=== PATIENT | male | born 1960 | race African-American/Black ===

== ENCOUNTER 2019-02-07 11:37 | Inpatient (IN) | payer OTHER, SELFPAY ==
[2019-02-07 13:22] LABS: #Basophils 0.1 thou/uL (0.0-0.2); #Eosinphils 0.3 thou/uL (0.0-0.7); #Lymphocytes 1.8 thou/uL (1.20-3.40); #Monocytes 0.6 thou/uL (0.11-0.59); #Neutrophils 3.8 thou/uL (1.40-6.50); %Eosinophils 4.2 % (0.0-10.0); %Lymphocytes 26.8 % (21.0-51.0); %Monocytes 9.7 % (0.0-10.0); %Neutrophils 58.4 % (42.0-75.0); Hemoglobin 11.1 g/dL (14.0-18.0); Mean Corpuscular Hemoglobin 25.7 pg (27.0-31.0); Mean Corpuscular Volume 82.8 fL (78.0-98.0); Mean Platelet Volume 7.7 fL (7.4-10.4); Platelet Count 271 thou/uL (130-400); RBC Distribution Width 13.9 % (11.5-14.5); Red Blood Cell (RBC) Count 4.31 mill/uL (4.70-6.10); White Blood Cell (WBC) Count 6.5 thou/uL (4.8-10.8)
--- NOTE | 2019-02-07 13:39 | RAD ---
LEFT ANKLE 3 VIEWS: HISTORY: Gangrenous left ankle bone, failed oral antibiotics. FINDINGS: Comparison is made with the exam of 01/14/2019. The ankle mortise is maintained. The well-corticated ossific density adjacent to the medial malleolu s is again seen. Mild degenerative changes in the ankle joint are redemonstrated. No acute fracture or dislocation or bony destruction is seen. Vascular calcifications are noted. There is soft tissu e swelling. There is soft tissue air in the medial aspect of the ankle. Findings are suspicious for soft tissue infection. If there is high clinical suspicion for osteomyelitis, further evaluation with MRI would be helpful. POS: OFF
[2019-02-07 13:54] LABS: ALT (SGPT) 26 U/L (8-55); AST (SGOT) 25 U/L (5-34); Albumin 3.3 g/dL (3.5-5.0); Alkaline Phosphatase 172 U/L (40-110); Anion Gap 15 mmol/L (10-20); BUN (Urea Nitrogen) 28 mg/dL (8.4-25.7); Bilirubin, Total 0.5 mg/dL (0.2-1.2); Calc. Creatinine Clearance 0 mL/min (70-130); Calcium 9.3 mg/dL (7.8-10.44); Carbon Dioxide 27 mmol/L (22-29); Chloride 97 mmol/L (98-107); Estimated GFR-MDRD 38; Globulin 4.9 g/dL (2.4-3.5); Glucose 134 mg/dL (70-105); Potassium 4.5 mmol/L (3.5-5.1); Protein, Total 8.2 g/dL (6.0-8.3); Sodium 134 mmol/L (136-145)
[2019-02-07] MEDS ORDERED: Piperacillin/Tazobactam 4.5 GM VIAL ONE ×2 (15:00→15:01)
[2019-02-07] MEDS ORDERED: Vancomycin HCl 500 MG VIAL ONE (16:03)
[2019-02-07] MEDS ORDERED: Triple Antibiotic Oint 1 GM Packet ONE (16:21)
[2019-02-07] MEDS ORDERED: Ondansetron ODT 4 MG TAB PO PRN (19:05)
[2019-02-07] MEDS ORDERED: Acetaminophen 650 MG Suppository PR PRN (19:05)
[2019-02-07] MEDS ORDERED: Acetaminophen 325 MG TAB PO PRN (19:05)
[2019-02-07] MEDS ORDERED: Dextrose 50% Abboject 50 ML SYRINGE SLOW IVP PRN (19:09)
[2019-02-07] MEDS ORDERED: Dextrose 5% in Water 1,000 ML IV PRN (19:09)
--- NOTE | 2019-02-07 19:21 | PDOC.HHP ---
Hospitalist HPI - History of Present Illness left ankle infection History of Present Illness: Mr. Silvestre states he has been feeling unwell with chills and feeling feverish for the last two days despite being seen at [facility] and placed on abx for an infection involving the left foot. He states he first noticed the wound 4 weeks ago. Since being on antibiotics the wound has become larger and he has purulent drainage. Patient states he has not had issues with wound/skin infections in the past. Denies any trauma to the inside of his left ankle which is where the wound is. Patient states he has mobility problems and can get around with a cane but feels he could use more support by using a walker. ED Course: Labs were done showing a WCC of 6.5, Neutrophils 58.4% Lactic acid 1.7. Platelets 271. Hgb 11.1. Na+ 133. K+ 5.4. Renal function off from baseline. BUN 28, Creat 2.17, GFR 38. Left ankle xray showed soft tissue swelling and air in the medial aspect of the ankle. Findings suspicious for soft tissue infection. Patient started on Vanc and Zosyn. Consultation was placed to Dr. Moreno, General Surgery. Hospitalist ROS - Review of Systems Constitutional: reports: malaise. denies: fever, chills, sweats, weakness, other Eyes: denies: pain, vision change, conjunctivae inflammation, eyelid inflammation, redness, other ENT: denies: ear pain, ear discharge, nose pain, nose discharge, nose congestion , mouth pain, mouth swelling, throat pain, throat swelling, other Respiratory: denies: cough, dry, shortness of breath, hemoptysis, SOB with excertion, pleuritic pain, sputum, wheezing, other Cardiovascular: denies: chest pain, palpitations, orthopnea, paroxysmal noc. dyspnea, edema, light headedness, other Gastrointestinal: reports: nausea (reports having an episode of dry heaving today.). denies: vomiting, abdominal pain, diarrhea, constipation, melena, hematochezia, other Genitourinary: denies: dysuria, frequency, incontinence, hematuria, retention, other Musculoskeletal: denies: neck pain, shoulder pain, arm pain, back pain, hand pain, leg pain, foot pain, other Skin: denies: rash, lesions, michael, bruising, other Neurological: denies: weakness, numbness, incoordination, change in speech, confusion, seizures, other Hospitalist History - Past Medical History Source: patient Cardiac: reports: CHF, HTN, Hyperlipidemia Endocrine: reports: Diabetes - Family History Family History: reports: cancer, cardiac disorder, cerebrovascular accident, diabetes mellitus, hypertension Other Family History: Seizures - Social History Tobacco Type: chewing tobacco Alcohol: reports: None Drugs: reports: none Living Situation: With Family Activity level: uses cane/walker - Exam General Appearance: NAD, awake alert Eye: PERRL, anicteric sclera ENT: normocephalic atraumatic, no oropharyngeal lesions, dry oral mucosa Neck: supple, symmetric, no lymphadenopathy Heart: RRR, no murmur, no gallops Respiratory: CTAB, no wheezes, no rales, no ronchi, normal chest expansion, no tachypnea Gastrointestinal: soft, non-tender, non-distended, no palpable masses Gastrointestinal - other findings: obese Extremities: no edema Extremities - other findings: significant scaly appearance to both lower legs, cracking of skin on soles Skin - other findings: unable to assess foot wound, dressings to remain intact per Dr. Moreno Neurological: cranial nerve grossly intact Musculoskeletal: normal tone, normal strength, no muscle wasting Psychiatric: normal affect, normal behavior, A&O x 3 Hospitalist Results - Labs Result Diagrams: 02/07/19 13:09 02/07/19 13:09 Lab results: WBC 6.5 thou/uL (4.8-10.8) 02/07/19 13:09 Hgb 11.1 g/dL (14.0-18.0) L 02/07/19 13:09 Hct 35.7 % (42.0-52.0) L 02/07/19 13:09 MCV 82.8 fL (78.0-98.0) 02/07/19 13:09 Plt Count 271 thou/uL (130-400) 02/07/19 13:09 Neutrophils % 58.4 % (42.0-75.0) 02/07/19 13:09 Sodium 134 mmol/L (136-145) L 02/07/19 13:09 Potassium 4.5 mmol/L (3.5-5.1) 02/07/19 13:09 Chloride 97 mmol/L (98-107) L 02/07/19 13:09 Carbon Dioxide 27 mmol/L (22-29) 02/07/19 13:09 BUN 28 mg/dL (8.4-25.7) H 02/07/19 13:09 Creatinine 2.17 mg/dL (0.7-1.3) H 02/07/19 13:09 Glucose 134 mg/dL (70-105) H 02/07/19 13:09 Lactic Acid 1.7 mmol/L (0.5-2.2) 02/07/19 13:09 Calcium 9.3 mg/dL (7.8-10.44) 02/07/19 13:09 Total Bilirubin 0.5 mg/dL (0.2-1.2) 02/07/19 13:09 AST 25 U/L (5-34) 02/07/19 13:09 ALT 26 U/L (8-55) 02/07/19 13:09 Alkaline Phosphatase 172 U/L (40-110) H 02/07/19 13:09 Serum Total Protein 8.2 g/dL (6.0-8.3) 02/07/19 13:09 Albumin 3.3 g/dL (3.5-5.0) L 02/07/19 13:09 Hospitalist H&P A/P - Problem (1) Wound of left ankle Code(s): S91.002A - UNSPECIFIED OPEN WOUND, LEFT ANKLE, INITIAL ENCOUNTER Status: Acute (2) Acute on chronic renal insufficiency Code(s): N28.9 - DISORDER OF KIDNEY AND URETER, UNSPECIFIED; N18.9 - CHRONIC KIDNEY DISEASE, UNSPECIFIED Status: Acute (3) Diabetes mellitus Code(s): E11.9 - TYPE 2 DIABETES MELLITUS WITHOUT COMPLICATIONS Status: Chronic (4) CHF (congestive heart failure) Code(s): I50.9 - HEART FAILURE, UNSPECIFIED Status: Chronic (5) Hyperlipidemia Code(s): E78.5 - HYPERLIPIDEMIA, UNSPECIFIED Status: Chronic (6) Hypertension Code(s): I10 - ESSENTIAL (PRIMARY) HYPERTENSION Status: Chronic - Plan Plan: Continue IV Abx. Pharmacy to assist with renal dosing. Dr. Moreno already consulted. Wound care consult. PT/OT. Monitor BP and glucose. Isulin sliding scale. Resume home meds once verified. Gentle hydration. Repeat labs in the am, including BNP. CODE STATUS: FULL Surrogate decision maker is his : Sravani Silvestre.
[2019-02-07] MEDS: Cefepime 2 GM in Sodium Chloride 0.9% 100 ML IVPB SCH (20:31)
[2019-02-07] MEDS: Sodium Chloride 0.9% 1,000 ML IV SCH (20:31)
[2019-02-08 05:58] LABS: #Basophils 0.1 thou/uL (0.0-0.2); #Eosinphils 0.4 thou/uL (0.0-0.7); #Lymphocytes 1.8 thou/uL (1.20-3.40); #Monocytes 0.9 thou/uL (0.11-0.59); #Neutrophils 3.2 thou/uL (1.40-6.50); %Basophils 0.9 % (0.0-1.0); %Lymphocytes 29.1 % (21.0-51.0); %Monocytes 13.9 % (0.0-10.0); %Neutrophils 50.1 % (42.0-75.0); Hemoglobin 9.3 g/dL (14.0-18.0); Mean Corpuscular HGB CONC 28.6 g/dL (32.0-36.0); Mean Corpuscular Hemoglobin 23.6 pg (27.0-31.0); Mean Corpuscular Volume 82.3 fL (78.0-98.0); Mean Platelet Volume 7.8 fL (7.4-10.4); Platelet Count 268 thou/uL (130-400); Red Blood Cell (RBC) Count 3.96 mill/uL (4.70-6.10); White Blood Cell (WBC) Count 6.3 thou/uL (4.8-10.8)
[2019-02-08 06:18] LABS: Anion Gap 10 mmol/L (10-20); BUN (Urea Nitrogen) 27 mg/dL (8.4-25.7); Calc. Creatinine Clearance 75 mL/min (70-130); Calcium 8.6 mg/dL (7.8-10.44); Carbon Dioxide 31 mmol/L (22-29); Chloride 98 mmol/L (98-107); Estimated GFR-MDRD 42; Glucose 137 mg/dL (70-105); Sodium 135 mmol/L (136-145)
[2019-02-08] MEDS: Famotidine/PF 20 mg/2ml Vial SLOW IVP SCH (08:27)
[2019-02-08] MEDS: Cefepime 2 GM in Sodium Chloride 0.9% 100 ML IVPB SCH ×2 (08:28→20:49)
[2019-02-08] MEDS: Sodium Chloride 0.9% 1,000 ML IV SCH (08:35)
--- NOTE | 2019-02-08 09:13 | PDOC.HOSPP ---
- Subjective Encounter Date: 02/08/19 Encounter Time: 14:00 Subjective: Patient with mild pain on and off from foot ulcer. Had debridement by Dr. Moreno. Plan to reassess later this week. No fever, no chills. - Objective Vital Signs & Weight: Vital Signs (12 hours) Temp Pulse Resp BP Pulse Ox 02/08/19 08:05 99.0 F 82 18 148/96 H 95 02/08/19 03:00 97.8 F 91 18 139/91 H 97 02/07/19 23:05 99.5 F 84 18 144/93 H 94 L Weight Weight 282 lb 11.2 oz I&O: 02/07/19 02/08/19 02/09/19 06:59 06:59 06:59 Intake Total 1050 Output Total 700 Balance 350 Result Diagrams: 02/08/19 05:24 02/08/19 05:24 Additional Labs: Accuchecks 02/08/19 02/07/19 04:06 20:48 POC Glucose 144 H 122 H Hospitalist ROS - Review of Systems Constitutional: denies: fever, chills Respiratory: denies: cough, shortness of breath Cardiovascular: denies: chest pain, palpitations, orthopnea Gastrointestinal: denies: nausea, vomiting, abdominal pain Musculoskeletal: reports: foot pain Skin: reports: lesions - Medication Medications: Active Medications Generic Name Dose Route Start Last Admin Trade Name Freq PRN Reason Stop Dose Admin Famotidine 20 mg 02/08/19 09:00 02/08/19 08:27 Pepcid SLOW IVP 20 mg DAILY PANCHO Administration Cefepime HCl 2 gm/ Sodium 100 mls @ 200 mls/hr 02/07/19 21:00 02/08/19 08:28 Chloride IVPB 100 mls Q12HR PANCHO Administration Sodium Chloride 1,000 mls @ 75 mls/hr 02/07/19 19:15 02/08/19 08:35 Normal Saline 0.9% IV 1,000 mls .[id number] PANCHO Administration - Exam General Appearance: NAD, awake alert Eye: anicteric sclera ENT: moist mucosa Heart: RRR, no murmur, no gallops, no rubs Respiratory: CTAB, no wheezes, no rales, no ronchi Gastrointestinal: soft, non-tender, non-distended, normal bowel sounds Extremities - other findings: left foot with dressing c/d/i Psychiatric: normal affect, normal behavior, A&O x 3 Hosp A/P (1) Wound of left ankle Code(s): S91.002A - UNSPECIFIED OPEN WOUND, LEFT ANKLE, INITIAL ENCOUNTER Status: Acute (2) Acute on chronic renal insufficiency Code(s): N28.9 - DISORDER OF KIDNEY AND URETER, UNSPECIFIED; N18.9 - CHRONIC KIDNEY DISEASE, UNSPECIFIED Status: Acute (3) CHF (congestive heart failure) Code(s): I50.9 - HEART FAILURE, UNSPECIFIED Status: Chronic (4) Diabetes mellitus Code(s): E11.9 - TYPE 2 DIABETES MELLITUS WITHOUT COMPLICATIONS Status: Chronic (5) Hyperlipidemia Code(s): E78.5 - HYPERLIPIDEMIA, UNSPECIFIED Status: Chronic (6) Hypertension Code(s): I10 - ESSENTIAL (PRIMARY) HYPERTENSION Status: Chronic - Plan On Cefepime and Vanc since 02/07/2019 Wound care PT/OT Surgical consult- Dr. Moreno IV fluids, creatinine improving some Will restart Levemir at half dose, resume all other home meds
--- NOTE | 2019-02-08 11:04 | CON ---
DATE OF CONSULTATION: HISTORY OF PRESENT ILLNESS: Brian Silvestre is a 58-year-old black male, insulin-dependent diabetic, who developed a left medial proximal foot wound and was referred by [facility] to a developmental education instructor to send him to the emergency room. He was evaluated by . The patient was recently hospitalized earlier this month, seen by Dr. Parson and Dr. Quinones. Dr. Parson felt that he had vascular insufficiency, probably venous, may be arterial and Dr. Quinones was consulted and saw him on 01/19/2019. The patient is noted at that time that he basically is mobile, using his sleeves and his socks and showers twice a week. Hygiene was poor. He sleeps in a recliner. Hemoglobin A1c was [address] Quinones's assessment was that he had a biphasic posterior tibial right and a foul-smelling wound with an eschar medially. He did have a left dorsalis pedis pulse with biphasic Doppler signals and it is felt that he at that time probably had tibioperoneal disease, morbid obesity, and he was suggested wound care. With a slightly elevated creatinine of 1.5, CT angio was not pursued. It was recognized at that time, he may end up requiring an amputation. In this occasion, his white count is 6, hemoglobin 11. BUN 28, creatinine 2.17. X-rays of his left ankle did not reveal any obvious evidence of osteomyelitis. I have been asked to see him regarding this wound foul-smelling with necrotic gangrenous tissue. ALLERGIES: NONE. SOCIAL HISTORY: . Alcohol, none. MEDICATIONS: At home; 1. Lisinopril 10 mg b.i.d. 2. Insulin NPH 10 units subcu b.i.d. with meals. 3. Furosemide 40 mg a.c. 4. Keflex 250 q.i.d. 5. Coreg 12.5 b.i.d. 6. Lipitor 40 at bedtime. 7. Aspirin 81 mg a day. 8. Amlodipine 5 mg a day. PAST MEDICAL HISTORY: Includes congestive heart failure, hyperlipidemia, high cholesterol, obesity, diabetes mellitus type 2. PAST SURGICAL HISTORY: Noncontributory. He chews tobacco. Denies drug use. PHYSICAL EXAMINATION: VITAL SIGNS: blood pressure 98/61, 98.5 degrees. HEAD, EARS, EYES, NOSE, AND THROAT: Unremarkable. LUNGS: Clear to auscultation. CARDIAC: Regular rate and rhythm without murmur or gallop. ABDOMEN: Soft, plus bowel sounds. EXTREMITIES: Nonpalpable pedal pulses. Ankle wound, right, well healed. Left medial ankle wound, 8 x 4 cm wound with foul-smelling necrotic gangrenous tissue. DIAGNOSTIC STUDIES: Echocardiogram, 01/15/2019, EF of 60% to 65%. Normal RA size. No significant valvular disease. ASSESSMENT AND PLAN: 1. Foul-smelling necrotic wound, left medial ankle. Plan, bedside debridement. He understands risks and benefits. was able to debride this down to healthy tissue. There was skin, subcutaneous tissue, connective tissue debrided sharply. Wound VAC will be ordered. Wound care team consult and will follow this clinically. He will need intravenous antibiotics, probably vancomycin and cefepime. 2. Chronic kidney disease. 3. Congestive heart failure, probably diastolic dysfunction. 4. Diabetes mellitus. 5. Morbid obesity. 6. Poor mobility. Job ID: [id number]
--- NOTE | 2019-02-08 13:56 | CON ---
DATE OF CONSULTATION: 02/08/2019 CONSULTING PHYSICIAN: Dr. Moreno. REASON FOR CONSULTATION: Acute kidney injury on chronic kidney disease. REASON FOR ADMISSION: Left ankle pain and infection. HISTORY OF PRESENT ILLNESS: A 58-year-old male with history of CHF, hypertension, hyperlipidemia, diabetes, came to the hospital with above complaints and was found to have elevated creatinine. Nephrology is consulted. The patient denies any chest pain or palpitation. No fever or chills. PAST MEDICAL HISTORY: Positive for type 2 diabetes, hypertension, hyperlipidemia, CHF, CKD. PAST SURGICAL HISTORY: Denies. HOME MEDICATIONS: Reviewed. ALLERGIES: NO KNOWN DRUG ALLERGIES. SOCIAL HISTORY: No smoking, alcohol, or illicit drugs. FAMILY HISTORY: No history of kidney disease. REVIEW OF SYSTEMS: CONSTITUTIONAL: Negative for weight loss or gain, ability to conduct usual activities. SKIN: Negative for rash, itching. EYES: Negative for double vision, pain. ENT/MOUTH: Negative for nose bleeding, neck stiffness, pain, tenderness. CARDIOVASCULAR: Negative for palpitations, dyspnea on exertion, orthopnea. RESPIRATORY: Negative for shortness of breath, wheezing, cough, hemoptysis, fever or night sweats. GASTROINTESTINAL: Negative for poor appetite, abdominal pain, heartburn, nausea, vomiting, constipation, or diarrhea. GENITOURINARY: Negative for urgency, frequency, dysuria, nocturia. MUSCULOSKELETAL: Negative for pain, swelling. NEUROLOGIC/PSYCHIATRIC: Negative for anxiety, depression. ALLERGY/IMMUNOLOGIC: Negative for skin rash, bleeding tendency. Rest all negative review of systems. PHYSICAL EXAMINATION: GENERAL: Reveals an obese male, in no apparent distress. VITAL SIGNS: Temperature 98.0, pulse 85, respiratory rate 20, blood pressure 150/105. HEENT: Atraumatic and normocephalic. Oral mucosa moist. NECK: Supple. CV: S1 and S2. Rate and rhythm regular. RESPIRATORY: Clear. GASTROINTESTINAL: Abdomen is soft. MUSCULOSKELETAL: 1+ edema. DERMATOLOGIC: No skin rash. NEUROLOGICAL: Alert and awake. PSYCHIATRIC: Mood and affect are normal. LABORATORY DATA: Hemoglobin is 9.3. Potassium 4.0, BUN is 27, and creatinine is 1.9. ASSESSMENT AND PLAN: 1. Acute kidney injury on chronic kidney disease stage 3. Renal function is slightly better. 2. Hyponatremia. 3. Hypochloremia. 4. Hypoalbuminemia. 5. History of diabetes. 6. History of hypertension. 7. Chronic anemia. Avoid nephrotoxins. We will continue to follow. Thank you for the consult. Job ID: [id number]
--- NOTE | 2019-02-08 15:03 | PRG ---
DATE OF SERVICE: 02/08/2019 Mr. Silvestre is doing well today. Wound Care did not place a wound VAC on his foot because of foul smell. Plan is to keep him n.p.o. until I view the wound in the morning and he possibly may need debridement of his wound. We will schedule him of that. White count 6, hemoglobin 9.3, BUN 27, and creatinine 1.98. We will keep him n.p.o. in case he needs surgical debridement tomorrow. We will keep him n.p.o. until I evaluate his wound. Job ID: [id number]
[2019-02-08] MEDS: Atorvastatin Calcium 40 MG TAB PO SCH (20:47)
[2019-02-08] MEDS: Carvedilol 6.25 MG TAB PO SCH (20:48)
[2019-02-08] MEDS: Lisinopril 10 MG TAB PO SCH (20:49)
[2019-02-09] MEDS: Sodium Chloride 0.9% 1,000 ML IV SCH ×3 (00:50→22:10)
[2019-02-09] MEDS: Carvedilol 6.25 MG TAB PO SCH ×2 (05:47→21:07)
[2019-02-09] MEDS: Famotidine/PF 20 mg/2ml Vial SLOW IVP SCH (08:29)
[2019-02-09] MEDS: Cefepime 2 GM in Sodium Chloride 0.9% 100 ML IVPB SCH ×2 (08:30→21:07)
[2019-02-09] MEDS: Insulin Glargine 20 UNITS in Pre-Filled Syringe 1 EACH SC SCH (08:34)
--- NOTE | 2019-02-09 08:50 | PDOC.HOSPP ---
- Subjective Encounter Date: 02/09/19 Encounter Time: 13:00 Subjective: Patient without events overnight. Plan for further surgical debridement later this afternoon. - Objective Vital Signs & Weight: Vital Signs (12 hours) Temp Pulse Resp BP BP Pulse Ox 02/09/19 06:55 98.1 F 81 18 159/99 H 93 L 02/09/19 05:47 167/104 H 02/09/19 05:12 98.7 F 87 18 182/117 H 97 02/09/19 00:48 98.0 F 89 17 161/84 H 96 Weight Admit Weight 282 lb 11.2 oz Weight 282 lb 11.2 oz I&O: 02/08/19 02/09/19 02/10/19 06:59 06:59 06:59 Intake Total 1050 1400 Output Total 700 1800 Balance 350 -400 Result Diagrams: 02/08/19 05:24 02/08/19 05:24 Additional Labs: Accuchecks 02/09/19 02/08/19 02/08/19 05:10 16:57 11:36 POC Glucose 183 H 148 H 163 H Hospitalist ROS - Review of Systems Constitutional: denies: fever, chills Respiratory: denies: cough, shortness of breath Cardiovascular: denies: chest pain, palpitations, orthopnea Gastrointestinal: denies: nausea, vomiting, abdominal pain Musculoskeletal: reports: foot pain - Medication Medications: Active Medications Generic Name Dose Route Start Last Admin Trade Name Freq PRN Reason Stop Dose Admin Atorvastatin Calcium 40 mg 02/08/19 21:00 02/08/19 20:47 Lipitor PO 40 mg HS PANCHO Administration Carvedilol 12.5 mg 02/08/19 21:00 02/09/19 05:47 Coreg PO 12.5 mg BID PANCHO Administration Famotidine 20 mg 02/08/19 09:00 02/09/19 08:29 Pepcid SLOW IVP 20 mg DAILY PANCHO Administration Cefepime HCl 2 gm/ Sodium 100 mls @ 200 mls/hr 02/07/19 21:00 02/09/19 08:30 Chloride IVPB 100 mls Q12HR PANCHO Administration Vancomycin HCl 2 gm/ Sodium 500 mls @ 250 mls/hr 02/08/19 15:00 02/08/19 14: 58 Chloride IVPB 500 mls 1500 PANCHO Administration Sodium Chloride 1,000 mls @ 75 mls/hr 02/07/19 19:15 02/09/19 00:50 Normal Saline 0.9% IV Not Given .[id number] [facility] Insulin Glargine 20 units/ 0.2 mls @ 0 mls/hr 02/09/19 09:00 02/09/19 08:34 Miscellaneous Medication SC Not Given QAM [facility] Lisinopril 10 mg 02/08/19 21:00 02/08/19 20:49 Zestril PO 10 mg BID PANCHO Administration - Exam General Appearance: NAD, awake alert Heart: RRR, no murmur, no gallops, no rubs Respiratory: CTAB, no wheezes, no rales, no ronchi Gastrointestinal: soft, non-tender, non-distended Extremities - other findings: left foot with dressing c/d/i Hosp A/P (1) Wound of left ankle Code(s): S91.002A - UNSPECIFIED OPEN WOUND, LEFT ANKLE, INITIAL ENCOUNTER Status: Acute (2) Acute on chronic renal insufficiency Code(s): N28.9 - DISORDER OF KIDNEY AND URETER, UNSPECIFIED; N18.9 - CHRONIC KIDNEY DISEASE, UNSPECIFIED Status: Acute (3) CHF (congestive heart failure) Code(s): I50.9 - HEART FAILURE, UNSPECIFIED Status: Chronic (4) Diabetes mellitus Code(s): E11.9 - TYPE 2 DIABETES MELLITUS WITHOUT COMPLICATIONS Status: Chronic (5) Hyperlipidemia Code(s): E78.5 - HYPERLIPIDEMIA, UNSPECIFIED Status: Chronic (6) Hypertension Code(s): I10 - ESSENTIAL (PRIMARY) HYPERTENSION Status: Chronic - Plan On Cefepime and Vanc since 02/07/2019 Wound care PT/OT Surgical consult- Dr. Moreno IV fluids, creatinine improving some, but BP elevating, prn BP meds, Dr. Flower following kidney function Levemir at half dose, resume all other home meds, blood sugars decently controlled no Lovenox due to renal insufficiency, no heparin for DVT proph due to need for surgical debridement
[2019-02-09] MEDS: Amlodipine 5 MG TAB PO SCH (10:23)
[2019-02-09] MEDS: Lisinopril 10 MG TAB PO SCH ×2 (10:23→21:07)
[2019-02-09] MEDS ORDERED: Lidocaine 1% PF 5 ML VIAL ONE (11:04)
[2019-02-09] MEDS ORDERED: PROPOFOL 200 MG/20 ML VIAL ONE (11:04)
[2019-02-09] MEDS ORDERED: Ondansetron PF 4 MG/2 ML Vial ONE (11:04)
[2019-02-09] MEDS ORDERED: Labetalol HCl 100 MG/20 ML VIAL SLOW IVP PRN (12:29)
[2019-02-09] MEDS ORDERED: hydrALAZINE 20 MG/ML VIAL SLOW IVP PRN (12:30)
--- NOTE | 2019-02-09 13:53 | PRG ---
DATE OF SERVICE: 02/09/2019 SUBJECTIVE: Patient was seen and examined at bedside and overnight events noted. Patient denies any shortness of breath or chest pain or palpitation. No history of nausea or vomiting or diarrhea or fever or chills or cramps. OBJECTIVE: GENERAL: This is a well-built male, in no apparent distress. VITAL SIGNS: Temperature 98.4, heart rate 80, respiratory rate 18, and blood pressure 173/117. HEENT: Atraumatic, normocephalic. Oral mucosa is moist NECK: Supple. CARDIOVASCULAR: S1, S2 heard. Rate and rhythm regular. RESPIRATORY: Clear to auscultation. GASTROINTESTINAL: Abdomen is soft. MUSCULOSKELETAL: No tenderness. No edema. DERMATOLOGIC: No skin rash. NEUROLOGIC: Alert and awake and oriented X3. No focal neurologic deficits. Moving all the extremities. PSYCHIATRIC: Mood and affect normal. LABORATORY DATA: Potassium 4.0, BUN is 27, and creatinine is 1.9. No labs done today. ASSESSMENT AND PLAN: 1. Acute kidney injury on chronic kidney disease stage 3. Repeat labs. 2. Edema, controlled. 3. History of hypertension. We will reduce IV fluids and titrate medication. We will start on Procardia. 4. Edema, controlled. 5. Anemia. 6. We will adjust blood pressure medicine and we will follow. Job ID: [id number]
[2019-02-09 14:55] LABS: Vancomycin, Trough 12.5 ug/mL
[2019-02-09] MEDS ORDERED: Fentanyl 100 MCG/2 ML VIAL ONE (16:06)
[2019-02-09] MEDS ORDERED: Ketamine 50 MG/ML (10ML VIAL) ONE (16:06)
[2019-02-09] MEDS ORDERED: traMADol HCl 50 MG TAB PO PRN (16:27)
[2019-02-09] MEDS ORDERED: Sodium Chloride 0.9% 20 ML ONE (16:55)
[2019-02-09] MEDS ORDERED: ePHEDrine/0.9% NaCl/PF SYRINGE 50 mg/10 ml ONE (17:19)
--- NOTE | 2019-02-09 17:38 | RAD ---
EXAM: XR Chest 1 View Portable PROVIDED CLINICAL HISTORY: Diabetic ulcer COMPARISON: 01/14/2019 FINDINGS: Evaluation is limited by patient body habitus. Cardiac silhouette remains enlarged. The lungs are hyp oinflated with probable bibasilar subsegmental atelectatic change. Left subclavian central line is now present, tip of which terminates the expected location of SVC. No pleural fluid or pneumothorax e vident. IMPRESSION: Placement of central line without evident complication.
--- NOTE | 2019-02-09 17:58 | OP ---
DATE OF PROCEDURE: 02/07/2019 PREOPERATIVE DIAGNOSIS: Left medial ankle wound, 8 x 4 cm. PROCEDURES PERFORMED: Sharp resectional excisional debridement, 10 blade, bedside, excision of skin, subcutaneous tissue, muscle, tendon, and fascia leaving a wound 8 x 4 cm. Necrotic tissue debrided. Wound extensive. ANESTHESIA: None. DESCRIPTION OF PROCEDURE: With the patient at bedside, left medial foot and ankle wound had necrotic eschar, subcutaneous tissue, tendon, muscle, and fascia. This was debrided sharply back to viable edges until the patient experienced some discomfort and then procedure discontinued. There was some persistent necrotic tissue superiorly, medially, and laterally, but overall, there was some granulation tissue. Gauze dressing was applied. PLAN: Plan is to view this wound in the next 24 to 48 hours, and he may need operative debridement as he would not tolerate further debridement at the bedside. Job ID: [id number]
[2019-02-09] MEDS: Atorvastatin Calcium 40 MG TAB PO SCH (21:07)
[2019-02-09] MEDS: HumaLOG 300 UNITS/3 ML VIAL SC PRN (22:04)
[2019-02-10 04:50] LABS: #Eosinphils 0.6 thou/uL (0.0-0.7); #Lymphocytes 1.5 thou/uL (1.20-3.40); #Monocytes 0.5 thou/uL (0.11-0.59); #Neutrophils 2.9 thou/uL (1.40-6.50); %Basophils 0.4 % (0.0-1.0); %Eosinophils 10.9 % (0.0-10.0); %Lymphocytes 26.7 % (21.0-51.0); Hemoglobin 9.1 g/dL (14.0-18.0); Mean Corpuscular HGB CONC 31.3 g/dL (32.0-36.0); Mean Corpuscular Hemoglobin 25.4 pg (27.0-31.0); Mean Corpuscular Volume 81.1 fL (78.0-98.0); Mean Platelet Volume 7.9 fL (7.4-10.4); Platelet Count 227 thou/uL (130-400); RBC Distribution Width 13.8 % (11.5-14.5); Red Blood Cell (RBC) Count 3.59 mill/uL (4.70-6.10); White Blood Cell (WBC) Count 5.5 thou/uL (4.8-10.8)
[2019-02-10 05:10] LABS: Anion Gap 13 mmol/L (10-20); BUN (Urea Nitrogen) 16 mg/dL (8.4-25.7); Calc. Creatinine Clearance 115 mL/min (70-130); Calcium 8.6 mg/dL (7.8-10.44); Carbon Dioxide 25 mmol/L (22-29); Chloride 104 mmol/L (98-107); Estimated GFR-MDRD 70; Glucose 116 mg/dL (70-105); Potassium 3.9 mmol/L (3.5-5.1); Sodium 138 mmol/L (136-145)
--- NOTE | 2019-02-10 08:57 | PDOC.HOSPP ---
- Subjective Encounter Date: 02/10/19 Encounter Time: 12:00 Subjective: Patient with wound vac in place. No fever. No complaints. - Objective Vital Signs & Weight: Vital Signs (12 hours) Temp Pulse Resp BP BP Pulse Ox 02/09/19 23:00 157/97 H 02/09/19 21:07 157/97 H 02/09/19 20:59 97.6 F 75 18 157/97 H 94 L Weight Admit Weight 282 lb 11.2 oz Weight 282 lb 11.2 oz I&O: 02/09/19 02/10/19 02/11/19 06:59 06:59 06:59 Intake Total 1400 Output Total 1800 Balance -400 Result Diagrams: 02/10/19 04:36 02/10/19 04:36 Additional Labs: Accuchecks 02/10/19 02/09/19 02/09/19 04:38 21:02 18:29 POC Glucose 120 H 227 H 113 H 02/09/19 02/09/19 15:27 11:38 POC Glucose 119 H 149 H Hospitalist ROS - Review of Systems Constitutional: denies: fever, chills Respiratory: denies: cough, shortness of breath Cardiovascular: denies: chest pain, palpitations, orthopnea Gastrointestinal: denies: nausea, vomiting, abdominal pain Skin: reports: lesions - Medication Medications: Active Medications Generic Name Dose Route Start Last Admin Trade Name Freq PRN Reason Stop Dose Admin Amlodipine Besylate 5 mg 02/09/19 09:00 02/09/19 10:23 Norvasc PO 5 mg DAILY PANCHO Administration Atorvastatin Calcium 40 mg 02/08/19 21:00 02/09/19 21:07 Lipitor PO 40 mg HS PANCHO Administration Carvedilol 12.5 mg 02/08/19 21:00 02/09/19 21:07 Coreg PO 12.5 mg BID PANCHO Administration Famotidine 20 mg 02/08/19 09:00 02/09/19 08:29 Pepcid SLOW IVP 20 mg DAILY PANCHO Administration Cefepime HCl 2 gm/ Sodium 100 mls @ 200 mls/hr 02/07/19 21:00 02/09/19 21:07 Chloride IVPB 100 mls Q12HR PANCHO Administration Vancomycin HCl 2 gm/ Sodium 500 mls @ 250 mls/hr 02/08/19 15:00 02/09/19 17: 04 Chloride IVPB Not Given 1500 PANCHO Insulin Glargine 20 units/ 0.2 mls @ 0 mls/hr 02/09/19 09:00 02/09/19 08:34 Miscellaneous Medication SC Not Given QAM [facility] Sodium Chloride 1,000 mls @ 40 mls/hr 02/09/19 13:27 02/09/19 17:03 Normal Saline 0.9% IV Not Given .Q24H PANCHO Insulin Human Lispro 0 units 02/07/19 19:09 02/09/19 22:04 Humalog SC 2 unit .BEDTIME SLIDING SC PRN Administration Bedtime Correctional Scale Lisinopril 10 mg 02/08/19 21:00 02/09/19 21:07 Zestril PO 10 mg BID PANCHO Administration - Exam General Appearance: NAD, awake alert Eye: anicteric sclera ENT: moist mucosa Heart: RRR, no murmur, no gallops, no rubs Respiratory: CTAB, no wheezes, no rales, no ronchi Gastrointestinal: soft, non-tender, non-distended, normal bowel sounds Psychiatric: normal affect, normal behavior, A&O x 3 Hosp A/P (1) Osteomyelitis of ankle Code(s): M86.9 - OSTEOMYELITIS, UNSPECIFIED Status: Acute (2) Acute on chronic renal insufficiency Code(s): N28.9 - DISORDER OF KIDNEY AND URETER, UNSPECIFIED; N18.9 - CHRONIC KIDNEY DISEASE, UNSPECIFIED Status: Acute (3) CHF (congestive heart failure) Code(s): I50.9 - HEART FAILURE, UNSPECIFIED Status: Chronic (4) Diabetes mellitus Code(s): E11.9 - TYPE 2 DIABETES MELLITUS WITHOUT COMPLICATIONS Status: Chronic (5) Hyperlipidemia Code(s): E78.5 - HYPERLIPIDEMIA, UNSPECIFIED Status: Chronic (6) Hypertension Code(s): I10 - ESSENTIAL (PRIMARY) HYPERTENSION Status: Chronic - Plan On Cefepime and Vanc since 02/07/2019 Wound care PT/OT Surgical consult- Dr. Moreno ID- [id number] with abx recs IV fluids, creatinine improving some,Dr. Flower following kidney function BP improving Levemir at half dose, resume all other home meds, blood sugars decently controlled no Lovenox due to renal insufficiency, no heparin for DVT proph due to need for surgical debridement
--- NOTE | 2019-02-10 09:05 | MRI ---
MRI OF THE LEFT HINDFOOT WITH AND WITHOUT CONTRAST: INDICATION: History of gangrenous wound of the left ankle with failure of antibiotic therapy status post surgery on the wound on February 09, 2019. History of diabetes. CONTRAST: 10 cc of MultiHance was utilized for the examination. COMPARISON: Left ankle radiograph dated February 07, 2019. FINDINGS: There is a large wound overlying the medial aspect of the left ankle and left hindfoot. There is comp lete disruption of the tibialis anterior and flexor digitorum longus tendons. The FHL and peroneal tendons remain intact. The achilles tendon and extensor tendons are intact. There is abnormal signal and enhancement involving the posterior medial distal tibia, medial malleolus, posterior medial talar body and medial aspect of the cystic duct ism consistent with changes of osteomyelitis. No la rge residual drainable fluid collection is evident. There is diffuse edema involving the intrinsic foot musculature which may reflect sequelae of denervation or a myositis. Lisfranc ligament is intact . The ATFL, PTFL, and calcaneofibular ligaments are intact. The deltoid is intact. No osteochondral lesion is seen involving the talar dome. IMPRESSION: 1. Large wound involving the medial left ankle and hindfoot with changes of osteomyelitis involving t he posterior medial distal tibial, medial malleolus, posterior medial talar body and medial aspect of the sustentaculum sim. 2. Full-thickness tears of the tibialis anterior and flexor digitorum longus tendons. 3. Diffuse cellulitis. 4. Diffuse increased T2 signal intensity involving intrinsic foot musculature is most suspicious for a diabetic musculopathy. Transcribed Date/Time: 02/10/2019 9:47 AM
[2019-02-10] MEDS: Carvedilol 6.25 MG TAB PO SCH ×2 (09:16→19:53)
[2019-02-10] MEDS: Lisinopril 10 MG TAB PO SCH ×2 (09:17→19:53)
[2019-02-10] MEDS: Amlodipine 5 MG TAB PO SCH (09:17)
[2019-02-10] MEDS: Famotidine/PF 20 mg/2ml Vial SLOW IVP SCH (09:19)
[2019-02-10] MEDS: Insulin Glargine 20 UNITS in Pre-Filled Syringe 1 EACH SC SCH (09:20)
[2019-02-10] MEDS: Cefepime 2 GM in Sodium Chloride 0.9% 100 ML IVPB SCH (09:45)
--- NOTE | 2019-02-10 12:15 | OP ---
DATE OF PROCEDURE: 02/09/2019 PREOPERATIVE DIAGNOSES: Poor mobility; diabetes; chronic kidney disease; hypertension; obesity; left medial necrotizing skin and soft tissue wound, ankle, and foot; and poor IV access. POSTOPERATIVE DIAGNOSES: Poor mobility; diabetes; chronic kidney disease; hypertension; obesity; left medial necrotizing skin and soft tissue wound, ankle, and foot; poor IV access with extension of the medial distal leg and osteomyelitis of the medial malleolus. PROCEDURE PERFORMED: Sharp excisional resection with 10-blade scalpel, debridement of skin, subcutaneous tissue, muscle, connective tissue, tendons, and medial malleolus. Wound left open for healing by secondary intention. Wound is more than 12 cm x 4 cm. Necrotic tissue debrided. Culture submitted, bone and soft tissue. ANESTHESIA: General with LMA. DESCRIPTION OF PROCEDURE: The patient was taken to the operating room where under general anesthesia, the left lower extremity was prepared with Betadine and draped in routine fashion. The patient had a large open wound that tunneled cephalad on evaluation. It tunneled posterior to the medial malleolus cephalad for about 4 cm. I opened this wound sharply, and there was necrotic fascia and tendon that was debrided sharply. There was necrotic skin, subcutaneous tissue debrided sharply. This unroofed, irregular medial malleolus, which was rongeured back to healthy bone. Wound irrigated. Good hemostasis noted. Medial ligaments had been resected as they were necrotic. There was good bleeding. Some granulation tissue was appearing. Gauze dressing applied. Wound left open. Culture submitted from the bone and soft tissue resected. The patient tolerated the procedure well. Overall, prognosis for the patient's left lower extremity is poor due to the extensive connective tissue and ligamentous injury. We will obtain MRI scan, consult Dr. Parson. I have already discussed with the patient and family that he is at risk for left BKA. Left carolina-clavicular area was prepared with ChloraPrep and draped in routine fashion. Seldinger technique was used to place a central line. Triple-lumen catheter placed. J-wire removed. Each catheter was secured with 2 interrupted suture of 3-0 nylon. Each port aspirated. Blood flushed with saline solution. Chest x-ray ordered pending. Job ID: [id number]
[2019-02-10] MEDS: HumaLOG 300 UNITS/3 ML VIAL SC PRN (12:18)
--- NOTE | 2019-02-10 14:29 | CON ---
DATE OF CONSULTATION: REASON FOR CONSULTATION: Lower extremity ulcers with osteomyelitis. HISTORY OF PRESENT ILLNESS: A 58-year-old, whom I had seen recently when he presented with a history of hypertension, type 2 diabetes, chronic swelling of lower extremities, and neuropathy. Initially, he presented to [place] [facility] where he lives with worsening dyspnea. The assessment was hypertension, type 2 diabetes, and likely ischemic cardiomyopathy with CHF. He had lower extremity ulcers, which were chronic and related to likely arterial insufficiency. He did have arterial Dopplers of extremities, which showed below trifurcation disease, possible decreased flow in the more proximal vessels on the left side. He was discharged on January 21, on oral Keflex. They felt that he was not a candidate for any angiogram. He did have evidence of peripheral vascular disease as noted above. Now, he was admitted with progression of the left-sided ankle wound for the past few weeks with worsening drainage and pain. Initial findings with temperature 98.5, respirations 18, pulse 78, and BP 98/60. He had a 7 x 5 x 9 cm wound in the left medial malleolus which had purulent drainage and shallower smaller wounds in the right medial ankle, malleolus. Other findings on admission included sodium of 134, creatinine 2.17 with estimated GFR 38. Liver profile was normal. Alkaline phosphatase 172, albumin 3.3. He had this irregular ulcer in the left medial ankle almost wrapping around the heel area with necrotic tissue at the base. Dr. Moreno performed a surgical debridement, and there was a necrotic eschar, which was resected back to viable edges. There is some persistent necrosis superiorly, medially, and laterally with some granulation tissue. An extremity MRI showed evidence of osteomyelitis of the distal tibia, medial malleolus, posteromedial talar body, and medial aspect the talus as well. There were full-thickness tears of tibialis anterior and flexor digitorum longus tendons. Currently, Mr. Silvestre is awake. He does not have a lot of pain in the lower extremities, which is surprising, more on the lower left side than the right. No headaches, visual symptoms, sore throat, odynophagia, or dysphagia. No cough, sputum production, or chest pain. No abdominal pain or diarrhea. No genitourinary symptoms. No other joint symptoms. No neurological symptoms. PAST MEDICAL HISTORY: Includes CKD, stage 4; ischemic cardiomyopathy with diastolic CHF; type 2 diabetes; chronic ulcers in lower extremities; and peripheral vascular disease. SOCIAL HISTORY: Former smoker. Now, chews tobacco. Does not drink alcoholic beverages. Lives in [place] with family. Disabled. FAMILY HISTORY: Coronary artery disease, CVA, type 2 diabetes, and hypertension. CURRENT MEDICATIONS: 1. Norvasc. 2. Lipitor. 3. Coreg. 4. Cefepime. 5. Hydralazine. 6. Insulin. 7. Normodyne. 8. Zestril. 9. Zofran. 10. Vancomycin. 11. Ultram. PHYSICAL EXAMINATION: VITAL SIGNS: T-max 99.5, BP 160/100, pulse 81 to 109, respirations 20, O2 saturation 95%. SKIN: Shows the area in the left distal ankle and hindfoot medial aspect with the debridement procedure. Dressing was not removed. He has a negative pressure dressing in place at this time. In the right side, there are smaller ulcerations, which have not been I and D'd, and they appear to have eschar at the base. They are quite small about 1 cm each, one in the right MPJ skin site, the other more proximally located in the distal medial ankle. The patient has a peripheral IV access and is voiding in the toilet. LYMPHATICS: No lymphadenopathy. HEENT: Ocular movements are conjugate. Oral cavity with still quite a few teeth remaining, particularly in the lower mandible. NECK: Supple. No jugular vein distention. LUNGS: Symmetric, clear breath sounds. HEART: S1 and S2, regular rate. No S3 or S4. ABDOMEN: Soft. Not distended or tender. No ascites. No bladder distention. EXTREMITIES: I could not feel any popliteal pulses and no dorsalis pedis in either side. The patient has stasis dermatitis with hyperpigmentation in the skin of the lower extremities. He is able to move extremities on command. NEUROLOGIC: He is awake, oriented, and follows commands. Recollection appears to be intact. LABORATORY DATA: Creatinine is down from 2.17 to 1.29, GFR up to 70. Liver profile, normal. Albumin 3.3. White cell count is 5.5, hemoglobin 9.1, platelets 227 with a normal differential. Cultures from the leg with Streptococcus faecalis, Providencia rettgeri, group B Streptococcus, and another gram-negative missy. The Providencia has a very broad susceptibility profile such as the E. faecalis as well. The second culture from ankle tissue with Proteus mirabilis. ASSESSMENT AND PLAN: Peripheral vascular disease; type 2 diabetes; chronic ulcers in lower extremities secondary to peripheral vascular disease; chronic kidney disease, stage 2 to 3; osteomyelitis of the left distal ankle involving tibia and hindfoot region. DISCUSSION: The main limiting factor to the outcome here is the peripheral vascular disease. If he is not a candidate to revascularization, then he will likely end up with below-knee amputation in the near future. For the time being, I would recommend oral quinolone, which has excellent penetration in bone and oral Augmentin for at least 6 weeks. This would be suitable for the microbiology retrieved from the site by Dr. Moreno. Despite of this approach, I believe that he is going to require eventual below-knee amputation if there are no options for revascularization. Job ID: [id number]
--- NOTE | 2019-02-10 15:41 | PRG ---
DATE OF SERVICE: 02/10/2019 SUBJECTIVE: Patient was seen and examined at bedside and overnight events noted. Patient denies any shortness of breath or chest pain or palpitation. No history of nausea or vomiting or diarrhea or fever or chills or cramps. OBJECTIVE: GENERAL: This is a well-build man, in no acute distress. VITAL SIGNS: Temperature 98.3, pulse 109, respiratory rate 18, blood pressure 169/109. HEENT: Atraumatic, normocephalic. Oral mucosa is moist NECK: Supple. CARDIOVASCULAR: S1, S2 heard. Rate and rhythm regular. RESPIRATORY: Clear to auscultation. GASTROINTESTINAL: Abdomen is soft. MUSCULOSKELETAL: No tenderness. No edema. DERMATOLOGIC: No skin rash. NEUROLOGIC: Alert and awake and oriented X3. No focal neurologic deficits. Moving all the extremities. PSYCHIATRIC: Mood and affect normal. LABORATORY DATA: Potassium is 3.9, BUN is 16, creatinine is 1.2. ASSESSMENT AND PLAN: 1. Acute kidney injury on chronic kidney stage 3, much better. 2. Edema, controlled. 3. History of hypertension. 4. Anemia. 5. Obesity. 6. Renal function much better. Job ID: [id number]
[2019-02-10] MEDS: Sodium Chloride 0.9% 1,000 ML IV SCH (16:27)
[2019-02-10] MEDS: Cipro 250 MG TAB PO SCH (19:53)
[2019-02-10] MEDS: Atorvastatin Calcium 40 MG TAB PO SCH (19:53)
[2019-02-10] MEDS: Amoxicillin/Potassium Clav 875 MG TAB PO SCH (20:42)
[2019-02-11] MEDS: Cipro 250 MG TAB PO SCH ×2 (05:37→19:58)
[2019-02-11] MEDS: Amlodipine 5 MG TAB PO SCH (08:52)
[2019-02-11] MEDS: Amoxicillin/Potassium Clav 875 MG TAB PO SCH ×2 (08:52→20:02)
[2019-02-11] MEDS: Carvedilol 6.25 MG TAB PO SCH ×2 (08:52→20:01)
[2019-02-11] MEDS: Lisinopril 10 MG TAB PO SCH ×2 (08:52→20:02)
[2019-02-11] MEDS: Famotidine/PF 20 mg/2ml Vial SLOW IVP SCH (08:52)
[2019-02-11] MEDS: Insulin Glargine 20 UNITS in Pre-Filled Syringe 1 EACH SC SCH (08:53)
[2019-02-11 09:20] LABS: #Basophils 0.1 thou/uL (0.0-0.2); #Eosinphils 0.6 thou/uL (0.0-0.7); #Lymphocytes 1.6 thou/uL (1.20-3.40); #Monocytes 0.5 thou/uL (0.11-0.59); #Neutrophils 2.2 thou/uL (1.40-6.50); %Basophils 1.6 % (0.0-1.0); %Eosinophils 12.7 % (0.0-10.0); %Lymphocytes 32.5 % (21.0-51.0); %Monocytes 9.9 % (0.0-10.0); %Neutrophils 43.3 % (42.0-75.0); Hemoglobin 9.2 g/dL (14.0-18.0); Mean Corpuscular HGB CONC 30.9 g/dL (32.0-36.0); Mean Corpuscular Volume 80.9 fL (78.0-98.0); Mean Platelet Volume 7.8 fL (7.4-10.4); Platelet Count 236 thou/uL (130-400); RBC Distribution Width 13.7 % (11.5-14.5); Red Blood Cell (RBC) Count 3.66 mill/uL (4.70-6.10)
[2019-02-11 09:25] LABS: Anion Gap 12 mmol/L (10-20); BUN (Urea Nitrogen) 14 mg/dL (8.4-25.7); Calc. Creatinine Clearance 126 mL/min (70-130); Calcium 9.1 mg/dL (7.8-10.44); Carbon Dioxide 26 mmol/L (22-29); Chloride 103 mmol/L (98-107); Estimated GFR-MDRD 78; Glucose 117 mg/dL (70-105); Potassium 3.8 mmol/L (3.5-5.1); Sodium 137 mmol/L (136-145)
--- NOTE | 2019-02-11 12:34 | OP ---
DATE OF PROCEDURE: 02/09/2019 PREOPERATIVE DIAGNOSES: Left medial foot/ankle wound, 8 x 4 cm eschar, necrotic skin, subcutaneous tissue diabetes mellitus, obesity, poor mobility, some degree of PAD with chronic kidney disease. POSTOPERATIVE DIAGNOSES: Left medial foot/ankle wound, 8 x 4 cm eschar, necrotic skin, subcutaneous tissue diabetes mellitus, obesity, poor mobility, some degree of PAD with chronic kidney disease. PROCEDURES PERFORMED: Sharp bedside excisional resectional debridement, 10 blade scalpel; skin, subcutaneous tissue, and connective tissue. ANESTHESIA: None. DESCRIPTION OF PROCEDURE: With the patient's bedside, his left medial ankle was prepared with alcohol. Necrotic, foul-smelling skin, subcutaneous tissue, and connective tissue debrided sharply. Debrided the wound 8 x 4 cm. There was some bleeding at the base. Dressings applied. Job ID: [id number]
[2019-02-11] MEDS: HumaLOG 300 UNITS/3 ML VIAL SC PRN ×2 (12:56→17:45)
--- NOTE | 2019-02-11 14:11 | PDOC.HOSPP ---
- Subjective Encounter Date: 02/11/19 (f/u osteomyelitis) Encounter Time: 14:09 Subjective: Pt report some soreness of left ankle/foot, denies needing any pain medicine. Denies any n/v/diarrhea/abd pain - Objective Vital Signs & Weight: Vital Signs (12 hours) Temp Pulse Resp BP BP Pulse Ox 02/11/19 11:22 98.2 F 83 22 H 118/72 02/11/19 08:52 76 154/97 H 02/11/19 08:45 96 02/11/19 07:54 98.0 F 76 20 154/97 H 96 Weight Admit Weight 282 lb 11.2 oz Weight 282 lb 11.2 oz I&O: 02/10/19 02/11/19 02/12/19 06:59 06:59 06:59 Intake Total 1540 Output Total 1200 Balance 340 Result Diagrams: 02/11/19 08:52 02/11/19 08:52 Additional Labs: Accuchecks 02/11/19 02/10/19 02/10/19 04:24 21:02 16:29 POC Glucose 148 H 157 H 135 H Hospitalist ROS - Medication Medications: Active Medications Generic Name Dose Route Start Last Admin Trade Name Freq PRN Reason Stop Dose Admin Amlodipine Besylate 5 mg 02/09/19 09:00 02/11/19 08:52 Norvasc PO 5 mg DAILY PANCHO Administration Amoxicillin/Clavulanate Potassium 875 mg 02/10/19 21:00 02/11/19 08:52 Augmentin PO 875 mg Q12HR PANCHO Administration Atorvastatin Calcium 40 mg 02/08/19 21:00 02/10/19 19:53 Lipitor PO 40 mg HS PANCHO Administration Carvedilol 12.5 mg 02/08/19 21:00 02/11/19 08:52 Coreg PO 12.5 mg BID PANCHO Administration Ciprofloxacin 500 mg 02/10/19 20:00 02/11/19 05:37 Cipro PO 500 mg BID@0600,2000 PANCHO Administration Famotidine 20 mg 02/08/19 09:00 02/11/19 08:52 Pepcid SLOW IVP 20 mg DAILY PANCHO Administration Insulin Glargine 20 units/ 0.2 mls @ 0 mls/hr 02/09/19 09:00 02/11/19 08:53 Miscellaneous Medication SC 0.2 mls QAM PANCHO Administration Insulin Human Lispro 0 units 02/07/19 19:09 02/11/19 12:56 Humalog SC 2 unit .MILD SLIDING SCALE PRN Administration Mild Correctional Scale Insulin Human Lispro 0 units 02/07/19 19:09 02/09/19 22:04 Humalog SC 2 unit .BEDTIME SLIDING SC PRN Administration Bedtime Correctional Scale Lisinopril 10 mg 02/08/19 21:00 02/11/19 08:52 Zestril PO 10 mg BID PANCHO Administration - Exam General Appearance: NAD Heart: RRR, no murmur, no gallops Respiratory: CTAB, no wheezes, no rales, no ronchi Respiratory - other findings: distant lung sounds Gastrointestinal: soft, non-tender, non-distended, normal bowel sounds Extremities - other findings: wound vac in place LLE Psychiatric: normal affect Hosp A/P (1) Acute on chronic renal insufficiency Code(s): N28.9 - DISORDER OF KIDNEY AND URETER, UNSPECIFIED; N18.9 - CHRONIC KIDNEY DISEASE, UNSPECIFIED Status: Resolved (2) Osteomyelitis of ankle Code(s): M86.9 - OSTEOMYELITIS, UNSPECIFIED Status: Acute Qualifiers: Laterality: left (3) Wound of left ankle Code(s): S91.002A - UNSPECIFIED OPEN WOUND, LEFT ANKLE, INITIAL ENCOUNTER Status: Acute Qualifiers: Encounter type: subsequent encounter Qualified Code(s): S91.002D - Unspecified open wound, left ankle, subsequent encounter (4) Anemia Code(s): D64.9 - ANEMIA, UNSPECIFIED Status: Acute (5) Diabetes mellitus Code(s): E11.9 - TYPE 2 DIABETES MELLITUS WITHOUT COMPLICATIONS Status: Chronic Qualifiers: Diabetes mellitus type: type 2 (6) Hyperlipidemia Code(s): E78.5 - HYPERLIPIDEMIA, UNSPECIFIED Status: Chronic (7) Hypertension Code(s): I10 - ESSENTIAL (PRIMARY) HYPERTENSION Status: Chronic - Plan Appreciate consultants: Gen Surg - Dr. Moreno to evaluate today, pt has wound vac in place and CM working on outpatient wound vac and care. Dr. Moreno to discuss BKA. ID - PO abx x 6 weeks Nephro - renal function returned to normal - d/c IVF and recheck in AM continue current home meds follow bp's - some lability dvt prophy - none on chart, not a candidate for scd's, consider heparin if no surgical intervention intended gi prophy - not indicated code status full reviewed plan of care with patient/family, no questions or further needs at end of eval
[2019-02-11] MEDS: Sodium Chloride 0.9% 1,000 ML IV SCH (14:32)
--- NOTE | 2019-02-11 15:49 | PRG ---
DATE OF SERVICE: 02/11/2019 Brian Silvestre is doing well. He is ambulating with the use of a walker. His MRI of his lower extremity left reveals a large wound, osteomyelitis involving the posterior medial distal tibia, medial malleolus, posterior medial talar body, and medial aspect of the talus. He has full thickness tears of the tibialis anterior, flexor digitorum longus tendons, diabetic musculopathy. He remains afebrile. His white count is 5 and hemoglobin 9.2. Cultures of the leg reveal Proteus, gram-negative rods, Enterococcus, Streptococcus. I have talked to Dr. Parson and if the patient desires antibiotic treatment and wound care, he can be managed with Cipro and Augmentin orally for a prolonged period of time. If the patient chooses attempted leg salvage, he would need wound care. Unfortunately, he does not have any insurance and has transportation problems and lives outside of the [place]. They would have to go to [facility] twice a week for VAC wound care. I have explained to the patient and many family members present that it is unlikely that this leg will be salvaged. He will eventually need a BKA, I have asked him to consider this at this time. Should they decide to have a BKA, this can be performed Thursday or Thursday. We will await their decisions. Although I am not working on this weekend, I can be reached on my cell phone to inform me this weekend if they decide BKA. Job ID: [id number]
[2019-02-11] MEDS: Gabapentin 300 MG CAP PO SCH (20:01)
[2019-02-11] MEDS: Atorvastatin Calcium 40 MG TAB PO SCH (20:02)
[2019-02-12] MEDS: Cipro 250 MG TAB PO SCH ×2 (05:30→20:42)
[2019-02-12 06:16] LABS: Anion Gap 12 mmol/L (10-20); BUN (Urea Nitrogen) 14 mg/dL (8.4-25.7); Calc. Creatinine Clearance 125 mL/min (70-130); Calcium 9.1 mg/dL (7.8-10.44); Carbon Dioxide 28 mmol/L (22-29); Chloride 104 mmol/L (98-107); Estimated GFR-MDRD 77; Glucose 133 mg/dL (70-105); Iron 33 ug/dL (65-175); Potassium 3.8 mmol/L (3.5-5.1); Sodium 140 mmol/L (136-145)
[2019-02-12 06:43] LABS: Ferritin 409.48 ng/mL (22-322)
[2019-02-12] MEDS: Famotidine/PF 20 mg/2ml Vial SLOW IVP SCH (08:08)
[2019-02-12] MEDS: Amlodipine 5 MG TAB PO SCH (08:08)
[2019-02-12] MEDS: Carvedilol 6.25 MG TAB PO SCH ×2 (08:08→20:43)
[2019-02-12] MEDS: Gabapentin 300 MG CAP PO SCH ×2 (08:08→20:42)
[2019-02-12] MEDS: Amoxicillin/Potassium Clav 875 MG TAB PO SCH ×2 (08:08→20:42)
[2019-02-12] MEDS: Lisinopril 10 MG TAB PO SCH (08:08)
[2019-02-12] MEDS: Insulin Glargine 20 UNITS in Pre-Filled Syringe 1 EACH SC SCH (08:09)
[2019-02-12] MEDS ORDERED: Amlodipine 5 MG TAB PO SCH (09:00)
[2019-02-12] MEDS ORDERED: Amlodipine 10 MG TAB PO SCH (09:00)
--- NOTE | 2019-02-12 12:33 | PDOC.HOSPP ---
- Subjective Encounter Date: 02/12/19 (f/u osteomyelitis) Encounter Time: 12:31 Subjective: Pt denies any complaints- specifically denies any cp/sob/n/v/abd pain/diarrhea - Objective Vital Signs & Weight: Vital Signs (12 hours) Temp Pulse Resp BP BP Pulse Ox 02/12/19 12:08 97.5 F L 71 20 132/86 100 02/12/19 08:54 78 179/102 H 02/12/19 08:08 78 179/102 H 02/12/19 08:06 78 L 02/12/19 08:01 97.8 F 78 20 179/102 H 95 02/12/19 04:00 98.2 F 82 18 162/99 H 95 Weight Admit Weight 282 lb 11.2 oz Weight 282 lb 11.2 oz I&O: 02/11/19 02/12/19 02/13/19 06:59 06:59 06:59 Intake Total 1540 1480 Output Total 1200 1300 Balance 340 180 Result Diagrams: 02/11/19 08:52 02/12/19 05:33 Additional Labs: Accuchecks 02/12/19 02/12/19 02/11/19 10:48 04:39 19:26 POC Glucose 174 H 134 H 157 H 02/11/19 02/11/19 17:15 11:31 POC Glucose 152 H 156 H Hospitalist ROS - Medication Medications: Active Medications Generic Name Dose Route Start Last Admin Trade Name Freq PRN Reason Stop Dose Admin Amoxicillin/Clavulanate Potassium 875 mg 02/10/19 21:00 02/12/19 08:08 Augmentin PO 875 mg Q12HR PANCHO Administration Atorvastatin Calcium 40 mg 02/08/19 21:00 02/11/19 20:02 Lipitor PO 40 mg HS PANCHO Administration Carvedilol 12.5 mg 02/08/19 21:00 02/12/19 08:08 Coreg PO 12.5 mg BID PANCHO Administration Ciprofloxacin 500 mg 02/10/19 20:00 02/12/19 05:30 Cipro PO 500 mg BID@0600,2000 PANCHO Administration Famotidine 20 mg 02/08/19 09:00 02/12/19 08:08 Pepcid SLOW IVP 20 mg DAILY PANCHO Administration Gabapentin 300 mg 02/11/19 21:00 02/12/19 08:08 Neurontin PO 300 mg BID PANCHO Administration Insulin Glargine 20 units/ 0.2 mls @ 0 mls/hr 02/09/19 09:00 02/12/19 08:09 Miscellaneous Medication SC 0.2 mls QAM PANCHO Administration Insulin Human Lispro 0 units 02/07/19 19:09 02/11/19 17:45 Humalog SC 2 unit .MILD SLIDING SCALE PRN Administration Mild Correctional Scale Insulin Human Lispro 0 units 02/07/19 19:09 02/09/19 22:04 Humalog SC 2 unit .BEDTIME SLIDING SC PRN Administration Bedtime Correctional Scale Lisinopril 10 mg 02/08/19 21:00 02/12/19 08:08 Zestril PO 10 mg BID PANCHO Administration - Exam General Appearance: NAD Heart: RRR, no murmur Respiratory: CTAB, no wheezes, no rales Gastrointestinal: soft, non-tender, non-distended, normal bowel sounds Extremities: no cyanosis, no clubbing Extremities - other findings: 1+ edema bilateral, LLE wound vac in place Psychiatric: normal affect Hosp A/P (1) Acute on chronic renal insufficiency Code(s): N28.9 - DISORDER OF KIDNEY AND URETER, UNSPECIFIED; N18.9 - CHRONIC KIDNEY DISEASE, UNSPECIFIED Status: Resolved (2) Osteomyelitis of ankle Code(s): M86.9 - OSTEOMYELITIS, UNSPECIFIED Status: Acute Qualifiers: Laterality: left (3) Wound of left ankle Code(s): S91.002A - UNSPECIFIED OPEN WOUND, LEFT ANKLE, INITIAL ENCOUNTER Status: Acute Qualifiers: Encounter type: subsequent encounter Qualified Code(s): S91.002D - Unspecified open wound, left ankle, subsequent encounter (4) Anemia Code(s): D64.9 - ANEMIA, UNSPECIFIED Status: Acute Qualifiers: Anemia type: folate deficiency (5) Diabetes mellitus Code(s): E11.9 - TYPE 2 DIABETES MELLITUS WITHOUT COMPLICATIONS Status: Chronic Qualifiers: Diabetes mellitus type: type 2 (6) Hyperlipidemia Code(s): E78.5 - HYPERLIPIDEMIA, UNSPECIFIED Status: Chronic (7) Hypertension Code(s): I10 - ESSENTIAL (PRIMARY) HYPERTENSION Status: Chronic Qualifiers: Hypertension type: essential hypertension Qualified Code(s): I10 - Essential (primary) hypertension - Plan Appreciate consultants: Gen Surg - Dr. Moreno to perform BKA on Thursday ID - PO abx x 6 weeks prior to decision for BKA Nephro - renal function returned to normal - IVF d/c yesterday continue current home meds follow bp's - not optimally controlled. Amlodipine increased yesterday, pt is on beta-lorena and acacia-i. Given the AL earlier in hospitalization, will not change the ACACIA-I. Will instead start low dose hydralazine with hold parameters. Folic acid deficiency - start replacement dvt prophy - ambulatory gi prophy - not indicated - d/c IV famotidine code status full reviewed plan of care with patient, no questions or further needs at end of eval
[2019-02-12] MEDS: HumaLOG 300 UNITS/3 ML VIAL SC PRN (12:38)
[2019-02-12] MEDS ORDERED: Folic Acid 1 MG TAB PO SCH (12:45)
[2019-02-12] MEDS: hydrALAZINE 25 MG TAB PO SCH ×2 (14:23→20:43)
--- NOTE | 2019-02-12 14:54 | PRG ---
DATE OF SERVICE: 02/12/2019 SUBJECTIVE: Patient was seen and examined at bedside and overnight events noted. Patient denies any shortness of breath or chest pain or palpitation. No history of nausea or vomiting or diarrhea or fever or chills or cramps. OBJECTIVE: GENERAL: This is a well-build male, in no apparent distress. VITAL SIGNS: Temperature 97.5. Pulse 71, respiratory rate 20. Blood pressure 132/86. HEENT: Atraumatic, normocephalic. Oral mucosa is moist NECK: Supple. CARDIOVASCULAR: S1, S2 heard. Rate and rhythm regular. RESPIRATORY: Clear to auscultation. GASTROINTESTINAL: Abdomen is soft. MUSCULOSKELETAL: No tenderness. No edema. DERMATOLOGIC: No skin rash. NEUROLOGIC: Alert and awake and oriented X3. No focal neurologic deficits. Moving all the extremities. PSYCHIATRIC: Mood and affect normal. LABORATORY DATA: Creatinine is 1.19. ASSESSMENT AND PLAN: 1. Acute kidney injury on chronic kidney stage 2, stable. 2. Edema, controlled. 3. Hypertension. We will hold lisinopril given that he is going for surgery next week. 4. Anemia. 5. Obesity. 6. Renal function is stable. I will sign off. We will hold lisinopril. Please call back with any questions. Job ID: [id number]
[2019-02-12] MEDS: Atorvastatin Calcium 40 MG TAB PO SCH (20:42)
[2019-02-13] MEDS: Cipro 250 MG TAB PO SCH ×2 (05:28→20:17)
[2019-02-13 06:03] LABS: Anion Gap 14 mmol/L (10-20); BUN (Urea Nitrogen) 17 mg/dL (8.4-25.7); Calc. Creatinine Clearance 123 mL/min (70-130); Calcium 9.4 mg/dL (7.8-10.44); Carbon Dioxide 28 mmol/L (22-29); Chloride 102 mmol/L (98-107); Estimated GFR-MDRD 76; Glucose 114 mg/dL (70-105); Potassium 3.8 mmol/L (3.5-5.1); Sodium 140 mmol/L (136-145)
[2019-02-13] MEDS: Insulin Glargine 20 UNITS in Pre-Filled Syringe 1 EACH SC SCH (08:36)
[2019-02-13] MEDS: Amoxicillin/Potassium Clav 875 MG TAB PO SCH ×2 (08:38→20:18)
[2019-02-13] MEDS: Gabapentin 300 MG CAP PO SCH ×2 (08:38→20:17)
[2019-02-13] MEDS: Folic Acid 1 MG TAB PO SCH (08:39)
[2019-02-13] MEDS: Carvedilol 6.25 MG TAB PO SCH ×2 (08:44→20:17)
[2019-02-13] MEDS: hydrALAZINE 25 MG TAB PO SCH ×3 (08:46→20:18)
[2019-02-13] MEDS: Amlodipine 10 MG TAB PO SCH (08:46)
[2019-02-13] MEDS ORDERED: Polyethylene Glycol 3350 17 GM Packet PO PRN (12:40)
[2019-02-13] MEDS ORDERED: Docusate 100 MG CAP PO SCH (12:45)
--- NOTE | 2019-02-13 12:45 | PDOC.HOSPP ---
- Subjective Encounter Date: 02/13/19 (f/u osteomyelitis) Encounter Time: 12:41 Subjective: Pt without complaints today. Denies any n/v/abd pain/cp. Reports last bm was 4 days ago. - Objective Vital Signs & Weight: Vital Signs (12 hours) Temp Pulse Resp BP BP BP Pulse Ox 02/13/19 08:46 74 130/88 02/13/19 08:44 130/88 02/13/19 07:28 97.8 F 74 20 130/88 97 02/13/19 04:00 97.8 F 79 18 107/76 93 L Weight Admit Weight 282 lb 11.2 oz Weight 282 lb 11.2 oz I&O: 02/12/19 02/13/19 02/14/19 06:59 06:59 06:59 Intake Total 1480 2400 Output Total 1300 3000 Balance 180 -600 Result Diagrams: 02/11/19 08:52 02/13/19 05:32 Additional Labs: Accuchecks 02/13/19 02/13/19 02/12/19 11:05 04:06 19:16 POC Glucose 129 H 112 H 137 H 02/12/19 15:51 POC Glucose 125 H Hospitalist ROS - Medication Medications: Active Medications Generic Name Dose Route Start Last Admin Trade Name Freq PRN Reason Stop Dose Admin Amlodipine Besylate 10 mg 02/13/19 09:00 02/13/19 08:46 Norvasc PO 10 mg DAILY PANCHO Administration Amoxicillin/Clavulanate Potassium 875 mg 02/10/19 21:00 02/13/19 08:38 Augmentin PO 875 mg Q12HR PANCHO Administration Atorvastatin Calcium 40 mg 02/08/19 21:00 02/12/19 20:42 Lipitor PO 40 mg HS PANCHO Administration Carvedilol 12.5 mg 02/08/19 21:00 02/13/19 08:44 Coreg PO 12.5 mg BID PANCHO Administration Ciprofloxacin 500 mg 02/10/19 20:00 02/13/19 05:28 Cipro PO 500 mg BID@0600,2000 PANCHO Administration Folic Acid 1 mg 02/13/19 09:00 02/13/19 08:39 Folvite PO 1 mg DAILY PANCHO Administration Gabapentin 300 mg 02/11/19 21:00 02/13/19 08:38 Neurontin PO 300 mg BID PANCHO Administration Hydralazine HCl 25 mg 02/12/19 15:00 02/13/19 08:46 Apresoline PO 25 mg TID PANCHO Administration Insulin Glargine 20 units/ 0.2 mls @ 0 mls/hr 02/09/19 09:00 02/13/19 08:36 Miscellaneous Medication SC 0.2 mls QAM PANCHO Administration Insulin Human Lispro 0 units 02/07/19 19:09 02/12/19 12:38 Humalog SC 2 unit .MILD SLIDING SCALE PRN Administration Mild Correctional Scale Insulin Human Lispro 0 units 02/07/19 19:09 02/09/19 22:04 Humalog SC 2 unit .BEDTIME SLIDING SC PRN Administration Bedtime Correctional Scale - Exam General Appearance: NAD Heart: RRR, no murmur Respiratory: CTAB, no wheezes, no rales, no ronchi Gastrointestinal: soft, non-tender, non-distended, normal bowel sounds Extremities: no cyanosis, no clubbing Extremities - other findings: wound vac and LLE bandaged Psychiatric: normal affect Hosp A/P (1) Acute on chronic renal insufficiency Code(s): N28.9 - DISORDER OF KIDNEY AND URETER, UNSPECIFIED; N18.9 - CHRONIC KIDNEY DISEASE, UNSPECIFIED Status: Resolved (2) Osteomyelitis of ankle Code(s): M86.9 - OSTEOMYELITIS, UNSPECIFIED Status: Acute Qualifiers: Laterality: left (3) Wound of left ankle Code(s): S91.002A - UNSPECIFIED OPEN WOUND, LEFT ANKLE, INITIAL ENCOUNTER Status: Acute Qualifiers: Encounter type: subsequent encounter Qualified Code(s): S91.002D - Unspecified open wound, left ankle, subsequent encounter (4) Anemia Code(s): D64.9 - ANEMIA, UNSPECIFIED Status: Acute Qualifiers: Anemia type: folate deficiency (5) Diabetes mellitus Code(s): E11.9 - TYPE 2 DIABETES MELLITUS WITHOUT COMPLICATIONS Status: Chronic Qualifiers: Diabetes mellitus type: type 2 Diabetes mellitus 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 Moreno to perform BKA tomorrow ID - PO abx x 6 weeks prior to decision for BKA - will need to check with Dr. Parson and Dr. Moreno about the necessity of this post-surgery Nephro - renal function returned to normal. Lisinopril stopped by Dr. Flower yesterday in preparation for surgery. continue current home meds follow bp's - improved today, hydralazine added yesterday. Lisinopril held - resume per Dr. Flower post-operatively Folic acid deficiency - replacement started yesterday DM well controlled - continue lantus dosing with SSI prn Constipation - add scheduled and prn bowel meds dvt prophy - ambulatory gi prophy - not indicated code status full reviewed plan of care with patient, no questions or further needs at end of eval
--- NOTE | 2019-02-13 15:56 | PRG ---
DATE OF SERVICE: 02/13/2019 SUBJECTIVE: Sitting up by the bedside, appears comfortable. He is oriented. Speech is normal. Denies any headaches. No respiratory symptoms or abdominal pain. OBJECTIVE: VITAL SIGNS: He is afebrile. Has been so since admission and voids in the urinal. LUNGS: Clear. HEART: S1, S2. Regular rate. ABDOMEN: Soft, not distended. EXTREMITIES: He has a negative pressure dressing in the left foot. The wound looks a little fresher than on admission after the debridement. There is less areas of necrosis. LABORATORY DATA: White cell count 5.0 hemoglobin 9.2, platelets 236. Chemistry: 1.2 creatinine. Microbiology with Proteus, E. coli, group B strep, E. faecalis. Very broad susceptibility seen. He is currently on amoxicillin and ciprofloxacin. ASSESSMENT AND DISCUSSION: Peripheral vascular disease, type 2 diabetes, chronic ulcers in lower extremities secondary to peripheral vascular disease, chronic renal insufficiency stage 3, osteomyelitis left distal ankle with no options for revascularization. Continue on Cipro and Augmentin for protracted period of time and date of therapy is sometime in the mid March. In the long run we are looking at the below-knee amputation here. Job ID: [id number]
[2019-02-13] MEDS: HumaLOG 300 UNITS/3 ML VIAL SC PRN (17:45)
[2019-02-13] MEDS: Docusate 100 MG CAP PO SCH (20:17)
[2019-02-13] MEDS: Atorvastatin Calcium 40 MG TAB PO SCH (20:17)
[2019-02-14] MEDS: Cipro 250 MG TAB PO SCH ×2 (05:48→20:29)
[2019-02-14] MEDS: Carvedilol 6.25 MG TAB PO SCH ×2 (05:48→20:30)
[2019-02-14] MEDS ORDERED: Sodium Chloride 0.9% 1,000 ML IV SCH (06:00)
[2019-02-14 06:25] LABS: #Basophils 0.1 thou/uL (0.0-0.2); #Eosinphils 0.5 thou/uL (0.0-0.7); #Lymphocytes 2.2 thou/uL (1.20-3.40); #Monocytes 0.4 thou/uL (0.11-0.59); #Neutrophils 2.1 thou/uL (1.40-6.50); %Basophils 1.4 % (0.0-1.0); %Lymphocytes 41.3 % (21.0-51.0); %Neutrophils 40.3 % (42.0-75.0); Hemoglobin 9.7 g/dL (14.0-18.0); Mean Corpuscular HGB CONC 32.5 g/dL (32.0-36.0); Mean Corpuscular Hemoglobin 26.4 pg (27.0-31.0); Mean Corpuscular Volume 81.2 fL (78.0-98.0); Mean Platelet Volume 7.3 fL (7.4-10.4); Platelet Count 251 thou/uL (130-400); RBC Distribution Width 14.2 % (11.5-14.5); Red Blood Cell (RBC) Count 3.69 mill/uL (4.70-6.10); White Blood Cell (WBC) Count 5.2 thou/uL (4.8-10.8)
[2019-02-14 06:46] LABS: Anion Gap 13 mmol/L (10-20); BUN (Urea Nitrogen) 18 mg/dL (8.4-25.7); Calc. Creatinine Clearance 109 mL/min (70-130); Calcium 9.5 mg/dL (7.8-10.44); Carbon Dioxide 29 mmol/L (22-29); Chloride 101 mmol/L (98-107); Estimated GFR-MDRD 65; Glucose 111 mg/dL (70-105); Potassium 3.8 mmol/L (3.5-5.1); Sodium 139 mmol/L (136-145)
[2019-02-14] MEDS ORDERED: Fentanyl 100 MCG/2 ML VIAL ONE (08:30)
[2019-02-14] MEDS ORDERED: Midazolam HCl 2 mg/2 ml Vial ONE (08:30)
--- NOTE | 2019-02-14 09:17 | PDOC.HOSPP ---
- Subjective Encounter Date: 02/14/19 Encounter Time: 12:15 Subjective: Patient had left BKA this AM. Doing well afterward. No pain. No BM for at least 4 days. Eating well. - Objective Vital Signs & Weight: Vital Signs (12 hours) Temp Pulse Resp BP BP Pulse Ox 02/14/19 07:21 97.9 F 68 18 144/82 H 97 02/14/19 05:48 128/80 02/14/19 04:00 97.7 F 77 18 128/80 97 Weight Admit Weight 282 lb 11.2 oz Weight 282 lb 11.2 oz I&O: 02/13/19 02/14/19 02/15/19 06:59 06:59 06:59 Intake Total 2400 Output Total 3000 Balance -600 Result Diagrams: 02/14/19 06:10 02/14/19 06:10 Additional Labs: Accuchecks 02/14/19 02/13/19 02/13/19 04:05 19:28 15:58 POC Glucose 123 H 165 H 338 H 02/13/19 02/13/19 15:39 11:05 POC Glucose 193 H 129 H Hospitalist ROS - Review of Systems Constitutional: denies: fever, chills Respiratory: denies: cough, shortness of breath Cardiovascular: denies: chest pain, palpitations, orthopnea Gastrointestinal: denies: nausea, vomiting, abdominal pain Musculoskeletal: denies: leg pain - Medication Medications: Active Medications Generic Name Dose Route Start Last Admin Trade Name Freq PRN Reason Stop Dose Admin Amlodipine Besylate 10 mg 02/13/19 09:00 02/13/19 08:46 Norvasc PO 10 mg DAILY PANCHO Administration Amoxicillin/Clavulanate Potassium 875 mg 02/10/19 21:00 02/13/19 20:18 Augmentin PO 875 mg Q12HR PANCHO Administration Atorvastatin Calcium 40 mg 02/08/19 21:00 02/13/19 20:17 Lipitor PO 40 mg HS PANCHO Administration Carvedilol 12.5 mg 02/08/19 21:00 02/14/19 05:48 Coreg PO 12.5 mg BID PANCHO Administration Ciprofloxacin 500 mg 02/10/19 20:00 02/14/19 05:48 Cipro PO 500 mg BID@0600,2000 PANCHO Administration Docusate Sodium 100 mg 02/13/19 21:00 02/13/19 20:17 Colace PO 100 mg BID PANCHO Administration Folic Acid 1 mg 02/13/19 09:00 02/13/19 08:39 Folvite PO 1 mg DAILY PANCHO Administration Gabapentin 300 mg 02/11/19 21:00 02/13/19 20:17 Neurontin PO 300 mg BID PANCHO Administration Hydralazine HCl 25 mg 02/12/19 15:00 02/13/19 20:18 Apresoline PO 25 mg TID PANCHO Administration Insulin Glargine 20 units/ 0.2 mls @ 0 mls/hr 02/09/19 09:00 02/13/19 08:36 Miscellaneous Medication SC 0.2 mls QAM PANCHO Administration Sodium Chloride 1,000 mls @ 100 mls/hr 02/14/19 06:00 02/14/19 06:01 Normal Saline 0.9% IV 1,000 mls .Q10H PANCHO Administration Insulin Human Lispro 0 units 02/07/19 19:09 02/13/19 17:45 Humalog SC 2 unit .MILD SLIDING SCALE PRN Administration Mild Correctional Scale Insulin Human Lispro 0 units 02/07/19 19:09 02/09/19 22:04 Humalog SC 2 unit .BEDTIME SLIDING SC PRN Administration Bedtime Correctional Scale - Exam General Appearance: NAD, awake alert Eye: anicteric sclera ENT: moist mucosa Heart: RRR, no murmur, no gallops, no rubs Respiratory: CTAB, no wheezes, no rales, no ronchi Gastrointestinal: soft, non-tender, non-distended, normal bowel sounds Extremities - other findings: left BKA stump with dressing C/D/I Psychiatric: normal affect, normal behavior, A&O x 3 Hosp A/P (1) Osteomyelitis of ankle Code(s): M86.9 - OSTEOMYELITIS, UNSPECIFIED Status: Acute Qualifiers: Laterality: left (2) Acute on chronic renal insufficiency Code(s): N28.9 - DISORDER OF KIDNEY AND URETER, UNSPECIFIED; N18.9 - CHRONIC KIDNEY DISEASE, UNSPECIFIED Status: Resolved (3) CHF (congestive heart failure) Code(s): I50.9 - HEART FAILURE, UNSPECIFIED Status: Chronic (4) Diabetes mellitus Code(s): E11.9 - TYPE 2 DIABETES MELLITUS WITHOUT COMPLICATIONS Status: Chronic Qualifiers: Diabetes mellitus type: type 2 Diabetes mellitus 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 Moreno- PARKERA done 02/14/2019 ID- Eb with abx recs IV fluids, creatinine improved, Dr. Flower following kidney function Levemir at half dose, resume all other home meds, blood sugars decently controlled no Lovenox due to renal insufficiency, no heparin for DVT proph due to need for surgical debridement No BM for more than 4 days, laxatives and stool softeners
[2019-02-14] MEDS ORDERED: ePHEDrine/0.9% NaCl/PF SYRINGE 50 mg/10 ml ONE (10:03)
[2019-02-14] MEDS ORDERED: PROPOFOL 200 MG/20 ML VIAL ONE (10:03)
[2019-02-14] MEDS ORDERED: Bupivacaine HCl 0.5%/Epinephrine 1:200,000/PF 30 ml Vial ONE (10:03)
[2019-02-14] MEDS ORDERED: PHENYLEPHRINE-NS 100 MCG/ML 10 ML SYRINGE ONE (10:03)
--- NOTE | 2019-02-14 11:15 | PRG ---
DATE OF SERVICE: 02/11/2019 SUBJECTIVE: Patient was seen and examined at bedside and overnight events noted. Patient denies any shortness of breath or chest pain or palpitation. No history of nausea or vomiting or diarrhea or fever or chills or cramps. OBJECTIVE: GENERAL: This is a well-build male, in no apparent distress. VITAL SIGNS: Temperature 98.2, pulse 83, respiratory rate 22, blood pressure 118/72. HEENT: Atraumatic, normocephalic. Oral mucosa is moist NECK: Supple. CARDIOVASCULAR: S1, S2 heard. Rate and rhythm regular. RESPIRATORY: Clear to auscultation. GASTROINTESTINAL: Abdomen is soft. MUSCULOSKELETAL: No tenderness. No edema. DERMATOLOGIC: No skin rash. NEUROLOGIC: Alert and awake and oriented X3. No focal neurologic deficits. Moving all the extremities. PSYCHIATRIC: Mood and affect normal. LABORATORY DATA: Potassium 3.8, BUN is 14, and creatinine is 1.1. ASSESSMENT AND PLAN: 1. Acute kidney injury on chronic kidney stage 2, stable. 2. Edema, controlled. 3. Hypertension. 4. Anemia. 5. Obesity. 6. Chronic , monitor. 7. Renal function is much better. Avoid nephrotoxins and we will sign off. Please call back with any questions. Job ID: [id number]
--- NOTE | 2019-02-14 11:39 | OP ---
DATE OF PROCEDURE: 02/14/2019 PREOPERATIVE DIAGNOSES: 1. Diabetic wound with osteomyelitis of talus, tibia, metatarsal, left foot. 2. Large open wound. POSTOPERATIVE DIAGNOSES: 1. Diabetic wound with osteomyelitis of talus, tibia, metatarsal, left foot. 2. Large open wound. PROCEDURE PERFORMED: Left below-knee amputation. ANESTHESIA: LMA, regional. ESTIMATED BLOOD LOSS: 200 mL. BLOOD TRANSFUSION: 1 unit of blood. Preoperative hemoglobin 9. DESCRIPTION OF PROCEDURE: The patient was taken to the operating room, where under LMA and regional anesthesia, his left lower extremity was prepared with ChloraPrep and draped in routine fashion. Incision was made for left below-knee amputation with a long posterior flap, carried down to the skin and subcutaneous tissue, freeing the tibia proximally, transected with the Blacksumacli saw, beveling anterior edge cephalad, smoothing with a rasp. Fibula transected an inch above the cut edge of the tibia with a bone cutter and muscular layers divided with cautery, dividing vascular bundles between clamps, ligating with 2-0 silk ties. Wound irrigated. Good hemostasis obtained with cautery and 2-0 Vicryl [id number] sutures. Good hemostasis noted. Fascia approximated with [id number] sutures of 2-0 Vicryl. Skin with nichole. Sterile dressing applied. Job ID: [id number]
[2019-02-14] MEDS ORDERED: Senokot 8.6 MG TAB PO PRN (12:48)
[2019-02-14] MEDS ORDERED: HYDROcodone/Acetaminophen 10/325 mg Tablet PO PRN ×2 (13:12)
[2019-02-14] MEDS ORDERED: Fentanyl 100 MCG/2 ML VIAL SLOW IVP PRN (13:13)
[2019-02-14] MEDS: Gabapentin 300 MG CAP PO SCH ×3 (14:23→20:29)
[2019-02-14] MEDS: hydrALAZINE 25 MG TAB PO SCH ×3 (14:25→20:31)
[2019-02-14] MEDS: Insulin Glargine 20 UNITS in Pre-Filled Syringe 1 EACH SC SCH (14:36)
[2019-02-14] MEDS: Folic Acid 1 MG TAB PO SCH (14:36)
[2019-02-14] MEDS: Amoxicillin/Potassium Clav 875 MG TAB PO SCH ×2 (14:36→20:28)
[2019-02-14] MEDS: Docusate 100 MG CAP PO SCH ×2 (14:36→20:29)
[2019-02-14] MEDS: Amlodipine 10 MG TAB PO SCH (14:37)
[2019-02-14] MEDS: Ondansetron PF 4 MG/2 ML Vial IVP PRN (16:59)
[2019-02-14] MEDS: Atorvastatin Calcium 40 MG TAB PO SCH (20:28)
[2019-02-14] MEDS: Enoxaparin Sodium 40 MG/0.4 ML SYRINGE SC SCH (20:33)
[2019-02-15] MEDS: Cipro 250 MG TAB PO SCH ×2 (05:46→20:48)
[2019-02-15 06:40] LABS: #Eosinphils 0.4 thou/uL (0.0-0.7); #Lymphocytes 2.2 thou/uL (1.20-3.40); #Monocytes 0.5 thou/uL (0.11-0.59); #Neutrophils 3.1 thou/uL (1.40-6.50); %Basophils 0.2 % (0.0-1.0); %Eosinophils 5.8 % (0.0-10.0); %Lymphocytes 36.1 % (21.0-51.0); %Monocytes 8.3 % (0.0-10.0); %Neutrophils 49.6 % (42.0-75.0); Hemoglobin 8.1 g/dL (14.0-18.0); Mean Corpuscular HGB CONC 31.7 g/dL (32.0-36.0); Mean Corpuscular Volume 82.1 fL (78.0-98.0); Platelet Count 192 thou/uL (130-400); RBC Distribution Width 14.2 % (11.5-14.5); White Blood Cell (WBC) Count 6.2 thou/uL (4.8-10.8)
[2019-02-15 06:56] LABS: Anion Gap 11 mmol/L (10-20); BUN (Urea Nitrogen) 17 mg/dL (8.4-25.7); Calc. Creatinine Clearance 104 mL/min (70-130); Calcium 8.4 mg/dL (7.8-10.44); Carbon Dioxide 31 mmol/L (22-29); Chloride 104 mmol/L (98-107); Estimated GFR-MDRD 62; Glucose 100 mg/dL (70-105); Potassium 3.9 mmol/L (3.5-5.1); Sodium 142 mmol/L (136-145)
[2019-02-15] MEDS: Amoxicillin/Potassium Clav 875 MG TAB PO SCH ×2 (07:58→20:47)
[2019-02-15] MEDS: Carvedilol 6.25 MG TAB PO SCH ×2 (07:58→20:48)
[2019-02-15] MEDS: Insulin Glargine 20 UNITS in Pre-Filled Syringe 1 EACH SC SCH (07:58)
[2019-02-15] MEDS: Docusate 100 MG CAP PO SCH ×2 (07:59→20:48)
[2019-02-15] MEDS: Amlodipine 10 MG TAB PO SCH (07:59)
[2019-02-15] MEDS: Gabapentin 300 MG CAP PO SCH ×3 (07:59→20:48)
[2019-02-15] MEDS: Folic Acid 1 MG TAB PO SCH (07:59)
[2019-02-15] MEDS: hydrALAZINE 25 MG TAB PO SCH ×3 (07:59→20:49)
[2019-02-15] MEDS: Ondansetron PF 4 MG/2 ML Vial IVP PRN ×2 (08:30→14:23)
--- NOTE | 2019-02-15 10:01 | PDOC.HOSPP ---
- Subjective Encounter Date: 02/15/19 Encounter Time: 11:40 Subjective: Patient reports continued constipation. No pain. No other complaints. - Objective Vital Signs & Weight: Vital Signs (12 hours) Temp Pulse Resp BP BP Pulse Ox 02/15/19 08:00 93 L 02/15/19 07:59 83 02/15/19 07:58 121/73 02/15/19 07:46 98.6 F 83 20 105/63 93 L 02/15/19 04:00 99.0 F 83 20 109/73 95 02/14/19 23:48 98.5 F 85 20 124/82 95 Weight Admit Weight 282 lb 11.2 oz Weight 282 lb 11.2 oz I&O: 02/14/19 02/15/19 02/16/19 06:59 06:59 06:59 Intake Total 360 Balance 360 Result Diagrams: 02/15/19 06:27 02/15/19 06:27 Additional Labs: Accuchecks 02/15/19 02/14/19 02/14/19 05:32 19:12 18:52 POC Glucose 117 H 118 H 123 H Hospitalist ROS - Review of Systems Constitutional: denies: fever, chills Respiratory: denies: cough, shortness of breath Cardiovascular: denies: chest pain, palpitations, orthopnea Gastrointestinal: reports: constipation. denies: nausea, vomiting, abdominal pain - Medication Medications: Active Medications Generic Name Dose Route Start Last Admin Trade Name Freq PRN Reason Stop Dose Admin Hydrocodone Bitart/Acetaminophen 2 tab 02/14/19 13:12 02/14/19 20:30 [place] 10/325 PO 2 tab Q4H PRN Administration .PAIN (5-8) Amlodipine Besylate 10 mg 02/13/19 09:00 02/15/19 07:59 Norvasc PO 10 mg DAILY PANCHO Administration Amoxicillin/Clavulanate Potassium 875 mg 02/10/19 21:00 02/15/19 07:58 Augmentin PO 875 mg Q12HR PANCHO Administration Atorvastatin Calcium 40 mg 02/08/19 21:00 02/14/19 20:28 Lipitor PO 40 mg HS PANCHO Administration Carvedilol 12.5 mg 02/08/19 21:00 02/15/19 07:58 Coreg PO 12.5 mg BID PANCHO Administration Ciprofloxacin 500 mg 02/10/19 20:00 02/15/19 05:46 Cipro PO 500 mg BID@0600,2000 PANCHO Administration Docusate Sodium 100 mg 02/13/19 21:00 02/15/19 07:59 Colace PO 100 mg BID PANCHO Administration Enoxaparin Sodium 40 mg 02/14/19 21:00 02/14/19 20:33 Lovenox SC 40 mg 2100 PANCHO Administration Fentanyl 50 mcg 02/14/19 13:13 02/14/19 14:21 Sublimaze SLOW IVP 50 mcg Q1H PRN Administration Breakthrough Pain Folic Acid 1 mg 02/13/19 09:00 02/15/19 07:59 Folvite PO 1 mg DAILY PANCHO Administration Gabapentin 300 mg 02/14/19 15:00 02/15/19 07:59 Neurontin PO 300 mg TID PANCHO Administration Hydralazine HCl 25 mg 02/12/19 15:00 02/15/19 07:59 Apresoline PO 25 mg TID PANCHO Administration Insulin Glargine 20 units/ 0.2 mls @ 0 mls/hr 02/09/19 09:00 02/15/19 07:58 Miscellaneous Medication SC 0.2 mls QAM PANCHO Administration Insulin Human Lispro 0 units 02/07/19 19:09 02/13/19 17:45 Humalog SC 2 unit .MILD SLIDING SCALE PRN Administration Mild Correctional Scale Insulin Human Lispro 0 units 02/07/19 19:09 02/09/19 22:04 Humalog SC 2 unit .BEDTIME SLIDING SC PRN Administration Bedtime Correctional Scale Ondansetron HCl 4 mg 02/07/19 19:05 02/15/19 08:30 Zofran IVP 4 mg Q6H PRN Administration Nausea/Vomiting Sodium Chloride 10 ml 02/07/19 19:05 02/15/19 07:59 Flush - Normal Saline IVF 10 ml Q12H PRN Administration Saline Flush Tramadol HCl 50 mg 02/09/19 16:27 02/14/19 13:00 Ultram PO 50 mg Q4H PRN Administration Pain 1-5 - Exam General Appearance: NAD, awake alert Heart: RRR, no murmur, no gallops, no rubs Respiratory: CTAB, no wheezes, no rales, no ronchi Gastrointestinal: soft, non-tender, non-distended, normal bowel sounds Psychiatric: normal affect, normal behavior, A&O x 3 Hosp A/P (1) Osteomyelitis of ankle Code(s): M86.9 - OSTEOMYELITIS, UNSPECIFIED Status: Acute Qualifiers: Laterality: left (2) Acute on chronic renal insufficiency Code(s): N28.9 - DISORDER OF KIDNEY AND URETER, UNSPECIFIED; N18.9 - CHRONIC KIDNEY DISEASE, UNSPECIFIED Status: Resolved (3) CHF (congestive heart failure) Code(s): I50.9 - HEART FAILURE, UNSPECIFIED Status: Chronic (4) Diabetes mellitus Code(s): E11.9 - TYPE 2 DIABETES MELLITUS WITHOUT COMPLICATIONS Status: Chronic Qualifiers: Diabetes mellitus type: type 2 Diabetes mellitus jail insulin use: with jail use (5) Hyperlipidemia Code(s): E78.5 - HYPERLIPIDEMIA, UNSPECIFIED Status: Chronic (6) Hypertension Code(s): I10 - ESSENTIAL (PRIMARY) HYPERTENSION Status: Chronic Qualifiers: Hypertension type: essential hypertension Qualified Code(s): I10 - Essential (primary) hypertension (7) Constipation Code(s): K59.00 - CONSTIPATION, UNSPECIFIED Status: Acute - Plan On Cefepime and Vanc since 02/07/2019, transitioned to oral Cipro and Augmentin on 02/10/2019 Wound care PT/OT Surgical consult- Dr. Moreno- BKA done 02/14/2019 ID- Eb with abx recs IV fluids, creatinine worse after surgery, Dr. Flower following kidney function Levemir at half dose, resume all other home meds, blood sugars decently controlled no Lovenox due to renal insufficiency, no heparin for DVT proph due to need for surgery, start when ok with GenSurg No BM for more than 4 days, laxatives and stool softeners
--- NOTE | 2019-02-15 18:01 | PRG ---
DATE OF SERVICE: 02/15/2019 SUBJECTIVE: Brian Silvestre is doing well today, status post BKA yesterday. He was given 1 unit of blood during the operation, left BKA. He states he felt a little weak yesterday, but feels well today. He has been up in a chair. White count 6 and hemoglobin 8.1. BUN 17 and creatinine 1.42. He is urinating without difficulty. OBJECTIVE: LUNGS: Clear to auscultation. CARDIAC: Regular rate and rhythm without murmur or gallop. ABDOMEN: Soft and nontender. PLAN: I have advised him to keep his knee in extension to avoid contracture by keeping pillows or blankets beneath his BKA stump below his knee to promote extension. We will change his dressing tomorrow. I have put in a request for porter sample case to see if he is a candidate for charitable rehab and began preparation for discharge home later this week, if he cannot go to rehab with a walker, wheelchair, shower chair. The patient is anemic, but is asymptomatic and will not transfuse at this time. Job ID: [id number]
[2019-02-15] MEDS: Enoxaparin Sodium 40 MG/0.4 ML SYRINGE SC SCH (20:47)
[2019-02-15] MEDS: Atorvastatin Calcium 40 MG TAB PO SCH (20:48)
[2019-02-16] MEDS: Acetaminophen 500 MG TAB PO PRN ×2 (05:05→08:28)
[2019-02-16 06:45] LABS: Hemoglobin 7.9 g/dL (14.0-18.0)
--- NOTE | 2019-02-16 07:48 | PRG ---
DATE OF SERVICE: 02/16/2019 SUBJECTIVE: Mr. Silvestre is doing well today. OBJECTIVE: VITAL SIGNS: Temperature 100.1 degrees, pulse 84, blood pressure 126/75. GENERAL: He has not been out of bed. His incentive spirometer is not within reach of his bed. LUNGS: Rhonchi at base. CARDIAC: Regular rate and rhythm. ABDOMEN: Soft, obese. EXTREMITIES: Left BKA stump looks good. Dressings removed. LABORATORY DATA: This morning, his hemoglobin is 7.9, stable from yesterday. Basic metabolic profile this morning is pending. Accu-Cheks are 117 to 130. The patient was informed that he needs to use incentive spirometer frequently. He is informed he should be out of bed most of the day. I then with the assistance of his nurse tried to get the patient to sit on the side of the bed, but he did not exert much effort hardly at all. It was a total lift to sit him up on the side of the bed. He was returned to the supine position and moved to the head of the bed. During this whole ordeal, patient would not exert any aid in mobilization. He continually said "do not drop me." ASSESSMENT AND PLAN: 1. Status post left below knee amputation. 2. Obesity. 3. Low-grade fever, probably secondary to atelectasis. 4. Anemia. No indication for transfusion at this point. 5. Diabetes mellitus. 6. Metabolic syndrome and obesity. 7. Patient has poor mobility. He is not putting forth much effort in his mobility. He really needs to go to a rehab or custodial, but unfortunately there are financial barriers. inventory worker will work toward [facility] rehab or custodial. I expect the patient to be in the hospital until that occurs. At this point, he can wash this left BK stump daily with soap and water in the shower with a shower chair and apply antibiotic ointment and Telfa and will require stump auctioneer tobacco from PHYSICIAN OFFICE REP. Ron will need to be removed in 2 weeks postoperatively. Job ID: [id number]
[2019-02-16] MEDS: hydrALAZINE 25 MG TAB PO SCH ×3 (08:24→20:32)
[2019-02-16] MEDS: Folic Acid 1 MG TAB PO SCH (08:24)
[2019-02-16] MEDS: Docusate 100 MG CAP PO SCH ×2 (08:24→20:32)
[2019-02-16] MEDS: Gabapentin 300 MG CAP PO SCH ×2 (08:24→20:32)
[2019-02-16] MEDS: Carvedilol 6.25 MG TAB PO SCH ×2 (08:24→20:32)
[2019-02-16] MEDS: Amlodipine 10 MG TAB PO SCH (08:25)
[2019-02-16] MEDS: Insulin Glargine 20 UNITS in Pre-Filled Syringe 1 EACH SC SCH (08:25)
--- NOTE | 2019-02-16 09:43 | PDOC.HOSPP ---
- Subjective Encounter Date: 02/16/19 Encounter Time: 10:30 Subjective: Patient with fever this AM, confusion. No focal complaints. - Objective Vital Signs & Weight: Vital Signs (12 hours) Temp Pulse Resp BP BP Pulse Ox 02/16/19 08:29 101.0 F H 88 20 131/79 96 02/16/19 08:25 84 02/16/19 08:24 84 113/77 02/16/19 08:00 96 02/16/19 05:29 100.1 F H 84 17 126/75 94 L Weight Admit Weight 282 lb 11.2 oz Weight 282 lb 11.2 oz I&O: 02/15/19 02/16/19 02/17/19 06:59 06:59 06:59 Intake Total 1240 240 Balance 1240 240 Result Diagrams: 02/16/19 06:32 02/15/19 06:27 Additional Labs: Accuchecks 02/16/19 02/15/19 02/15/19 04:53 19:24 16:43 POC Glucose 130 H 145 H 117 H 02/15/19 11:12 POC Glucose 114 H Hospitalist ROS - Review of Systems ROS unobtainable: due to mental status - Medication Medications: Active Medications Generic Name Dose Route Start Last Admin Trade Name Freq PRN Reason Stop Dose Admin Acetaminophen 1,000 mg 02/09/19 16:27 02/16/19 08:28 Tylenol PO 1,000 mg Q6H PRN Administration Moderate to Severe Pain (6-10) Hydrocodone Bitart/Acetaminophen 2 tab 02/14/19 13:12 02/14/19 20:30 [place] 10/325 PO 2 tab Q4H PRN Administration .PAIN (5-8) Amlodipine Besylate 10 mg 02/13/19 09:00 02/16/19 08:25 Norvasc PO 10 mg DAILY PANCHO Administration Atorvastatin Calcium 40 mg 02/08/19 21:00 02/15/19 20:48 Lipitor PO 40 mg HS PANCHO Administration Carvedilol 12.5 mg 02/08/19 21:00 02/16/19 08:24 Coreg PO 12.5 mg BID PANCHO Administration Docusate Sodium 100 mg 02/13/19 21:00 02/16/19 08:24 Colace PO 100 mg BID PANCHO Administration Enoxaparin Sodium 40 mg 02/14/19 21:00 02/15/19 20:47 Lovenox SC 40 mg 2100 PANCHO Administration Folic Acid 1 mg 02/13/19 09:00 02/16/19 08:24 Folvite PO 1 mg DAILY PANCHO Administration Gabapentin 300 mg 02/16/19 09:00 02/16/19 08:24 Neurontin PO 300 mg BID PANCHO Administration Hydralazine HCl 25 mg 02/12/19 15:00 02/16/19 08:24 Apresoline PO 25 mg TID PANCHO Administration Insulin Glargine 20 units/ 0.2 mls @ 0 mls/hr 02/09/19 09:00 02/16/19 08:25 Miscellaneous Medication SC 0.2 mls QAM PANCHO Administration Insulin Human Lispro 0 units 02/07/19 19:09 02/13/19 17:45 Humalog SC 2 unit .MILD SLIDING SCALE PRN Administration Mild Correctional Scale Insulin Human Lispro 0 units 02/07/19 19:09 02/09/19 22:04 Humalog SC 2 unit .BEDTIME SLIDING SC PRN Administration Bedtime Correctional Scale Ondansetron HCl 4 mg 02/07/19 19:05 02/15/19 14:23 Zofran IVP 4 mg Q6H PRN Administration Nausea/Vomiting Sodium Chloride 10 ml 02/07/19 19:05 02/15/19 07:59 Flush - Normal Saline IVF 10 ml Q12H PRN Administration Saline Flush Tramadol HCl 50 mg 02/09/19 16:27 02/14/19 13:00 Ultram PO 50 mg Q4H PRN Administration Pain 1-5 - Exam General Appearance: NAD, awake alert ENT: moist mucosa Heart: RRR, no murmur, no gallops, no rubs Respiratory: CTAB, no wheezes, no rales, no ronchi Gastrointestinal: soft, non-tender, non-distended, normal bowel sounds Psychiatric: not oriented Hosp A/P (1) Fever Code(s): R50.9 - FEVER, UNSPECIFIED Status: Acute (2) Osteomyelitis of ankle Code(s): M86.9 - OSTEOMYELITIS, UNSPECIFIED Status: Acute Qualifiers: Laterality: left (3) Acute on chronic renal insufficiency Code(s): N28.9 - DISORDER OF KIDNEY AND URETER, UNSPECIFIED; N18.9 - CHRONIC KIDNEY DISEASE, UNSPECIFIED Status: Resolved (4) CHF (congestive heart failure) Code(s): I50.9 - HEART FAILURE, UNSPECIFIED Status: Chronic (5) Diabetes mellitus Code(s): E11.9 - TYPE 2 DIABETES MELLITUS WITHOUT COMPLICATIONS Status: Chronic Qualifiers: Diabetes mellitus type: type 2 Diabetes mellitus director of channel marketing insulin use: with director of channel marketing use (6) Hyperlipidemia Code(s): E78.5 - HYPERLIPIDEMIA, UNSPECIFIED Status: Chronic (7) Hypertension Code(s): I10 - ESSENTIAL (PRIMARY) HYPERTENSION Status: Chronic Qualifiers: Hypertension type: essential hypertension Qualified Code(s): I10 - Essential (primary) hypertension (8) Constipation Code(s): K59.00 - CONSTIPATION, UNSPECIFIED Status: Acute - Plan Abx d/c'd yesterday after discussing with Dr. Parson Fever to 101 this AM. Will check blood, urine cultures and CXR, start Zosyn, Levaquin, Vanc. Wound care PT/OT Surgical consult- Dr. Moreno- BKA done 02/14/2019 ID- Eb IV fluids, creatinine worse after surgery, Dr. Flower had signed off, can reconsult if creatinine continues to worsen Levemir at half dose, resume all other home meds, blood sugars decently controlled no Lovenox due to renal insufficiency, no heparin for DVT proph due to need for surgery, start when ok with GenSurg No BM for more than 6 days, laxatives and stool softeners
--- NOTE | 2019-02-16 10:43 | RAD ---
XR Chest 1 View HISTORY: Fever, postop COMPARISON: 02/09/2019 FINDINGS: The heart size is at upper limits of normal. The lungs are hypoexpanded without focal areas of consolidation, pneumothorax or pleural effusions. Left-sided central line remains in place. IMPRESSION: No radiographic evidence of acute cardiopulmonary process.
[2019-02-16] MEDS: Multivitamins CHEW w/Iron Tablet PO SCH (11:41)
[2019-02-16] MEDS: Piperacillin/Tazobactam 3.375 GM in Sodium Chloride 0.9% 100 ML IVPB SCH ×2 (13:00→17:31)
[2019-02-16] MEDS: Vancomycin HCl 1.25 GM in Sodium Chloride 0.9% 250 ML 250 ML IVPB SCH (13:03)
--- NOTE | 2019-02-16 13:20 | ULT ---
BILATERAL LOWER EXTREMITY VENOUS DOPPLER: 02/16/2019 PROVIDED CLINICAL HISTORY: Postop fever. FINDINGS: Hayes-scale and color Doppler sonography with rectal analysis was performed of the bilateral common fe moral, femoral, popliteal, greater saphenous and profunda femoral veins. The right posterior tibial v ein was also interrogated. The sonographic appearance of the interrogated venous structures is normal bilaterally. IMPRESSION: No sonographic evidence for lower extremity deep venous thrombosis. POS: OFF
[2019-02-16 16:19] LABS: Bacteria/HPF 2+ HPF (None Seen); Bilirubin Negative (Negative); Blood, Urine Trace (Negative); Clarity Clear (Clear); Glucose, Urine (Dipstick) Normal (Negative); Leukocyte Negative Leu/uL (Negative); Nitrite Negative (Negative); Protein, Urine (Dipstick) 30 mg/dL (Neg-Trace); RBC/HPF 0-3 HPF (0-3); Squamous Epithelial 0-3 HPF (0-3); Urobilinogen Normal mg/dL (Less than 2)
[2019-02-16 17:38] LABS: #Eosinphils 0.2 thou/uL (0.0-0.7); #Monocytes 0.9 thou/uL (0.11-0.59); #Neutrophils 4.5 thou/uL (1.40-6.50); %Basophils 0.4 % (0.0-1.0); %Eosinophils 2.7 % (0.0-10.0); %Lymphocytes 26.7 % (21.0-51.0); %Monocytes 11.9 % (0.0-10.0); %Neutrophils 58.4 % (42.0-75.0); Hemoglobin 7.5 g/dL (14.0-18.0); Mean Corpuscular Hemoglobin 26.4 pg (27.0-31.0); Mean Corpuscular Volume 82.5 fL (78.0-98.0); Mean Platelet Volume 7.4 fL (7.4-10.4); Platelet Count 221 thou/uL (130-400); RBC Distribution Width 14.3 % (11.5-14.5); Red Blood Cell (RBC) Count 2.84 mill/uL (4.70-6.10); White Blood Cell (WBC) Count 7.7 thou/uL (4.8-10.8)
--- NOTE | 2019-02-16 17:45 | PRG ---
DATE OF SERVICE: 02/16/2019 SUBJECTIVE: Mr. Silvestre is obtunded. He will open his eyes, but does not establish eye contact more than just a brief few seconds and he does not answer questions or follow commands. He obviously is having difficulty in handling his secretions, is not able to cough his hypopharyngeal secretions. OBJECTIVE: LUNGS: Symmetric air entry, but air excursions are diminished. HEART: S1 and S2, regular rate. ABDOMEN: Soft. No guarding. EXTREMITIES: He had a left BKA amputation. VITAL SIGNS: Today, his T-max was 101, blood pressure 150/95, pulse 98, respirations 18. HEENT: His pupils are equal, but he does not establish eye contact. Roving eye movements, oropharyngeal secretions noted. LABORATORY DATA AND IMAGING STUDIES: White cell count 6.2, hemoglobin 8.1, platelets 192 with 49% neutrophils. Creatinine is up to 1.42. His last white cell count 6.2 from yesterday, hemoglobin 7.9. The patient had a chest x-ray, which did not show any infiltrates, and venogram was negative. His current O2 saturation is 99%. 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 The patient will need a CT scan of brain and will probably need to be transferred to either stroke unit or [facility] or IM. Job ID: [id number]
[2019-02-16 18:17] LABS: Anion Gap 12 mmol/L (10-20); BUN (Urea Nitrogen) 27 mg/dL (8.4-25.7); Calc. Creatinine Clearance 57 mL/min (70-130); Calcium 8.5 mg/dL (7.8-10.44); Carbon Dioxide 28 mmol/L (22-29); Chloride 103 mmol/L (98-107); Estimated GFR-MDRD 31; Glucose 115 mg/dL (70-105); Potassium 4.4 mmol/L (3.5-5.1); Sodium 139 mmol/L (136-145)
[2019-02-16 19:46] LABS: Actual Bicarbonate (HCO3a) 30.2 mEq/L (22-28); Base Excess (BEa) 5.4 mEq/L (-2.0 to +3.0); CO2 Tension 46.4 mmHg (35.0-45.0); Calcium, Ionized 1.15 mmol/L (1.12-1.30); Carboxyhemoglobin (COHb) 1.3 gm% (0.0-3.0); Hemoglobin (Hb) 8.1 g/dL (14.0-18.0); O2 Tension (PaO2) 60.7 mmHg (80.0-100.0); Potassium - ABG Lab 4.38 mmol/L (3.70-5.30); pH, Arterial 7.43 (7.35-7.45)
[2019-02-16 19:50] LABS: Puncture Site L RADIAL
[2019-02-16] MEDS: Atorvastatin Calcium 40 MG TAB PO SCH (20:32)
[2019-02-16] MEDS ORDERED: Vancomycin HCl 1 GM in Premix Bag 1 BAG IVPB SCH (21:00)
[2019-02-16] MEDS: Enoxaparin Sodium 40 MG/0.4 ML SYRINGE SC SCH (21:07)
--- NOTE | 2019-02-16 21:51 | CT ---
NONCONTRAST CT HEAD: 02/16/19 HISTORY: New onset altered mental status. Patient is unresponsive. COMPARISON: None. FINDINGS: There is subtle area of increased density with adjacent punctate calcification seen in a left anterio r frontal parafalcine location. This could potentially represent vascular malformation in this region . This does not have the appearance of hemorrhage. Diminished attenuation seen in the periventricular white matter which is nonspecific but likely refle ctive of chronic small vessel ischemic changes. There is no acute cortical infarction, hemorrhage, ma ss effect, or midline shift. Mild cerebral volume loss is present. The ventricular system is normal in size, shape and position fo r the degree of sulcal atrophy. Mucosa thickening is seen in the posterior left ethmoidal air cell with trace mucosa thickening in th e right sphenoid sinus. Mastoid air cells are clear. Calvarial structures have a normal appearance. IMPRESSION: 1. Subtle increased density area measuring less than 1 cm within the left frontal parafalcine lo cation with adjacent tiny punctate calcification. This may represent a small vascular malformation. N onemergent MRI of brain is suggested for further evaluation. 2. Chronic small vessel ischemic change and cerebral volume loss. 3. No acute intracranial abnormality is demonstrated. POS: [facility]
[2019-02-17] MEDS: Piperacillin/Tazobactam 3.375 GM in Sodium Chloride 0.9% 100 ML IVPB SCH ×5 (00:20→23:43)
[2019-02-17] MEDS: Vancomycin HCl 1.25 GM in Sodium Chloride 0.9% 250 ML 250 ML IVPB SCH ×2 (00:20→13:59)
[2019-02-17 05:31] LABS: #Eosinphils 0.4 thou/uL (0.0-0.7); #Lymphocytes 2.1 thou/uL (1.20-3.40); #Monocytes 0.8 thou/uL (0.11-0.59); #Neutrophils 4.8 thou/uL (1.40-6.50); %Basophils 0.5 % (0.0-1.0); %Eosinophils 4.7 % (0.0-10.0); %Lymphocytes 25.4 % (21.0-51.0); %Neutrophils 59.6 % (42.0-75.0); Hemoglobin 7.7 g/dL (14.0-18.0); Mean Corpuscular HGB CONC 31.4 g/dL (32.0-36.0); Mean Corpuscular Volume 82.7 fL (78.0-98.0); Mean Platelet Volume 7.3 fL (7.4-10.4); Platelet Count 232 thou/uL (130-400); RBC Distribution Width 14.4 % (11.5-14.5); Red Blood Cell (RBC) Count 2.97 mill/uL (4.70-6.10); White Blood Cell (WBC) Count 8.1 thou/uL (4.8-10.8)
[2019-02-17 05:49] LABS: Anion Gap 12 mmol/L (10-20); BUN (Urea Nitrogen) 25 mg/dL (8.4-25.7); Calc. Creatinine Clearance 68 mL/min (70-130); Calcium 8.7 mg/dL (7.8-10.44); Carbon Dioxide 28 mmol/L (22-29); Chloride 104 mmol/L (98-107); Estimated GFR-MDRD 38; Glucose 92 mg/dL (70-105); Potassium 4.2 mmol/L (3.5-5.1); Sodium 140 mmol/L (136-145)
--- NOTE | 2019-02-17 09:23 | PDOC.HOSPP ---
- Subjective Encounter Date: 02/17/19 Encounter Time: 12:00 Subjective: Patient worsened over the course of the day yesterday. Remained somnolent and no longer speaking at all even after fever resolved. Poor clearing of secretions. CT head done and moved to [facility]. CT abnormal so MRI done. Shows bilateral cerebral watershed infarcts vs. embolic infarcts. Patient not talking today. Possible strength deficits beween arms as well though hard to get him to more his extremities. and daughter at bedside and informed of diagnosis and plan. - Objective Vital Signs & Weight: Vital Signs (12 hours) Temp Pulse Ox 02/17/19 07:23 98.9 F 02/17/19 04:19 94 L 02/17/19 03:24 99.0 F 02/16/19 23:08 98.8 F Weight Admit Weight 282 lb 11.2 oz Weight 282 lb 11.2 oz Most Recent Monitor Data Heart Rate from ECG 93 NIBP 135/91 NIBP BP-Mean 105 Respiration from ECG 22 SpO2 94 I&O: 02/16/19 02/17/19 02/18/19 06:59 06:59 06:59 Intake Total 1240 740 Balance 1240 740 Result Diagrams: 02/17/19 05:15 02/17/19 05:15 Additional Labs: Accuchecks 02/17/19 02/16/19 02/16/19 06:15 20:40 16:29 POC Glucose 104 123 H 129 H 02/16/19 13:05 POC Glucose 158 H Hospitalist ROS - Medication Medications: Active Medications Generic Name Dose Route Start Last Admin Trade Name Freq PRN Reason Stop Dose Admin Acetaminophen 1,000 mg 02/09/19 16:27 02/16/19 08:28 Tylenol PO 1,000 mg Q6H PRN Administration Moderate to Severe Pain (6-10) Hydrocodone Bitart/Acetaminophen 2 tab 02/14/19 13:12 02/14/19 20:30 [place] 10/325 PO 2 tab Q4H PRN Administration .PAIN (5-8) Amlodipine Besylate 10 mg 02/13/19 09:00 02/16/19 08:25 Norvasc PO 10 mg DAILY PANCHO Administration Atorvastatin Calcium 40 mg 02/08/19 21:00 02/16/19 20:32 Lipitor PO Not Given HS PANCHO Carvedilol 12.5 mg 02/08/19 21:00 02/16/19 20:32 Coreg PO Not Given BID [facility] Docusate Sodium 100 mg 02/13/19 21:00 02/16/19 20:32 Colace PO Not Given BID [facility] Enoxaparin Sodium 40 mg 02/14/19 21:00 02/16/19 21:07 Lovenox SC 40 mg 2100 PANCHO Administration Folic Acid 1 mg 02/13/19 09:00 02/16/19 08:24 Folvite PO 1 mg DAILY [facility] Administration Gabapentin 300 mg 02/16/19 09:00 02/16/19 20:32 Neurontin PO Not Given BID [facility] Hydralazine HCl 25 mg 02/12/19 15:00 02/16/19 20:32 Apresoline PO Not Given TID [facility] Insulin Glargine 20 units/ 0.2 mls @ 0 mls/hr 02/09/19 09:00 02/16/19 08:25 Miscellaneous Medication SC 0.2 mls QAM [facility] Administration Levofloxacin 750 mg/ Device 150 mls @ 100 mls/hr 02/16/19 11:00 02/16/19 12: 50 IVPB 150 mls 1100 PANCHO Administration Piperacillin Sod/Tazobactam 100 mls @ 200 mls/hr 02/16/19 12:00 02/17/19 05: 17 Sod 3.375 gm/ Sodium Chloride IVPB 100 mls Q6HR PANCHO Administration Vancomycin HCl 1.25 gm/ Sodium 250 mls @ 166.667 mls/hr 02/16/19 12:00 00:20 Chloride IVPB 250 mls 1200,2359 [facility] Administration Insulin Human Lispro 0 units 02/07/19 19:09 02/13/19 17:45 Humalog SC 2 unit .MILD SLIDING SCALE PRN Administration Mild Correctional Scale Insulin Human Lispro 0 units 02/07/19 19:09 02/09/19 22:04 Humalog SC 2 unit .BEDTIME SLIDING SC PRN Administration Bedtime Correctional Scale Multivitamins/Iron 1 tab 02/16/19 09:00 02/16/19 11:41 Centrum Kids Complete/Iron PO Not Given DAILY [facility] Ondansetron HCl 4 mg 02/07/19 19:05 02/15/19 14:23 Zofran IVP 4 mg Q6H PRN Administration Nausea/Vomiting Sodium Chloride 10 ml 02/07/19 19:05 02/15/19 07:59 Flush - Normal Saline IVF 10 ml Q12H PRN Administration Saline Flush Tramadol HCl 50 mg 02/09/19 16:27 02/14/19 13:00 Ultram PO 50 mg Q4H PRN Administration Pain 1-5 Hosp A/P (1) Acute bilat watershed infarction Code(s): I63.89 - OTHER CEREBRAL INFARCTION Status: Acute (2) Fever Code(s): R50.9 - FEVER, UNSPECIFIED Status: Resolved Plan: possibly neurologic due to stroke (3) Osteomyelitis of ankle Code(s): M86.9 - OSTEOMYELITIS, UNSPECIFIED Status: Resolved Qualifiers: Laterality: left Plan: s/p amputation (4) Acute on chronic renal insufficiency Code(s): N28.9 - DISORDER OF KIDNEY AND URETER, UNSPECIFIED; N18.9 - CHRONIC KIDNEY DISEASE, UNSPECIFIED Status: Resolved (5) CHF (congestive heart failure) Code(s): I50.9 - HEART FAILURE, UNSPECIFIED Status: Chronic (6) Diabetes mellitus Code(s): E11.9 - TYPE 2 DIABETES MELLITUS WITHOUT COMPLICATIONS Status: Chronic Qualifiers: Diabetes mellitus type: type 2 Diabetes mellitus intermediate project manager insulin use: with intermediate project manager use (7) Hyperlipidemia Code(s): E78.5 - HYPERLIPIDEMIA, UNSPECIFIED Status: Chronic (8) Hypertension Code(s): I10 - ESSENTIAL (PRIMARY) HYPERTENSION Status: Chronic Qualifiers: Hypertension type: essential hypertension Qualified Code(s): I10 - Essential (primary) hypertension (9) Constipation Code(s): K59.00 - CONSTIPATION, UNSPECIFIED Status: Acute - Plan Consults: Palliative Care Fever to 101 02/16/2019. Checked blood cultures, urine and CXR ok, start Zosyn, Levaquin, Vanc. BLE US neg for DVT CT head with possible vascular malformation MRI with possible acute watershed infarct bilateral cerebrum vs. embolic strokes , uncertain when happened but recent surgery so not candidate for TPA, last neuro normal over 24 hours ago- consulting neurology, checking carotid dopplers and ECHO Wound care PT/OT Surgical consult- Dr. Moreno- BKA done 02/14/2019 ID- Eb IV fluids, creatinine worse after surgery, Dr. Flower had signed off, can reconsult if creatinine continues to worsen Levemir at half dose, resume all other home meds, blood sugars decently controlled no Lovenox due to renal insufficiency, no heparin for DVT proph due to need for surgery, start when ok with GenSurg No BM for more than 6 days, laxatives and stool softeners
[2019-02-17] MEDS: Carvedilol 6.25 MG TAB PO SCH ×2 (10:15→20:20)
[2019-02-17] MEDS: Amlodipine 10 MG TAB PO SCH (10:15)
[2019-02-17] MEDS: Docusate 100 MG CAP PO SCH ×2 (10:15→20:20)
[2019-02-17] MEDS: hydrALAZINE 25 MG TAB PO SCH ×3 (10:16→20:20)
[2019-02-17] MEDS: Insulin Glargine 20 UNITS in Pre-Filled Syringe 1 EACH SC SCH (10:16)
[2019-02-17] MEDS: Folic Acid 1 MG TAB PO SCH (10:16)
[2019-02-17] MEDS: Multivitamins CHEW w/Iron Tablet PO SCH (10:16)
[2019-02-17] MEDS: Gabapentin 300 MG CAP PO SCH ×2 (10:16→20:20)
--- NOTE | 2019-02-17 10:33 | MRI ---
BRAIN MRI WITHOUT CONTRAST: HISTORY: Decreased level of consciousness. Abnormal CT. COMPARISON: None. FINDINGS: Calvarial marrow signal intensity: Appropriate T1 signal. Gradient echo sequence: There is blooming involving the medial left frontal lobe measuring 0.9 x 1.1 cm, corresponding to the hyperdensity noted on recent CT. Blooming and hyperdensity favor a cavernoma. There is associated T2 and STIR hyperintensity, without evidence of restricted diffusion Brain parenchyma: No mass, mass effect or midline shift. Brain volume, age-appropriate. Cortical underwood-white matter differentiation: Preserved. Restricted diffusion: Central arterial flow voids are maintained. Nevertheless, there are scattered a reas of restricted diffusion suggesting embolic infarct, based upon the distribution. White matter signal intensities: T2, FLAIR white matter hyperintensities due to chronic small vessel ischemic changes. Additional white matter hyperintensities correspond to the areas of restricted diffusion. Sinuses: Adequate aeration of the paranasal sinuses and mastoid air cells. IMPRESSION: 1. 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 2. Scattered areas of restricted diffusion involving the left and right cerebrum. The distribution fa vors embolic infarct. Further workup to assess for etiology of these strokes is recommended with echocardiogram as well as carotid ultrasound.
[2019-02-17] MEDS ORDERED: Aspirin 300 MG Suppository PR SCH (11:30)
--- NOTE | 2019-02-17 12:55 | PRG ---
DATE OF SERVICE: 02/17/2019 SUBJECTIVE: The patient was seen at the bedside. We were reconsulted because of the AL. The patient was seen last week with improvement in renal function after AL. The patient remains nonverbal and just opened eyes, not communicating. OBJECTIVE: GENERAL: This is an obese, male, seen at the bedside. Family at the bedside. VITAL SIGNS: Temperature 98.9, pulse 94, respiratory rate 18, blood pressure 137/91. HEENT: Atraumatic, normocephalic. NECK: Supple. CV: S1, S2 heard. RESPIRATORY: Clear. GI: Abdomen is soft. MUSCULOSKELETAL: Left amputation and right leg with 2+ edema. DERMATOLOGIC: No skin rash. NEUROLOGY: Not responding. LABORATORY DATA: Potassium 4.2, BUN is 25, and creatinine is 2.1. ASSESSMENT AND PLAN: 1. Acute kidney injury, not exactly sure of the cause, most likely from volume depletion. Creatinine is getting better. We would recommend hydration if tolerated, but given the edema, we will hold it for now. 2. Edema. 3. History of hypertension. 4. Obesity. 5. Anemia of chronic disease. 6. Altered mentation. We will follow. Thankfully, the renal function is getting better. Continue to avoid nephrotoxins, and continue supportive care including antibiotics, and renally dose the medications. Monitor vanc level and dose based on the levels, and we will follow. Job ID: [id number]
--- NOTE | 2019-02-17 16:00 | ULT ---
BILATERAL CAROTIUD DUPLEX ULTRASOUND: HISTORY: Stroke. TECHNIQUE: Hayes scale ultrasound with color flow and spectral Doppler imaging of the extracranial carotid artery systems performed bilaterally. FINDINGS: Mild plaque formation is seen in the carotid bulbs. The peak systolic velocity in the right ICA measures 91 cm/s with an end-diastolic velocity of 28 cm/ s and a systolic ratio of 0.88. The peak systolic velocity in the left ICA measures 87 cm/s with an end-diastolic velocity of 30 cm/s and a systolic ratio of 0.60. Flow in both vertebral arteries remains antegrade. IMPRESSION: No evidence of hemodynamically significant stenosis. POS: [facility]
[2019-02-17] MEDS ORDERED: Labetalol HCl 100 MG/20 ML VIAL SLOW IVP PRN (16:33)
[2019-02-17] MEDS ORDERED: hydrALAZINE 20 MG/ML VIAL SLOW IVP PRN (16:33)
--- NOTE | 2019-02-17 17:32 | CON ---
DATE OF CONSULTATION: 02/17/2019 SERVICE: Pulmonary Medicine. REASON FOR CONSULT: [facility] patient. HISTORY OF PRESENT ILLNESS: The patient is a 58-year-old male with past medical history significant for hypertension and peripheral vascular disease. He was in his usual state of health when he presented to the Emergency Department with gangrene of the left lower extremity. There was concern for some infection there. As such, he was initially placed on some antibiotics. This cooled off and on the February 14, he underwent a left lower extremity amputation. He was noted to be normal in the postoperative period. That being said, the next morning, he had increasing confusion. He was subsequently brought down to the [facility]. En route, he stopped by the CT. This demonstrated multiple embolic lesions throughout bilateral hemispheres. He cannot provide any additional elements of the history at this point. He does attend, and can grunt yes and no. This seems to be appropriate. Outside of that, he is not able to communicate to any significant degree. PAST MEDICAL HISTORY: 1. Hypertension. 2. Dyslipidemia. 3. Type 2 diabetes mellitus. 4. Obstructive sleep apnea, not using CPAP therapy. 5. Morbid obesity. PAST SURGICAL HISTORY: Left below-knee amputation. ALLERGIES: NO KNOWN DRUG ALLERGIES. MEDICATIONS: List of his inpatient medications was reviewed. No specific updates were made at this time. SOCIAL HISTORY: Negative for alcohol or illicit drug use. He uses chewing tobacco. Otherwise, he has no exposure to chemicals, dust, asbestos, or tuberculosis. FAMILY HISTORY: Noncontributory. REVIEW OF SYSTEMS: This cannot reliably be obtained currently. PHYSICAL EXAMINATION: VITAL SIGNS: Afebrile, currently with a T-max of 101.0 degrees overnight. Pulse 95, blood pressure 171/124, respirations 18, and saturation 95%, currently on a 2 L nasal cannula. GENERAL: The patient is awake. He has his eyes open spontaneously, and he attends. Outside of that, he is not able to move upper or lower extremities to command. HEENT: Normocephalic and atraumatic. Sclerae white. Conjunctivae pink. Oral mucosa is moist without lesions. LUNGS: Decent air entry. Rhonchi are extensive. No prolonged expiratory phase or wheezing is appreciated. HEART: Normal rate. Regular. ABDOMEN: Soft, nontender, and nondistended. Bowel sounds are positive. MUSCULOSKELETAL: No cyanosis or clubbing. There is trace to 1+ pitting in the bilateral lower extremities. NEUROLOGIC: Grossly nonfocal. LABORATORY DATA: WBC 8.1, hemoglobin 7.7, and platelets of 232,000. Basic metabolic profile is otherwise unremarkable. Creatinine 2.18, it is gently downtrending. Ferritin 400, though iron is low. Folate is low, B12 falls within normal limits. Liver function studies from the 30th were unremarkable. Urine drug screen was unremarkable. HIV-1 and 2 were recently unremarkable. Bacterial cultures from the leg are growing multiple organisms. Repeat blood cultures x2 have been unremarkable. IMAGIN. 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 Scattered areas of restricted diffusion involving the left and right cerebrum favoring embolic infarcts. 2. CT of the brain demonstrates subtle increased density measuring 1 cm in the left frontal parafalcine location with punctate calcification. No acute injuries were identified on the CT. 3. Ultrasound of the bilateral lower extremities demonstrates no sonographic evidence for deep venous thrombosis. 4. Chest x-ray demonstrates no radiographic evidence of acute cardiopulmonary abnormality. ASSESSMENT: 1. Acute hypoxic respiratory failure. 2. Wet gangrene of the left lower extremity, status post below-knee amputation, postop day 3. 3. Acute cerebrovascular accident, likely embolic. DISCUSSION AND PLAN: Neurology consultation will be placed. At this point, he is outside the window to receive tPA. Pulmonary/Critical Care will continue to follow along in this location. He is only marginally protecting his airway. If his respiratory issues get worse, he will likely require advanced airway. Critical Care will follow. 70 minutes have been devoted to this patient in various activities. I personally reviewed all imaging studies and laboratory data noted within this document. For fifty percent of this time, I was interacting with the patient at the bedside or coordinating care with the care team. For the remainder of the time I was immediately available to the patient in the hospital unit. Job ID: [id number] [facility]
--- NOTE | 2019-02-17 17:41 | PRG ---
DATE OF SERVICE: 02/17/2019 SUBJECTIVE: Mr. Silvestre was transferred to the [facility] and imaging demonstrated CVA in multiple areas in the left and right brain, the distribution favored embolic infarct. Carotid Doppler study did not show any significant stenosis and echo is pending. He still obtunded, does not interact with the examiner very well. He does mumble some unintelligible sounds. He is not able to interact with family either. OBJECTIVE: HEENT: His eye movements seem to be conjugate. Pupils are equal. It seems like he has some hard difficulty with management of upper airway secretions. LUNGS: Somewhat coarse breath sounds. Few crackles here and there. HEART: S1 and S2, regular rate. ABDOMEN: Soft. Not distended. Triple-lumen subclavian catheter, left side. Left-sided BKA. LABORATORY DATA: White cell count 8.1, hemoglobin 7.7, platelets 232. Sodium 140, creatinine 2.18. The 2 sets of blood cultures thus far no growth. ASSESSMENT AND DISCUSSION: Peripheral vascular disease, type 2 diabetes, chronic ulcers in lower extremities secondary to peripheral vascular disease, renal insufficiency stage III, osteomyelitis of left distal ankle, status post left below knee amputation, and altered mental status due to likely embolic CVAs or watershed CVAs. May have had atheroembolism and we will continue antimicrobial therapy, probably had aspiration pneumonia from his altered mental status and it should not be long-lived antimicrobial therapy, probably another few days I will stop it. Question here will be the degree of improvement in his mental state, he needs a swallowing study and may end up requiring gastrostomy tube feedings depending on family wishes. Job ID: [id number]
[2019-02-17] MEDS: Enoxaparin Sodium 40 MG/0.4 ML SYRINGE SC SCH (20:20)
[2019-02-17] MEDS: Atorvastatin Calcium 40 MG TAB PO SCH (20:20)
[2019-02-17] MEDS: Acetaminophen 650 MG Suppository PR PRN (23:39)
--- NOTE | 2019-02-18 00:08 | CON ---
DATE OF CONSULTATION: 02/17/2019 CONSULTING PHYSICIAN: Hospitalist Service. IMPRESSION: 1. Left patchy hemispheric stroke on MRI. 2. Echocardiogram shows a normal ejection fraction of 60% to 65%. 3. Diabetes. 4. Hypertension. 5. Peripheral vascular disease, status post left BKA with osteomyelitis. 6. Hyperlipidemia. PLAN: 1. Continue aspirin. 2. Review carotid ultrasound. HISTORY OF PRESENT ILLNESS: Mr. Silvetsre is a 58-year-old man, who came in for management of osteomyelitis of the left foot. Postoperatively from his amputation, he was doing well. He was appropriately responsive. He became more lethargic acutely. He was taken over for an MRI scan, which showed some patchy watershed distribution ischemic changes in the left parietal region. He has been on oxygen supplementation. The nurses report they are suctioning up quite a bit of phlegm. He has been poorly responsive for them and they have not seen any seizure activity. There is no history of prior stroke. PAST MEDICAL HISTORY: As listed above. ALLERGIES: PER CHART. SOCIAL HISTORY: Unknown. FAMILY HISTORY: Unknown. REVIEW OF SYSTEMS: Not obtainable. PHYSICAL EXAMINATION: VITAL SIGNS: Stable. He is bit hypertensive. HEENT: Pupils are equal. His eyes are conjugate. Conjunctivae are clear. NECK: Supple. No lymphadenopathy. EXTREMITIES: His tone is fairly symmetric, but relatively reduced bilaterally. Could not arouse him to follow any commands or speak. No abnormal movements were seen. LABORATORY DATA: EKG shows a sinus rhythm. SUMMARY: This is a middle-aged man who suffered a stroke postoperatively. He is quite lethargic. He has some renal insufficiency and other medical issues ongoing. Agree with his current management. Job ID: [id number]
[2019-02-18 01:25] LABS: Vancomycin, Trough 21.1 ug/mL
[2019-02-18] MEDS: Vancomycin HCl 1.25 GM in Sodium Chloride 0.9% 250 ML 250 ML IVPB SCH (01:47)
[2019-02-18] MEDS: Vancomycin HCl 1 GM in Premix Bag 1 BAG IVPB SCH ×2 (02:16→12:52)
[2019-02-18 03:48] LABS: #Eosinphils 0.3 thou/uL (0.0-0.7); #Lymphocytes 1.7 thou/uL (1.20-3.40); #Monocytes 0.7 thou/uL (0.11-0.59); #Neutrophils 5.3 thou/uL (1.40-6.50); %Basophils 0.2 % (0.0-1.0); %Eosinophils 3.5 % (0.0-10.0); %Lymphocytes 21.4 % (21.0-51.0); %Monocytes 8.9 % (0.0-10.0); Hemoglobin 7.6 g/dL (14.0-18.0); Mean Corpuscular HGB CONC 32.2 g/dL (32.0-36.0); Mean Corpuscular Hemoglobin 26.2 pg (27.0-31.0); Mean Corpuscular Volume 81.4 fL (78.0-98.0); Mean Platelet Volume 7.4 fL (7.4-10.4); Platelet Count 248 thou/uL (130-400); RBC Distribution Width 14.4 % (11.5-14.5); Red Blood Cell (RBC) Count 2.88 mill/uL (4.70-6.10)
[2019-02-18 04:07] LABS: Phosphorus 4.4 mg/dL (2.3-4.7)
[2019-02-18 04:09] LABS: Anion Gap 13 mmol/L (10-20); BUN (Urea Nitrogen) 31 mg/dL (8.4-25.7); Calc. Creatinine Clearance 62 mL/min (70-130); Calcium 8.7 mg/dL (7.8-10.44); Carbon Dioxide 26 mmol/L (22-29); Chloride 105 mmol/L (98-107); Estimated GFR-MDRD 34; Glucose 125 mg/dL (70-105); Magnesium 2.3 mg/dL (1.6-2.6); Potassium 4.3 mmol/L (3.5-5.1); Sodium 140 mmol/L (136-145)
[2019-02-18] MEDS: Piperacillin/Tazobactam 3.375 GM in Sodium Chloride 0.9% 100 ML IVPB SCH ×4 (05:54→23:25)
[2019-02-18] MEDS: Amlodipine 10 MG TAB PO SCH (09:16)
[2019-02-18] MEDS: Folic Acid 1 MG TAB PO SCH (09:17)
[2019-02-18] MEDS: Gabapentin 300 MG CAP PO SCH ×2 (09:17→20:55)
[2019-02-18] MEDS: hydrALAZINE 25 MG TAB PO SCH ×3 (09:17→20:55)
[2019-02-18] MEDS: Carvedilol 6.25 MG TAB PO SCH ×2 (09:17→20:56)
[2019-02-18] MEDS: Docusate 100 MG CAP PO SCH ×2 (09:17→20:56)
[2019-02-18] MEDS: Multivitamins CHEW w/Iron Tablet PO SCH (09:18)
[2019-02-18] MEDS: Insulin Glargine 20 UNITS in Pre-Filled Syringe 1 EACH SC SCH (09:18)
[2019-02-18] MEDS: Aspirin 300 MG Suppository PR SCH (10:43)
--- NOTE | 2019-02-18 11:40 | RAD ---
XR Abdomen 1 View/KUB History: Dobbhoff placement Comparison: None Findings: Dobbhoff tube is in place with tip projecting of the gastric antrum. No dilated air-filled loops of large or small bowel. Impression: Dobbhoff tube tip projecting over the gastric antrum.
--- NOTE | 2019-02-18 14:23 | PRG ---
DATE OF SERVICE: 02/18/2019 SUBJECTIVE: The patient was seen and examined at bedside, and still not verbal and not responding. OBJECTIVE: GENERAL: This is an obese male, seen in IMCU. VITAL SIGNS: Temperature 98.7, pulse 91, respiratory rate blood pressure 141/86. HEENT: Atraumatic and normocephalic. NECK: Supple. CV: S1 and S2 heard. Rate and rhythm regular. RESPIRATORY: Clear. GI: Abdomen is soft. MUSCULOSKELETAL: 1+ edema. DERMATOLOGIC: No skin rash. NEUROLOGIC: Confused. LABORATORY DATA: Potassium is 4.3, BUN is 31, creatinine is 2.3. ASSESSMENT AND PLAN: 1. Acute kidney injury on chronic kidney disease, stage 3. Slightly volume depletion. We will start on IV fluids, atheroembolism is also in etiology, in that case, might have to hold the heparin. 2. Edema, controlled. 3. Hypertension. 4. Obesity. 5. Anemia of chronic disease. 6. Altered mentation. 7. CVA. Plan to start IV fluids if tolerated. Check renal ultrasound. Job ID: [id number]
[2019-02-18] MEDS: Sodium Chloride 0.9% 1,000 ML IV SCH (15:17)
--- NOTE | 2019-02-18 16:07 | ULT ---
Renal sonogram HISTORY: Renal failure. FINDINGS: Right kidney measures up to 11.1 cm and the left 12.9 cm. There is mild distention of the c ollecting system of each kidney. No mass is visible. Urinary bladder is distended to 1.23 L. Patient was unable to void. Bilateral ureteral jets are documented. IMPRESSION: Marked distention of the urinary bladder. Patient unable to void for further imaging. Thi s results in mild bilateral hydronephrosis. No evidence of upper urinary tract obstruction.
--- NOTE | 2019-02-18 16:41 | PRG ---
DATE OF SERVICE: 02/18/2019 SERVICE: Pulmonary Medicine. INTERVAL HISTORY: The patient is doing poorly from a mentation standpoint. He is waking up a little bit. That being said, he is not protecting his airway in a robust fashion. I have had a brief conversation with his today about code status. Ultimately, after convened with her family, she reaffirmed that he will remain a full code. She is okay with PEG tube and tracheostomy in the event that he gets worse from a mentation standpoint, requires intubation. In order to decrease some of his obstructive events, he required a nasal trumpet. PHYSICAL EXAMINATION: VITAL SIGNS: Afebrile, pulse 94, blood pressure 114/92, respirations 12, and saturation 100% currently on room air. GENERAL: The patient is awake and alert, in no apparent distress. LUNGS: Decent air entry. Rhonchi are present. No prolonged expiratory phase, wheezing, or crackles are appreciated. HEART: Normal rate and regular. ABDOMEN: Soft, nontender, and nondistended. Bowel sounds are positive. MUSCULOSKELETAL: No cyanosis or clubbing. There is trace 1+ pitting in the bilateral lower extremities. LABORATORY DATA: WBC 8.0, hemoglobin 7.6, and platelets 248,000. Creatinine 2.37 and gently uptrending. Basic metabolic profile is otherwise unremarkable. Magnesium and phosphorous fall within the normal limits. Blood cultures x2 are negative today from the 16 of February. IMAGING: Ultrasound of bilateral kidneys demonstrates marked distention of the urinary bladder with some degree of mild hydronephrosis associated with the bladder distention. KUB demonstrates interval placement of a small more weighted feeding tube. ASSESSMENT: 1. Acute hypoxic respiratory failure, resolved currently. 2. Wet gangrene of the left lower extremity, status post below-knee amputation, postop day #4. 3. Acute cerebrovascular accident, likely embolic. 4. Acute kidney injury with bladder distention and hydronephrosis. DISCUSSION AND PLAN: Richards catheter will be placed. If the patient has a fever , we will panculture him. At this point, he seems to be protecting his airway albeit marginally. Dobbhoff tube will be placed, so we can provide nutrition and p.o. medications. Pulmonary will continue to follow. At this point, he needs to stay in the [facility]. Job ID: [id number] [facility]
[2019-02-18] MEDS: Acetaminophen 500 MG TAB PO PRN (20:55)
[2019-02-18] MEDS: Atorvastatin Calcium 40 MG TAB PO SCH (20:56)
[2019-02-18] MEDS: Enoxaparin Sodium 40 MG/0.4 ML SYRINGE SC SCH (20:57)
[2019-02-19] MEDS: Vancomycin HCl 1 GM in Premix Bag 1 BAG IVPB SCH ×2 (03:04→14:37)
[2019-02-19] MEDS: Sodium Chloride 0.9% 1,000 ML IV SCH (03:05)
[2019-02-19 03:29] LABS: #Basophils 0.1 thou/uL (0.0-0.2); #Eosinphils 0.4 thou/uL (0.0-0.7); #Lymphocytes 1.9 thou/uL (1.20-3.40); #Monocytes 0.5 thou/uL (0.11-0.59); #Neutrophils 4.1 thou/uL (1.40-6.50); %Basophils 0.9 % (0.0-1.0); %Eosinophils 5.6 % (0.0-10.0); %Lymphocytes 27.9 % (21.0-51.0); %Monocytes 6.7 % (0.0-10.0); %Neutrophils 58.9 % (42.0-75.0); Mean Corpuscular HGB CONC 30.9 g/dL (32.0-36.0); Mean Corpuscular Hemoglobin 25.6 pg (27.0-31.0); Mean Corpuscular Volume 82.8 fL (78.0-98.0); Mean Platelet Volume 7.6 fL (7.4-10.4); Platelet Count 253 thou/uL (130-400); RBC Distribution Width 14.4 % (11.5-14.5); Red Blood Cell (RBC) Count 2.72 mill/uL (4.70-6.10); White Blood Cell (WBC) Count 6.9 thou/uL (4.8-10.8)
[2019-02-19 03:50] LABS: Anion Gap 9 mmol/L (10-20); BUN (Urea Nitrogen) 31 mg/dL (8.4-25.7); Calc. Creatinine Clearance 84 mL/min (70-130); Calcium 8.5 mg/dL (7.8-10.44); Carbon Dioxide 30 mmol/L (22-29); Chloride 107 mmol/L (98-107); Estimated GFR-MDRD 49; Glucose 167 mg/dL (70-105); Magnesium 2.3 mg/dL (1.6-2.6); Potassium 4.1 mmol/L (3.5-5.1); Sodium 142 mmol/L (136-145)
[2019-02-19] MEDS: Piperacillin/Tazobactam 3.375 GM in Sodium Chloride 0.9% 100 ML IVPB SCH ×4 (05:46→23:55)
[2019-02-19] MEDS: Folic Acid 1 MG TAB PO SCH (10:01)
[2019-02-19] MEDS: hydrALAZINE 25 MG TAB PO SCH ×3 (10:01→21:19)
[2019-02-19] MEDS: Docusate 100 MG CAP PO SCH ×2 (10:01→21:18)
[2019-02-19] MEDS: Carvedilol 6.25 MG TAB PO SCH ×2 (10:01→21:18)
[2019-02-19] MEDS: Amlodipine 10 MG TAB PO SCH (10:01)
[2019-02-19] MEDS: Aspirin 300 MG Suppository PR SCH (10:02)
[2019-02-19] MEDS: Gabapentin 300 MG CAP PO SCH ×2 (10:02→21:18)
[2019-02-19] MEDS: Multivitamins CHEW w/Iron Tablet PO SCH (10:02)
[2019-02-19] MEDS: Insulin Glargine 20 UNITS in Pre-Filled Syringe 1 EACH SC SCH (10:02)
--- NOTE | 2019-02-19 10:58 | PRG ---
DATE OF SERVICE: 02/19/2019 SUBJECTIVE: Brian Silvestre this morning pulled his feeding tube out. OBJECTIVE: VITAL SIGNS: Temperature 98, blood pressure 120/84, saturations are 96% on room air, respirations 18, and pulse 80. GENERAL: No distress, but appears to be encephalopathic. The nurses tell me it is better when compared to yesterday. CHEST: Decreased breath sounds. Bilateral rhonchi. CARDIAC: Normal S1 and S2. No gallops. ABDOMEN: No masses. LABORATORY DATA: His creatinine is 1.76, sodium is normal. White count 6000, H and H of 7 and 22. IMPRESSION: 1. Status post amputation, left. 2. Diabetes. 3. Congestive heart failure. 4. Morbid obesity. 5. Osteomyelitis. 6. Severe deconditioning. PLAN: Continue aggressive neb treatment, PT, supportive care. We will follow. Antibiotics as prescribed, vancomycin and Zosyn. Job ID: [id number]
--- NOTE | 2019-02-19 13:03 | PRG ---
DATE OF SERVICE: 02/19/2019 SUBJECTIVE: The patient was seen at bedside. As per nursing staff, mildly more responsive, follows a command. However, still drowsy, sleepy, not in distress, but looks weak and tired. SYSTEMIC REVIEW: Could not be obtained due to patient's condition. OBJECTIVE: VITAL SIGNS: Blood pressure 159/87, heart rate 90, respirations 16, temperature 98.6, and oxygen saturation 97%. GENERAL: The patient is lying in bed comfortably. No distress. HEENT: Conjunctivae normal. Oral mucosa moist. CHEST: Normal vesicular breathing. HEART: Sounds normal. ABDOMEN: Mildly distended. EXTREMITIES: Dressing the left below-knee amputation site area. LABORATORY DATA: CBC unremarkable except hemoglobin 7.0 and white blood cells 6.9. BMP unremarkable except creatinine 1.76. Blood glucose 167 on BMP, but 204 on [place]. Phosphorus 3.0. IMPRESSION: 1. Acute metabolic and toxic encephalopathy, most likely multifactorial, secondary to acute on chronic renal insufficiency with dehydration and secondary to acute cerebrovascular accident. Continue to monitor mental status. The patient is still sleepy, drowsy, occasionally follows commands as per nursing staff; however, mental status slowly improving. 2. The left below-knee amputation, secondary to osteomyelitis of left ankle. The patient continued on antibiotics. Continue antibiotics as per Dr. Parson' recommendation. The patient is on vancomycin and cefepime and Levaquin. 3. Chronic diastolic congestive heart failure. Continue to monitor fluid status. 4. Diabetes mellitus. Continue monitoring blood sugar. 5. Acute bilateral infarct. Continue aspirin, statin. Neurology evaluation appreciated. 6. Hypertension. Continue to monitor blood pressure. Continue blood pressure medication. 7. Hyperlipidemia. Continue statins. 8. Constipation. Continue stool softeners. 9. Deep venous thrombosis and gastrointestinal prophylaxis. Plan discussed with the nursing staff. Prognosis, guarding. Job ID: [id number]
--- NOTE | 2019-02-19 13:10 | RAD ---
Exam: 1 view abdomen HISTORY: Dobbhoff feeding tube placement Comparison 02/18/2019 at 10:51 AM FINDINGS: 1 view abdomen abdomen demonstrates stable position, Dobbhoff feeding tube. Distal tip over lies gastric antrum. IMPRESSION: Stable Dobbhoff feeding tube position.
[2019-02-19 13:43] LABS: Vancomycin, Trough 22.5 ug/mL
--- NOTE | 2019-02-19 13:56 | PRG ---
DATE OF SERVICE: 02/19/2019 SUBJECTIVE: Patient was seen and examined at bedside and overnight events noted. Patient denies any shortness of breath or chest pain or palpitation. No history of nausea or vomiting or diarrhea or fever or chills or cramps. OBJECTIVE: GENERAL: This is an obese male, in no apparent distress. VITAL SIGNS: Temperature 98.6. Heart rate 90. Respiratory rate 18. Blood pressure 170/102. HEENT: Atraumatic, normocephalic. Oral mucosa is moist NECK: Supple. CARDIOVASCULAR: S1, S2 heard. Rate and rhythm regular. RESPIRATORY: Clear to auscultation. GASTROINTESTINAL: Abdomen is soft. MUSCULOSKELETAL: No tenderness. No edema. DERMATOLOGIC: No skin rash. NEUROLOGIC: Alert and awake and oriented x3. No focal neurologic deficits. Moving all the extremities. PSYCHIATRIC: Mood and affect normal. LABORATORY DATA: Potassium 4.1, BUN is 31, creatinine is 1.7. ASSESSMENT AND PLAN: 1. Acute kidney injury on chronic kidney stage 3, better. 2. Edema, controlled. 3. Hypertension. 4. Diabetes. 5. Altered mentation. 6. Creatinine is better, we will reduce IV fluids to 40 mL/h. Job ID: [id number]
[2019-02-19] MEDS: Vancomycin HCl 750 MG in Sodium Chloride 0.9% 250 ML 250 ML IVPB SCH (15:04)
[2019-02-19] MEDS: Enoxaparin Sodium 40 MG/0.4 ML SYRINGE SC SCH (21:17)
[2019-02-19] MEDS: Atorvastatin Calcium 40 MG TAB PO SCH (21:18)
[2019-02-19] MEDS: HumaLOG 300 UNITS/3 ML VIAL SC PRN (21:20)
[2019-02-20 02:44] LABS: #Eosinphils 0.3 thou/uL (0.0-0.7); #Lymphocytes 1.8 thou/uL (1.20-3.40); #Monocytes 0.7 thou/uL (0.11-0.59); #Neutrophils 5.3 thou/uL (1.40-6.50); %Basophils 0.3 % (0.0-1.0); %Eosinophils 3.5 % (0.0-10.0); %Lymphocytes 22.4 % (21.0-51.0); %Monocytes 8.5 % (0.0-10.0); %Neutrophils 65.3 % (42.0-75.0); Hemoglobin 7.9 g/dL (14.0-18.0); Mean Corpuscular HGB CONC 30.8 g/dL (32.0-36.0); Mean Corpuscular Hemoglobin 26.1 pg (27.0-31.0); Mean Corpuscular Volume 84.6 fL (78.0-98.0); Mean Platelet Volume 7.4 fL (7.4-10.4); Platelet Count 250 thou/uL (130-400); RBC Distribution Width 14.9 % (11.5-14.5); Red Blood Cell (RBC) Count 3.05 mill/uL (4.70-6.10); White Blood Cell (WBC) Count 8.1 thou/uL (4.8-10.8)
[2019-02-20 03:13] LABS: Anion Gap 11 mmol/L (10-20); BUN (Urea Nitrogen) 22 mg/dL (8.4-25.7); Calc. Creatinine Clearance 104 mL/min (70-130); Calcium 8.8 mg/dL (7.8-10.44); Carbon Dioxide 30 mmol/L (22-29); Chloride 108 mmol/L (98-107); Estimated GFR-MDRD 60; Glucose 196 mg/dL (70-105); Magnesium 1.9 mg/dL (1.6-2.6); Sodium 145 mmol/L (136-145)
[2019-02-20] MEDS: Vancomycin HCl 750 MG in Sodium Chloride 0.9% 250 ML 250 ML IVPB SCH ×2 (03:33→16:22)
[2019-02-20 03:42] LABS: Phosphorus 2.5 mg/dL (2.3-4.7)
[2019-02-20] MEDS: Piperacillin/Tazobactam 3.375 GM in Sodium Chloride 0.9% 100 ML IVPB SCH ×3 (05:22→17:46)
[2019-02-20] MEDS: Insulin Glargine 20 UNITS in Pre-Filled Syringe 1 EACH SC SCH (09:24)
[2019-02-20] MEDS: Multivitamins CHEW w/Iron Tablet PO SCH (09:24)
[2019-02-20] MEDS: Docusate 100 MG CAP PO SCH ×2 (09:24→20:58)
[2019-02-20] MEDS: Carvedilol 6.25 MG TAB PO SCH ×2 (09:24→20:58)
[2019-02-20] MEDS: Gabapentin 300 MG CAP PO SCH ×2 (09:24→20:59)
[2019-02-20] MEDS: Folic Acid 1 MG TAB PO SCH (09:25)
[2019-02-20] MEDS: Amlodipine 10 MG TAB PO SCH (09:25)
[2019-02-20] MEDS: hydrALAZINE 25 MG TAB PO SCH ×3 (09:25→20:59)
[2019-02-20] MEDS: Aspirin 300 MG Suppository PR SCH (09:25)
[2019-02-20] MEDS: Sodium Chloride 0.9% 1,000 ML IV SCH (09:45)
--- NOTE | 2019-02-20 11:26 | PRG ---
DATE OF SERVICE: 02/20/2019 SUBJECTIVE: Brian Silvestre, 58-year-old gentleman, remains very encephalopathic. OBJECTIVE: VITAL SIGNS: Temperature 98, blood pressure 130/73, saturations are 98% on supplemental oxygen, pulse 98. GENERAL: He has a feeding tube in place. CHEST: Anterior rhonchi. CARDIAC: Normal S1 and S2. No gallops. NEURO: He is encephalopathic. LABORATORY DATA: Creatinine 1.46. IMPRESSION: Morbid obesity, status post amputation, hypoventilation. His pulmonary status is very marginal. PLAN: I am going to start him on some neb treatments, supportive care. Prognosis remains guarded. Family is not here to discuss ongoing issues. Job ID: [id number]
--- NOTE | 2019-02-20 12:13 | PRG ---
DATE OF SERVICE: 02/20/2019 SUBJECTIVE: Patient was seen and examined at bedside and overnight events noted. Patient denies any shortness of breath or chest pain or palpitation. No history of nausea or vomiting or diarrhea or fever or chills or cramps. OBJECTIVE: GENERAL: This is a well-built male, in no apparent distress. VITAL SIGNS: Temperature 98.4. Heart rate 90. Respiratory rate . Blood pressure 133/77. HEENT: Atraumatic, normocephalic. Oral mucosa is moist NECK: Supple. CARDIOVASCULAR: S1, S2 heard. Rate and rhythm regular. RESPIRATORY: Clear to auscultation. GASTROINTESTINAL: Abdomen is soft. MUSCULOSKELETAL: No tenderness. No edema. DERMATOLOGIC: No skin rash. NEUROLOGIC: Alert and awake and oriented X3. No focal neurologic deficits. Moving all the extremities. PSYCHIATRIC: Mood and affect normal. LABORATORY DATA: Potassium 4.0, BUN is creatinine is 1.4. ASSESSMENT AND PLAN: 1. Acute kidney injury on chronic kidney disease, stage 3, better. 2. Edema, controlled. 3. Hypertension. 4. Altered mentation. 5. Anemia. Labs are better. Avoid nephrotoxins. Job ID: [id number]
--- NOTE | 2019-02-20 13:19 | PRG ---
DATE OF SERVICE: 02/20/2019 SUBJECTIVE: The patient is seen at bedside. Opens eyes to command and moves extremities. However, as per , who is present at bedside, the patient was more awake yesterday. No distress. No vomiting. No diarrhea. No fever. OBJECTIVE: VITAL SIGNS: Blood pressure 119/69, pulse 85, oxygen saturation 95%, and temperature 98.4. GENERAL: Morbidly obese man, lying in bed comfortably, in no distress. Nasogastric tube is in place. NECK: Supple. No JVD. CHEST: Decreased air entry bilateral lower lung camacho. ABDOMEN: Mildly distended. Bowel sounds audible. Dressing left BKA site. HEART: Sounds normal. LABORATORY DATA: BMP unremarkable except creatinine 1.46, blood glucose 220. CBC unremarkable except hemoglobin 7.9. IMPRESSION: 1. Acute metabolic and toxic encephalopathy most likely multifactorial, secondary to acute on chronic renal insufficiency with dehydration and secondary to acute cerebrovascular accident with possible underlying obstructive sleep apnea. The patient still not having gag reflex. Sleepy, drowsy. Occasionally follows commands. We will continue to monitor mental status. 2. Left below-knee amputation secondary to osteomyelitis of left ankle. Continue antibiotics for short duration. Follow up with Dr. Parson in the morning for antibiotics deescalation. 3. Chronic diastolic congestive heart failure. Continue to monitor fluid status. 4. Diabetes mellitus. Continue monitoring blood sugar. 5. Acute bilateral infarct. Continue aspirin and statins. 6. Hypertension. Continue monitoring blood pressure. 7. Hyperlipidemia. Continue statins. 8. Constipation. Continue stool softener. 9. Morbid obesity. 10. Deep venous thrombosis and gastrointestinal prophylaxis. PLAN: Discussed with the who is present at bedside and nursing staff. Possible the patient's tracheostomy and PEG tube placement next week. Job ID: [id number]
[2019-02-20] MEDS: Enoxaparin Sodium 40 MG/0.4 ML SYRINGE SC SCH (20:57)
[2019-02-20] MEDS: Atorvastatin Calcium 40 MG TAB PO SCH (20:59)
[2019-02-20] MEDS: HumaLOG 300 UNITS/3 ML VIAL SC PRN (21:00)
[2019-02-21] MEDS: Piperacillin/Tazobactam 3.375 GM in Sodium Chloride 0.9% 100 ML IVPB SCH ×5 (00:10→23:57)
[2019-02-21] MEDS: Vancomycin HCl 750 MG in Sodium Chloride 0.9% 250 ML 250 ML IVPB SCH ×2 (03:45→17:30)
[2019-02-21] MEDS: HumaLOG 300 UNITS/3 ML VIAL SC PRN (05:49)
[2019-02-21] MEDS ORDERED: Activase 2 MG VIAL CATH SCH (07:00)
[2019-02-21] MEDS ORDERED: Sterile Water 10 ML VIAL FS SCH (07:00)
[2019-02-21 07:19] LABS: #Eosinphils 0.3 thou/uL (0.0-0.7); #Lymphocytes 1.8 thou/uL (1.20-3.40); #Monocytes 0.7 thou/uL (0.11-0.59); #Neutrophils 6.5 thou/uL (1.40-6.50); %Basophils 0.2 % (0.0-1.0); %Lymphocytes 19.7 % (21.0-51.0); %Monocytes 7.4 % (0.0-10.0); %Neutrophils 69.7 % (42.0-75.0); Hemoglobin 8.9 g/dL (14.0-18.0); Mean Corpuscular HGB CONC 31.6 g/dL (32.0-36.0); Mean Corpuscular Hemoglobin 26.9 pg (27.0-31.0); Mean Corpuscular Volume 85.3 fL (78.0-98.0); Mean Platelet Volume 7.5 fL (7.4-10.4); Platelet Count 290 thou/uL (130-400); RBC Distribution Width 14.9 % (11.5-14.5); White Blood Cell (WBC) Count 9.3 thou/uL (4.8-10.8)
[2019-02-21 07:23] LABS: Phosphorus 2.9 mg/dL (2.3-4.7)
[2019-02-21 07:28] LABS: Anion Gap 12 mmol/L (10-20); BUN (Urea Nitrogen) 18 mg/dL (8.4-25.7); Calc. Creatinine Clearance 114 mL/min (70-130); Calcium 9.6 mg/dL (7.8-10.44); Carbon Dioxide 29 mmol/L (22-29); Chloride 106 mmol/L (98-107); Estimated GFR-MDRD 67; Glucose 238 mg/dL (70-105); Magnesium 1.6 mg/dL (1.6-2.6); Potassium 3.7 mmol/L (3.5-5.1); Sodium 143 mmol/L (136-145)
[2019-02-21] MEDS: Docusate 100 MG CAP PO SCH ×2 (09:30→20:24)
[2019-02-21] MEDS: Carvedilol 6.25 MG TAB PO SCH ×2 (09:30→20:24)
[2019-02-21] MEDS: Amlodipine 10 MG TAB PO SCH (09:30)
[2019-02-21] MEDS: Aspirin 300 MG Suppository PR SCH (09:30)
[2019-02-21] MEDS: Folic Acid 1 MG TAB PO SCH (09:30)
[2019-02-21] MEDS: hydrALAZINE 25 MG TAB PO SCH ×3 (09:30→20:25)
[2019-02-21] MEDS: Multivitamins CHEW w/Iron Tablet PO SCH (09:30)
[2019-02-21] MEDS: Gabapentin 300 MG CAP PO SCH ×2 (09:30→20:24)
[2019-02-21] MEDS: Insulin Glargine 20 UNITS in Pre-Filled Syringe 1 EACH SC SCH (09:59)
--- NOTE | 2019-02-21 10:37 | PRG ---
DATE OF SERVICE: 02/18/2019 SUBJECTIVE: The patient seen at bedside, nonverbal and noncommunicative. However, as per nursing staff, the patient occasionally follows commands, not in distress, Dobhoff in place. OBJECTIVE: HEENT: Conjunctivae normal. NECK: Supple. No JVD. No lymphadenopathy. CHEST: Decreased air entry bilateral lower lung camacho. CARDIAC: Heart sounds normal. ABDOMEN: Mildly distended. EXTREMITIES: Dressing left below-knee amputation area. LABS: CBC unremarkable except hemoglobin 7.6, platelet 248. BMP unremarkable except creatinine 2.37, BUN 31, blood glucose 122. Renal ultrasound marked distention of the urinary bladder. The patient unable to void for further imaging. mild bilateral hydronephrosis and no evidence for upper urinary tract infection or obstruction. IMPRESSION: 1. Acute metabolic and toxic encephalopathy, possible multifactorial, most likely secondary to acute renal failure, dehydration, and possibly related to acute cerebrovascular accident with embolic phenomena. Continue to monitor mental status. 2. Gangrene of the left lower extremity, status post below-knee amputation. Continue postop care. Infectious Disease is on board. The patient currently on antibiotics. 3. Acute cerebrovascular accident, likely embolic. Continue antiplatelet therapy. 4. Acute kidney injury with bladder distention and bilateral hydronephrosis, status post Richards catheter placement. Continue to monitor BMP. 5. Dysphagia, currently most likely secondary to altered mental status secondary to acute cerebrovascular accident. Continued Dobhoff. Continue to monitor clinically. 6. Acute hypoxemic respiratory failure, resolved. The patient is high risk for respiratory compromise in the presence of morbid obesity and acute cerebrovascular accident. We will continue to monitor clinically. 7. Morbid obesity. Continue supportive care. 8. Acute on chronic anemia, currently stable. We will transfuse if patient's hemoglobin drops to less than 7. 9. Deep venous thrombosis and gastrointestinal prophylaxis. PLAN: Discussed with the nursing staff. Job ID: [id number]
--- NOTE | 2019-02-21 11:15 | PRG ---
DATE OF SERVICE: 02/21/2019 SUBJECTIVE: A 58-year-old gentleman, being seen for acute kidney injury. The patient denied nausea, vomiting, or chest pain. OBJECTIVE: See above. The patient is awake and alert. VITAL SIGNS: Afebrile, pulse 75, breathing 16, and blood pressure 130/70. GENERAL APPEARANCE AND MENTAL STATUS: Fair. HEAD/NECK: Normocephalic. Atraumatic. EYES: EOMI. No deformity. EARS: Clear. No ulcers. NOSE: Intact. No lesions. MOUTH: Clear. No discharge. THROAT: Clear. No exudate. LUNGS: Clear. No crackles. CARDIAC: S1, S2. No rub. ABDOMEN: Benign. Bowel sounds positive. GENITALIA/RECTUM: Richards absent. BACK/EXTREMITIES: Edema 0+. NEUROLOGICAL: Alert and motor intact. SKIN: LYMPHATICS: LABORATORY DATA: Reviewed. ASSESSMENT AND PLAN: 1. Chronic kidney disease, stage 2, stable. 2. Hypertension, stable. 3. Anemia, stable. 4. Hypercalcemia, resolved. We will sign off on this patient. Please reconsult as needed. Job ID: [id number]
--- NOTE | 2019-02-21 12:52 | PDOC.HOSPP ---
- Subjective Encounter Date: 02/21/19 Encounter Time: 11:00 Subjective: awake, follows 1 or 2 verbal stimuli but mostly gives a blank stare has oxygen mask on him moves only his right hand when asked not the other extre per staff he moves all of them - Objective Vital Signs & Weight: Vital Signs (12 hours) Temp Pulse Resp BP Pulse Ox 02/21/19 11:12 98.8 F 02/21/19 10:44 89 23 H 97 02/21/19 09:30 100 136/77 02/21/19 07:59 97 02/21/19 07:12 100 28 H 92 L 02/21/19 07:00 99.0 F 02/21/19 03:48 98.4 F 02/21/19 02:30 90 23 H 95 Weight Admit Weight 282 lb 11.2 oz Weight 290 lb 6.4 oz Most Recent Monitor Data Heart Rate from ECG 91 NIBP 140/89 NIBP BP-Mean 106 Respiration from ECG 25 SpO2 92 I&O: 02/20/19 02/21/19 02/22/19 06:59 06:59 06:59 Intake Total 3460 2151 Output Total 2850 4450 Balance 610 -4955 Result Diagrams: 02/21/19 06:54 02/21/19 06:54 Additional Labs: Accuchecks 02/21/19 02/21/19 02/20/19 10:41 05:50 20:16 POC Glucose 261 H 246 H 226 H 02/20/19 16:00 POC Glucose 236 H Hospitalist ROS - Medication Medications: Active Medications Generic Name Dose Route Start Last Admin Trade Name Freq PRN Reason Stop Dose Admin Acetaminophen 1,000 mg 02/09/19 16:27 02/18/19 20:55 Tylenol PO 1,000 mg Q6H PRN Administration Moderate to Severe Pain (6-10) Acetaminophen 1,000 mg 02/17/19 23:28 02/17/19 23:39 Tylenol [place] 1,000 mg Q6H PRN Administration Fever/Mild Pain Hydrocodone Bitart/Acetaminophen 1 tab 02/14/19 13:12 02/18/19 15:15 [place] 10/325 PO 1 tab Q4H PRN Administration .PAIN (2-4) Hydrocodone Bitart/Acetaminophen 2 tab 02/14/19 13:12 02/14/19 20:30 [place] 10/325 PO 2 tab Q4H PRN Administration .PAIN (5-8) Albuterol/Ipratropium 3 ml 02/20/19 14:30 02/21/19 10:44 Duoneb NEB 3 ml [id number] PANCHO Administration Amlodipine Besylate 10 mg 02/13/19 09:00 02/21/19 09:30 Norvasc PO 10 mg DAILY PANCHO Administration Aspirin 300 mg 02/18/19 09:00 02/21/19 09:30 Aspirin [place] 300 mg DAILY PANCHO Administration Atorvastatin Calcium 40 mg 02/08/19 21:00 02/20/19 20:59 Lipitor PO 40 mg HS PANCHO Administration Carvedilol 12.5 mg 02/08/19 21:00 02/21/19 09:30 Coreg PO 12.5 mg BID PANCHO Administration Docusate Sodium 100 mg 02/13/19 21:00 02/21/19 09:30 Colace PO 100 mg BID PANCHO Administration Enoxaparin Sodium 40 mg 02/14/19 21:00 02/20/19 20:57 Lovenox SC 40 mg 2100 PANCHO Administration Folic Acid 1 mg 02/13/19 09:00 02/21/19 09:30 Folvite PO 1 mg DAILY PANCHO Administration Gabapentin 300 mg 02/16/19 09:00 02/21/19 09:30 Neurontin PO 300 mg BID PANCHO Administration Hydralazine HCl 25 mg 02/12/19 15:00 02/21/19 09:30 Apresoline PO 25 mg TID PANCHO Administration Insulin Glargine 20 units/ 0.2 mls @ 0 mls/hr 02/09/19 09:00 02/21/19 09:59 Miscellaneous Medication SC 0.2 mls QAM PANCHO Administration Levofloxacin 750 mg/ Device 150 mls @ 100 mls/hr 02/16/19 11:00 02/21/19 10: 51 IVPB 150 mls 1100 PANCHO Administration Piperacillin Sod/Tazobactam 100 mls @ 200 mls/hr 02/16/19 12:00 02/21/19 11: 13 Sod 3.375 gm/ Sodium Chloride IVPB 100 mls Q6HR PANCHO Administration Sodium Chloride 1,000 mls @ 40 mls/hr 02/19/19 13:08 02/20/19 09:45 Normal Saline 0.9% IV 1,000 mls .Q24H PANCHO Administration Vancomycin HCl 750 mg/ Sodium 250 mls @ 250 mls/hr 02/19/19 16:00 02/21/19 03 :45 Chloride IVPB 250 mls 0400,1600 PANCHO Administration Insulin Human Lispro 0 units 02/07/19 19:09 02/21/19 05:49 Humalog SC 3 unit .MILD SLIDING SCALE PRN Administration Mild Correctional Scale Insulin Human Lispro 0 units 02/07/19 19:09 02/09/19 22:04 Humalog SC 2 unit .BEDTIME SLIDING SC PRN Administration Bedtime Correctional Scale Multivitamins/Iron 1 tab 02/16/19 09:00 02/21/19 09:30 Centrum Kids Complete/Iron PO 1 tab DAILY PANCHO Administration Ondansetron HCl 4 mg 02/07/19 19:05 02/15/19 14:23 Zofran IVP 4 mg Q6H PRN Administration Nausea/Vomiting Sodium Chloride 10 ml 02/07/19 19:05 02/15/19 07:59 Flush - Normal Saline IVF 10 ml Q12H PRN Administration Saline Flush - Exam General Appearance: ill appearing Eye: PERRL, anicteric sclera ENT: no oropharyngeal lesions, dry oral mucosa Neck: supple, no JVD Heart: RRR, no murmur Respiratory: no wheezes, no rales Gastrointestinal: soft, non-distended, normal bowel sounds Extremities: no cyanosis, 2+ LE edema Neurological: cranial nerve grossly intact, no focal deficits Hosp A/P (1) Acute CVA (cerebrovascular accident) Code(s): I63.9 - CEREBRAL INFARCTION, UNSPECIFIED Status: Acute (2) Acute metabolic encephalopathy Code(s): G93.41 - METABOLIC ENCEPHALOPATHY Status: Acute (3) Status post below-knee amputation of left lower extremity Code(s): Z89.512 - ACQUIRED ABSENCE OF LEFT LEG BELOW KNEE Status: Acute (4) Obesity (BMI 30-39.9) Code(s): E66.9 - OBESITY, UNSPECIFIED Status: Chronic (5) Chronic anemia Code(s): D64.9 - ANEMIA, UNSPECIFIED Status: Chronic (6) CHF (congestive heart failure) Code(s): I50.9 - HEART FAILURE, UNSPECIFIED Status: Chronic Qualifiers: Heart failure type: diastolic Heart failure chronicity: acute on chronic Qualified Code(s): I50.33 - Acute on chronic diastolic (congestive) heart failure (7) Diabetes mellitus Code(s): E11.9 - TYPE 2 DIABETES MELLITUS WITHOUT COMPLICATIONS Status: Chronic Qualifiers: Diabetes mellitus type: type 2 Diabetes mellitus mcfp insulin use: with mcfp use (8) Hyperlipidemia Code(s): E78.5 - HYPERLIPIDEMIA, UNSPECIFIED Status: Chronic (9) Hypertension Code(s): I10 - ESSENTIAL (PRIMARY) HYPERTENSION Status: Chronic Qualifiers: Hypertension type: essential hypertension Qualified Code(s): I10 - Essential (primary) hypertension - Plan is on asp, coreg, lipitor, norvasc, neurontin, hydralazine echo showed ef of 60% with diastolic dysfunction MRI showed b/l cerebral infarcts is on vanc, levaquin and zosyn, not sure if he needs all these has underlying hilario and obesity hypovent syndrome which has gotten worse due to multiple med issues now had left bka done for osteomyelitis on 02/14/2019 prognosis guarded might need trach and peg has dobhoff tube now for feeding, is at risk for pulling it out due to encephalopathy severe deconditioning palliative care for code status/goals of care will need placement when he is cognitively a little better
[2019-02-21] MEDS: Scopolamine 1.5 mg/72 hour Patch TD SCH (14:05)
[2019-02-21] MEDS ORDERED: Magnesium 2 GM/50 ML 2 GM in Premix Bag 1 BAG IVPB SCH (14:15)
--- NOTE | 2019-02-21 14:42 | PRG ---
DATE OF SERVICE: 02/21/2019 SERVICE: Pulmonary Medicine. INTERVAL HISTORY: Every time, the trumpet is removed from his nose. He has severe obstructive events resulting in fairly deep desaturations. He really cannot protect his airway to very well. He is requiring frequent ENT suctioning. Additionally, his stroke is such that he is not going to be able to tolerate any p.o. any time soon. Because of all of this, the patient will likely need an elective PEG tube and tracheostomy in order to get him more time for rehabilitation. The patient's family would like to transition in that direction. He cannot provide any additional elements of the history currently. PHYSICAL EXAMINATION: VITAL SIGNS: Afebrile currently with T-max 99.8. Pulse 95, blood pressure 150/99, respirations 27, and saturation 91% currently on 6 L via simple face mask. HEENT: Normocephalic and atraumatic. Sclerae white. Conjunctivae pink. Oral mucosa is moist without lesions. LUNGS: Decent air entry. No prolonged expiratory phase or wheezing is appreciated. HEART: Normal rate and regular. ABDOMEN: Soft, nontender, and nondistended. Bowel sounds are positive. MUSCULOSKELETAL: No cyanosis or clubbing. There is trace 1+ pitting in the bilateral lower extremities. NEUROLOGIC: Grossly nonfocal. LABORATORY DATA: WBC 9.3, hemoglobin 8.9, and platelets 290,000. Sodium 143 and gently downtrending. Potassium 3.7. Basic metabolic profile is otherwise unremarkable with a creatinine of 1.33, which is stable. Magnesium 1.6 and phosphorus 2.9. IMAGING: Echocardiogram demonstrates normal ejection fraction with 2/3 diastolic dysfunction. ASSESSMENT: 1. Acute hypoxic respiratory failure. 2. White gangrene of the left lower extremity, status post below-knee amputation, postop day #7. 3. Acute cerebrovascular accident, embolic. DISCUSSION AND PLAN: I will replace the patient's magnesium. At this point, I do not think that he is going to be able to protect his airway or take p.o. nutrition any time soon. As such, we will electively pursue both a tracheostomy and a PEG tube. The tracheostomy is primarily because he has severe obstructive apneas requiring basically continuous placement of a nasal trumpet. I was hoping that his neurologic function would probably recover through the weekend, but it simply has not. As such, in order to get him some more time and minimizing complications moving forward, I do believe a tracheostomy is indicated as well. Job ID: [id number]
[2019-02-21 15:59] LABS: Vancomycin, Trough 12.4 ug/mL
--- NOTE | 2019-02-21 16:07 | PDOC.PALCO ---
Palliative Care Consult - Consult Details Requesting Physician: Dr Bang Reason for Consult: goals of care, advance directives assistance, family support , complex decision-making - Pertinent HPI 58 year old make who presented to the emergency room for further evaluation of a wound ot his left foot that has a chronic wound. Was placed on abx two days ago with increase in fever and chills. Wound continued to worsen with drainage, admitted to hospital for further management and subsequent amputation of the left lower extremity was done 02/14/2019. Patient suffered a watershed stroke post -operatively and was transferred to [facility] for higher level of care. Continues to have difficulty maintaining airway and requires a nasal trumpet, dobhoff for nutritional support. - Pertinent PMH CHF, HTN, DM II, HDL - Social History Smoking Status: Never smoker Smoking: chew Alcohol Use: none Drug Use History: none Living Situation: - Medications MAR Reviewed: Yes - Allergies Allergies/Adverse Reactions: Allergies Allergy/AdvReac Type Severity Reaction Status Date / Time No Known Allergies Allergy Verified 02/07/19 20:14 - Subjective Lethargic, Nasal trumpet to right nare, Dobhoff to left nare, difficult to arouse to perform ROS. - ROS Non Response: due to mental status - Objective Vital Signs: Vital Signs - Most Recent Temp Pulse Resp BP Pulse Ox 99.4 F 95 23 H 131/89 91 L 02/21/19 15:43 02/21/19 15:23 02/21/19 14:25 02/21/19 15:23 02/21/19 14:25 Palliative Performance Scale: 30 - Advance Directives Medical Power of Drafting Layout Worker: Patietn - Physical Exam Constitutional: encephalitic, ill appearing, mild distress HEENT: moist MMs, sclera anicteric Respiratory: diminished lung sound Cardiovascular: RRR Deviation from normal: radial present and equal Gastrointestinal: soft, non-tender, incontinent Genitourinary: orozco catheter Deviation from normal: dressing to right foor, Left lower ext amputation Deviation from normal: patient unable to partipate, facial symmetry Skin: cap refill <2 seconds, fragile Deviation from normal: encephalopathic - Problem List (1) Palliative care encounter Code(s): Z51.5 - ENCOUNTER FOR PALLIATIVE CARE Current Visit: Yes Status: Acute (2) Acute bilat watershed infarction Code(s): I63.89 - OTHER CEREBRAL INFARCTION Current Visit: Yes Status: Acute (3) Acute metabolic encephalopathy Code(s): G93.41 - METABOLIC ENCEPHALOPATHY Current Visit: Yes Status: Acute (4) Status post below-knee amputation of left lower extremity Code(s): Z89.512 - ACQUIRED ABSENCE OF LEFT LEG BELOW KNEE Current Visit: Yes Status: Acute (5) Hypertension Code(s): I10 - ESSENTIAL (PRIMARY) HYPERTENSION Current Visit: Yes Status: Chronic Qualifiers: Hypertension type: essential hypertension Qualified Code(s): I10 - Essential (primary) hypertension (6) Obesity (BMI 30-39.9) Code(s): E66.9 - OBESITY, UNSPECIFIED Current Visit: Yes Status: Chronic (7) Acute on chronic renal insufficiency Code(s): N28.9 - DISORDER OF KIDNEY AND URETER, UNSPECIFIED; N18.9 - CHRONIC KIDNEY DISEASE, UNSPECIFIED Current Visit: Yes Status: Resolved - Plan/Recommendations Plan: Palliative Care initial visit with family (please also see RN notes in note section) *Family desires aggressive measures *Continue to revisit goals of care with family and patient when he is able to participate in conversation *educate in relation to PEG/Trach and placement *Scoploamine patch to mitigate secretions *Bisacodyl PRN q 8 TN for relief of constipation Will coordinate with physicians following Mr Silvestre and support family to identify goal of care and resuscitation status [60] minutes spent on this encounter with >50% of the time in counseling and coordination of care. Thank you for this very appropriate consult.
[2019-02-21] MEDS: Vancomycin HCl 1 GM in Premix Bag 1 BAG IVPB SCH (16:36)
[2019-02-21] MEDS: Bisacodyl 10 MG SUPP PR SCH (17:22)
[2019-02-21] MEDS: Sodium Chloride 0.9% 1,000 ML IV SCH (20:23)
[2019-02-21] MEDS: Enoxaparin Sodium 40 MG/0.4 ML SYRINGE SC SCH (20:24)
[2019-02-21] MEDS: Atorvastatin Calcium 40 MG TAB PO SCH (20:24)
[2019-02-21] MEDS: Acetaminophen 500 MG TAB PO PRN (20:25)
[2019-02-22] MEDS: Bisacodyl 10 MG SUPP PR SCH ×3 (00:04→16:46)
[2019-02-22] MEDS: Vancomycin HCl 1 GM in Premix Bag 1 BAG IVPB SCH ×2 (03:09→16:55)
[2019-02-22 03:38] LABS: Anion Gap 12 mmol/L (10-20); BUN (Urea Nitrogen) 19 mg/dL (8.4-25.7); Calc. Creatinine Clearance 128 mL/min (70-130); Calcium 8.7 mg/dL (7.8-10.44); Carbon Dioxide 28 mmol/L (22-29); Chloride 112 mmol/L (98-107); Estimated GFR-MDRD 76; Glucose 143 mg/dL (70-105); Potassium 3.7 mmol/L (3.5-5.1); Sodium 148 mmol/L (136-145)
[2019-02-22] MEDS: Piperacillin/Tazobactam 3.375 GM in Sodium Chloride 0.9% 100 ML IVPB SCH ×3 (05:39→16:55)
[2019-02-22] MEDS: Aspirin 300 MG Suppository PR SCH (07:58)
[2019-02-22] MEDS: Carvedilol 6.25 MG TAB PO SCH ×2 (07:58→21:33)
[2019-02-22] MEDS: Amlodipine 10 MG TAB PO SCH (08:07)
[2019-02-22] MEDS: Docusate 100 MG CAP PO SCH ×2 (08:07→21:34)
[2019-02-22] MEDS: Folic Acid 1 MG TAB PO SCH (08:07)
[2019-02-22] MEDS: Insulin Glargine 20 UNITS in Pre-Filled Syringe 1 EACH SC SCH (08:07)
[2019-02-22] MEDS: Multivitamins CHEW w/Iron Tablet PO SCH (08:07)
[2019-02-22] MEDS: hydrALAZINE 25 MG TAB PO SCH ×3 (08:07→21:33)
[2019-02-22] MEDS: Gabapentin 300 MG CAP PO SCH ×2 (08:08→21:34)
--- NOTE | 2019-02-22 09:35 | PRG ---
DATE OF SERVICE: 02/22/2019 SERVICE: Pulmonary Medicine. INTERVAL HISTORY: The patient is doing fine from respiratory standpoint. Breathing comfortably. No complaints of chest discomfort, fevers, or chills. We are going to be proceeding with PEG tube and tracheostomy per family's request. This will occur on the timeline of surgery. PHYSICAL EXAMINATION: VITAL SIGNS: Afebrile, pulse 81, blood pressure 141/90, respirations 20, and saturation 98%, currently on 6 L via simple face mask. HEENT: Normocephalic and atraumatic. Sclerae white. Conjunctivae pink. Oral mucosa is moist without lesions. LUNGS: Decent air entry. No prolonged expiratory phase or wheezing is appreciated. HEART: Normal rate. Regular. ABDOMEN: Soft, nontender, and nondistended. Bowel sounds are positive. MUSCULOSKELETAL: No cyanosis or clubbing. Left lower extremity is surgically absent. Trace pitting in the right lower extremity. LABORATORY DATA: Sodium 148 and potassium 3.7. Creatinine 1.19 and gently downtrending. Bicarb 28. Basic metabolic profile is otherwise unremarkable. ASSESSMENT: 1. Acute hypoxic respiratory failure. 2. Wet gangrene of the left lower extremity, status post below-knee amputation, postop day 8. 3. Acute cerebrovascular accident, embolic. DISCUSSION AND PLAN: The patient will require PEG tube and tracheostomy. Once these are in place, we can consider transitioning him out of the hospital from a purely respiratory perspective. A liter of D5 water will be provided over the next 10 hours. Job ID: [id number] MTDD
[2019-02-22] MEDS: Sodium Chloride 0.45% 1,000 ML IV SCH (11:16)
[2019-02-22 14:03] LABS: Vancomycin, Trough 18.3 ug/mL
--- NOTE | 2019-02-22 14:52 | PDOC.HOSPP ---
- Subjective Encounter Date: 02/22/19 Encounter Time: 12:30 Subjective: more awake, does not verbalize much at bedside nods his head and tries to smile for her - Objective Vital Signs & Weight: Vital Signs (12 hours) Temp Pulse Resp BP Pulse Ox 02/22/19 14:38 83 21 H 94 L 02/22/19 11:14 97.2 F L 02/22/19 11:13 76 17 96 02/22/19 08:07 132/84 02/22/19 08:00 98 02/22/19 07:58 132/84 02/22/19 07:38 98 02/22/19 07:36 79 21 H 98 02/22/19 07:14 97.6 F 02/22/19 03:36 98.8 F Weight Admit Weight 282 lb 11.2 oz Weight 290 lb 6.4 oz Most Recent Monitor Data Heart Rate from ECG 82 NIBP 139/85 NIBP BP-Mean 103 Respiration from ECG 20 SpO2 100 I&O: 02/21/19 02/22/19 02/23/19 06:59 06:59 06:59 Intake Total 2151 2230 30 Output Total 4450 2275 Balance -2299 -45 30 Result Diagrams: 02/21/19 06:54 02/22/19 03:08 Additional Labs: Accuchecks 02/22/19 02/22/19 02/21/19 10:32 06:00 20:06 POC Glucose 145 H 157 H 186 H 02/21/19 16:35 POC Glucose 227 H Hospitalist ROS - Medication Medications: Active Medications Generic Name Dose Route Start Last Admin Trade Name Jtq PRN Reason Stop Dose Admin Acetaminophen 1,000 mg 02/09/19 16:27 02/21/19 20:25 Tylenol PO 1,000 mg Q6H PRN Administration Moderate to Severe Pain (6-10) Acetaminophen 1,000 mg 02/17/19 23:28 02/17/19 23:39 Tylenol [place] 1,000 mg Q6H PRN Administration Fever/Mild Pain Hydrocodone Bitart/Acetaminophen 1 tab 02/14/19 13:12 02/18/19 15:15 [place] 10/325 PO 1 tab Q4H PRN Administration .PAIN (2-4) Hydrocodone Bitart/Acetaminophen 2 tab 02/14/19 13:12 02/14/19 20:30 [place] 10/325 PO 2 tab Q4H PRN Administration .PAIN (5-8) Albuterol/Ipratropium 3 ml 02/20/19 14:30 02/22/19 14:38 Duoneb NEB 3 ml E1HA-RH PANCHO Administration Amlodipine Besylate 10 mg 02/13/19 09:00 02/22/19 08:07 Norvasc PO Not Given DAILY [facility] Aspirin 300 mg 02/18/19 09:00 02/22/19 07:58 Aspirin [place] 300 mg DAILY [facility] Administration Atorvastatin Calcium 40 mg 02/08/19 21:00 02/21/19 20:24 Lipitor PO 40 mg HS [facility] Administration Bisacodyl 10 mg 02/21/19 17:00 02/22/19 08:07 Dulcolax [place] Not Given 0100,0900,1700 [facility] Carvedilol 12.5 mg 02/08/19 21:00 02/22/19 07:58 Coreg PO 12.5 mg BID [facility] Administration Docusate Sodium 100 mg 02/13/19 21:00 02/22/19 08:07 Colace PO Not Given BID [facility] Enoxaparin Sodium 40 mg 02/14/19 21:00 02/21/19 20:24 Lovenox SC 40 mg 2100 [facility] Administration Folic Acid 1 mg 02/13/19 09:00 02/22/19 08:07 Folvite PO Not Given DAILY [facility] Gabapentin 300 mg 02/16/19 09:00 02/22/19 08:08 Neurontin PO 300 mg BID [facility] Administration Hydralazine HCl 25 mg 02/12/19 15:00 02/22/19 08:07 Apresoline PO Not Given TID [facility] Insulin Glargine 20 units/ 0.2 mls @ 0 mls/hr 02/09/19 09:00 02/22/19 08:07 Miscellaneous Medication SC Not Given QAM [facility] Levofloxacin 750 mg/ Device 150 mls @ 100 mls/hr 02/16/19 11:00 02/22/19 11: 16 IVPB 150 mls 1100 PANCHO Administration Piperacillin Sod/Tazobactam 100 mls @ 200 mls/hr 02/16/19 12:00 02/22/19 11: 16 Sod 3.375 gm/ Sodium Chloride IVPB 100 mls Q6HR PANCHO Administration Vancomycin HCl 1 gm/ Device 200 mls @ 250 mls/hr 02/21/19 16:00 02/22/19 03: 09 IVPB 200 mls 0400,1600 PANCHO Administration Sodium Chloride 1,000 mls @ 75 mls/hr 02/22/19 09:30 02/22/19 11:16 1/2 Normal Saline IV 1,000 mls .[id number] PANCHO Administration Insulin Human Lispro 0 units 02/07/19 19:09 02/21/19 05:49 Humalog [place] 3 unit .MILD SLIDING SCALE PRN Administration Mild Correctional Scale Insulin Human Lispro 0 units 02/07/19 19:09 02/09/19 22:04 Humalog [place] 2 unit .BEDTIME SLIDING SC PRN Administration Bedtime Correctional Scale Multivitamins/Iron 1 tab 02/16/19 09:00 02/22/19 08:07 Centrum Kids Complete/Iron PO Not Given DAILY PANCHO Ondansetron HCl 4 mg 02/07/19 19:05 02/15/19 14:23 Zofran IVP 4 mg Q6H PRN Administration Nausea/Vomiting Scopolamine 1.5 mg 02/21/19 13:00 02/21/19 14:05 Transderm Scop TD 1.5 mg Q3D PANCHO Administration Sodium Chloride 10 ml 02/07/19 19:05 02/15/19 07:59 Flush - Normal Saline IVF 10 ml Q12H PRN Administration Saline Flush - Exam General Appearance: ill appearing Eye: PERRL, anicteric sclera ENT: no oropharyngeal lesions, dry oral mucosa Neck: supple, no JVD Heart: RRR, no murmur Respiratory: no wheezes, no rales, rhonchi Gastrointestinal: soft, non-tender, non-distended, normal bowel sounds Extremities: no cyanosis, 1+ LE edema Extremities - other findings: left bka, right heel in dressing Neurological: cranial nerve grossly intact Neurological - other findings: appears to have functional quadriplegia, is severely deconditioned Hosp A/P (1) Acute CVA (cerebrovascular accident) Code(s): I63.9 - CEREBRAL INFARCTION, UNSPECIFIED Status: Acute (2) Acute metabolic encephalopathy Code(s): G93.41 - METABOLIC ENCEPHALOPATHY Status: Acute (3) Status post below-knee amputation of left lower extremity Code(s): Z89.512 - ACQUIRED ABSENCE OF LEFT LEG BELOW KNEE Status: Acute (4) Obesity (BMI 30-39.9) Code(s): E66.9 - OBESITY, UNSPECIFIED Status: Chronic (5) Chronic anemia Code(s): D64.9 - ANEMIA, UNSPECIFIED Status: Chronic (6) CHF (congestive heart failure) Code(s): I50.9 - HEART FAILURE, UNSPECIFIED Status: Chronic Qualifiers: Heart failure type: diastolic Heart failure chronicity: acute on chronic Qualified Code(s): I50.33 - Acute on chronic diastolic (congestive) heart failure (7) Diabetes mellitus Code(s): E11.9 - TYPE 2 DIABETES MELLITUS WITHOUT COMPLICATIONS Status: Chronic Qualifiers: Diabetes mellitus type: type 2 Diabetes mellitus terminal clerk insulin use: with prison use (8) Hyperlipidemia Code(s): E78.5 - HYPERLIPIDEMIA, UNSPECIFIED Status: Chronic (9) Hypertension Code(s): I10 - ESSENTIAL (PRIMARY) HYPERTENSION Status: Chronic Qualifiers: Hypertension type: essential hypertension Qualified Code(s): I10 - Essential (primary) hypertension - Plan is on asp, coreg, lipitor, norvasc, neurontin, hydralazine echo showed ef of 60% with diastolic dysfunction MRI showed b/l cerebral infarcts is on vanc and diego, to decide further de-escalation has underlying hilario and obesity hypovent syndrome which has gotten worse due to multiple med issues now had left bka done for osteomyelitis on 02/14/2019 prognosis guarded for trach and peg, d/w at bedside, agrees for the same, d/w has dobhoff tube now, pt is npo for possible trach and peg mild hypernatremia, is on 02/10 NS severe deconditioning palliative care for code status/goals of care will need placement with likely trach and peg.
--- NOTE | 2019-02-22 18:26 | PDOC.GSPN ---
Surgery Progress Note: Subj - Subjective Narrative: Patient of Dr. Moreno who had a significant stroke following his left below- knee amputation. His mental status has improved somewhat but he still requires a nasal trumpet and Dobbhoff tube to maintain his O2 sats and nutrition. Dr. Rausch has spoken with the patient's family and they have decided to proceed with tracheostomy and PEG tube placement to facilitate discharge from the hospital. Dr. Moreno is gone this week so I have been asked to perform the procedures. Past history was reviewed. On exam the patient follows some simple commands but does not answer questions. His heart is regular and his lungs are clear. His abdomen is soft and nondistended and he does not exhibit any tenderness. He has multiple keloids from minor injuries but no surgical scars except for the left below-knee amputation which is healing well. There are some sores on his right foot which do not appear to be infected and which are being painted with Betadine. The patient's is at the bedside today and I spoke with her regarding the procedures and their inherent risks. These include but are not limited to bleeding, infection, risks anesthesia, loss of airway, damage to other internal organs, displacement of the PEG tube with leakage of gastric contents into the abdominal cavity, and need for further procedures. She understands and accepts these risks and wishes to proceed. He has not had any previous surgery except for his below-knee amputation. He is on the schedule for tomorrow morning. Surgery Progress Note: Obj - Vital signs Vital signs: Vital Signs - Most Recent Temp Pulse Resp BP Pulse Ox 97.3 F L 83 21 H 128/79 94 L 02/22/19 15:25 02/22/19 15:17 02/22/19 14:38 02/22/19 15:17 02/22/19 14:38 Surgery Progress Note: Results - Labs Result Diagrams: 02/21/19 06:54 02/22/19 03:08 Lab results: Laboratory Results - last 24 hr 02/22/19 02/22/19 02/22/19 10:32 13:20 16:30 POC Glucose 145 H 155 H Vancomycin Trough 18.3
[2019-02-22] MEDS: Enoxaparin Sodium 40 MG/0.4 ML SYRINGE SC SCH (21:33)
[2019-02-22] MEDS: Atorvastatin Calcium 40 MG TAB PO SCH (21:34)
[2019-02-23] MEDS ORDERED: Morphine 2 MG/ML SYRINGE SLOW IVP SCH (01:00)
[2019-02-23] MEDS: Piperacillin/Tazobactam 3.375 GM in Sodium Chloride 0.9% 100 ML IVPB SCH ×4 (01:03→17:53)
[2019-02-23] MEDS: Sodium Chloride 0.45% 1,000 ML IV SCH ×2 (01:04→14:38)
[2019-02-23] MEDS: Bisacodyl 10 MG SUPP PR SCH ×3 (01:56→17:53)
[2019-02-23 04:33] LABS: Anion Gap 10 mmol/L (10-20); BUN (Urea Nitrogen) 23 mg/dL (8.4-25.7); Calc. Creatinine Clearance 116 mL/min (70-130); Calcium 9.3 mg/dL (7.8-10.44); Carbon Dioxide 35 mmol/L (22-29); Chloride 105 mmol/L (98-107); Estimated GFR-MDRD 68; Glucose 157 mg/dL (70-105); Potassium 3.9 mmol/L (3.5-5.1); Sodium 146 mmol/L (136-145)
[2019-02-23] MEDS: Vancomycin HCl 1 GM in Premix Bag 1 BAG IVPB SCH ×2 (04:50→16:54)
--- NOTE | 2019-02-23 08:20 | PDOC.HOSPP ---
- Subjective Encounter Date: 02/23/19 Encounter Time: 08:18 Subjective: CODE BLUe - Objective Vital Signs & Weight: Vital Signs (12 hours) Temp Pulse Resp BP Pulse Ox 02/23/19 07:17 97.2 F L 02/23/19 06:39 100 02/23/19 06:29 91 26 H 100 02/23/19 04:15 99.1 F 02/23/19 02:18 98 02/23/19 02:16 23 H 98 02/22/19 23:37 98 02/22/19 23:15 99.3 F 02/22/19 21:33 81 172/108 H 02/22/19 21:25 86 188/122 H Weight Admit Weight 282 lb 11.2 oz Weight 290 lb 6.4 oz Most Recent Monitor Data Heart Rate from ECG 93 NIBP 160/98 NIBP BP-Mean 118 Respiration from ECG 24 SpO2 93 I&O: 02/22/19 02/23/19 02/24/19 06:59 06:59 06:59 Intake Total 2230 1967 Output Total 7141 5501 Balance -45 -578 Result Diagrams: 02/21/19 06:54 02/23/19 03:32 Additional Labs: Accuchecks 02/23/19 02/23/19 02/22/19 08:10 06:06 20:26 POC Glucose 233 H 185 H 160 H 02/22/19 02/22/19 16:30 10:32 POC Glucose 155 H 145 H Hospitalist ROS - Medication Medications: Active Medications Generic Name Dose Route Start Last Admin Trade Name Freq PRN Reason Stop Dose Admin Acetaminophen 1,000 mg 02/09/19 16:27 02/21/19 20:25 Tylenol PO 1,000 mg Q6H PRN Administration Moderate to Severe Pain (6-10) Acetaminophen 1,000 mg 02/17/19 23:28 02/17/19 23:39 Tylenol [place] 1,000 mg Q6H PRN Administration Fever/Mild Pain Hydrocodone Bitart/Acetaminophen 1 tab 02/14/19 13:12 02/18/19 15:15 [employer] 10/325 PO 1 tab Q4H PRN Administration .PAIN (2-4) Hydrocodone Bitart/Acetaminophen 2 tab 02/14/19 13:12 02/14/19 20:30 [employer] 10/325 PO 2 tab Q4H PRN Administration .PAIN (5-8) Albuterol/Ipratropium 3 ml 02/20/19 14:30 02/23/19 06:29 Duoneb NEB 3 ml [id number] PANCHO Administration Amlodipine Besylate 10 mg 02/13/19 09:00 02/22/19 08:07 Norvasc PO Not Given DAILY PANCHO Aspirin 300 mg 02/18/19 09:00 02/22/19 07:58 Aspirin [place] 300 mg DAILY PANCHO Administration Atorvastatin Calcium 40 mg 02/08/19 21:00 02/22/19 21:34 Lipitor PO 40 mg HS PANCHO Administration Bisacodyl 10 mg 02/21/19 17:00 02/23/19 01:56 Dulcolax [place] Not Given 0100,0900,1700 [facility] Carvedilol 12.5 mg 02/08/19 21:00 02/22/19 21:33 Coreg PO 12.5 mg BID PANCHO Administration Docusate Sodium 100 mg 02/13/19 21:00 02/22/19 21:34 Colace PO Not Given BID [facility] Enoxaparin Sodium 40 mg 02/14/19 21:00 02/22/19 21:33 Lovenox SC 40 mg 2100 PANCHO Administration Folic Acid 1 mg 02/13/19 09:00 02/22/19 08:07 Folvite PO Not Given DAILY [facility] Gabapentin 300 mg 02/16/19 09:00 02/22/19 21:34 Neurontin PO 300 mg BID PANCHO Administration Hydralazine HCl 25 mg 02/12/19 15:00 02/22/19 21:33 Apresoline PO 25 mg TID PANCHO Administration Insulin Glargine 20 units/ 0.2 mls @ 0 mls/hr 02/09/19 09:00 02/22/19 08:07 Miscellaneous Medication SC Not Given QAM PANCHO Piperacillin Sod/Tazobactam 100 mls @ 200 mls/hr 02/16/19 12:00 02/23/19 05: 51 Sod 3.375 gm/ Sodium Chloride IVPB 100 mls Q6HR PANCHO Administration Vancomycin HCl 1 gm/ Device 200 mls @ 250 mls/hr 02/21/19 16:00 02/23/19 04: 50 IVPB 200 mls 0400,1600 PANCHO Administration Sodium Chloride 1,000 mls @ 75 mls/hr 02/22/19 09:30 02/23/19 01:04 1/2 Normal Saline IV 1,000 mls .[id number] PANCHO Administration Insulin Human Lispro 0 units 02/07/19 19:09 02/21/19 05:49 Humalog SC 3 unit .MILD SLIDING SCALE PRN Administration Mild Correctional Scale Insulin Human Lispro 0 units 02/07/19 19:09 02/09/19 22:04 Humalog SC 2 unit .BEDTIME SLIDING SC PRN Administration Bedtime Correctional Scale Labetalol HCl 20 mg 02/17/19 16:33 02/22/19 21:25 Normodyne SLOW IVP 20 mg Q1H PRN Administration BP > 220/110 Multivitamins/Iron 1 tab 02/16/19 09:00 02/22/19 08:07 Centrum Kids Complete/Iron PO Not Given DAILY PANCHO Ondansetron HCl 4 mg 02/07/19 19:05 02/15/19 14:23 Zofran IVP 4 mg Q6H PRN Administration Nausea/Vomiting Scopolamine 1.5 mg 02/21/19 13:00 02/21/19 14:05 Transderm Scop TD 1.5 mg Q3D PANCHO Administration Sodium Chloride 10 ml 02/07/19 19:05 02/15/19 07:59 Flush - Normal Saline IVF 10 ml Q12H PRN Administration Saline Flush - Exam Neck: no JVD Heart: no murmur, irregular Respiratory - other findings: coarse BS Gastrointestinal: soft, normal bowel sounds Extremities: 1+ LE edema Hosp A/P (1) Acute bilat watershed infarction Code(s): I63.89 - OTHER CEREBRAL INFARCTION Status: Acute (2) Status post below-knee amputation of left lower extremity Code(s): Z89.512 - ACQUIRED ABSENCE OF LEFT LEG BELOW KNEE Status: Acute (3) Diabetes mellitus Code(s): E11.9 - TYPE 2 DIABETES MELLITUS WITHOUT COMPLICATIONS Status: Chronic Qualifiers: Diabetes mellitus type: type 2 Diabetes mellitus 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 Dr Guerrier intubated patient, received epi x 2. BP 138/90, P about 110, on vent CXR, EKG, ABG, etc pending
[2019-02-23 08:27] LABS: #Eosinphils 0.6 thou/uL (0.0-0.7); #Lymphocytes 3.4 thou/uL (1.20-3.40); #Monocytes 0.7 thou/uL (0.11-0.59); #Neutrophils 6.1 thou/uL (1.40-6.50); %Basophils 0.2 % (0.0-1.0); %Eosinophils 5.6 % (0.0-10.0); %Lymphocytes 31.1 % (21.0-51.0); %Monocytes 6.3 % (0.0-10.0); %Neutrophils 56.8 % (42.0-75.0); Hemoglobin 8.9 g/dL (14.0-18.0); Mean Corpuscular HGB CONC 30.3 g/dL (32.0-36.0); Mean Corpuscular Hemoglobin 26.1 pg (27.0-31.0); Mean Corpuscular Volume 86.3 fL (78.0-98.0); Mean Platelet Volume 7.6 fL (7.4-10.4); Platelet Count 373 thou/uL (130-400); Red Blood Cell (RBC) Count 3.42 mill/uL (4.70-6.10); White Blood Cell (WBC) Count 10.8 thou/uL (4.8-10.8)
--- NOTE | 2019-02-23 08:36 | RAD ---
EXAM: Single view of the chest HISTORY: Central line placement COMPARISON: 02/16/2019 FINDINGS: Single view of the chest shows an enlarged but stable cardiomediastinal silhouette. An end otracheal tube is seen with its tip between the clavicles. The central venous catheter is unchanged in position. A Dobbhoff tube courses off the inferior aspect of the film. No pneumothorax is seen. Th ere is a veil like opacity in the right thorax which likely represents a moderate layering pleural effusion. The bones are unremarkable. IMPRESSION: 1. Appropriate position of lines and tubes 2. Moderate right pleural effusion.
[2019-02-23 08:43] LABS: Actual Bicarbonate (HCO3a) 27.6 mEq/L (22-28); Base Excess (BEa) 2.3 mEq/L (-2.0 to +3.0); CO2 Tension 46.9 mmHg (35.0-45.0); Carboxyhemoglobin (COHb) 1.2 gm% (0.0-3.0); Hemoglobin (Hb) 8.1 g/dL (14.0-18.0); O2 Tension (PaO2) 280.3 mmHg (80.0-100.0); Potassium - ABG Lab 3.86 mmol/L (3.70-5.30); pH, Arterial 7.39 (7.35-7.45)
[2019-02-23 08:46] LABS: Puncture Site RR
[2019-02-23 08:47] LABS: ALV-art Gradient 374.075 (0-20)
[2019-02-23 08:51] LABS: ALT (SGPT) 152 U/L (8-55); AST (SGOT) 229 U/L (5-34); Albumin 2.8 g/dL (3.5-5.0); Alkaline Phosphatase 218 U/L (40-110); Anion Gap 16 mmol/L (10-20); BUN (Urea Nitrogen) 23 mg/dL (8.4-25.7); Bilirubin, Total 0.3 mg/dL (0.2-1.2); Calc. Creatinine Clearance 103 mL/min (70-130); Calcium 8.8 mg/dL (7.8-10.44); Carbon Dioxide 28 mmol/L (22-29); Chloride 106 mmol/L (98-107); Estimated GFR-MDRD 60; Globulin 3.7 g/dL (2.4-3.5); Glucose 213 mg/dL (70-105); Potassium 4.1 mmol/L (3.5-5.1); Protein, Total 6.5 g/dL (6.0-8.3); Sodium 146 mmol/L (136-145)
--- NOTE | 2019-02-23 08:55 | PRG ---
DATE OF SERVICE: 02/23/2019 CPR NOTE: Qi ramos was called and this patient's presenting rhythm was bradycardia, then asystole. I was down the monsalve when it came. The patient was immediately started on bag mask ventilation. Chest compressions were started. He received sequential epinephrine. I tried to intubate him using a standard laryngoscope, but could not see the cords. I then used a GlideScope and noted a huge supraglottic mucus plugging that was obstructing his airway. I was unable to extract that with suction. I was able to intubate him with 7.5 endotracheal tube using a GlideScope by just following the tube along the inferior aspect of the epiglottis. Tube placement was confirmed by yellow end-tidal CO2 monitoring and by auscultation. He was placed on mechanical ventilation. Job ID: [id number]
[2019-02-23 09:22] LABS: Troponin I Less than 0.010 ng/mL (< 0.028)
--- NOTE | 2019-02-23 11:15 | PDOC.HOSPP ---
- Subjective Encounter Date: 02/23/19 Encounter Time: 11:13 Subjective: intubated, unresonsive - Objective Vital Signs & Weight: Vital Signs (12 hours) Temp Pulse Resp BP Pulse Ox 02/23/19 10:12 81 109/75 02/23/19 09:00 99.2 F 02/23/19 08:49 79 98/72 02/23/19 08:12 93 107/79 02/23/19 07:17 97.2 F L 02/23/19 06:39 100 02/23/19 06:29 91 26 H 100 02/23/19 04:15 99.1 F 02/23/19 02:18 98 02/23/19 02:16 23 H 98 02/22/19 23:37 98 02/22/19 23:15 99.3 F Weight Admit Weight 282 lb 11.2 oz Weight 290 lb 6.4 oz Most Recent Monitor Data Heart Rate from ECG 78 NIBP 125/82 NIBP BP-Mean 96 Respiration from ECG 14 SpO2 100 I&O: 02/22/19 02/23/19 02/24/19 06:59 06:59 06:59 Intake Total 2230 1967 Output Total 3566 9505 80 Balance -45 -578 -80 Result Diagrams: 02/23/19 07:52 02/23/19 07:52 Additional Labs: Accuchecks 02/23/19 02/23/19 02/22/19 08:10 06:06 20:26 POC Glucose 233 H 185 H 160 H 02/22/19 16:30 POC Glucose 155 H Radiology Reviewed by me: Yes (cxrET tube, pleural effusion) EKG Reviewed by me: Yes (RSR with PVCs, no acute ST-T abnormality) Hospitalist ROS - Medication Medications: Active Medications Generic Name Dose Route Start Last Admin Trade Name Freq PRN Reason Stop Dose Admin Acetaminophen 1,000 mg 02/09/19 16:27 02/21/19 20:25 Tylenol PO 1,000 mg Q6H PRN Administration Moderate to Severe Pain (6-10) Acetaminophen 1,000 mg 02/17/19 23:28 02/17/19 23:39 Tylenol [place] 1,000 mg Q6H PRN Administration Fever/Mild Pain Hydrocodone Bitart/Acetaminophen 1 tab 02/14/19 13:12 02/18/19 15:15 [place] 10/325 PO 1 tab Q4H PRN Administration .PAIN (2-4) Hydrocodone Bitart/Acetaminophen 2 tab 02/14/19 13:12 02/14/19 20:30 [place] 10/325 PO 2 tab Q4H PRN Administration .PAIN (5-8) Albuterol/Ipratropium 3 ml 02/20/19 14:30 02/23/19 10:11 Duoneb NEB 3 ml [id number] PANCHO Administration Amlodipine Besylate 10 mg 02/13/19 09:00 02/22/19 08:07 Norvasc PO Not Given DAILY [facility] Aspirin 300 mg 02/18/19 09:00 02/22/19 07:58 Aspirin [place] 300 mg DAILY [facility] Administration Atorvastatin Calcium 40 mg 02/08/19 21:00 02/22/19 21:34 Lipitor PO 40 mg HS PANCHO Administration Bisacodyl 10 mg 02/21/19 17:00 02/23/19 01:56 Dulcolax [place] Not Given 0100,0900,1700 [facility] Carvedilol 12.5 mg 02/08/19 21:00 02/22/19 21:33 Coreg PO 12.5 mg BID [facility] Administration Docusate Sodium 100 mg 02/13/19 21:00 02/22/19 21:34 Colace PO Not Given BID [facility] Enoxaparin Sodium 40 mg 02/14/19 21:00 02/22/19 21:33 Lovenox SC 40 mg 2100 PANCHO Administration Folic Acid 1 mg 02/13/19 09:00 02/22/19 08:07 Folvite PO Not Given DAILY [facility] Gabapentin 300 mg 02/16/19 09:00 02/22/19 21:34 Neurontin PO 300 mg BID [facility] Administration Hydralazine HCl 25 mg 02/12/19 15:00 02/22/19 21:33 Apresoline PO 25 mg TID [facility] Administration Insulin Glargine 20 units/ 0.2 mls @ 0 mls/hr 02/09/19 09:00 02/22/19 08:07 Miscellaneous Medication SC Not Given QAM PANCHO Piperacillin Sod/Tazobactam 100 mls @ 200 mls/hr 02/16/19 12:00 02/23/19 05: 51 Sod 3.375 gm/ Sodium Chloride IVPB 100 mls Q6HR PANCHO Administration Vancomycin HCl 1 gm/ Device 200 mls @ 250 mls/hr 02/21/19 16:00 02/23/19 04: 50 IVPB 200 mls 0400,1600 PANCHO Administration Sodium Chloride 1,000 mls @ 75 mls/hr 02/22/19 09:30 02/23/19 01:04 1/2 Normal Saline IV 1,000 mls .[id number] PANCHO Administration Insulin Human Lispro 0 units 02/07/19 19:09 02/21/19 05:49 Humalog SC 3 unit .MILD SLIDING SCALE PRN Administration Mild Correctional Scale Insulin Human Lispro 0 units 02/07/19 19:09 02/09/19 22:04 Humalog SC 2 unit .BEDTIME SLIDING SC PRN Administration Bedtime Correctional Scale Labetalol HCl 20 mg 02/17/19 16:33 02/22/19 21:25 Normodyne SLOW IVP 20 mg Q1H PRN Administration BP > 220/110 Multivitamins/Iron 1 tab 02/16/19 09:00 02/22/19 08:07 Centrum Kids Complete/Iron PO Not Given DAILY [facility] Ondansetron HCl 4 mg 02/07/19 19:05 02/15/19 14:23 Zofran IVP 4 mg Q6H PRN Administration Nausea/Vomiting Scopolamine 1.5 mg 02/21/19 13:00 02/21/19 14:05 Transderm Scop TD 1.5 mg Q3D PANCHO Administration Sodium Chloride 10 ml 02/07/19 19:05 02/15/19 07:59 Flush - Normal Saline IVF 10 ml Q12H PRN Administration Saline Flush - Exam Neck: no JVD Heart: RRR, no murmur Respiratory: CTAB Gastrointestinal: soft, diminished bowl sounds Extremities: 1+ LE edema Extremities - other findings: R foot bandaged, L BKA Neurological - other findings: pupils fixed and dilated, limbs flaccib, absent DTS Hosp A/P (1) Anoxic brain injury Status: Acute (2) Cardiopulmonary arrest with successful resuscitation Code(s): I46.9 - CARDIAC ARREST, CAUSE UNSPECIFIED Status: Acute (3) Acute bilat watershed infarction Code(s): I63.89 - OTHER CEREBRAL INFARCTION Status: Acute (4) Status post below-knee amputation of left lower extremity Code(s): Z89.512 - ACQUIRED ABSENCE OF LEFT LEG BELOW KNEE Status: Acute (5) Diabetes mellitus Code(s): E11.9 - TYPE 2 DIABETES MELLITUS WITHOUT COMPLICATIONS Status: Chronic Qualifiers: Diabetes mellitus type: type 2 Diabetes mellitus 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
[2019-02-23] MEDS: hydrALAZINE 25 MG TAB PO SCH ×3 (11:59→22:14)
[2019-02-23] MEDS: Aspirin 300 MG Suppository PR SCH (13:20)
[2019-02-23] MEDS: Insulin Glargine 20 UNITS in Pre-Filled Syringe 1 EACH SC SCH (13:21)
[2019-02-23] MEDS: Docusate 100 MG CAP PO SCH ×2 (13:21→22:14)
[2019-02-23] MEDS: Multivitamins CHEW w/Iron Tablet PO SCH (13:21)
[2019-02-23] MEDS: Folic Acid 1 MG TAB PO SCH (13:22)
[2019-02-23] MEDS: Carvedilol 6.25 MG TAB PO SCH ×2 (13:22→22:13)
[2019-02-23] MEDS: Amlodipine 10 MG TAB PO SCH (13:22)
[2019-02-23] MEDS: Gabapentin 300 MG CAP PO SCH ×2 (13:23→22:14)
--- NOTE | 2019-02-23 13:59 | PDOC.GSPN ---
Surgery Progress Note: Subj - Subjective Narrative: Patient was scheduled for tracheostomy and PEG tube placement today but had a bradycardic episode that progressed to asystole requiring CPR and intubation. He apparently had a mucous plug in his posterior oropharynx and is felt that the bradycardia could have been induced by respiratory issues. The patient has received no sedation at all on the ventilator and is not overbreathing. On my exam he is completely unresponsive to painful stimuli and voice. He may have suffered an anoxic injury on top of his recent stroke. His prognosis is very poor. Given his recent arrest I have canceled his surgery today. I think it is most appropriate to let the patient stabilized and see how he does clinically over the next few days and try to assess if there is any evidence of, or prognosis for, meaningful neurologic recovery. The family will need to reassess the goals for his care and decide whether they want to proceed with aggressive care. If he stabilizes from a cardiopulmonary standpoint and the family decides they want to proceed with PEG tube and tracheostomy placement, Dr. Moreno or I can perform the procedure next week. Surgery Progress Note: Obj - Vital signs Vital signs: Vital Signs - Most Recent Temp Pulse Resp BP Pulse Ox 99 F 81 26 H 115/86 100 02/23/19 12:00 02/23/19 13:22 02/23/19 06:29 02/23/19 13:22 02/23/19 06:39 Surgery Progress Note: Results - Labs Result Diagrams: 02/23/19 07:52 02/23/19 07:52 Lab results: Laboratory Results - last 24 hr 02/23/19 02/23/19 02/23/19 03:32 06:06 07:52 WBC RBC Hgb Hct MCV MCH MCHC RDW Plt Count MPV Neutrophils % Lymphocytes % Monocytes % Eosinophils % Basophils % Neutrophils # Lymphocytes # Monocytes # Eosinophils # Basophils # Specimen Type Puncture Site Bicarbonate Actual ABG pH ABG pCO2 ABG pO2 ABG O2 Sat Calc/Lemuel ABG O2 Content ABG Base Excess ABG Hematocrit ABG Hemoglobin ABG Oxyhemoglobin ABG Carboxyhemoglobin ABG Methemoglobin ABG Deoxyhemoglobin Mk Test A-a O2 Gradient Ionized Calcium Mode of Support % Minute Volume Mechanical Rate Inspired O2 Tidal Volume Pressure Support PEEP or CPAP Sodium 146 H 146 H Potassium 3.9 4.1 Chloride 105 106 Carbon Dioxide 35 H 28 Anion Gap 10 16 BUN 23 23 Creatinine 1.31 H 1.47 H Estimated GFR (MDRD) 68 60 Glucose 157 H 213 H POC Glucose 185 H Calcium 9.3 8.8 Total Bilirubin 0.3 AST 229 H ALT 152 H Alkaline Phosphatase 218 H Troponin I Serum Total Protein 6.5 Albumin 2.8 L Globulin 3.7 H Albumin/Globulin Ratio 0.8 L 02/23/19 02/23/19 02/23/19 07:52 07:52 08:10 WBC 10.8 RBC 3.42 L Hgb 8.9 L Hct 29.5 L MCV 86.3 MCH 26.1 L MCHC 30.3 L RDW 15.0 H Plt Count 373 MPV 7.6 Neutrophils % 56.8 Lymphocytes % 31.1 Monocytes % 6.3 Eosinophils % 5.6 Basophils % 0.2 Neutrophils # 6.1 Lymphocytes # 3.4 Monocytes # 0.7 H Eosinophils # 0.6 Basophils # 0.0 Specimen Type Puncture Site Bicarbonate Actual ABG pH ABG pCO2 ABG pO2 ABG O2 Sat Calc/Lemuel ABG O2 Content ABG Base Excess ABG Hematocrit ABG Hemoglobin ABG Oxyhemoglobin ABG Carboxyhemoglobin ABG Methemoglobin ABG Deoxyhemoglobin Mk Test A-a O2 Gradient Ionized Calcium Mode of Support % Minute Volume Mechanical Rate Inspired O2 Tidal Volume Pressure Support PEEP or CPAP Sodium Potassium Chloride Carbon Dioxide Anion Gap BUN Creatinine Estimated GFR (MDRD) Glucose POC Glucose 233 H Calcium Total Bilirubin AST ALT Alkaline Phosphatase Troponin I Less than 0.010 Serum Total Protein Albumin Globulin Albumin/Globulin Ratio 02/23/19 02/23/19 08:40 12:24 WBC RBC Hgb Hct MCV MCH MCHC RDW Plt Count MPV Neutrophils % Lymphocytes % Monocytes % Eosinophils % Basophils % Neutrophils # Lymphocytes # Monocytes # Eosinophils # Basophils # Specimen Type ARTERIAL Puncture Site RR Bicarbonate Actual 27.6 ABG pH 7.39 ABG pCO2 46.9 H ABG pO2 280.3 H ABG O2 Sat Calc/Lemuel 99.9 H ABG O2 Content 12.0 L ABG Base Excess 2.3 ABG Hematocrit 24.0 L ABG Hemoglobin 8.1 L ABG Oxyhemoglobin 98.4 H ABG Carboxyhemoglobin 1.2 ABG Methemoglobin 0.30 ABG Deoxyhemoglobin 0.1 Mk Test POSITIVE A-a O2 Gradient 374.075 H Ionized Calcium 1.20 Mode of Support SIMV % Minute Volume 7.9 Mechanical Rate 14 Inspired O2 100 Tidal Volume 550 Pressure Support 10 PEEP or CPAP 5.0 Sodium 145 Potassium 3.86 Chloride 108 H Carbon Dioxide Anion Gap BUN Creatinine Estimated GFR (MDRD) Glucose POC Glucose 157 H Calcium Total Bilirubin AST ALT Alkaline Phosphatase Troponin I Serum Total Protein Albumin Globulin Albumin/Globulin Ratio
--- NOTE | 2019-02-23 14:48 | PRG ---
DATE OF SERVICE: 02/23/2019 SERVICE: Pulmonary Medicine. INTERVAL HISTORY: The patient is doing poorly from a mentation standpoint. That being said, this morning, he abruptly occluded his posterior oropharynx. There was a large plug of mucus that was back there that he could not handle. Ultimately, he had a brief respiratory arrest resulting in lack of blood flow. He ended up getting 1 to 2 round of chest compressions. After his airway was opened up, he immediately had return of pulse. He was placed on mechanical ventilator. He stuck into the ICU. Since that event has happened, he has not really done much from a neurologic standpoint. He cannot provide any additional elements of the history. PHYSICAL EXAMINATION: VITAL SIGNS: Afebrile, pulse 81, blood pressure 115/86, respirations 13, saturation 100%, currently on 40% FiO2 and a PEEP of 5. GENERAL: The patient is intubated. He is on no sedation currently. HEENT: Normocephalic and atraumatic. Sclerae are white. Conjunctivae are pink. Oral mucosa is moist without lesions. LUNGS: Decent air entry. No prolonged expiratory phase or wheezing is appreciated. HEART: Normal rate. Regular. ABDOMEN: Soft, nontender, and nondistended. Bowel sounds are positive. MUSCULOSKELETAL: No cyanosis or clubbing. There is no pitting in the bilateral lower extremities. LABORATORY DATA: WBC 10.8, hemoglobin 8.9 and stable, and platelets 373,000. Of note, the differential remains unremarkable. A pH 7.39, pCO2 of 46.9, PO2 of 280 with a FiO2 of 100% and a PEEP of 5. Vancomycin has been active for quite some time. IMAGING DATA: Chest x-ray demonstrates some degree of pleural effusion. Endotracheal tube is now in place for roughly 4 cm above the level of the caity. Possible pneumonia in the right base. ASSESSMENT: 1. Acute hypoxic respiratory failure. 2. White gangrene of the left lower extremity, status post below-knee amputation, postop day 9. 3. Acute cerebrovascular accident, embolic. 4. Pulseless electrical activity arrest, brief. DISCUSSION AND PLAN: Now the endotracheal tube is in place, we will collect a sputum for Gram stain and culture. I will continue our empiric antibiotics directed at aspiration-related organisms. We will watch his neurologic status closely over the next 24 to 48 hours, and if he regains neurologic function, we will proceed with a PEG tube and tracheostomy. Critical Care will follow closely. CRITICAL CARE TIME: 30 minutes. Job ID: [id number]
[2019-02-23] MEDS ORDERED: Sodium Bicarb 50 MEQ/50 ML Abboject 8.4% SYRINGE ONE (15:37)
[2019-02-23] MEDS ORDERED: EPINEPHrine 1 MG/10 ML Abboject SYRINGE ONE (15:37)
--- NOTE | 2019-02-23 16:13 | PDOC.PALPN ---
Palliative Progress Note - Subjective Intubated and transitioned to CCU secondary to episode of bradycardia/asystole requiring CPR and intubation this morning secondary to a mucous plug patient could not clear and caused respiratory distress. Patient is currently not sedated, requiring mechanical ventilation. Non responsive. - Objective Vital Signs: Vital Signs - Most Recent Temp Pulse Resp BP Pulse Ox 99 F 78 13 144/84 H 99 02/23/19 12:00 02/23/19 15:26 02/23/19 15:24 02/23/19 15:26 02/23/19 15:24 - Physical Exam Constitutional: encephalitic, ill appearing HEENT: sclera anicteric Deviation from normal: Pupils fixed, non responsive, dry oral mucous membranes Respiratory: no wheezing Deviation from normal: Mechanical ventilation Cardiovascular: no significant murmur Gastrointestinal: soft, non-tender, positive bowel sounds, incontinent Genitourinary: orozco catheter Deviation from normal: Non responsive to gentle stimulus Skin: fragile Deviation from normal: healing left amputation, right wound to lower extremity Deviation from normal: encephalopathic - Assessment (1) Palliative care encounter Code(s): Z51.5 - ENCOUNTER FOR PALLIATIVE CARE Current Visit: Yes Status: Acute (2) Acute bilat watershed infarction Code(s): I63.89 - OTHER CEREBRAL INFARCTION Current Visit: Yes Status: Acute (3) Acute metabolic encephalopathy Code(s): G93.41 - METABOLIC ENCEPHALOPATHY Current Visit: Yes Status: Acute (4) Status post below-knee amputation of left lower extremity Code(s): Z89.512 - ACQUIRED ABSENCE OF LEFT LEG BELOW KNEE Current Visit: Yes Status: Acute (5) Hypertension Code(s): I10 - ESSENTIAL (PRIMARY) HYPERTENSION Current Visit: Yes Status: Chronic Qualifiers: Hypertension type: essential hypertension Qualified Code(s): I10 - Essential (primary) hypertension (6) Obesity (BMI 30-39.9) Code(s): E66.9 - OBESITY, UNSPECIFIED Current Visit: Yes Status: Chronic (7) Acute on chronic renal insufficiency Code(s): N28.9 - DISORDER OF KIDNEY AND URETER, UNSPECIFIED; N18.9 - CHRONIC KIDNEY DISEASE, UNSPECIFIED Current Visit: Yes Status: Resolved - Plan Plan: lengthy conversation with Sravani who is patient and her daughter Ale. relayed events this morning as she was present for the CPR. They shared their understanding of patient current status and delay in PEG/Trach. Emotional support and therapeutic listening. Education in relation to fragile state of patient and that he will be monitored by physicians over the next few days, we will revisit goals of care as needed. Will order Biotene mouth care to assist with dry oral membranes expressed concern over that if Mr Silvestre passes she is not certain how they will pay for this. Discussed that we will just get through the next 24 hours, and that if resources are needed we will contact CM to assist. Spiritual care present this morning, will ensure consult is placed for continued spiritual support. Family also states their wildlife biology internship has been to visit and provide spiritual and emotional support. Please also refer to Palliative Care RN notes in note section. and her daughter state they will not be able to come to the hospital unless it is an emergency 02/24 but will be here Saturday 02/25. They confirmed numbers in the room and are available by cell phone. [75] minutes spent on this encounter with >50% of the time in counseling and coordination of care. - ROS Non Response: due to endotracheal tube, due to mental status
[2019-02-23] MEDS ORDERED: BIOTENE MOUTH SPRAY 44.3 ML MM PRN (16:22)
[2019-02-23] MEDS ORDERED: Sterile Water 10 ML VIAL IVP SCH (17:15)
[2019-02-23] MEDS ORDERED: Activase 2 MG VIAL CATH SCH (17:15)
[2019-02-23] MEDS ORDERED: Lorazepam 2 MG/ML VIAL SLOW IVP PRN (20:18)
[2019-02-23] MEDS ORDERED: Propofol BOLUS 1,000 MG/100 ML VIAL IV PRN (20:18)
[2019-02-23] MEDS ORDERED: Fentanyl BOLUS 250 ML IVPB PRN (20:18)
[2019-02-23] MEDS ORDERED: Morphine 2 MG/ML SYRINGE SLOW IVP PRN (20:18)
[2019-02-23] MEDS ORDERED: Propofol 1,000 MG/100 ML VIAL IV PRN (20:18)
[2019-02-23] MEDS ORDERED: DISCONTINUE PREVIOUS NARCOTIC PAIN MEDICATIONS AND BENZODIAZEPINES FS SCH (20:18)
[2019-02-23] MEDS: fentaNYL Citrate/PF 2,000 MCG in Sodium Chloride 0.9% 60 ML IV SCH (20:42)
[2019-02-23] MEDS: Atorvastatin Calcium 40 MG TAB PO SCH (22:13)
[2019-02-23] MEDS: Enoxaparin Sodium 40 MG/0.4 ML SYRINGE SC SCH (22:14)
[2019-02-24] MEDS: Piperacillin/Tazobactam 3.375 GM in Sodium Chloride 0.9% 100 ML IVPB SCH ×2 (00:36→05:12)
[2019-02-24] MEDS: Bisacodyl 10 MG SUPP PR SCH ×3 (00:37→18:21)
[2019-02-24] MEDS: Sodium Chloride 0.45% 1,000 ML IV SCH ×2 (00:38→18:20)
[2019-02-24] MEDS: Vancomycin HCl 1 GM in Premix Bag 1 BAG IVPB SCH (03:55)
[2019-02-24 05:03] LABS: Anion Gap 12 mmol/L (10-20); BUN (Urea Nitrogen) 37 mg/dL (8.4-25.7); Calc. Creatinine Clearance 65 mL/min (70-130); Calcium 8.7 mg/dL (7.8-10.44); Carbon Dioxide 31 mmol/L (22-29); Chloride 108 mmol/L (98-107); Estimated GFR-MDRD 35; Glucose 134 mg/dL (70-105); Potassium 3.8 mmol/L (3.5-5.1); Sodium 147 mmol/L (136-145)
[2019-02-24] MEDS ORDERED: Piperacillin/Tazobactam 2.25 GM in Sodium Chloride 0.9% 100 ML IVPB SCH (06:45)
--- NOTE | 2019-02-24 08:19 | PRG ---
DATE OF SERVICE: 02/24/2019 SERVICE: Pulmonary Medicine. INTERVAL HISTORY: The patient started waking up a little bit yesterday. He actually required a little bit of fentanyl to keep him comfortable. He cannot provide any additional elements of the history. Otherwise, nursing reports no significant overnight events. PHYSICAL EXAMINATION: VITAL SIGNS: Afebrile, currently with a T-max overnight of 100.5. Pulse 84, blood pressure 131/78, respirations 14, and saturation 97%, currently on 21% FiO2, and a PEEP of 5. GENERAL: The patient is intubated and sedated. HEENT: Normocephalic and atraumatic. Sclerae white. Conjunctivae pink. Oral mucosa is moist without lesions. LUNGS: Wonderful air entry. Rhonchi are present throughout bilateral lung camacho. No crackles. HEART: Normal rate, regular. ABDOMEN: Soft, nontender, and nondistended. Bowel sounds are positive. MUSCULOSKELETAL: No cyanosis or clubbing. There is no pitting in the bilateral lower extremities. NEUROLOGIC: His neurologic exam is close to where he was prior to intubation in code event. He attends, and follows some simple commands by squeezing the right upper extremity. His pupils are equal, round, reactive, he comfortably overbreathes the ventilator. His cough and gag are still weak. LABORATORY DATA: WBC 10.8, hemoglobin 8.9, platelets 373,000. Creatinine 2.35 and up-trending, BUN 37, anion gap 12, bicarb 31. Sodium 147, is also up-trending. Urinalysis is negative. ASSESSMENT: 1. Acute hypoxic respiratory failure. 2. Wet gangrene of the left lower extremity, status post below-knee amputation, postoperative day 10. 3. Acute cerebrovascular accident, embolic versus watershed infarcts. 4. Pulseless electrical activity, brief with return of neurologic function to poststroke baseline. 5. Acute kidney injury on chronic kidney disease III. DISCUSSION AND PLAN: I think it is reasonable to continue pursue PEG and tracheostomy at this point. It does not seem that the patient has suffered a severe neurologic setback from the code event yesterday. Adjustments have been made to the ventilator to improve the patient comfort. Supportive measures including tube feeds, and antibiotics will be continued. I will follow up the culture results of the sputum to make certain that no additional antibiotics are indicated. After 10 days, antibiotics can likely be discontinued. CRITICAL CARE TIME: 30 minutes. Job ID: [id number] MTDD
--- NOTE | 2019-02-24 08:28 | PDOC.HOSPP ---
- Subjective Encounter Date: 02/24/19 Encounter Time: 08:26 Subjective: intubated, sedated - Objective Vital Signs & Weight: Vital Signs (12 hours) Temp Pulse Resp BP Pulse Ox 02/24/19 07:17 85 122/80 02/24/19 07:15 85 12 99 02/24/19 06:00 7 L 02/24/19 04:00 100.2 F H 4 L 02/24/19 02:57 83 14 100 02/24/19 02:00 3 L 02/24/19 00:00 3 L 02/23/19 23:00 100.2 F H 02/23/19 22:14 85 136/81 02/23/19 22:13 136/81 02/23/19 22:02 86 15 100 02/23/19 22:00 3 L Weight Admit Weight 282 lb 11.2 oz Weight 290 lb 6.4 oz Most Recent Monitor Data Heart Rate from ECG 85 NIBP 122/80 NIBP BP-Mean 94 Respiration from ECG 14 SpO2 100 I&O: 02/23/19 02/24/19 02/25/19 06:59 06:59 06:59 Intake Total 1967 2820.6 Output Total 2545 910 20 Balance -578 1910.6 -20 Result Diagrams: 02/23/19 07:52 02/24/19 04:21 Additional Labs: Accuchecks 02/24/19 02/23/19 02/23/19 04:24 23:43 16:52 POC Glucose 141 H 149 H 138 H 02/23/19 12:24 POC Glucose 157 H Hospitalist ROS - Medication Medications: Active Medications Generic Name Dose Route Start Last Admin Trade Name Freq PRN Reason Stop Dose Admin Acetaminophen 1,000 mg 02/17/19 23:28 02/17/19 23:39 Tylenol MS 1,000 mg Q6H PRN Administration Fever/Mild Pain Albuterol/Ipratropium 3 ml 02/24/19 07:00 02/24/19 07:15 Duoneb NEB 3 ml [id number] PANCHO Administration Alteplase, Recombinant 4 mg 02/23/19 17:15 02/23/19 17:56 Cathflo CATH 4 mg WILLCALL PANCHO Administration Amlodipine Besylate 10 mg 02/13/19 09:00 02/23/19 13:22 Norvasc PO Not Given DAILY PANCHO Aspirin 300 mg 02/18/19 09:00 02/23/19 13:20 Aspirin MS 300 mg DAILY PANCHO Administration Atorvastatin Calcium 40 mg 02/08/19 21:00 02/23/19 22:13 Lipitor PO 40 mg HS PANCHO Administration Bisacodyl 10 mg 02/21/19 17:00 02/24/19 00:37 Dulcolax MS 10 mg 0100,0900,1700 PANCHO Administration Carvedilol 12.5 mg 02/08/19 21:00 02/23/19 22:13 Coreg PO 12.5 mg BID PANCHO Administration Docusate Sodium 100 mg 02/13/19 21:00 02/23/19 22:14 Colace PO 100 mg BID PANCHO Administration Enoxaparin Sodium 40 mg 02/14/19 21:00 02/23/19 22:14 Lovenox SC 40 mg 2100 PANCHO Administration Folic Acid 1 mg 02/13/19 09:00 02/23/19 13:22 Folvite PO 1 mg DAILY PANCHO Administration Gabapentin 300 mg 02/16/19 09:00 02/23/19 22:14 Neurontin PO 300 mg BID PANCHO Administration Hydralazine HCl 25 mg 02/12/19 15:00 02/23/19 22:14 Apresoline PO 25 mg TID PANCHO Administration Insulin Glargine 20 units/ 0.2 mls @ 0 mls/hr 02/09/19 09:00 02/23/19 13:21 Miscellaneous Medication SC 0.2 mls QAM PANCHO Administration Sodium Chloride 1,000 mls @ 75 mls/hr 02/22/19 09:30 02/24/19 00:38 1/2 Normal Saline IV 1,000 mls .[id number] PANCHO Administration Fentanyl Citrate 2,000 mcg/ 100 mls @ 0 mls/hr 02/23/19 20:18 02/23/19 20:42 Sodium Chloride IV 03/25/19 20:18 100 mls INF PANCHO Administration Protocol Per Protocol Insulin Human Lispro 0 units 02/07/19 19:09 02/21/19 05:49 Humalog SC 3 unit .MILD SLIDING SCALE PRN Administration Mild Correctional Scale Insulin Human Lispro 0 units 02/07/19 19:09 02/09/19 22:04 Humalog SC 2 unit .BEDTIME SLIDING SC PRN Administration Bedtime Correctional Scale Labetalol HCl 20 mg 02/17/19 16:33 02/22/19 21:25 Normodyne SLOW IVP 20 mg Q1H PRN Administration BP > 220/110 Multivitamins/Iron 1 tab 02/16/19 09:00 02/23/19 13:21 Centrum Kids Complete/Iron PO 1 tab DAILY PANCHO Administration Ondansetron HCl 4 mg 02/07/19 19:05 02/15/19 14:23 Zofran IVP 4 mg Q6H PRN Administration Nausea/Vomiting Scopolamine 1.5 mg 02/21/19 13:00 02/21/19 14:05 Transderm Scop TD 1.5 mg Q3D PANCHO Administration Sodium Chloride 10 ml 02/07/19 19:05 02/15/19 07:59 Flush - Normal Saline IVF 10 ml Q12H PRN Administration Saline Flush - Exam Neck: no JVD Heart: RRR, no murmur Respiratory - other findings: coarse BS Gastrointestinal: soft, normal bowel sounds Extremities - other findings: L BKA, R foot bandaged Neurological - other findings: pupils now 3-4 mm and reactive, dolls eye reflex resolved Hosp A/P (1) Anoxic brain injury Status: Resolved (2) Cardiopulmonary arrest with successful resuscitation Code(s): I46.9 - CARDIAC ARREST, CAUSE UNSPECIFIED Status: Acute (3) Acute bilat watershed infarction Code(s): I63.89 - OTHER CEREBRAL INFARCTION Status: Acute (4) Status post below-knee amputation of left lower extremity Code(s): Z89.512 - ACQUIRED ABSENCE OF LEFT LEG BELOW KNEE Status: Acute (5) Diabetes mellitus Code(s): E11.9 - TYPE 2 DIABETES MELLITUS WITHOUT COMPLICATIONS Status: Chronic Qualifiers: Diabetes mellitus type: type 2 Diabetes mellitus half-way insulin use: with termite exterminator use Diabetes mellitus complication status: with circulatory complication (6) Hyperlipidemia Code(s): E78.5 - HYPERLIPIDEMIA, UNSPECIFIED Status: Chronic Qualifiers: Hyperlipidemia type: moderate mixed hyperlipidemia not requiring statin therapy Qualified Code(s): E78.2 - Mixed hyperlipidemia (7) Hypertension Code(s): I10 - ESSENTIAL (PRIMARY) HYPERTENSION Status: Chronic Qualifiers: Hypertension type: essential hypertension Qualified Code(s): I10 - Essential (primary) hypertension - Plan on vent neuro status improved agree with moving forward with Trach/PEG
[2019-02-24] MEDS: Docusate 100 MG CAP PO SCH ×2 (08:34→20:44)
[2019-02-24] MEDS: Folic Acid 1 MG TAB PO SCH (08:34)
[2019-02-24] MEDS: Carvedilol 6.25 MG TAB PO SCH ×2 (08:34→20:42)
[2019-02-24] MEDS: Gabapentin 300 MG CAP PO SCH ×2 (08:34→20:44)
[2019-02-24] MEDS: Amlodipine 10 MG TAB PO SCH (08:35)
[2019-02-24] MEDS: Insulin Glargine 20 UNITS in Pre-Filled Syringe 1 EACH SC SCH (08:35)
[2019-02-24] MEDS: hydrALAZINE 25 MG TAB PO SCH ×3 (08:35→20:42)
[2019-02-24] MEDS: Aspirin 300 MG Suppository PR SCH (08:35)
[2019-02-24] MEDS: Multivitamins CHEW w/Iron Tablet PO SCH (08:40)
[2019-02-24] MEDS: Scopolamine 1.5 mg/72 hour Patch TD SCH (13:55)
[2019-02-24] MEDS: Piperacillin/Tazobactam 2.25 GM in Sodium Chloride 0.9% 100 ML IVPB SCH ×2 (13:55→18:21)
[2019-02-24] MEDS: Famotidine/PF 20 mg/2ml Vial SLOW IVP SCH (14:04)
[2019-02-24] MEDS: Atorvastatin Calcium 40 MG TAB PO SCH (20:42)
[2019-02-24] MEDS: Enoxaparin Sodium 40 MG/0.4 ML SYRINGE SC SCH (20:44)
[2019-02-25] MEDS: Piperacillin/Tazobactam 2.25 GM in Sodium Chloride 0.9% 100 ML IVPB SCH ×2 (00:05→05:28)
[2019-02-25] MEDS: Bisacodyl 10 MG SUPP PR SCH ×3 (00:06→18:19)
[2019-02-25 04:39] LABS: Anion Gap 13 mmol/L (10-20); BUN (Urea Nitrogen) 38 mg/dL (8.4-25.7); Calc. Creatinine Clearance 58 mL/min (70-130); Calcium 8.3 mg/dL (7.8-10.44); Carbon Dioxide 30 mmol/L (22-29); Chloride 107 mmol/L (98-107); Estimated GFR-MDRD 30; Glucose 177 mg/dL (70-105); Potassium 3.7 mmol/L (3.5-5.1); Sodium 146 mmol/L (136-145)
[2019-02-25] MEDS: HumaLOG 300 UNITS/3 ML VIAL SC PRN ×3 (05:26→18:29)
[2019-02-25] MEDS: Sodium Chloride 0.45% 1,000 ML IV SCH ×2 (06:08→18:19)
[2019-02-25 06:51] LABS: Actual Bicarbonate (HCO3a) 29.5 mEq/L (22-28); Base Excess (BEa) 5.3 mEq/L (-2.0 to +3.0); CO2 Tension 41.8 mmHg (35.0-45.0); Calcium, Ionized 1.15 mmol/L (1.12-1.30); Carboxyhemoglobin (COHb) 1.8 gm% (0.0-3.0); Hemoglobin (Hb) 8.1 g/dL (14.0-18.0); O2 Tension (PaO2) 72.5 mmHg (80.0-100.0); Potassium - ABG Lab 3.67 mmol/L (3.70-5.30); pH, Arterial 7.47 (7.35-7.45)
[2019-02-25 06:52] LABS: Puncture Site RRA
[2019-02-25] MEDS: Carvedilol 6.25 MG TAB PO SCH ×2 (09:37→21:09)
[2019-02-25] MEDS: Famotidine/PF 20 mg/2ml Vial SLOW IVP SCH (09:37)
[2019-02-25] MEDS: hydrALAZINE 25 MG TAB PO SCH ×3 (09:38→21:09)
[2019-02-25] MEDS: Amlodipine 10 MG TAB PO SCH (09:38)
[2019-02-25] MEDS: Docusate 100 MG CAP PO SCH ×2 (09:38→21:00)
[2019-02-25] MEDS: Folic Acid 1 MG TAB PO SCH (09:38)
[2019-02-25] MEDS: Gabapentin 300 MG CAP PO SCH (09:38)
[2019-02-25] MEDS: Aspirin 300 MG Suppository PR SCH (09:39)
[2019-02-25] MEDS: Insulin Glargine 20 UNITS in Pre-Filled Syringe 1 EACH SC SCH (09:39)
[2019-02-25] MEDS: Multivitamins CHEW w/Iron Tablet PO SCH (09:41)
[2019-02-25] MEDS ORDERED: Fluconazole 100 MG TAB PO SCH (10:30)
--- NOTE | 2019-02-25 12:02 | PDOC.HOSPP ---
- Subjective Encounter Date: 02/25/19 Encounter Time: 11:00 Subjective: on vent, awakens easily tries to squeze fingers on right hand, moves a bit of his fingers in left hand does not move his extremities to verbal stimuli - Objective Vital Signs & Weight: Vital Signs (12 hours) Temp Pulse Resp BP Pulse Ox 02/25/19 10:47 84 153/76 H 02/25/19 10:00 13 02/25/19 09:38 80 123/75 02/25/19 09:37 142/91 H 02/25/19 09:11 80 02/25/19 08:00 99.3 F 14 02/25/19 07:23 100 02/25/19 07:17 81 142/91 H 02/25/19 06:00 13 02/25/19 04:00 99.6 F 12 02/25/19 03:26 85 02/25/19 02:00 18 02/25/19 01:19 82 126/88 02/25/19 01:18 100 Weight Admit Weight 282 lb 11.2 oz Weight 296 lb 8.348 oz Most Recent Monitor Data Heart Rate from ECG 87 NIBP 153/76 NIBP BP-Mean 101 Respiration from ECG 14 SpO2 100 I&O: 02/24/19 02/25/19 02/26/19 06:59 06:59 06:59 Intake Total 2820.6 3394.3 Output Total 910 1625 225 Balance 1910.6 1769.3 -225 Result Diagrams: 02/23/19 07:52 02/25/19 03:21 Additional Labs: Accuchecks 02/25/19 02/24/19 02/24/19 05:27 21:06 18:02 POC Glucose 201 H 127 H 118 H Hospitalist ROS - Medication Medications: Active Medications Generic Name Dose Route Start Last Admin Trade Name Freq PRN Reason Stop Dose Admin Acetaminophen 1,000 mg 02/17/19 23:28 02/17/19 23:39 Tylenol [place] 1,000 mg Q6H PRN Administration Fever/Mild Pain Albuterol/Ipratropium 3 ml 02/24/19 07:00 02/25/19 07:17 Duoneb NEB 3 ml [id number] PANCHO Administration Alteplase, Recombinant 4 mg 02/23/19 17:15 02/23/19 17:56 Cathflo CATH 4 mg WILLCALL PANCHO Administration Amlodipine Besylate 10 mg 02/13/19 09:00 02/25/19 09:38 Norvasc PO 10 mg DAILY PANCHO Administration Aspirin 300 mg 02/18/19 09:00 02/25/19 09:39 Aspirin VT 300 mg DAILY PANCHO Administration Atorvastatin Calcium 40 mg 02/08/19 21:00 02/24/19 20:42 Lipitor PO 40 mg HS PANCHO Administration Bisacodyl 10 mg 02/21/19 17:00 02/25/19 09:39 Dulcolax VT 10 mg 0100,0900,1700 PANCHO Administration Carvedilol 12.5 mg 02/08/19 21:00 02/25/19 09:37 Coreg PO 12.5 mg BID PANCHO Administration Docusate Sodium 100 mg 02/13/19 21:00 02/25/19 09:38 Colace PO 100 mg BID PANCHO Administration Enoxaparin Sodium 40 mg 02/14/19 21:00 02/24/19 20:44 Lovenox SC 40 mg 2100 PANCHO Administration Famotidine 20 mg 02/24/19 09:00 02/25/19 09:37 Pepcid SLOW IVP 20 mg 0900 PANCHO Administration Folic Acid 1 mg 02/13/19 09:00 02/25/19 09:38 Folvite PO 1 mg DAILY PANCHO Administration Hydralazine HCl 25 mg 02/12/19 15:00 02/25/19 09:38 Apresoline PO 25 mg TID PANCHO Administration Insulin Glargine 20 units/ 0.2 mls @ 0 mls/hr 02/09/19 09:00 02/25/19 09:39 Miscellaneous Medication SC 0.2 mls QAM PANCHO Administration Sodium Chloride 1,000 mls @ 75 mls/hr 02/22/19 09:30 02/25/19 06:08 1/2 Normal Saline IV 1,000 mls .[id number] PANCHO Administration Fentanyl Citrate 2,000 mcg/ 100 mls @ 0 mls/hr 02/23/19 20:18 02/23/19 20:42 Sodium Chloride IV 03/25/19 20:18 100 mls INF PANCHO Administration Protocol Per Protocol Insulin Human Lispro 0 units 02/07/19 19:09 02/25/19 05:26 Humalog SC 3 unit .MILD SLIDING SCALE PRN Administration Mild Correctional Scale Insulin Human Lispro 0 units 02/07/19 19:09 02/09/19 22:04 Humalog SC 2 unit .BEDTIME SLIDING SC PRN Administration Bedtime Correctional Scale Labetalol HCl 20 mg 02/17/19 16:33 02/22/19 21:25 Normodyne SLOW IVP 20 mg Q1H PRN Administration BP > 220/110 Multivitamins/Iron 1 tab 02/16/19 09:00 02/25/19 09:41 Centrum Kids Complete/Iron PO 1 tab DAILY PANCHO Administration Ondansetron HCl 4 mg 02/07/19 19:05 02/15/19 14:23 Zofran IVP 4 mg Q6H PRN Administration Nausea/Vomiting Scopolamine 1.5 mg 02/21/19 13:00 02/24/19 13:55 Transderm Scop TD 1.5 mg Q3D PANCHO Administration Sodium Chloride 10 ml 02/07/19 19:05 02/15/19 07:59 Flush - Normal Saline IVF 10 ml Q12H PRN Administration Saline Flush - Exam General Appearance: ill appearing Eye: PERRL, anicteric sclera ENT: no oropharyngeal lesions, dry oral mucosa Neck: supple, no JVD Heart: RRR, no murmur Respiratory: no wheezes, no rales, rhonchi Gastrointestinal: soft, non-tender, non-distended, normal bowel sounds Extremities: no cyanosis, 1+ LE edema Neurological: no new deficit Hosp A/P (1) Acute respiratory failure with hypoxia and hypercapnia Code(s): J96.01 - ACUTE RESPIRATORY FAILURE WITH HYPOXIA; J96.02 - ACUTE RESPIRATORY FAILURE WITH HYPERCAPNIA Status: Acute (2) Acute CVA (cerebrovascular accident) Code(s): I63.9 - CEREBRAL INFARCTION, UNSPECIFIED Status: Acute (3) Acute metabolic encephalopathy Code(s): G93.41 - METABOLIC ENCEPHALOPATHY Status: Acute (4) Status post below-knee amputation of left lower extremity Code(s): Z89.512 - ACQUIRED ABSENCE OF LEFT LEG BELOW KNEE Status: Acute (5) Obesity (BMI 30-39.9) Code(s): E66.9 - OBESITY, UNSPECIFIED Status: Chronic (6) Chronic anemia Code(s): D64.9 - ANEMIA, UNSPECIFIED Status: Chronic (7) CHF (congestive heart failure) Code(s): I50.9 - HEART FAILURE, UNSPECIFIED Status: Chronic Qualifiers: Heart failure type: diastolic Heart failure chronicity: acute on chronic Qualified Code(s): I50.33 - Acute on chronic diastolic (congestive) heart failure (8) Diabetes mellitus Code(s): E11.9 - TYPE 2 DIABETES MELLITUS WITHOUT COMPLICATIONS Status: Chronic Qualifiers: Diabetes mellitus type: type 2 Diabetes mellitus digital marketing consultant insulin use: with digital marketing consultant use Diabetes mellitus complication status: with circulatory complication (9) Hyperlipidemia Code(s): E78.5 - HYPERLIPIDEMIA, UNSPECIFIED Status: Chronic Qualifiers: Hyperlipidemia type: moderate mixed hyperlipidemia not requiring statin therapy Qualified Code(s): E78.2 - Mixed hyperlipidemia (10) Hypertension Code(s): I10 - ESSENTIAL (PRIMARY) HYPERTENSION Status: Chronic Qualifiers: Hypertension type: essential hypertension Qualified Code(s): I10 - Essential (primary) hypertension - Plan on Vent, had brief resp arrest with full recovery. is on asp, coreg, lipitor, norvasc, neurontin, hydralazine, lantus, scopalamine tts echo showed ef of 60% with diastolic dysfunction MRI showed b/l cerebral infarcts is on Dr.Lemos diego to decide further de-escalation has underlying hilario and obesity hypovent syndrome which has gotten worse due to multiple med issues now had left bka done for osteomyelitis on 02/14/2019 prognosis guarded for trach and peg when surgery is ready mild hypernatremia, is on 1/2 NS severe deconditioning palliative care for code status/goals of care will need placement with likely trach and peg. watch for renal function, creatinine around 2.6
[2019-02-25] MEDS: Dextrose 5% in Water 1,000 ML IV SCH (12:47)
--- NOTE | 2019-02-25 14:46 | PDOC.PALPN ---
Palliative Progress Note - Subjective Mechanically ventilated, opens eyes and turns head to voice. Not able to follow request to drug clerk hand. and daughter at bedside. - Objective Vital Signs: Vital Signs - Most Recent Temp Pulse Resp BP Pulse Ox 99.3 F 91 13 114/77 100 02/25/19 08:00 02/25/19 13:35 02/25/19 10:00 02/25/19 13:35 02/25/19 11:45 - Physical Exam Constitutional: encephalitic, ill appearing HEENT: moist MMs, sclera anicteric Respiratory: clear to auscultation bilateral, no wheezing Cardiovascular: RRR Gastrointestinal: soft, non-tender, positive bowel sounds, incontinent Genitourinary: orozco catheter Musculoskeletal: no cyanosis, no clubbing Deviation from normal: left below the knee amputation, dressing over wound to right foot Skin: fragile Deviation from normal: wound to right lower extremity Deviation from normal: encephalopathic - Assessment (1) Palliative care encounter Code(s): Z51.5 - ENCOUNTER FOR PALLIATIVE CARE Current Visit: Yes Status: Acute (2) Acute bilat watershed infarction Code(s): I63.89 - OTHER CEREBRAL INFARCTION Current Visit: Yes Status: Acute (3) Acute metabolic encephalopathy Code(s): G93.41 - METABOLIC ENCEPHALOPATHY Current Visit: Yes Status: Acute (4) Status post below-knee amputation of left lower extremity Code(s): Z89.512 - ACQUIRED ABSENCE OF LEFT LEG BELOW KNEE Current Visit: Yes Status: Acute (5) Hypertension Code(s): I10 - ESSENTIAL (PRIMARY) HYPERTENSION Current Visit: Yes Status: Chronic Qualifiers: Hypertension type: essential hypertension Qualified Code(s): I10 - Essential (primary) hypertension (6) Obesity (BMI 30-39.9) Code(s): E66.9 - OBESITY, UNSPECIFIED Current Visit: Yes Status: Chronic (7) Acute on chronic renal insufficiency Code(s): N28.9 - DISORDER OF KIDNEY AND URETER, UNSPECIFIED; N18.9 - CHRONIC KIDNEY DISEASE, UNSPECIFIED Current Visit: Yes Status: Resolved - Plan Plan: Visited with family at bedside. They are hopeful he is opening his eyes to their voice. Desire to continue with aggressive measures with hopes of a meaningful recovery. Requested information in relation to applying for disability, referred to Marko Webb and she confirmed she will reach out to appropriate resources. Hopeful for eventual placement after hospital stay at a rehab in close proximity to [place]. Mallorie Martell RNpaving supervisor also supporting and participating in care of patient, please refer to her notes in the note section of the chart. [60] minutes spent on this encounter with >50% of the time in counseling and coordination of care. - ROS Non Response: due to endotracheal tube, due to mental status
[2019-02-25] MEDS: fentaNYL Citrate/PF 2,000 MCG in Sodium Chloride 0.9% 60 ML IV SCH (20:01)
[2019-02-25] MEDS: Enoxaparin Sodium 40 MG/0.4 ML SYRINGE SC SCH (21:07)
[2019-02-25] MEDS: Atorvastatin Calcium 40 MG TAB PO SCH (21:10)
[2019-02-25] MEDS: Docusate Sodium 100 MG/10 ML UDCUP PO SCH (21:16)
[2019-02-26] MEDS: Bisacodyl 10 MG SUPP PR SCH ×3 (00:02→18:54)
[2019-02-26] MEDS: HumaLOG 300 UNITS/3 ML VIAL SC PRN ×4 (04:51→21:16)
[2019-02-26 05:17] LABS: Anion Gap 14 mmol/L (10-20); BUN (Urea Nitrogen) 41 mg/dL (8.4-25.7); Calc. Creatinine Clearance 56 mL/min (70-130); Carbon Dioxide 28 mmol/L (22-29); Chloride 106 mmol/L (98-107); Estimated GFR-MDRD 29; Potassium 3.7 mmol/L (3.5-5.1); Sodium 144 mmol/L (136-145)
[2019-02-26 05:18] LABS: Calcium 8.2 mg/dL (7.8-10.44); Glucose 262 mg/dL (70-105)
[2019-02-26] MEDS: Sodium Chloride 0.45% 1,000 ML IV SCH ×2 (08:30→22:17)
[2019-02-26] MEDS: Fluconazole 100 MG TAB PO SCH (09:45)
[2019-02-26] MEDS: Famotidine/PF 20 mg/2ml Vial SLOW IVP SCH (09:45)
[2019-02-26] MEDS: hydrALAZINE 25 MG TAB PO SCH ×3 (09:45→20:13)
[2019-02-26] MEDS: Carvedilol 6.25 MG TAB PO SCH ×2 (09:46→20:14)
[2019-02-26] MEDS: Folic Acid 1 MG TAB PO SCH (09:46)
[2019-02-26] MEDS: Amlodipine 10 MG TAB PO SCH (09:46)
[2019-02-26] MEDS: Aspirin 300 MG Suppository PR SCH (10:11)
[2019-02-26] MEDS: Insulin Glargine 20 UNITS in Pre-Filled Syringe 1 EACH SC SCH (10:22)
[2019-02-26] MEDS: Multivitamins CHEW w/Iron Tablet PO SCH (11:55)
[2019-02-26] MEDS: Docusate Sodium 100 MG/10 ML UDCUP PO SCH ×2 (11:55→20:14)
--- NOTE | 2019-02-26 12:04 | PDOC.HOSPP ---
- Subjective Encounter Date: 02/26/19 Encounter Time: 10:45 Subjective: awake, is working with PT on bed moves right UE extremity, not seen moving lower extremities - Objective Vital Signs & Weight: Vital Signs (12 hours) Temp Pulse Resp BP Pulse Ox 02/26/19 11:22 79 118/77 02/26/19 11:00 100.4 F H 02/26/19 10:00 15 02/26/19 09:46 83 129/84 02/26/19 09:45 83 129/84 02/26/19 08:00 20 97 02/26/19 07:30 83 129/84 02/26/19 07:00 99.7 F H 02/26/19 06:00 18 02/26/19 04:00 99.1 F 20 02/26/19 03:47 84 02/26/19 02:00 19 02/26/19 01:56 83 113/74 Weight Admit Weight 282 lb 11.2 oz Weight 294 lb 14.4 oz Most Recent Monitor Data Heart Rate from ECG 78 NIBP 118/77 NIBP BP-Mean 90 Respiration from ECG 39 SpO2 98 I&O: 02/25/19 02/26/19 02/27/19 06:59 06:59 06:59 Intake Total 3394.3 2223 Output Total 1625 1495 370 Balance 1769.3 728 -370 Result Diagrams: 02/23/19 07:52 02/26/19 04:45 Additional Labs: Accuchecks 02/25/19 02/25/19 02/25/19 21:21 16:46 13:03 POC Glucose 251 H 224 H 232 H Hospitalist ROS - Medication Medications: Active Medications Generic Name Dose Route Start Last Admin Trade Name Freq PRN Reason Stop Dose Admin Acetaminophen 1,000 mg 02/17/19 23:28 02/17/19 23:39 Tylenol [place] 1,000 mg Q6H PRN Administration Fever/Mild Pain Albuterol/Ipratropium 3 ml 02/24/19 07:00 02/26/19 07:30 Duoneb NEB 3 ml [id number] PANCHO Administration Alteplase, Recombinant 4 mg 02/23/19 17:15 02/23/19 17:56 Cathflo CATH 4 mg WILLCALL PANCHO Administration Amlodipine Besylate 10 mg 02/13/19 09:00 02/26/19 09:46 Norvasc PO 10 mg DAILY PANCHO Administration Aspirin 300 mg 02/18/19 09:00 02/26/19 10:11 Aspirin AL 300 mg DAILY PANCHO Administration Atorvastatin Calcium 40 mg 02/08/19 21:00 02/25/19 21:10 Lipitor PO 40 mg HS PANCHO Administration Bisacodyl 10 mg 02/21/19 17:00 02/26/19 10:11 Dulcolax AL Not Given 0100,0900,1700 [facility] Carvedilol 12.5 mg 02/08/19 21:00 02/26/19 09:46 Coreg PO 12.5 mg BID PANCHO Administration Docusate Sodium 100 mg 02/25/19 21:00 02/26/19 11:55 Colace Liquid PO 100 mg BID PANCHO Administration Enoxaparin Sodium 40 mg 02/14/19 21:00 02/25/19 21:07 Lovenox SC 40 mg 2100 PANCHO Administration Famotidine 20 mg 02/24/19 09:00 02/26/19 09:45 Pepcid SLOW IVP 20 mg 0900 PANCHO Administration Fluconazole 100 mg 02/26/19 09:00 02/26/19 09:45 Diflucan PO 03/01/19 09:01 100 mg DAILY PANCHO Administration Folic Acid 1 mg 02/13/19 09:00 02/26/19 09:46 Folvite PO 1 mg DAILY PANCHO Administration Hydralazine HCl 25 mg 02/12/19 15:00 02/26/19 09:45 Apresoline PO 25 mg TID PANCHO Administration Insulin Glargine 20 units/ 0.2 mls @ 0 mls/hr 02/09/19 09:00 02/26/19 10:22 Miscellaneous Medication SC 0.2 mls QAM PANCHO Administration Sodium Chloride 1,000 mls @ 75 mls/hr 02/22/19 09:30 02/26/19 08:30 1/2 Normal Saline IV Not Given .[id number] PANCHO Fentanyl Citrate 2,000 mcg/ 100 mls @ 0 mls/hr 02/23/19 20:18 02/25/19 20:01 Sodium Chloride IV 03/25/19 20:18 100 mls INF PANCHO Administration Protocol Per Protocol Dextrose/Water 1,000 mls @ 50 mls/hr 02/25/19 10:30 02/25/19 12:47 D5w IV 02/27/19 02:29 1,000 mls .Q20H PANCHO Administration Insulin Human Lispro 0 units 02/07/19 19:09 02/26/19 10:22 Humalog SC 4 unit .MILD SLIDING SCALE PRN Administration Mild Correctional Scale Insulin Human Lispro 0 units 02/07/19 19:09 02/09/19 22:04 Humalog SC 2 unit .BEDTIME SLIDING SC PRN Administration Bedtime Correctional Scale Labetalol HCl 20 mg 02/17/19 16:33 02/22/19 21:25 Normodyne SLOW IVP 20 mg Q1H PRN Administration BP > 220/110 Multivitamins/Iron 1 tab 02/16/19 09:00 02/26/19 11:55 Centrum Kids Complete/Iron PO 1 tab DAILY PANCHO Administration Ondansetron HCl 4 mg 02/07/19 19:05 02/15/19 14:23 Zofran IVP 4 mg Q6H PRN Administration Nausea/Vomiting Scopolamine 1.5 mg 02/21/19 13:00 02/24/19 13:55 Transderm Scop TD 1.5 mg Q3D PANCOH Administration Sodium Chloride 10 ml 02/07/19 19:05 02/15/19 07:59 Flush - Normal Saline IVF 10 ml Q12H PRN Administration Saline Flush - Exam General Appearance: ill appearing Eye: PERRL, anicteric sclera ENT: no oropharyngeal lesions, moist mucosa Neck: supple, no JVD Heart: RRR, no murmur Respiratory: no wheezes, no rales, rhonchi Gastrointestinal: soft, non-tender, non-distended, normal bowel sounds Extremities: 1+ LE edema Extremities - other findings: left bka Neurological: no new deficit Hosp A/P (1) Acute respiratory failure with hypoxia and hypercapnia Code(s): J96.01 - ACUTE RESPIRATORY FAILURE WITH HYPOXIA; J96.02 - ACUTE RESPIRATORY FAILURE WITH HYPERCAPNIA Status: Acute (2) Acute CVA (cerebrovascular accident) Code(s): I63.9 - CEREBRAL INFARCTION, UNSPECIFIED Status: Acute (3) Acute metabolic encephalopathy Code(s): G93.41 - METABOLIC ENCEPHALOPATHY Status: Acute (4) Status post below-knee amputation of left lower extremity Code(s): Z89.512 - ACQUIRED ABSENCE OF LEFT LEG BELOW KNEE Status: Acute (5) Obesity (BMI 30-39.9) Code(s): E66.9 - OBESITY, UNSPECIFIED Status: Chronic (6) Chronic anemia Code(s): D64.9 - ANEMIA, UNSPECIFIED Status: Chronic (7) CHF (congestive heart failure) Code(s): I50.9 - HEART FAILURE, UNSPECIFIED Status: Chronic Qualifiers: Heart failure type: diastolic Heart failure chronicity: acute on chronic Qualified Code(s): I50.33 - Acute on chronic diastolic (congestive) heart failure (8) Diabetes mellitus Code(s): E11.9 - TYPE 2 DIABETES MELLITUS WITHOUT COMPLICATIONS Status: Chronic Qualifiers: Diabetes mellitus type: type 2 Diabetes mellitus assisted insulin use: with director long term care use Diabetes mellitus complication status: with circulatory complication (9) Hyperlipidemia Code(s): E78.5 - HYPERLIPIDEMIA, UNSPECIFIED Status: Chronic Qualifiers: Hyperlipidemia type: moderate mixed hyperlipidemia not requiring statin therapy Qualified Code(s): E78.2 - Mixed hyperlipidemia (10) Hypertension Code(s): I10 - ESSENTIAL (PRIMARY) HYPERTENSION Status: Chronic Qualifiers: Hypertension type: essential hypertension Qualified Code(s): I10 - Essential (primary) hypertension - Plan on Vent, had brief resp arrest with full recovery. is on asp, coreg, lipitor, norvasc, neurontin, hydralazine, lantus, scopalamine tts echo showed ef of 60% with diastolic dysfunction MRI showed b/l cerebral infarcts is on diflucan, d5w and 1/2ns, dm is a bit labile due to d5w drip has underlying hilario and obesity hypovent syndrome which has gotten worse due to multiple med issues now had left bka done for osteomyelitis on 02/14/2019 prognosis guarded for trach and peg on thursday mild hypernatremia, is on 1/2 NS severe deconditioning palliative care for code status/goals of care will need placement with likely trach and peg. watch for renal function
[2019-02-26] MEDS: Dextrose 5% in Water 1,000 ML IV SCH (13:28)
--- NOTE | 2019-02-26 15:59 | PRG ---
DATE OF SERVICE: 02/26/2019 SUBJECTIVE: Brian Silvestre has stable vital signs. OBJECTIVE: VITAL SIGNS: His heart rate is in the 80s, blood pressure this afternoon is 149/102, earlier today blood pressure 129/84. LUNGS: Clear. HEART: Regular rhythm. ABDOMEN: Soft. EXTREMITIES: Unchanged. LABORATORY DATA: White count 10.8, hemoglobin 8.9, and platelets 373. Sodium 144, potassium 3.7, chloride 106, bicarb 28, BUN 41, and creatinine 2.76. Intake and output, positive 728. Blood gas: A pH 7.47, CO2 of 41, pO2 of 72 yesterday. IMPRESSION: 1. Acute hypoxic respiratory failure. 2. 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 3. Cerebrovascular accident. 4. Status post airway obstruction secondary to large mucus plug, leading to a brief arrest. 5. History of hypertension. 6. History of lipid disorder. PLAN: We will continue supportive care. As anticipated, he would benefit from a trach and a PEG, which is on the schedule for next week. Critical care time is 35 minutes. Job ID: [id number] MTDD
[2019-02-26] MEDS: Atorvastatin Calcium 40 MG TAB PO SCH (20:13)
[2019-02-26] MEDS: Enoxaparin Sodium 40 MG/0.4 ML SYRINGE SC SCH (20:14)
[2019-02-27] MEDS: Bisacodyl 10 MG SUPP PR SCH (01:00)
[2019-02-27] MEDS: HumaLOG 300 UNITS/3 ML VIAL SC PRN ×5 (04:22→21:19)
[2019-02-27 04:48] LABS: Anion Gap 11 mmol/L (10-20); BUN (Urea Nitrogen) 42 mg/dL (8.4-25.7); Calc. Creatinine Clearance 65 mL/min (70-130); Calcium 8.4 mg/dL (7.8-10.44); Carbon Dioxide 30 mmol/L (22-29); Chloride 106 mmol/L (98-107); Estimated GFR-MDRD 34; Glucose 227 mg/dL (70-105); Potassium 3.3 mmol/L (3.5-5.1); Sodium 144 mmol/L (136-145)
[2019-02-27] MEDS ORDERED: Bisacodyl 10 MG SUPP PR PRN (07:39)
[2019-02-27] MEDS: Multivitamins CHEW w/Iron Tablet PO SCH (08:00)
[2019-02-27] MEDS: Fluconazole 100 MG TAB PO SCH (08:00)
[2019-02-27] MEDS: hydrALAZINE 25 MG TAB PO SCH ×3 (08:01→21:16)
[2019-02-27] MEDS: Carvedilol 6.25 MG TAB PO SCH ×2 (08:02→21:17)
[2019-02-27] MEDS: Folic Acid 1 MG TAB PO SCH (08:02)
[2019-02-27] MEDS: Amlodipine 10 MG TAB PO SCH (08:03)
[2019-02-27] MEDS: Famotidine/PF 20 mg/2ml Vial SLOW IVP SCH (08:03)
[2019-02-27] MEDS: Aspirin 300 MG Suppository PR SCH (08:03)
[2019-02-27] MEDS: Insulin Glargine 20 UNITS in Pre-Filled Syringe 1 EACH SC SCH (08:04)
[2019-02-27] MEDS: Docusate Sodium 100 MG/10 ML UDCUP PO SCH ×2 (08:08→22:20)
[2019-02-27] MEDS: Sodium Chloride 0.45% 1,000 ML IV SCH ×2 (08:11→22:20)
--- NOTE | 2019-02-27 09:34 | PRG ---
DATE OF SERVICE: 02/27/2019 SUBJECTIVE: Brian Silvestre has had his sedation off for about 30 minutes. He follows commands with his upper extremities. He makes eye contact. He nods to questions. He is not moving his legs to command. OBJECTIVE: VITAL SIGNS: Heart rate 73, blood pressure 143/90, and respiratory rate is 18. LUNGS: Clear. HEART: Regular rhythm. S1 and S2 are normal. ABDOMEN: Soft and nontender. EXTREMITIES: His left lower extremity is bandaged. He is tentatively on the schedule apparently tomorrow for a trach and a PEG. LABORATORY DATA: White count 10.8, hemoglobin 8.9, and platelets 373. Sodium 144, potassium 3.3, chloride 106, bicarb 30, BUN 42, creatinine 2.38. Creatinine is 2.76 yesterday. There is no blood gas today. We will order a chest x-ray and a blood gas for tomorrow morning since it is anticipated he will have surgery. IMPRESSION AND PLAN: Overall, he appears to be stable. Surprisingly, his mental status is improved. I suspect he will wean with a tracheostomy. I suspect he also has sleep apnea, which the tracheostomy will treat. His renal dysfunction is slowly improving. We will continue to follow. CRITICAL CARE TIME: 30 minutes. Job ID: [id number]
[2019-02-27] MEDS ORDERED: Potassium Chloride 20 MEQ TAB PO SCH (10:45)
--- NOTE | 2019-02-27 12:43 | PDOC.HOSPP ---
- Subjective Encounter Date: 02/27/19 Encounter Time: 11:00 Subjective: is on vent, awake at bedside squeezes fingers on right hand, some movement in left hand, does not move lower extremities at all - Objective Vital Signs & Weight: Vital Signs (12 hours) Temp Pulse Resp BP Pulse Ox 02/27/19 12:00 14 02/27/19 11:16 73 02/27/19 11:00 98.3 F 02/27/19 10:51 96 02/27/19 09:53 15 02/27/19 08:03 73 143/90 H 02/27/19 08:02 143/90 H 02/27/19 08:01 73 143/90 H 02/27/19 08:00 98.4 F 15 100 02/27/19 07:54 73 143/90 H 02/27/19 06:00 15 02/27/19 04:00 98.4 F 12 02/27/19 03:42 71 02/27/19 02:00 15 Weight Admit Weight 282 lb 11.2 oz Weight 296 lb 1.6 oz Most Recent Monitor Data Heart Rate from ECG 73 NIBP 124/78 NIBP BP-Mean 93 Respiration from ECG 14 SpO2 100 I&O: 02/26/19 02/27/19 02/28/19 06:59 06:59 06:59 Intake Total 2223 2705 300 Output Total 1495 1830 505 Balance 728 875 -205 Result Diagrams: 02/23/19 07:52 02/27/19 04:00 Additional Labs: Accuchecks 02/27/19 02/27/19 02/26/19 10:00 04:04 21:19 POC Glucose 229 H 238 H 235 H 02/26/19 02/26/19 02/26/19 17:08 10:24 04:47 POC Glucose 250 H 267 H 258 H Hospitalist ROS - Medication Medications: Active Medications Generic Name Dose Route Start Last Admin Trade Name Freq PRN Reason Stop Dose Admin Acetaminophen 1,000 mg 02/17/19 23:28 02/17/19 23:39 Tylenol [place] 1,000 mg Q6H PRN Administration Fever/Mild Pain Albuterol/Ipratropium 3 ml 02/24/19 07:00 02/27/19 07:53 Duoneb NEB 3 ml [id number] PANCHO Administration Alteplase, Recombinant 4 mg 02/23/19 17:15 02/23/19 17:56 Cathflo CATH 4 mg WILLCALL PANCHO Administration Amlodipine Besylate 10 mg 02/13/19 09:00 02/27/19 08:03 Norvasc PO 10 mg DAILY PANCHO Administration Aspirin 300 mg 02/18/19 09:00 02/27/19 08:03 Aspirin [place] 300 mg DAILY PANCHO Administration Atorvastatin Calcium 40 mg 02/08/19 21:00 02/26/19 20:13 Lipitor PO 40 mg HS PANCHO Administration Carvedilol 12.5 mg 02/08/19 21:00 02/27/19 08:02 Coreg PO 12.5 mg BID PANCHO Administration Docusate Sodium 100 mg 02/25/19 21:00 02/27/19 08:08 Colace Liquid PO Not Given BID PANCHO Enoxaparin Sodium 40 mg 02/14/19 21:00 02/26/19 20:14 Lovenox SC 40 mg 2100 PANCHO Administration Famotidine 20 mg 02/24/19 09:00 02/27/19 08:03 Pepcid SLOW IVP 20 mg 0900 PANCHO Administration Fluconazole 100 mg 02/26/19 09:00 02/27/19 08:00 Diflucan PO 03/01/19 09:01 100 mg DAILY PANCHO Administration Folic Acid 1 mg 02/13/19 09:00 02/27/19 08:02 Folvite PO 1 mg DAILY PANCHO Administration Hydralazine HCl 25 mg 02/12/19 15:00 02/27/19 08:01 Apresoline PO 25 mg TID PANCHO Administration Insulin Glargine 20 units/ 0.2 mls @ 0 mls/hr 02/09/19 09:00 02/27/19 08:04 Miscellaneous Medication SC 0.2 mls QAM PANCHO Administration Sodium Chloride 1,000 mls @ 75 mls/hr 02/22/19 09:30 02/27/19 08:11 1/2 Normal Saline IV 1,000 mls .[id number] PANCHO Administration Fentanyl Citrate 2,000 mcg/ 100 mls @ 0 mls/hr 02/23/19 20:18 02/25/19 20:01 Sodium Chloride IV 03/25/19 20:18 100 mls INF PANCHO Administration Protocol Per Protocol Insulin Human Lispro 0 units 02/07/19 19:09 02/27/19 10:06 Humalog SC 3 unit .MILD SLIDING SCALE PRN Administration Mild Correctional Scale Insulin Human Lispro 0 units 02/07/19 19:09 02/09/19 22:04 Humalog SC 2 unit .BEDTIME SLIDING SC PRN Administration Bedtime Correctional Scale Labetalol HCl 20 mg 02/17/19 16:33 02/22/19 21:25 Normodyne SLOW IVP 20 mg Q1H PRN Administration BP > 220/110 Multivitamins/Iron 1 tab 02/16/19 09:00 02/27/19 08:00 Centrum Kids Complete/Iron PO 1 tab DAILY PANCHO Administration Ondansetron HCl 4 mg 02/07/19 19:05 02/15/19 14:23 Zofran IVP 4 mg Q6H PRN Administration Nausea/Vomiting Potassium Chloride 40 meq 02/27/19 10:45 02/27/19 10:46 Klor-Con PO 02/27/19 16:46 40 meq Q6H PANCHO Administration Scopolamine 1.5 mg 02/21/19 13:00 02/24/19 13:55 Transderm Scop TD 1.5 mg Q3D PANCHO Administration Sodium Chloride 10 ml 02/07/19 19:05 02/15/19 07:59 Flush - Normal Saline IVF 10 ml Q12H PRN Administration Saline Flush - Exam General Appearance: awake alert, ill appearing Eye: PERRL, anicteric sclera ENT: no oropharyngeal lesions, dry oral mucosa Neck: supple, no JVD Heart: RRR, no murmur Respiratory: no wheezes, no rales Gastrointestinal: soft, non-tender, non-distended, normal bowel sounds Extremities: 1+ LE edema Extremities - other findings: left bka Neurological: hemiplegia Hosp A/P (1) Acute respiratory failure with hypoxia and hypercapnia Code(s): J96.01 - ACUTE RESPIRATORY FAILURE WITH HYPOXIA; J96.02 - ACUTE RESPIRATORY FAILURE WITH HYPERCAPNIA Status: Acute (2) Acute CVA (cerebrovascular accident) Code(s): I63.9 - CEREBRAL INFARCTION, UNSPECIFIED Status: Acute (3) Acute metabolic encephalopathy Code(s): G93.41 - METABOLIC ENCEPHALOPATHY Status: Acute (4) Status post below-knee amputation of left lower extremity Code(s): Z89.512 - ACQUIRED ABSENCE OF LEFT LEG BELOW KNEE Status: Acute (5) Obesity (BMI 30-39.9) Code(s): E66.9 - OBESITY, UNSPECIFIED Status: Chronic (6) Chronic anemia Code(s): D64.9 - ANEMIA, UNSPECIFIED Status: Chronic (7) CHF (congestive heart failure) Code(s): I50.9 - HEART FAILURE, UNSPECIFIED Status: Chronic Qualifiers: Heart failure type: diastolic Heart failure chronicity: acute on chronic Qualified Code(s): I50.33 - Acute on chronic diastolic (congestive) heart failure (8) Diabetes mellitus Code(s): E11.9 - TYPE 2 DIABETES MELLITUS WITHOUT COMPLICATIONS Status: Chronic Qualifiers: Diabetes mellitus type: type 2 Diabetes mellitus nursing home insulin use: with nursing home use Diabetes mellitus complication status: with circulatory complication (9) Hyperlipidemia Code(s): E78.5 - HYPERLIPIDEMIA, UNSPECIFIED Status: Chronic Qualifiers: Hyperlipidemia type: moderate mixed hyperlipidemia not requiring statin therapy Qualified Code(s): E78.2 - Mixed hyperlipidemia (10) Hypertension Code(s): I10 - ESSENTIAL (PRIMARY) HYPERTENSION Status: Chronic Qualifiers: Hypertension type: essential hypertension Qualified Code(s): I10 - Essential (primary) hypertension - Plan is on Vent, had brief resp arrest with full recovery now. is on asp, coreg, lipitor, norvasc, neurontin, hydralazine, lantus, scopalamine tts echo showed ef of 60% with diastolic dysfunction MRI showed b/l cerebral infarcts is on diflucan, 1/2ns has underlying hilario and obesity hypovent syndrome which has gotten worse due to multiple med issues now had left bka done for osteomyelitis on 02/14/2019 prognosis guarded for trach and peg in am mild hypernatremia, is on 1/2 NS severe deconditioning palliative care for code status/goals of care will need placement with likely trach and peg. likely has had left hemiplegia. Moves right hand better than left hand, does not move both LE
[2019-02-27] MEDS: Scopolamine 1.5 mg/72 hour Patch TD SCH (13:54)
[2019-02-27] MEDS: Atorvastatin Calcium 40 MG TAB PO SCH (21:16)
[2019-02-27] MEDS: Insulin Glargine 10 UNITS in Pre-Filled Syringe 1 EACH SC SCH (21:17)
[2019-02-27] MEDS: Enoxaparin Sodium 40 MG/0.4 ML SYRINGE SC SCH (21:17)
[2019-02-28] MEDS ORDERED: CEFAZOLIN 2 GM in Premix Bag 1 BAG IVPB SCH (06:00)
[2019-02-28 06:09] LABS: Anion Gap 9 mmol/L (10-20); BUN (Urea Nitrogen) 43 mg/dL (8.4-25.7); Calc. Creatinine Clearance 72 mL/min (70-130); Calcium 8.2 mg/dL (7.8-10.44); Carbon Dioxide 30 mmol/L (22-29); Chloride 109 mmol/L (98-107); Estimated GFR-MDRD 39; Glucose 125 mg/dL (70-105); Potassium 3.7 mmol/L (3.5-5.1); Sodium 144 mmol/L (136-145)
--- NOTE | 2019-02-28 08:46 | RAD ---
PORTABLE SEMIUPRIGHT FRONTAL CHEST RADIOGRAPH: DATE: 02/28/2019. COMPARISON: 02/23/2019. HISTORY: Ventilated patient. FINDINGS: Stable endotracheal tube, left-sided vascular catheter, and Dobbhoff tube. There is no pneumothorax evident. There is pulmonary vascular congestion with hazy increased density in the perihilar regions in both lung bases. Aeration within the right lung base has improved significantly since the 020 exam. Residual hazy density in the lung bases suggests a combination of mild airspace disease an d pleural fluid. IMPRESSION: Findings suggesting improving pulmonary edema. Infection or aspiration in the lung bases cannot be e xcluded. Recommend followup to full resolution. POS: [facility]
[2019-02-28] MEDS: Docusate Sodium 100 MG/10 ML UDCUP PO SCH ×2 (09:22→21:50)
[2019-02-28] MEDS: Amlodipine 10 MG TAB PO SCH (09:22)
[2019-02-28] MEDS: hydrALAZINE 25 MG TAB PO SCH ×3 (09:23→21:50)
[2019-02-28] MEDS: Folic Acid 1 MG TAB PO SCH (09:23)
[2019-02-28] MEDS: Famotidine/PF 20 mg/2ml Vial SLOW IVP SCH (09:23)
[2019-02-28] MEDS: Multivitamins CHEW w/Iron Tablet PO SCH (09:23)
[2019-02-28] MEDS: Fluconazole 100 MG TAB PO SCH ×2 (09:23→21:50)
[2019-02-28] MEDS: Aspirin 300 MG Suppository PR SCH (09:24)
[2019-02-28] MEDS: Carvedilol 6.25 MG TAB PO SCH ×2 (09:24→21:49)
[2019-02-28] MEDS: Insulin Glargine 20 UNITS in Pre-Filled Syringe 1 EACH SC SCH (09:25)
[2019-02-28] MEDS ORDERED: Lidocaine 1% PF 5 ML VIAL ONE (09:43)
[2019-02-28] MEDS ORDERED: Rocuronium Bromide 10 MG/ML (10ML VIAL) ONE (09:43)
[2019-02-28] MEDS ORDERED: PROPOFOL 200 MG/20 ML VIAL ONE (09:43)
[2019-02-28] MEDS ORDERED: Fentanyl 100 MCG/2 ML VIAL ONE ×2 (10:17→11:58)
[2019-02-28] MEDS ORDERED: Midazolam HCl 2 mg/2 ml Vial ONE (10:35)
--- NOTE | 2019-02-28 10:36 | PRG ---
DATE OF SERVICE: 02/28/2019 SERVICE: Pulmonary Medicine. INTERVAL HISTORY: The patient is doing fine from respiratory standpoint. He is breathing comfortably. He is on 21% FiO2 with a PEEP of 5. He is awake and alert. He is following commands today more robustly. Otherwise, there has been no change to his condition. PHYSICAL EXAMINATION: VITAL SIGNS: Afebrile with a T-max of 100.2, pulse 78, blood pressure 133/84, respirations are 12, and saturation 98%, currently on 21% FiO2 and a PEEP of 5. GENERAL: The patient is awake and alert. He is in no apparent distress. LUNGS: Decent air entry. Rhonchi are present. No prolonged expiratory phase or wheezing is appreciated. HEART: Normal rate, regular. ABDOMEN: Soft, nontender, and nondistended. Bowel sounds are positive. MUSCULOSKELETAL: No cyanosis or clubbing. There is no pitting in the left lower extremity. NEUROLOGIC: Pupils are equal, round, and reactive. He is comfortably overbreathing the ventilator. He demonstrates significant weakness in the proximal arms. He can move his fingers to command. He cannot move his bilateral lower extremities. LABORATORY DATA: Creatinine 2.15 and gently downtrending, BUN 43, anion gap 9, bicarb 30, sodium 144, and roughly stable. Sputum was growing Ila albicans. IMAGING STUDIES: Chest x-ray demonstrates improving infiltrate and/or edema. ASSESSMENT: 1. Acute hypoxic respiratory failure. 2. Wet gangrene of the left lower extremity, status post below-knee amputation, postoperative day #14. 3. Acute cerebrovascular accident, likely embolic. 4. Pulseless electrical activity, brief with return of neurologic function to poststroke baseline. 5. Acute kidney injury on chronic kidney disease 3, resolved. DISCUSSION AND PLAN: The patient is going down for a PEG tube and tracheostomy today. Once this procedure is completed, he will be ready for transition out of the hospital from purely respiratory perspective, if we can find an appropriate care facility willing to take him. Job ID: [id number]
[2019-02-28] MEDS ORDERED: Sodium Chloride 0.9% 0 ML ONE (10:39)
[2019-02-28] MEDS ORDERED: Lidocaine 1% w/Epinephrine 1:100K 20 ML VIAL ONE (10:59)
[2019-02-28] MEDS ORDERED: Bupivacaine PF 0.5% 30 ML VIAL ONE (10:59)
--- NOTE | 2019-02-28 12:39 | RAD ---
RADIOGRAPH CHEST 1 VIEW: Supine DATE: 02/28/2019 11:59 AM HISTORY: Central line placement in 58-year-old male. COMPARISON: 02/28/2019 4:28 AM FINDINGS: Lungs are hypoinflated, more so than on the prior study. ETT has been replaced with tracheostomy tube . Dobbhoff feeding tube has been removed. There is a greater degree of indistinctness of bilateral hemidiaphragms. Mild haziness of the central and basilar portions of lungs could be due to the very s hallow inspiration, but pathology cannot be excluded. Supine positioning makes this study insensitive for the detection of pneumothorax. IMPRESSION: 1. Interval placement of central vascular catheter in the left neck, crossing the upper mediastinum, with distal tip in the vicinity of the contralateral right medial subclavian vessel. 2. Replacement of endotracheal tube for tracheostomy tube. 3. Overall poor evaluation of lungs.
[2019-02-28] MEDS: Sodium Chloride 0.45% 1,000 ML IV SCH (15:15)
--- NOTE | 2019-02-28 15:34 | PDOC.HOSPP ---
- Subjective Encounter Date: 02/28/19 Encounter Time: 12:00 Subjective: On vent, not in distress - Objective Vital Signs & Weight: Vital Signs (12 hours) Temp Pulse Resp BP Pulse Ox 02/28/19 15:15 75 146/97 H 02/28/19 14:32 74 02/28/19 14:31 74 16 100 02/28/19 14:00 16 02/28/19 12:00 98.9 F 16 100 02/28/19 10:13 77 02/28/19 10:00 12 02/28/19 09:24 136/84 02/28/19 09:23 77 02/28/19 09:22 77 02/28/19 09:00 99.6 F 02/28/19 08:00 19 97 02/28/19 07:04 77 20 99 02/28/19 07:03 78 02/28/19 06:00 15 02/28/19 04:55 80 125/84 02/28/19 04:00 99.4 F 20 Weight Admit Weight 282 lb 11.2 oz Weight 305 lb 5.443 oz Most Recent Monitor Data Heart Rate from ECG 74 NIBP 124/79 NIBP BP-Mean 94 Respiration from ECG 16 SpO2 97 I&O: 02/27/19 02/28/19 03/01/19 06:59 06:59 06:59 Intake Total 2705 3370 30 Output Total 1830 1995 470 Balance 875 1375 -440 Result Diagrams: 02/23/19 07:52 02/28/19 05:25 Additional Labs: Accuchecks 02/28/19 02/28/19 02/27/19 12:31 05:30 21:14 POC Glucose 174 H 132 H 215 H 02/27/19 17:29 POC Glucose 240 H Hospitalist ROS - Medication Medications: Active Medications Generic Name Dose Route Start Last Admin Trade Name Freq PRN Reason Stop Dose Admin Acetaminophen 1,000 mg 02/17/19 23:28 02/17/19 23:39 Tylenol [place] 1,000 mg Q6H PRN Administration Fever/Mild Pain Albuterol/Ipratropium 3 ml 02/24/19 07:00 02/28/19 14:31 Duoneb NEB 3 ml [id number] PANCHO Administration Alteplase, Recombinant 4 mg 02/23/19 17:15 02/23/19 17:56 Cathflo CATH 4 mg WILLCALL PANCHO Administration Amlodipine Besylate 10 mg 02/13/19 09:00 02/28/19 09:22 Norvasc PO Not Given DAILY [facility] Aspirin 300 mg 02/18/19 09:00 02/28/19 09:24 Aspirin [place] 300 mg DAILY PANCHO Administration Atorvastatin Calcium 40 mg 02/08/19 21:00 02/27/19 21:16 Lipitor PO 40 mg HS PANCHO Administration Carvedilol 12.5 mg 02/08/19 21:00 02/28/19 09:24 Coreg PO 12.5 mg BID PANCHO Administration Docusate Sodium 100 mg 02/25/19 21:00 02/28/19 09:22 Colace Liquid PO Not Given BID [facility] Enoxaparin Sodium 40 mg 02/14/19 21:00 02/27/19 21:17 Lovenox SC 40 mg 2100 PANCHO Administration Famotidine 20 mg 02/24/19 09:00 02/28/19 09:23 Pepcid SLOW IVP 20 mg 0900 [facility] Administration Fluconazole 100 mg 02/26/19 09:00 02/28/19 09:23 Diflucan PO 03/01/19 09:01 Not Given DAILY [facility] Folic Acid 1 mg 02/13/19 09:00 02/28/19 09:23 Folvite PO Not Given DAILY [facility] Hydralazine HCl 25 mg 02/12/19 15:00 02/28/19 15:15 Apresoline PO 25 mg TID PANCHO Administration Insulin Glargine 20 units/ 0.2 mls @ 0 mls/hr 02/09/19 09:00 02/28/19 09:25 Miscellaneous Medication SC 0.2 mls QAM PANCHO Administration Sodium Chloride 1,000 mls @ 75 mls/hr 02/22/19 09:30 02/28/19 15:15 1/2 Normal Saline IV 1,000 mls .[id number] PANCHO Administration Fentanyl Citrate 2,000 mcg/ 100 mls @ 0 mls/hr 02/23/19 20:18 02/25/19 20:01 Sodium Chloride IV 03/25/19 20:18 100 mls INF PANCHO Administration Protocol Per Protocol Insulin Glargine 10 units/ 0.1 mls @ 0 mls/hr 02/27/19 21:00 02/27/19 21:17 Miscellaneous Medication SC 0.1 mls HS PANCHO Administration Insulin Human Lispro 0 units 02/07/19 19:09 02/27/19 21:18 Humalog SC 3 unit .MILD SLIDING SCALE PRN Administration Mild Correctional Scale Insulin Human Lispro 0 units 02/07/19 19:09 02/27/19 21:19 Humalog SC 2 unit .BEDTIME SLIDING SC PRN Administration Bedtime Correctional Scale Labetalol HCl 20 mg 02/17/19 16:33 02/22/19 21:25 Normodyne SLOW IVP 20 mg Q1H PRN Administration BP > 220/110 Multivitamins/Iron 1 tab 02/16/19 09:00 02/28/19 09:23 Centrum Kids Complete/Iron PO Not Given DAILY PANCHO Ondansetron HCl 4 mg 02/07/19 19:05 02/15/19 14:23 Zofran IVP 4 mg Q6H PRN Administration Nausea/Vomiting Scopolamine 1.5 mg 02/21/19 13:00 02/27/19 13:54 Transderm Scop TD 1.5 mg Q3D PANCHO Administration Sodium Chloride 10 ml 02/07/19 19:05 02/15/19 07:59 Flush - Normal Saline IVF 10 ml Q12H PRN Administration Saline Flush - Exam General Appearance: ill appearing Eye: PERRL, anicteric sclera ENT: no oropharyngeal lesions, moist mucosa Neck: supple, no JVD Heart: RRR, no murmur Respiratory: no wheezes, no rales, rhonchi Gastrointestinal: soft, non-tender, normal bowel sounds Extremities: no cyanosis, 2+ LE edema Extremities - other findings: L BKA Neurological: hemiplegia Hosp A/P (1) Acute respiratory failure with hypoxia and hypercapnia Code(s): J96.01 - ACUTE RESPIRATORY FAILURE WITH HYPOXIA; J96.02 - ACUTE RESPIRATORY FAILURE WITH HYPERCAPNIA Status: Acute (2) Acute CVA (cerebrovascular accident) Code(s): I63.9 - CEREBRAL INFARCTION, UNSPECIFIED Status: Acute (3) Acute metabolic encephalopathy Code(s): G93.41 - METABOLIC ENCEPHALOPATHY Status: Acute (4) Status post below-knee amputation of left lower extremity Code(s): Z89.512 - ACQUIRED ABSENCE OF LEFT LEG BELOW KNEE Status: Acute (5) Obesity (BMI 30-39.9) Code(s): E66.9 - OBESITY, UNSPECIFIED Status: Chronic (6) Chronic anemia Code(s): D64.9 - ANEMIA, UNSPECIFIED Status: Chronic (7) CHF (congestive heart failure) Code(s): I50.9 - HEART FAILURE, UNSPECIFIED Status: Chronic Qualifiers: Heart failure type: diastolic Heart failure chronicity: acute on chronic Qualified Code(s): I50.33 - Acute on chronic diastolic (congestive) heart failure (8) Diabetes mellitus Code(s): E11.9 - TYPE 2 DIABETES MELLITUS WITHOUT COMPLICATIONS Status: Chronic Qualifiers: Diabetes mellitus type: type 2 Diabetes mellitus correction insulin use: with joint terminal attack controller use Diabetes mellitus complication status: with circulatory complication (9) Hyperlipidemia Code(s): E78.5 - HYPERLIPIDEMIA, UNSPECIFIED Status: Chronic Qualifiers: Hyperlipidemia type: moderate mixed hyperlipidemia not requiring statin therapy Qualified Code(s): E78.2 - Mixed hyperlipidemia (10) Hypertension Code(s): I10 - ESSENTIAL (PRIMARY) HYPERTENSION Status: Chronic Qualifiers: Hypertension type: essential hypertension Qualified Code(s): I10 - Essential (primary) hypertension - Plan is on Vent, going for trach and peg today is on asp, coreg, lipitor, norvasc, neurontin, hydralazine, lantus, scopalamine tts echo showed ef of 60% with diastolic dysfunction MRI showed b/l cerebral infarcts is on diflucan, 1/2ns has underlying hilario and obesity hypovent syndrome which has gotten worse due to multiple med issues now had left bka done for osteomyelitis on 02/14/2019 prognosis guarded mild hypernatremia, is on 1/2 NS severe deconditioning palliative care for code status/goals of care will need placement with likely trach and peg. likely has had left hemiplegia. Moves right hand better than left hand, does not move both LE
--- NOTE | 2019-02-28 15:41 | OP ---
DATE OF PROCEDURE: 02/28/2019 PREOPERATIVE DIAGNOSES: 1. Respiratory failure. 2. Status post left [id number] amputation. 3. Stroke. 4. Dysphagia. 5. Senescent central line. 6. Chronic kidney disease. 7. Obesity. POSTOPERATIVE DIAGNOSES: 1. Respiratory failure. 2. Status post left [id number] amputation. 3. Stroke. 4. Dysphagia. 5. Senescent central line. 6. Chronic kidney disease. 7. Obesity. PROCEDURES PERFORMED: 1. Left internal jugular central line, ultrasound used. 2. #8 Shiley low-pressure cuff tracheostomy. 3. Percutaneous endoscopic gastrostomy tube. ANESTHESIA: General, local with 0.5% Marcaine 30 mL, mixed with 1% Xylocaine with epinephrine 30 mL. DESCRIPTION OF PROCEDURE: The patient was taken to the operating room, where under general anesthesia, neck and chest were prepared with ChloraPrep and draped in routine fashion. Local anesthetic was infiltrated in the skin and subcutaneous tissue about the operative procedures. Ultrasound guidance was used to cannulate the left internal jugular vein with a J-wire. Trocar and catheter were removed. Seldinger technique used to place a central line, removing the J-wire, securing the catheter with 2 interrupted sutures of 3-0 silk. Sterile dressing applied. Each port aspirated blood, flushed with saline solution. Incision was made in the midline neck above the manubrium, carried down to skin and subcutaneous tissue, dividing anterior jugular veins between clamps, ligating with 3-0 silk ties. Strap muscles reflected laterally. Trachea identified below the cricoid and a window made over 2 cartilaginous rings and endotracheal tube withdrawn after good hemostasis had been obtained. A #8 Shiley low-pressure cuff placed under direct visualization of the trachea and inflated, connected to the ventilator and secured and the tracheostomy incision closed on either side with continuous suture of 3-0 Prolene. Tracheostomy appliance secured to the skin with 3-0 Prolene. Sterile dressings applied. PEG tube undertaken. Endoscope placed per os under direct visualization using air insufflation, passed the esophagus, stomach. Good indentation of the left subcostal medial and area prepared with ChloraPrep, draped in routine fashion. Stab incision was made. Trocar and catheter induced percutaneously into the gastric lumen, visualized endoscopically. The wire grasped with a snare, brought out through the mouth, removing the endoscope, catching the wire to the feeding device, pulled that into the stomach, secured into the abdominal wall with a fixation device and excess tubing cut and feeding device secured. The patient tolerated the procedure well. Job ID: [id number]
[2019-02-28] MEDS ORDERED: Morphine 2 MG/ML SYRINGE SLOW IVP PRN (19:27)
[2019-02-28] MEDS ORDERED: Morphine 2 MG/ML SYRINGE SLOW IVP SCH (19:30)
[2019-02-28] MEDS: Enoxaparin Sodium 40 MG/0.4 ML SYRINGE SC SCH (21:47)
[2019-02-28] MEDS: Atorvastatin Calcium 40 MG TAB PO SCH (21:49)
[2019-02-28] MEDS: Insulin Glargine 10 UNITS in Pre-Filled Syringe 1 EACH SC SCH (21:51)
[2019-03-01] MEDS: Sodium Chloride 0.45% 1,000 ML IV SCH ×2 (01:21→14:48)
[2019-03-01 05:41] LABS: Anion Gap 11 mmol/L (10-20); BUN (Urea Nitrogen) 41 mg/dL (8.4-25.7); Calc. Creatinine Clearance 74 mL/min (70-130); Calcium 8.4 mg/dL (7.8-10.44); Carbon Dioxide 29 mmol/L (22-29); Chloride 109 mmol/L (98-107); Estimated GFR-MDRD 38; Glucose 85 mg/dL (70-105); Potassium 3.7 mmol/L (3.5-5.1); Sodium 145 mmol/L (136-145)
[2019-03-01] MEDS: Famotidine/PF 20 mg/2ml Vial SLOW IVP SCH (08:06)
[2019-03-01] MEDS: Docusate Sodium 100 MG/10 ML UDCUP PO SCH ×2 (08:06→21:48)
[2019-03-01] MEDS: Aspirin 300 MG Suppository PR SCH (08:06)
[2019-03-01] MEDS: hydrALAZINE 25 MG TAB PO SCH ×3 (08:07→21:49)
[2019-03-01] MEDS: Multivitamins CHEW w/Iron Tablet PO SCH (08:07)
[2019-03-01] MEDS: Amlodipine 10 MG TAB PO SCH (08:07)
[2019-03-01] MEDS: Insulin Glargine 20 UNITS in Pre-Filled Syringe 1 EACH SC SCH (08:07)
[2019-03-01] MEDS: Folic Acid 1 MG TAB PO SCH (08:07)
[2019-03-01] MEDS: Carvedilol 6.25 MG TAB PO SCH ×2 (08:07→21:49)
[2019-03-01 08:12] LABS: Actual Bicarbonate (HCO3a) 27.8 mEq/L (22-28); Base Excess (BEa) 2.7 mEq/L (-2.0 to +3.0); CO2 Tension 45.2 mmHg (35.0-45.0); Calcium, Ionized 1.15 mmol/L (1.12-1.30); Carboxyhemoglobin (COHb) 2.2 gm% (0.0-3.0); Hemoglobin (Hb) 7.4 g/dL (14.0-18.0); pH, Arterial 7.41 (7.35-7.45)
[2019-03-01 08:29] LABS: O2 Tension (PaO2) 54.2 mmHg (80.0-100.0)
--- NOTE | 2019-03-01 09:41 | EKG ---
Test Reason : CODE BLUE Blood Pressure : / mmHG Vent. Rate : 095 BPM Atrial Rate : 095 BPM P-R Int : 142 ms QRS Dur : 094 ms QT Int : 378 ms P-R-T Axes : 057 -29 072 degrees QTc Int : 475 ms Sinus rhythm with occasional Premature ventricular complexes and Fusion complexes Possible Left atrial enlargement Borderline ECG When compared with ECG of 18-JUN-2009 04:08, Fusion complexes are now Present Premature ventricular complexes are now Present QRS axis Shifted left Nonspecific T wave abnormality no longer evident in Inferior leads Confirmed by ELEAZAR DAMICO (2) on 03/01/2019 9:41:13 AM Referred By: ROSSY Confirmed By:ELEAZAR DAMICO
--- NOTE | 2019-03-01 10:13 | PRG ---
DATE OF SERVICE: 02/25/2019 SERVICE: Pulmonary Medicine. INTERVAL HISTORY: The patient is doing fine from respiratory standpoint. He is breathing comfortably on mechanical ventilator. His mentation is basically back to how he was previously. There has been no interval change to his condition otherwise. PHYSICAL EXAMINATION: VITAL SIGNS: Afebrile, pulse 80, blood pressure 123/75, respirations 20, saturation 98% on PEEP of 5. GENERAL: The patient is intubated and sedated. HEENT: Normocephalic and atraumatic. Sclerae white. Conjunctivae pink. Oral mucosa is moist without lesions. LUNGS: Decent air entry. There are no prolonged expiratory phase. Rhonchi with cough. No wheezing. HEART: Normal rate and regular. ABDOMEN: Soft, nontender, and nondistended. Bowel sounds are positive. MUSCULOSKELETAL: No cyanosis or clubbing. Left lower extremity is surgically absent. There is no pitting. NEUROLOGIC: He will attend and spontaneously open his eyes. He tracks. He will follow some very simple commands with the right hand, and left hand. That being said, not moving lower extremities to command. LABORATORY DATA: Sodium 146 and gently downtrending, bicarb 30, chloride 107, creatinine 2.68. Basic metabolic profile is otherwise unremarkable/stable. Sputum aspirate is growing presumptive Ila albicans. Sputum is growing only rare Ila albicans with no other significant respiratory ning present. ASSESSMENT: 1. Acute hypoxic respiratory failure. 2. Wet gangrene in the left lower extremity, status post below-knee amputation, postop day 11. 3. Acute cerebrovascular accident, embolic. 4. Respiratory failure secondary to inability to protect airway. 5. Recent episode of pulseless electrical activity arrest with return of neurologic function to poststroke level. DISCUSSION AND PLAN: The patient will need to remain intubated until we can safely put in a tracheostomy and PEG tube. Critical Care will continue to follow along in this location. I will continue turning over some work of breathing to the patient. His PEA arrest was associated with an oral mucous lesion that occluded his upper airway. A brief course of fluconazole will be initiated. Critical care time: 30 minutes. Job ID: [id number] MTDD
--- NOTE | 2019-03-01 15:01 | PDOC.HOSPP ---
- Subjective Encounter Date: 03/01/19 Encounter Time: 12:00 Subjective: on vent, is awake at bedside moved his lower extremities for the first time today but didn't repeat when asked again - Objective Vital Signs & Weight: Vital Signs (12 hours) Temp Pulse Pulse Pulse Resp BP BP 03/01/19 14:43 81 141/92 H 03/01/19 13:27 81 141/92 H 03/01/19 13:26 81 19 03/01/19 13:00 98.3 F 03/01/19 11:02 79 141/90 H 03/01/19 09:44 80 80 143/91 H 03/01/19 08:07 77 134/87 03/01/19 08:04 77 134/87 03/01/19 08:03 77 21 H 03/01/19 07:57 98.9 F 03/01/19 07:07 21 H 03/01/19 07:00 98.9 F 03/01/19 06:00 16 03/01/19 04:00 98.7 F 16 BP Pulse Ox Pulse Ox Pulse Ox 03/01/19 14:43 03/01/19 13:27 03/01/19 13:26 95 03/01/19 13:00 03/01/19 11:02 03/01/19 09:44 142/94 H 98 97 03/01/19 08:07 03/01/19 08:04 03/01/19 08:03 95 03/01/19 07:57 03/01/19 07:07 100 03/01/19 07:00 03/01/19 06:00 03/01/19 04:00 Weight Admit Weight 282 lb 11.2 oz Weight 310 lb 13.628 oz Most Recent Monitor Data Heart Rate from ECG 82 NIBP 150/94 NIBP BP-Mean 112 Respiration from ECG 21 SpO2 100 I&O: 02/28/19 03/01/19 03/02/19 06:59 06:59 06:59 Intake Total 3370 3408 300 Output Total 1994 9386 920 Balance 6621 0941 -675 Result Diagrams: 02/23/19 07:52 03/01/19 04:43 Additional Labs: Accuchecks 03/01/19 03/01/19 02/28/19 09:33 04:46 21:20 POC Glucose 142 H 92 102 02/28/19 16:16 POC Glucose 134 H Hospitalist ROS - Medication Medications: Active Medications Generic Name Dose Route Start Last Admin Trade Name Freq PRN Reason Stop Dose Admin Acetaminophen 1,000 mg 02/17/19 23:28 02/17/19 23:39 Tylenol AL 1,000 mg Q6H PRN Administration Fever/Mild Pain Albuterol/Ipratropium 3 ml 02/24/19 07:00 03/01/19 13:26 Duoneb NEB 3 ml [id number] PANCHO Administration Alteplase, Recombinant 4 mg 02/23/19 17:15 02/23/19 17:56 Cathflo CATH 4 mg WILLCALL PANCHO Administration Amlodipine Besylate 10 mg 02/13/19 09:00 03/01/19 08:07 Norvasc PO 10 mg DAILY PANCHO Administration Aspirin 300 mg 02/18/19 09:00 03/01/19 08:06 Aspirin AL 300 mg DAILY PANCHO Administration Atorvastatin Calcium 40 mg 02/08/19 21:00 02/28/19 21:49 Lipitor PO 40 mg HS PANCHO Administration Carvedilol 12.5 mg 02/08/19 21:00 03/01/19 08:07 Coreg PO 12.5 mg BID PANCHO Administration Docusate Sodium 100 mg 02/25/19 21:00 03/01/19 08:06 Colace Liquid PO 100 mg BID PANCHO Administration Enoxaparin Sodium 40 mg 02/14/19 21:00 02/28/19 21:47 Lovenox SC 40 mg 2100 PANCHO Administration Famotidine 20 mg 02/24/19 09:00 03/01/19 08:06 Pepcid SLOW IVP 20 mg 0900 PANCHO Administration Fluconazole 100 mg 02/28/19 21:00 02/28/19 21:50 Diflucan PO 03/01/19 21:01 100 mg 2100 PANCHO Administration Folic Acid 1 mg 02/13/19 09:00 03/01/19 08:07 Folvite PO 1 mg DAILY PANCHO Administration Hydralazine HCl 25 mg 02/12/19 15:00 03/01/19 14:43 Apresoline PO 25 mg TID PANCHO Administration Insulin Glargine 20 units/ 0.2 mls @ 0 mls/hr 02/09/19 09:00 03/01/19 08:07 Miscellaneous Medication SC 0.2 mls QAM PANCHO Administration Sodium Chloride 1,000 mls @ 75 mls/hr 02/22/19 09:30 03/01/19 14:48 1/2 Normal Saline IV 1,000 mls .[id number] PANCHO Administration Fentanyl Citrate 2,000 mcg/ 100 mls @ 0 mls/hr 02/23/19 20:18 02/25/19 20:01 Sodium Chloride IV 03/25/19 20:18 100 mls INF PANCHO Administration Protocol Per Protocol Insulin Glargine 10 units/ 0.1 mls @ 0 mls/hr 02/27/19 21:00 02/28/19 21:51 Miscellaneous Medication SC 0.1 mls HS PANCHO Administration Insulin Human Lispro 0 units 02/07/19 19:09 02/27/19 21:18 Humalog SC 3 unit .MILD SLIDING SCALE PRN Administration Mild Correctional Scale Insulin Human Lispro 0 units 02/07/19 19:09 02/27/19 21:19 Humalog SC 2 unit .BEDTIME SLIDING SC PRN Administration Bedtime Correctional Scale Labetalol HCl 20 mg 02/17/19 16:33 02/22/19 21:25 Normodyne SLOW IVP 20 mg Q1H PRN Administration BP > 220/110 Morphine Sulfate 2 mg 02/28/19 19:27 03/01/19 01:17 Morphine SLOW IVP 2 mg Q4H PRN Administration Severe Pain (7-10) Multivitamins/Iron 1 tab 02/16/19 09:00 03/01/19 08:07 Centrum Kids Complete/Iron PO 1 tab DAILY PANCHO Administration Ondansetron HCl 4 mg 02/07/19 19:05 02/15/19 14:23 Zofran IVP 4 mg Q6H PRN Administration Nausea/Vomiting Scopolamine 1.5 mg 02/21/19 13:00 02/27/19 13:54 Transderm Scop TD 1.5 mg Q3D PANCHO Administration Sodium Chloride 10 ml 02/07/19 19:05 02/15/19 07:59 Flush - Normal Saline IVF 10 ml Q12H PRN Administration Saline Flush - Exam General Appearance: awake alert, ill appearing Eye: PERRL, anicteric sclera ENT: no oropharyngeal lesions, moist mucosa Neck: supple, no JVD Neck - other findings: trach+ Heart: RRR, no murmur Respiratory: no wheezes, no rales, rhonchi Gastrointestinal: soft, non-tender, non-distended, normal bowel sounds Gastrointestinal - other findings: peg+ Extremities: 1+ LE edema Extremities - other findings: left bka Neurological: no new deficit, hemiplegia Hosp A/P (1) Acute respiratory failure with hypoxia and hypercapnia Code(s): J96.01 - ACUTE RESPIRATORY FAILURE WITH HYPOXIA; J96.02 - ACUTE RESPIRATORY FAILURE WITH HYPERCAPNIA Status: Acute (2) Acute CVA (cerebrovascular accident) Code(s): I63.9 - CEREBRAL INFARCTION, UNSPECIFIED Status: Acute (3) Acute metabolic encephalopathy Code(s): G93.41 - METABOLIC ENCEPHALOPATHY Status: Acute (4) Status post below-knee amputation of left lower extremity Code(s): Z89.512 - ACQUIRED ABSENCE OF LEFT LEG BELOW KNEE Status: Acute (5) Obesity (BMI 30-39.9) Code(s): E66.9 - OBESITY, UNSPECIFIED Status: Chronic (6) Chronic anemia Code(s): D64.9 - ANEMIA, UNSPECIFIED Status: Chronic (7) CHF (congestive heart failure) Code(s): I50.9 - HEART FAILURE, UNSPECIFIED Status: Chronic Qualifiers: Heart failure type: diastolic Heart failure chronicity: acute on chronic Qualified Code(s): I50.33 - Acute on chronic diastolic (congestive) heart failure (8) Diabetes mellitus Code(s): E11.9 - TYPE 2 DIABETES MELLITUS WITHOUT COMPLICATIONS Status: Chronic Qualifiers: Diabetes mellitus type: type 2 Diabetes mellitus group home insulin use: with group home use Diabetes mellitus complication status: with circulatory complication (9) Hyperlipidemia Code(s): E78.5 - HYPERLIPIDEMIA, UNSPECIFIED Status: Chronic Qualifiers: Hyperlipidemia type: moderate mixed hyperlipidemia not requiring statin therapy Qualified Code(s): E78.2 - Mixed hyperlipidemia (10) Hypertension Code(s): I10 - ESSENTIAL (PRIMARY) HYPERTENSION Status: Chronic Qualifiers: Hypertension type: essential hypertension Qualified Code(s): I10 - Essential (primary) hypertension - Plan is on Vent, trach and peg done on 02/28/2019, weaning per pulm adv is on asp, coreg, lipitor, norvasc, neurontin, hydralazine, lantus, scopalamine tts echo showed ef of 60% with diastolic dysfunction MRI showed b/l cerebral infarcts is on diflucan, 1/2ns has underlying hilario and obesity hypovent syndrome had left bka done for osteomyelitis on 02/14/2019 prognosis guarded mild hypernatremia, is on 2 NS severe deconditioning palliative care for code status/goals of care will need placement with likely trach and peg. likely has had left hemiplegia. Moves right hand better than left hand
[2019-03-01] MEDS: HumaLOG 300 UNITS/3 ML VIAL SC PRN (15:07)
--- NOTE | 2019-03-01 16:11 | PRG ---
DATE OF SERVICE: 03/01/2019 SERVICE: Pulmonary Medicine. INTERVAL HISTORY: The patient is doing fine from respiratory standpoint. He underwent a tracheostomy and PEG tube yesterday. He also had a new central line placed. Otherwise, there has been no interval change to his condition. He cannot provide much in the way of history. He is following commands still. He attends and is very attentive. PHYSICAL EXAMINATION: VITAL SIGNS: Afebrile, pulse 82, blood pressure 156/99, respirations 21, saturation 100%, currently on 23% FiO2 and a PEEP of 5. GENERAL: The patient has a tracheostomy. He is on mechanical ventilator. He is on no sedation. HEENT: Normocephalic and atraumatic. Sclerae white. Conjunctivae pink. Oral mucosa is moist without lesions. LUNGS: Decent air entry. No prolonged expiratory phase or wheezing is present. Rhonchi are noted. HEART: Normal rate, regular. ABDOMEN: Soft, nontender, nondistended. Bowel sounds are positive. MUSCULOSKELETAL: No cyanosis or clubbing. There is no pitting in the bilateral lower extremities. NEUROLOGIC: Grossly nonfocal. ASSESSMENT: 1. Acute hypoxic respiratory failure. 2. Wet gangrene of the left lower extremity, status post below-knee amputation, postop day #15. 3. Acute cerebrovascular accident, embolic. 4. Pulseless electrical activity with brief return of neurologic function to post stroke baseline. This was secondary to an airway event. 5. Acute kidney injury on chronic kidney disease 3, resolved. DISCUSSION AND PLAN: We will put him on a spontaneous breathing trial at 5/5. If he meets criteria, we will initiate T-collar trials. Critical Care will continue to follow very closely. He is having very significant amounts of secretions coming from the endotracheal tube. Antifungal coverage will be continued. Job ID: [id number] MTDD
[2019-03-01] MEDS: Fluconazole 100 MG TAB PO SCH (21:48)
[2019-03-01] MEDS: Insulin Glargine 10 UNITS in Pre-Filled Syringe 1 EACH SC SCH (21:49)
[2019-03-01] MEDS: Heparin 5,000 UNITS/ML VIAL SC SCH (21:49)
[2019-03-01] MEDS: Atorvastatin Calcium 40 MG TAB PO SCH (21:49)
[2019-03-02] MEDS: HumaLOG 300 UNITS/3 ML VIAL SC PRN ×2 (04:26→16:59)
[2019-03-02] MEDS: Carvedilol 6.25 MG TAB PO SCH ×2 (08:42→21:14)
[2019-03-02] MEDS: Heparin 5,000 UNITS/ML VIAL SC SCH ×3 (08:42→21:15)
[2019-03-02] MEDS: Famotidine/PF 20 mg/2ml Vial SLOW IVP SCH (08:42)
[2019-03-02] MEDS: hydrALAZINE 25 MG TAB PO SCH ×3 (08:42→21:15)
[2019-03-02] MEDS: Multivitamins CHEW w/Iron Tablet PO SCH (08:43)
[2019-03-02] MEDS: Folic Acid 1 MG TAB PO SCH (08:43)
[2019-03-02] MEDS: Aspirin 300 MG Suppository PR SCH (08:43)
[2019-03-02] MEDS: Amlodipine 10 MG TAB PO SCH (08:43)
[2019-03-02] MEDS: Insulin Glargine 20 UNITS in Pre-Filled Syringe 1 EACH SC SCH (08:44)
[2019-03-02] MEDS: Docusate Sodium 100 MG/10 ML UDCUP PO SCH ×2 (09:03→21:16)
--- NOTE | 2019-03-02 13:18 | PDOC.HOSPP ---
- Subjective Encounter Date: 03/02/19 Encounter Time: 10:15 Subjective: awake, does not want to follow verbal stimuli and daughter at bedside he got extubated yesterday, is on trach collar now - Objective Vital Signs & Weight: Vital Signs (12 hours) Temp Pulse Pulse Pulse Resp BP BP 03/02/19 09:28 82 83 139/90 03/02/19 08:00 03/02/19 07:00 99.2 F 03/02/19 06:00 32 H 03/02/19 04:00 99.7 F H 33 H 03/02/19 02:22 82 145/91 H 03/02/19 02:00 32 H BP Pulse Ox Pulse Ox Pulse Ox 03/02/19 09:28 143/91 H 96 97 03/02/19 08:00 96 03/02/19 07:00 03/02/19 06:00 03/02/19 04:00 03/02/19 02:22 03/02/19 02:00 Weight Admit Weight 282 lb 11.2 oz Weight 306 lb 7.08 oz Most Recent Monitor Data Heart Rate from ECG 79 NIBP 134/82 NIBP BP-Mean 99 Respiration from ECG 26 SpO2 100 I&O: 03/01/19 03/02/19 03/03/19 06:59 06:59 06:59 Intake Total 3408 4239 510 Output Total 2101 2690 725 Balance 1303 1549 -215 Result Diagrams: 02/23/19 07:52 03/01/19 04:43 Additional Labs: Accuchecks 03/02/19 03/02/19 03/01/19 11:02 04:02 22:21 POC Glucose 220 H 158 H 161 H 03/01/19 15:09 POC Glucose 192 H Hospitalist ROS - Medication Medications: Active Medications Generic Name Dose Route Start Last Admin Trade Name Freq PRN Reason Stop Dose Admin Acetaminophen 1,000 mg 02/17/19 23:28 02/17/19 23:39 Tylenol OR 1,000 mg Q6H PRN Administration Fever/Mild Pain Alteplase, Recombinant 4 mg 02/23/19 17:15 02/23/19 17:56 Cathflo CATH 4 mg WILLCALL PANCHO Administration Amlodipine Besylate 10 mg 02/13/19 09:00 03/02/19 08:43 Norvasc PO 10 mg DAILY PANCHO Administration Aspirin 300 mg 02/18/19 09:00 03/02/19 08:43 Aspirin OR 300 mg DAILY PANCHO Administration Atorvastatin Calcium 40 mg 02/08/19 21:00 03/01/19 21:49 Lipitor PO 40 mg HS PANCHO Administration Carvedilol 12.5 mg 02/08/19 21:00 03/02/19 08:42 Coreg PO 12.5 mg BID PANCHO Administration Docusate Sodium 100 mg 02/25/19 21:00 03/02/19 09:03 Colace Liquid PO Not Given BID PANCHO Famotidine 20 mg 02/24/19 09:00 03/02/19 08:42 Pepcid SLOW IVP 20 mg 0900 [facility] Administration Folic Acid 1 mg 02/13/19 09:00 03/02/19 08:43 Folvite PO 1 mg DAILY PANCHO Administration Heparin Sodium (Porcine) 5,000 units 03/01/19 21:00 03/02/19 08:42 Heparin SC 5,000 units TID PANCHO Administration Hydralazine HCl 25 mg 02/12/19 15:00 03/02/19 08:42 Apresoline PO 25 mg TID PANCHO Administration Insulin Glargine 20 units/ 0.2 mls @ 0 mls/hr 02/09/19 09:00 03/02/19 08:44 Miscellaneous Medication SC 0.2 mls QAM PANCHO Administration Insulin Glargine 10 units/ 0.1 mls @ 0 mls/hr 02/27/19 21:00 03/01/19 21:49 Miscellaneous Medication SC 0.1 mls HS PANCHO Administration Insulin Human Lispro 0 units 02/07/19 19:09 03/02/19 04:26 Humalog SC 2 unit .MILD SLIDING SCALE PRN Administration Mild Correctional Scale Insulin Human Lispro 0 units 02/07/19 19:09 02/27/19 21:19 Humalog SC 2 unit .BEDTIME SLIDING SC PRN Administration Bedtime Correctional Scale Labetalol HCl 20 mg 02/17/19 16:33 02/22/19 21:25 Normodyne SLOW IVP 20 mg Q1H PRN Administration BP > 220/110 Multivitamins/Iron 1 tab 02/16/19 09:00 03/02/19 08:43 Centrum Kids Complete/Iron PO 1 tab DAILY PANCHO Administration Ondansetron HCl 4 mg 02/07/19 19:05 02/15/19 14:23 Zofran IVP 4 mg Q6H PRN Administration Nausea/Vomiting Scopolamine 1.5 mg 02/21/19 13:00 02/27/19 13:54 Transderm Scop TD 1.5 mg Q3D PANCHO Administration Sodium Chloride 10 ml 02/07/19 19:05 02/15/19 07:59 Flush - Normal Saline IVF 10 ml Q12H PRN Administration Saline Flush - Exam General Appearance: awake alert, ill appearing Eye: PERRL, anicteric sclera ENT: no oropharyngeal lesions, moist mucosa Neck: no JVD Neck - other findings: trach+ Heart: no murmur, no gallops Respiratory: no wheezes, no rales, rhonchi Gastrointestinal: soft, non-tender, non-distended, normal bowel sounds Gastrointestinal - other findings: peg+ Extremities: no cyanosis, 1+ LE edema Extremities - other findings: left bka Neurological: cranial nerve grossly intact, hemiplegia Hosp A/P (1) Acute respiratory failure with hypoxia and hypercapnia Code(s): J96.01 - ACUTE RESPIRATORY FAILURE WITH HYPOXIA; J96.02 - ACUTE RESPIRATORY FAILURE WITH HYPERCAPNIA Status: Acute (2) Acute CVA (cerebrovascular accident) Code(s): I63.9 - CEREBRAL INFARCTION, UNSPECIFIED Status: Acute (3) Acute metabolic encephalopathy Code(s): G93.41 - METABOLIC ENCEPHALOPATHY Status: Acute (4) Status post below-knee amputation of left lower extremity Code(s): Z89.512 - ACQUIRED ABSENCE OF LEFT LEG BELOW KNEE Status: Acute (5) Obesity (BMI 30-39.9) Code(s): E66.9 - OBESITY, UNSPECIFIED Status: Chronic (6) Chronic anemia Code(s): D64.9 - ANEMIA, UNSPECIFIED Status: Chronic (7) CHF (congestive heart failure) Code(s): I50.9 - HEART FAILURE, UNSPECIFIED Status: Chronic Qualifiers: Heart failure type: diastolic Heart failure chronicity: acute on chronic Qualified Code(s): I50.33 - Acute on chronic diastolic (congestive) heart failure (8) Diabetes mellitus Code(s): E11.9 - TYPE 2 DIABETES MELLITUS WITHOUT COMPLICATIONS Status: Chronic Qualifiers: Diabetes mellitus type: type 2 Diabetes mellitus manager long term care insulin use: with manager long term care use Diabetes mellitus complication status: with circulatory complication (9) Hyperlipidemia Code(s): E78.5 - HYPERLIPIDEMIA, UNSPECIFIED Status: Chronic Qualifiers: Hyperlipidemia type: moderate mixed hyperlipidemia not requiring statin therapy Qualified Code(s): E78.2 - Mixed hyperlipidemia (10) Hypertension Code(s): I10 - ESSENTIAL (PRIMARY) HYPERTENSION Status: Chronic Qualifiers: Hypertension type: essential hypertension Qualified Code(s): I10 - Essential (primary) hypertension - Plan got extubated 03/01/2019, on trach collar and peg (both were done on 02/28/2019) is on asp, coreg, lipitor, norvasc, neurontin, hydralazine, lantus, scopalamine tts echo showed ef of 60% with diastolic dysfunction MRI showed b/l cerebral infarcts is on diflucan, 1/2ns has underlying hilario and obesity hypovent syndrome had left bka done for osteomyelitis on 02/14/2019 prognosis guarded mild hypernatremia, is on 1/2 NS severe deconditioning palliative care for code status/goals of care will need placement with likely trach and peg. likely has had left hemiplegia. Moves right hand better than left hand
[2019-03-02] MEDS: Scopolamine 1.5 mg/72 hour Patch TD SCH (14:16)
--- NOTE | 2019-03-02 18:03 | PRG ---
DATE OF SERVICE: 03/02/2019 SERVICE: Pulmonary Medicine. INTERVAL HISTORY: The patient is doing fine from respiratory standpoint. He is on pressure support ventilation at 5/5 for the last 24 hours. This morning, he was put on T-collar. He did well throughout the entire day. There has been no significant interval change to his condition; however. His secretions are slowing down a little bit. PHYSICAL EXAMINATION: VITAL SIGNS: Afebrile, pulse 79, blood pressure 160/98, respirations 28, and saturation 99%, currently on 5 L via T-collar. HEENT: Normocephalic and atraumatic. Sclerae white. Conjunctivae pink. Oral mucosa is moist without lesions. LUNGS: Decent air entry. No prolonged expiratory phase or wheezing is appreciated. HEART: Normal rate. Regular. ABDOMEN: Soft, nontender, and nondistended. Bowel sounds positive. MUSCULOSKELETAL: No cyanosis or clubbing. There is no pitting edema. NEUROLOGIC: Grossly nonfocal. LABORATORY DATA: Glucose ranges from 158 to 220. Sputum is growing Ila albicans. ASSESSMENT: 1. Acute hypoxic respiratory failure. 2. Wet gangrene of the left lower extremity, status post below-knee amputation, postop day 16. 3. Acute cerebrovascular accident, embolic. 4. Pulseless electrical activity with brief return of neurologic function to poststroke baseline. 5. Acute kidney injury on chronic kidney disease 3, resolved to baseline. DISCUSSION AND PLAN: We will continue our T-collar trials. We will increase as tolerated. If he can go 48 hours without assistance from the ventilator, he can be considered for transition out of the ICU to the floor. Discharge planning is underway. He will likely be ready for discharge if all goes well by the end of the week. Job ID: [id number]
[2019-03-02] MEDS: Atorvastatin Calcium 40 MG TAB PO SCH (21:15)
[2019-03-02] MEDS: Insulin Glargine 10 UNITS in Pre-Filled Syringe 1 EACH SC SCH (21:15)
[2019-03-03] MEDS: HumaLOG 300 UNITS/3 ML VIAL SC PRN ×3 (00:12→16:46)
[2019-03-03] MEDS: Multivitamins CHEW w/Iron Tablet PO SCH (09:24)
[2019-03-03] MEDS: Docusate Sodium 100 MG/10 ML UDCUP PO SCH ×2 (09:24→22:38)
[2019-03-03] MEDS: Carvedilol 6.25 MG TAB PO SCH ×2 (09:25→22:38)
[2019-03-03] MEDS: hydrALAZINE 25 MG TAB PO SCH ×3 (09:26→22:41)
[2019-03-03] MEDS: Amlodipine 10 MG TAB PO SCH (09:26)
[2019-03-03] MEDS: Folic Acid 1 MG TAB PO SCH (09:26)
[2019-03-03] MEDS: Famotidine/PF 20 mg/2ml Vial SLOW IVP SCH (09:27)
[2019-03-03] MEDS: Heparin 5,000 UNITS/ML VIAL SC SCH ×3 (09:27→22:38)
[2019-03-03] MEDS: Insulin Glargine 20 UNITS in Pre-Filled Syringe 1 EACH SC SCH (09:32)
[2019-03-03] MEDS: Aspirin 300 MG Suppository PR SCH (09:33)
--- NOTE | 2019-03-03 13:11 | PRG ---
DATE OF SERVICE: 03/03/2019 SERVICE: Pulmonary Medicine. INTERVAL HISTORY: The patient is doing fine from respiratory standpoint. He is breathing comfortably. No complaints of chest discomfort, nausea, or vomiting. There has been no interval change to his condition. He has done well from a respiratory standpoint. He has been on T-collar all night. PHYSICAL EXAMINATION: VITAL SIGNS: Afebrile, pulse 74, blood pressure 149/92, respirations 5, saturation 97%, currently on T-collar. HEENT: Normocephalic and atraumatic. Sclerae are white. Conjunctivae are pink. Oral mucosa is moist without lesions. LUNGS: Decent air entry with no prolonged expiratory phase or wheezing present. HEART: Normal rate. Regular. ABDOMEN: Soft, nontender, and nondistended. Bowel sounds are positive. MUSCULOSKELETAL: No cyanosis or clubbing. No pitting in the bilateral lower extremities. : Richards in place. ASSESSMENT: 1. Acute hypoxic respiratory failure. 2. Wet gangrene of the left lower extremity, status post below-knee amputation, postoperative day 17. 3. Acute cerebrovascular accident, embolic. 4. Pulseless electrical activity with return of neurologic function to poststroke baseline. 5. Acute kidney injury on chronic kidney disease, 3, resolved. DISCUSSION AND PLAN: The patient is stable for transition out of the ICU to the stroke care unit. Truth be told, once he has a safe care environment to transition into, he can be discharged from the hospital. I will recheck his CBC and electrolytes tomorrow morning to make certain there are no significant abnormalities there. Tube feeds can be converted over to bolus. Tracheostomy care will be continued. Pulmonary will follow, intermittently during this hospital stay. Job ID: [id number] [facility]
--- NOTE | 2019-03-03 13:43 | PDOC.HOSPP ---
- Subjective Encounter Date: 03/03/19 Encounter Time: 10:30 non-verbal Subjective: Awake, had a clean shave, not in distress, smiles some today. Still does not move legs. - Objective Vital Signs & Weight: Vital Signs (12 hours) Temp Pulse BP Pulse Ox 03/03/19 12:00 98.4 F 03/03/19 09:26 88 149/88 H 03/03/19 09:25 149/88 H 03/03/19 08:00 97 03/03/19 07:00 98.4 F 03/03/19 03:04 82 196/107 H 03/03/19 03:00 98.7 F Weight Admit Weight 282 lb 11.2 oz Weight 303 lb 12.752 oz Most Recent Monitor Data Heart Rate from ECG 75 NIBP 154/95 NIBP BP-Mean 114 Respiration from ECG 20 SpO2 98 I&O: 03/02/19 03/03/19 03/04/19 06:59 06:59 06:59 Intake Total 4239 2751 550 Output Total 3880 3065 1014 Balance 1062 -314 -464 Result Diagrams: 02/23/19 07:52 03/01/19 04:43 Additional Labs: Accuchecks 03/03/19 03/03/19 03/02/19 03:44 00:14 21:08 POC Glucose 177 H 216 H 195 H 03/02/19 16:34 POC Glucose 203 H Hospitalist ROS - Medication Medications: Active Medications Generic Name Dose Route Start Last Admin Trade Name Freq PRN Reason Stop Dose Admin Acetaminophen 1,000 mg 02/17/19 23:28 02/17/19 23:39 Tylenol AL 1,000 mg Q6H PRN Administration Fever/Mild Pain Alteplase, Recombinant 4 mg 02/23/19 17:15 02/23/19 17:56 Cathflo CATH 4 mg WILLCALL PANCHO Administration Amlodipine Besylate 10 mg 02/13/19 09:00 03/03/19 09:26 Norvasc PO 10 mg DAILY PANCHO Administration Aspirin 300 mg 02/18/19 09:00 03/03/19 09:33 Aspirin AL 300 mg DAILY PANCHO Administration Atorvastatin Calcium 40 mg 02/08/19 21:00 03/02/19 21:15 Lipitor PO 40 mg HS PANCHO Administration Carvedilol 12.5 mg 02/08/19 21:00 03/03/19 09:25 Coreg PO 12.5 mg BID PANCHO Administration Docusate Sodium 100 mg 02/25/19 21:00 03/03/19 09:24 Colace Liquid PO 100 mg BID PANCHO Administration Famotidine 20 mg 02/24/19 09:00 03/03/19 09:27 Pepcid SLOW IVP 20 mg 0900 PANCHO Administration Folic Acid 1 mg 02/13/19 09:00 03/03/19 09:26 Folvite PO 1 mg DAILY PANCHO Administration Heparin Sodium (Porcine) 5,000 units 03/01/19 21:00 03/03/19 09:27 Heparin SC 5,000 units TID PANCHO Administration Hydralazine HCl 25 mg 02/12/19 15:00 03/03/19 09:26 Apresoline PO 25 mg TID PANCHO Administration Hydralazine HCl 10 mg 02/17/19 16:33 03/03/19 03:04 Apresoline SLOW IVP 10 mg Q4H PRN Administration BP > 220/110 Insulin Glargine 20 units/ 0.2 mls @ 0 mls/hr 02/09/19 09:00 03/03/19 09:32 Miscellaneous Medication SC 0.2 mls QAM PANCHO Administration Insulin Glargine 10 units/ 0.1 mls @ 0 mls/hr 02/27/19 21:00 03/02/19 21:15 Miscellaneous Medication SC 0.1 mls HS PANCHO Administration Insulin Human Lispro 0 units 02/07/19 19:09 03/03/19 11:16 Humalog SC 3 unit .MILD SLIDING SCALE PRN Administration Mild Correctional Scale Insulin Human Lispro 0 units 02/07/19 19:09 03/03/19 00:12 Humalog SC 2 unit .BEDTIME SLIDING SC PRN Administration Bedtime Correctional Scale Labetalol HCl 20 mg 02/17/19 16:33 02/22/19 21:25 Normodyne SLOW IVP 20 mg Q1H PRN Administration BP > 220/110 Multivitamins/Iron 1 tab 02/16/19 09:00 03/03/19 09:24 Centrum Kids Complete/Iron PO 1 tab DAILY PANCHO Administration Ondansetron HCl 4 mg 02/07/19 19:05 02/15/19 14:23 Zofran IVP 4 mg Q6H PRN Administration Nausea/Vomiting Scopolamine 1.5 mg 02/21/19 13:00 03/02/19 14:16 Transderm Scop TD 1.5 mg Q3D PANCHO Administration Sodium Chloride 10 ml 02/07/19 19:05 02/15/19 07:59 Flush - Normal Saline IVF 10 ml Q12H PRN Administration Saline Flush - Exam General Appearance: awake alert Eye: PERRL, anicteric sclera ENT: no oropharyngeal lesions, moist mucosa Neck: no JVD Neck - other findings: trach Heart: RRR, no murmur Respiratory: no wheezes, no rales, rhonchi Gastrointestinal: soft, non-tender, non-distended, normal bowel sounds Gastrointestinal - other findings: Peg Extremities: no cyanosis, no edema Extremities - other findings: L BKA Neurological: cranial nerve grossly intact, hemiplegia Hosp A/P (1) Acute respiratory failure with hypoxia and hypercapnia Code(s): J96.01 - ACUTE RESPIRATORY FAILURE WITH HYPOXIA; J96.02 - ACUTE RESPIRATORY FAILURE WITH HYPERCAPNIA Status: Acute (2) Acute CVA (cerebrovascular accident) Code(s): I63.9 - CEREBRAL INFARCTION, UNSPECIFIED Status: Acute (3) Acute metabolic encephalopathy Code(s): G93.41 - METABOLIC ENCEPHALOPATHY Status: Acute (4) Status post below-knee amputation of left lower extremity Code(s): Z89.512 - ACQUIRED ABSENCE OF LEFT LEG BELOW KNEE Status: Acute (5) Obesity (BMI 30-39.9) Code(s): E66.9 - OBESITY, UNSPECIFIED Status: Chronic (6) Chronic anemia Code(s): D64.9 - ANEMIA, UNSPECIFIED Status: Chronic (7) CHF (congestive heart failure) Code(s): I50.9 - HEART FAILURE, UNSPECIFIED Status: Chronic Qualifiers: Heart failure type: diastolic Heart failure chronicity: acute on chronic Qualified Code(s): I50.33 - Acute on chronic diastolic (congestive) heart failure (8) Diabetes mellitus Code(s): E11.9 - TYPE 2 DIABETES MELLITUS WITHOUT COMPLICATIONS Status: Chronic Qualifiers: Diabetes mellitus type: type 2 Diabetes mellitus intermediate accountant insulin use: with intermediate accountant use Diabetes mellitus complication status: with circulatory complication (9) Hyperlipidemia Code(s): E78.5 - HYPERLIPIDEMIA, UNSPECIFIED Status: Chronic Qualifiers: Hyperlipidemia type: moderate mixed hyperlipidemia not requiring statin therapy Qualified Code(s): E78.2 - Mixed hyperlipidemia (10) Hypertension Code(s): I10 - ESSENTIAL (PRIMARY) HYPERTENSION Status: Chronic Qualifiers: Hypertension type: essential hypertension Qualified Code(s): I10 - Essential (primary) hypertension - Plan got extubated 03/01/2019, on trach collar and peg (both were done on 02/28/2019) is on asp, coreg, lipitor, norvasc, neurontin, hydralazine, lantus, scopalamine tts echo showed ef of 60% with diastolic dysfunction MRI showed b/l cerebral infarcts is on diflucan, 1/2ns has underlying hilario and obesity hypovent syndrome had left bka done for osteomyelitis on 02/14/2019 prognosis guarded mild hypernatremia, is on 1/2 NS severe deconditioning palliative care for code status/goals of care will need placement with trach and peg. likely has had left hemiplegia. Moves right hand better than left hand
[2019-03-03] MEDS: Insulin Glargine 10 UNITS in Pre-Filled Syringe 1 EACH SC SCH (22:38)
[2019-03-03] MEDS: Atorvastatin Calcium 40 MG TAB PO SCH (22:41)
[2019-03-04] MEDS: HumaLOG 300 UNITS/3 ML VIAL SC PRN ×2 (05:55→18:04)
--- NOTE | 2019-03-04 09:44 | PRG ---
DATE OF SERVICE: 03/04/2019 SERVICE: Pulmonary Medicine. INTERVAL HISTORY: The patient is doing really well from respiratory standpoint. He is breathing comfortably and there were no overnight events. He cannot provide much in the way of history. He is able to tell me he is breathing comfortably and he does not have any chest discomfort. PHYSICAL EXAMINATION: VITAL SIGNS: Afebrile, pulse rate 84, blood pressure 142/86, respirations are 18, and saturation 94% on 6 L via trach collar. GENERAL: The patient is awake and alert, in no apparent distress. LUNGS: Decent air entry. Some rhonchi are present. They are clear with cough. No prolonged expiratory phase or wheezing is appreciated. HEART: Normal rate, regular. ABDOMEN: Soft, nontender, and nondistended. Bowel sounds are positive. MUSCULOSKELETAL: No cyanosis or clubbing. No pitting in the bilateral lower extremities. : Richards in place. ASSESSMENT: 1. Acute hypoxic respiratory failure. 2. 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 3. Acute cerebrovascular accident, embolic, occurring on postoperative day #1. 4. Pulseless electrical activity, with return of neurologic function and poststroke baseline. 5. Acute kidney injury on chronic kidney disease 3, resolved. 6. Status post PEG tube and tracheostomy. DISCUSSION AND PLAN: The patient is doing okay from respiratory standpoint. We will continue trach care, and elevate head of bed. Otherwise, supportive measures will be continued. Pulmonary/Critical Care will follow intermittently during the hospital stay. If he gets in trouble through the weekend, please give Dr. Guerrier a phone call. Job ID: [id number]
[2019-03-04] MEDS: Carvedilol 6.25 MG TAB PO SCH ×2 (10:08→21:41)
[2019-03-04] MEDS: Folic Acid 1 MG TAB PO SCH (10:08)
[2019-03-04] MEDS: Famotidine 20 MG TAB PO SCH (10:09)
[2019-03-04] MEDS: Escitalopram Oxalate 10 mg Tablet PO SCH (10:09)
[2019-03-04] MEDS: hydrALAZINE 25 MG TAB PO SCH ×3 (10:09→21:41)
[2019-03-04] MEDS: Heparin 5,000 UNITS/ML VIAL SC SCH ×3 (10:09→21:40)
[2019-03-04] MEDS: Docusate Sodium 100 MG/10 ML UDCUP PO SCH ×2 (10:09→21:40)
[2019-03-04] MEDS: Multivitamins CHEW w/Iron Tablet PO SCH (10:09)
[2019-03-04] MEDS: Amlodipine 10 MG TAB PO SCH (10:09)
[2019-03-04] MEDS: Aspirin 300 MG Suppository PR SCH (10:10)
[2019-03-04] MEDS: Insulin Glargine 20 UNITS in Pre-Filled Syringe 1 EACH SC SCH (10:10)
[2019-03-04 11:03] LABS: #Eosinphils 0.5 thou/uL (0.0-0.7); #Lymphocytes 1.9 thou/uL (1.20-3.40); #Monocytes 0.6 thou/uL (0.11-0.59); #Neutrophils 4.6 thou/uL (1.40-6.50); %Basophils 0.2 % (0.0-1.0); %Eosinophils 6.1 % (0.0-10.0); %Lymphocytes 25.1 % (21.0-51.0); %Monocytes 7.2 % (0.0-10.0); %Neutrophils 61.4 % (42.0-75.0); Hemoglobin 7.2 g/dL (14.0-18.0); Mean Corpuscular HGB CONC 31.4 g/dL (32.0-36.0); Mean Corpuscular Hemoglobin 26.1 pg (27.0-31.0); Mean Corpuscular Volume 83.3 fL (78.0-98.0); Mean Platelet Volume 7.8 fL (7.4-10.4); Platelet Count 375 thou/uL (130-400); RBC Distribution Width 15.5 % (11.5-14.5); Red Blood Cell (RBC) Count 2.74 mill/uL (4.70-6.10); White Blood Cell (WBC) Count 7.5 thou/uL (4.8-10.8)
[2019-03-04 11:30] LABS: ALT (SGPT) 22 U/L (8-55); AST (SGOT) 18 U/L (5-34); Albumin 2.7 g/dL (3.5-5.0); Alkaline Phosphatase 278 U/L (40-110); Anion Gap 13 mmol/L (10-20); BUN (Urea Nitrogen) 45 mg/dL (8.4-25.7); Bilirubin, Total 0.3 mg/dL (0.2-1.2); Calc. Creatinine Clearance 82 mL/min (70-130); Calcium 8.9 mg/dL (7.8-10.44); Carbon Dioxide 30 mmol/L (22-29); Chloride 111 mmol/L (98-107); Estimated GFR-MDRD 43; Globulin 4.3 g/dL (2.4-3.5); Glucose 156 mg/dL (70-105); Sodium 150 mmol/L (136-145)
--- NOTE | 2019-03-04 14:56 | PDOC.HOSPP ---
- Subjective Encounter Date: 03/04/19 Encounter Time: 11:15 Subjective: awake, does not interact except for a bit of smile and looking at examiner he squeezes fingers in both hands, has not moved LE to me to verbal stimuli - Objective Vital Signs & Weight: Vital Signs (12 hours) Temp Pulse Pulse Pulse Resp BP BP 03/04/19 13:43 90 91 136/81 03/04/19 12:00 99.2 F 87 16 03/04/19 10:09 84 03/04/19 10:08 146/94 H 03/04/19 08:00 99.5 F 84 18 03/04/19 07:00 03/04/19 04:00 98.9 F 81 16 BP BP Pulse Ox 03/04/19 13:43 148/86 H 03/04/19 12:00 118/70 98 03/04/19 10:09 03/04/19 10:08 03/04/19 08:00 142/86 H 94 L 03/04/19 07:00 92 L 03/04/19 04:00 137/80 97 Weight Admit Weight 282 lb 11.2 oz Weight 305 lb Most Recent Monitor Data Heart Rate from ECG 75 NIBP 154/95 NIBP BP-Mean 114 Respiration from ECG 20 SpO2 98 I&O: 03/03/19 03/04/19 03/05/19 06:59 06:59 06:59 Intake Total 2751 2890 900 Output Total 3065 2764 Balance -314 126 900 Result Diagrams: 03/04/19 10:52 03/04/19 10:52 Additional Labs: Accuchecks 03/04/19 03/04/19 03/03/19 10:55 05:54 22:40 POC Glucose 173 H 211 H 178 H 03/03/19 03/03/19 20:04 16:44 POC Glucose 216 H 212 H Hospitalist ROS - Medication Medications: Active Medications Generic Name Dose Route Start Last Admin Trade Name Freq PRN Reason Stop Dose Admin Acetaminophen 1,000 mg 02/17/19 23:28 02/17/19 23:39 Tylenol HI 1,000 mg Q6H PRN Administration Fever/Mild Pain Alteplase, Recombinant 4 mg 02/23/19 17:15 02/23/19 17:56 Cathflo CATH 4 mg WILLCALL PANCHO Administration Amlodipine Besylate 10 mg 02/13/19 09:00 03/04/19 10:09 Norvasc PO 10 mg DAILY PANCHO Administration Atorvastatin Calcium 40 mg 02/08/19 21:00 03/03/19 22:41 Lipitor PO 40 mg HS PANCHO Administration Carvedilol 12.5 mg 02/08/19 21:00 03/04/19 10:08 Coreg PO 12.5 mg BID PANCHO Administration Docusate Sodium 100 mg 02/25/19 21:00 03/04/19 10:09 Colace Liquid PO 100 mg BID PANCHO Administration Escitalopram Oxalate 10 mg 03/04/19 09:00 03/04/19 10:09 Lexapro PO 10 mg DAILY PANCHO Administration Famotidine 20 mg 03/04/19 09:00 03/04/19 10:09 Pepcid PO 20 mg 0900 PANCHO Administration Folic Acid 1 mg 02/13/19 09:00 03/04/19 10:08 Folvite PO 1 mg DAILY PANCHO Administration Heparin Sodium (Porcine) 5,000 units 03/01/19 21:00 03/04/19 10:09 Heparin SC 5,000 units TID PANCHO Administration Hydralazine HCl 25 mg 02/12/19 15:00 03/04/19 10:09 Apresoline PO 25 mg TID PANCHO Administration Hydralazine HCl 10 mg 02/17/19 16:33 03/03/19 03:04 Apresoline SLOW IVP 10 mg Q4H PRN Administration BP > 220/110 Insulin Glargine 20 units/ 0.2 mls @ 0 mls/hr 02/09/19 09:00 03/04/19 10:10 Miscellaneous Medication SC 0.2 mls QAM PANCHO Administration Insulin Glargine 10 units/ 0.1 mls @ 0 mls/hr 02/27/19 21:00 03/03/19 22:38 Miscellaneous Medication SC 0.1 mls HS PANCHO Administration Insulin Human Lispro 0 units 02/07/19 19:09 03/04/19 05:55 Humalog SC 3 unit .MILD SLIDING SCALE PRN Administration Mild Correctional Scale Insulin Human Lispro 0 units 02/07/19 19:09 03/03/19 00:12 Humalog SC 2 unit .BEDTIME SLIDING SC PRN Administration Bedtime Correctional Scale Labetalol HCl 20 mg 02/17/19 16:33 02/22/19 21:25 Normodyne SLOW IVP 20 mg Q1H PRN Administration BP > 220/110 Multivitamins/Iron 1 tab 02/16/19 09:00 03/04/19 10:09 Centrum Kids Complete/Iron PO 1 tab DAILY PANCHO Administration Ondansetron HCl 4 mg 02/07/19 19:05 02/15/19 14:23 Zofran IVP 4 mg Q6H PRN Administration Nausea/Vomiting Scopolamine 1.5 mg 02/21/19 13:00 03/02/19 14:16 Transderm Scop TD 1.5 mg Q3D PANCHO Administration Sodium Chloride 10 ml 02/07/19 19:05 02/15/19 07:59 Flush - Normal Saline IVF 10 ml Q12H PRN Administration Saline Flush - Exam General Appearance: awake alert, ill appearing Eye: PERRL, anicteric sclera ENT: no oropharyngeal lesions, moist mucosa Neck - other findings: trach+, has thick sputum coming around the trach opening Heart: RRR, no murmur Respiratory: no wheezes, no rales Gastrointestinal: soft, non-tender, non-distended, normal bowel sounds Gastrointestinal - other findings: peg+ Extremities: no clubbing, no edema Neurological: hemiplegia Hosp A/P (1) Acute respiratory failure with hypoxia and hypercapnia Code(s): J96.01 - ACUTE RESPIRATORY FAILURE WITH HYPOXIA; J96.02 - ACUTE RESPIRATORY FAILURE WITH HYPERCAPNIA Status: Acute (2) Acute CVA (cerebrovascular accident) Code(s): I63.9 - CEREBRAL INFARCTION, UNSPECIFIED Status: Acute (3) Acute metabolic encephalopathy Code(s): G93.41 - METABOLIC ENCEPHALOPATHY Status: Acute (4) Status post below-knee amputation of left lower extremity Code(s): Z89.512 - ACQUIRED ABSENCE OF LEFT LEG BELOW KNEE Status: Acute (5) Obesity (BMI 30-39.9) Code(s): E66.9 - OBESITY, UNSPECIFIED Status: Chronic (6) Chronic anemia Code(s): D64.9 - ANEMIA, UNSPECIFIED Status: Chronic (7) CHF (congestive heart failure) Code(s): I50.9 - HEART FAILURE, UNSPECIFIED Status: Chronic Qualifiers: Heart failure type: diastolic Heart failure chronicity: acute on chronic Qualified Code(s): I50.33 - Acute on chronic diastolic (congestive) heart failure (8) Diabetes mellitus Code(s): E11.9 - TYPE 2 DIABETES MELLITUS WITHOUT COMPLICATIONS Status: Chronic Qualifiers: Diabetes mellitus type: type 2 Diabetes mellitus custodial insulin use: with custodial use Diabetes mellitus complication status: with circulatory complication (9) Hyperlipidemia Code(s): E78.5 - HYPERLIPIDEMIA, UNSPECIFIED Status: Chronic Qualifiers: Hyperlipidemia type: moderate mixed hyperlipidemia not requiring statin therapy Qualified Code(s): E78.2 - Mixed hyperlipidemia (10) Hypertension Code(s): I10 - ESSENTIAL (PRIMARY) HYPERTENSION Status: Chronic Qualifiers: Hypertension type: essential hypertension Qualified Code(s): I10 - Essential (primary) hypertension - Plan got extubated 03/01/2019, on trach collar and peg (both were done on 02/28/2019) is on asp, coreg, lipitor, norvasc, neurontin, hydralazine, lantus, scopalamine tts echo showed ef of 60% with diastolic dysfunction MRI showed b/l cerebral infarcts is on diflucan has underlying hilario and obesity hypovent syndrome had left bka done for osteomyelitis on 02/14/2019 prognosis guarded mild hypernatremia, increase free water via peg 250mls x5/day severe deconditioning palliative care for code status/goals of care will need placement with trach and peg. likely has had left hemiplegia. Moves right hand better than left hand
[2019-03-04] MEDS ORDERED: Aspirin Chewable 81 MG TAB PO SCH (15:15)
[2019-03-04] MEDS: Atorvastatin Calcium 40 MG TAB PO SCH (21:41)
--- NOTE | 2019-03-04 21:59 | RAD ---
EXAM: CHEST ONE VIEW HISTORY: Respiratory distress and fever. COMPARISON: 02/28/2019 FINDINGS: This exam is obtained with the patient in kyphotic positioning. Tracheostomy device remains in place. A left internal jugular vein central venous catheter is again noted in place which courses across the midline and is stable in position. Bibasilar opacities are seen greater at the right lung base wh ich may be related to bilateral pleural effusions and atelectasis. Superimposed pneumonia at either lung base cannot be excluded. Pulmonary vasculature is within normal limits for the portable techniqu e of this study. No other interval change. IMPRESSION: Bibasilar opacities greater on the right. Findings could be related to bilateral pleural effusions an d atelectasis. However, pneumonia at either lung base cannot be excluded.
[2019-03-04] MEDS: Insulin Glargine 10 UNITS in Pre-Filled Syringe 1 EACH SC SCH (22:03)
[2019-03-05] MEDS: Acetaminophen 650 MG Suppository PR PRN (00:22)
[2019-03-05] MEDS ORDERED: Vancomycin HCl 1 GM in Premix Bag 1 BAG IVPB SCH (01:15)
[2019-03-05] MEDS: Cefepime 2 GM in Sodium Chloride 0.9% 100 ML IVPB SCH ×2 (02:08→15:22)
[2019-03-05] MEDS: Sodium Chloride 0.9% 1,000 ML IV SCH ×2 (02:09→13:47)
[2019-03-05 05:50] LABS: #Basophils 0.1 thou/uL (0.0-0.2); #Eosinphils 0.3 thou/uL (0.0-0.7); #Lymphocytes 2.3 thou/uL (1.20-3.40); #Monocytes 0.6 thou/uL (0.11-0.59); #Neutrophils 3.7 thou/uL (1.40-6.50); %Basophils 0.8 % (0.0-1.0); %Eosinophils 4.7 % (0.0-10.0); %Lymphocytes 33.2 % (21.0-51.0); %Monocytes 8.3 % (0.0-10.0); %Neutrophils 53.1 % (42.0-75.0); Hemoglobin 7.3 g/dL (14.0-18.0); Mean Corpuscular HGB CONC 30.8 g/dL (32.0-36.0); Mean Corpuscular Hemoglobin 25.3 pg (27.0-31.0); Mean Corpuscular Volume 82.2 fL (78.0-98.0); Mean Platelet Volume 7.9 fL (7.4-10.4); Platelet Count 367 thou/uL (130-400); RBC Distribution Width 15.7 % (11.5-14.5); Red Blood Cell (RBC) Count 2.89 mill/uL (4.70-6.10)
[2019-03-05 06:11] LABS: Anion Gap 12 mmol/L (10-20); BUN (Urea Nitrogen) 44 mg/dL (8.4-25.7); Calc. Creatinine Clearance 80 mL/min (70-130); Calcium 8.7 mg/dL (7.8-10.44); Carbon Dioxide 28 mmol/L (22-29); Chloride 114 mmol/L (98-107); Estimated GFR-MDRD 42; Glucose 170 mg/dL (70-105); Magnesium 2.2 mg/dL (1.6-2.6); Phosphorus 3.5 mg/dL (2.3-4.7); Potassium 3.7 mmol/L (3.5-5.1); Sodium 150 mmol/L (136-145)
[2019-03-05] MEDS: HumaLOG 300 UNITS/3 ML VIAL SC PRN ×3 (06:41→18:36)
[2019-03-05] MEDS: Heparin 5,000 UNITS/ML VIAL SC SCH ×3 (09:28→22:23)
[2019-03-05] MEDS: Insulin Glargine 20 UNITS in Pre-Filled Syringe 1 EACH SC SCH (09:28)
[2019-03-05] MEDS: Multivitamins CHEW w/Iron Tablet PO SCH (09:30)
[2019-03-05] MEDS: Famotidine 20 MG TAB PO SCH (09:30)
[2019-03-05] MEDS: Escitalopram Oxalate 10 mg Tablet PO SCH (09:31)
[2019-03-05] MEDS: Aspirin Chewable 81 MG TAB PO SCH (09:31)
[2019-03-05] MEDS: Amlodipine 10 MG TAB PO SCH (09:31)
[2019-03-05] MEDS: hydrALAZINE 25 MG TAB PO SCH ×3 (09:31→22:36)
[2019-03-05] MEDS: Folic Acid 1 MG TAB PO SCH (09:31)
[2019-03-05] MEDS: Docusate Sodium 100 MG/10 ML UDCUP PO SCH ×2 (09:32→22:37)
[2019-03-05] MEDS: Carvedilol 6.25 MG TAB PO SCH ×2 (09:32→22:36)
[2019-03-05] MEDS: Scopolamine 1.5 mg/72 hour Patch TD SCH (13:47)
--- NOTE | 2019-03-05 20:20 | PDOC.HOSPP ---
- Subjective non-verbal Subjective: Pt is stable and sleeping. Family is at bedside. - Objective Vital Signs & Weight: Vital Signs (12 hours) Temp Pulse Resp BP BP Pulse Ox 03/05/19 15:29 98.7 F 89 22 H 153/97 H 94 L 03/05/19 15:12 84 153/97 H 03/05/19 11:54 99.2 F 84 22 H 140/78 92 L 03/05/19 09:32 150/89 H 03/05/19 09:31 87 150/89 H Weight Admit Weight 282 lb 11.2 oz Weight 298 lb Most Recent Monitor Data Heart Rate from ECG 75 NIBP 154/95 NIBP BP-Mean 114 Respiration from ECG 20 SpO2 98 I&O: 03/04/19 03/05/19 03/06/19 06:59 06:59 06:59 Intake Total 2890 4715 3137 Output Total 2764 2125 1300 Balance 126 2590 1837 Result Diagrams: 03/05/19 03:30 03/05/19 03:30 Additional Labs: Accuchecks 03/05/19 03/05/19 03/05/19 17:30 12:03 09:56 POC Glucose 233 H 226 H 181 H 03/05/19 03/04/19 03/03/19 05:28 22:06 11:12 POC Glucose 182 H 163 H 232 H Hospitalist ROS - Review of Systems ROS unobtainable: due to mental status (Pt was sleeping when I saw him.) - Medication Medications: Active Medications Generic Name Dose Route Start Last Admin Trade Name Freq PRN Reason Stop Dose Admin Albuterol/Ipratropium 3 ml 03/01/19 15:52 03/04/19 21:34 Duoneb NEB 3 ml Q6H PRN Administration SOB &/or Wheezing Amlodipine Besylate 10 mg 02/13/19 09:00 03/05/19 09:31 Norvasc PO 10 mg DAILY PANCHO Administration Aspirin 81 mg 03/05/19 09:00 03/05/19 09:31 Aspirin Chewable PO 81 mg DAILY PANCHO Administration Atorvastatin Calcium 40 mg 02/08/19 21:00 03/04/19 21:41 Lipitor PO 40 mg HS PANCHO Administration Carvedilol 12.5 mg 02/08/19 21:00 03/05/19 09:32 Coreg PO 12.5 mg BID PANCHO Administration Docusate Sodium 100 mg 02/25/19 21:00 03/05/19 09:32 Colace Liquid PO Not Given BID [facility] Escitalopram Oxalate 10 mg 03/04/19 09:00 03/05/19 09:31 Lexapro PO 10 mg DAILY PANCHO Administration Famotidine 20 mg 03/04/19 09:00 03/05/19 09:30 Pepcid PO 20 mg 0900 PANCHO Administration Folic Acid 1 mg 02/13/19 09:00 03/05/19 09:31 Folvite PO 1 mg DAILY PANCHO Administration Heparin Sodium (Porcine) 5,000 units 03/01/19 21:00 03/05/19 15:12 Heparin SC 5,000 units TID PANCHO Administration Hydralazine HCl 25 mg 02/12/19 15:00 03/05/19 15:12 Apresoline PO 25 mg TID PANCHO Administration Hydralazine HCl 10 mg 02/17/19 16:33 03/03/19 03:04 Apresoline SLOW IVP 10 mg Q4H PRN Administration BP > 220/110 Insulin Glargine 20 units/ 0.2 mls @ 0 mls/hr 02/09/19 09:00 03/05/19 09:28 Miscellaneous Medication SC 0.2 mls QAM PANCHO Administration Insulin Glargine 10 units/ 0.1 mls @ 0 mls/hr 02/27/19 21:00 03/04/19 22:03 Miscellaneous Medication SC 0.1 mls HS PANCHO Administration Cefepime HCl 2 gm/ Sodium 100 mls @ 200 mls/hr 03/05/19 02:00 03/05/19 15:22 Chloride IVPB 100 mls 0200,1400 PANCHO Administration Sodium Chloride 1,000 mls @ 75 mls/hr 03/05/19 01:15 03/05/19 13:47 Normal Saline 0.9% IV 1,000 mls .[id number] PANCHO Administration Insulin Human Lispro 0 units 02/07/19 19:09 03/05/19 18:36 Humalog SC 3 unit .MILD SLIDING SCALE PRN Administration Mild Correctional Scale Insulin Human Lispro 0 units 02/07/19 19:09 03/03/19 00:12 Humalog SC 2 unit .BEDTIME SLIDING SC PRN Administration Bedtime Correctional Scale Labetalol HCl 20 mg 02/17/19 16:33 02/22/19 21:25 Normodyne SLOW IVP 20 mg Q1H PRN Administration BP > 220/110 Multivitamins/Iron 1 tab 02/16/19 09:00 03/05/19 09:30 Centrum Kids Complete/Iron PO 1 tab DAILY PANCHO Administration Ondansetron HCl 4 mg 02/07/19 19:05 02/15/19 14:23 Zofran IVP 4 mg Q6H PRN Administration Nausea/Vomiting Scopolamine 1.5 mg 02/21/19 13:00 03/05/19 13:47 Transderm Scop TD 1.5 mg Q3D PANCHO Administration Sodium Chloride 10 ml 02/07/19 19:05 03/05/19 09:32 Flush - Normal Saline IVF 10 ml Q12H PRN Administration Saline Flush - Exam General Appearance: NAD Eye: PERRL, anicteric sclera ENT: normocephalic atraumatic, moist mucosa ENT - other findings: Trach noted Neck: supple, symmetric, no thyromegaly Heart: RRR, no murmur, no gallops, no rubs Respiratory: CTAB, no wheezes, no rales, no ronchi Gastrointestinal: soft, non-tender, non-distended, normal bowel sounds Gastrointestinal - other findings: PEG noted Extremities: no cyanosis, no clubbing, no edema Skin: no lesions, no rashes Neurological - other findings: Unable to fully assess Musculoskeletal: generalized weakness Hosp A/P (1) Status post below-knee amputation of left lower extremity Code(s): Z89.512 - ACQUIRED ABSENCE OF LEFT LEG BELOW KNEE Status: Acute Plan: Cont supportive care. (2) Anoxic brain injury Status: Resolved Plan: Cont supportive care. (3) Acute respiratory failure with hypoxia and hypercapnia Code(s): J96.01 - ACUTE RESPIRATORY FAILURE WITH HYPOXIA; J96.02 - ACUTE RESPIRATORY FAILURE WITH HYPERCAPNIA Status: Acute Plan: Cont Trach. (4) Diabetes mellitus Code(s): E11.9 - TYPE 2 DIABETES MELLITUS WITHOUT COMPLICATIONS Status: Chronic Qualifiers: Diabetes mellitus type: type 2 Diabetes mellitus nursing home insulin use: with intermediate teacher use Diabetes mellitus complication status: with circulatory complication Plan: Stable. Cont current mgt. Monitor BG. (5) Acute on chronic renal insufficiency Code(s): N28.9 - DISORDER OF KIDNEY AND URETER, UNSPECIFIED; N18.9 - CHRONIC KIDNEY DISEASE, UNSPECIFIED Status: Resolved Plan: Monitor Cr. (6) Hypertension Code(s): I10 - ESSENTIAL (PRIMARY) HYPERTENSION Status: Chronic Qualifiers: Hypertension type: essential hypertension Qualified Code(s): I10 - Essential (primary) hypertension Plan: Stable. Cont BP meds (7) Anemia Code(s): D64.9 - ANEMIA, UNSPECIFIED Status: Acute Qualifiers: Anemia type: folate deficiency Plan: Likely chr. Will avoid unnecessary blood draws. Start IV iron. (8) CHF (congestive heart failure) Code(s): I50.9 - HEART FAILURE, UNSPECIFIED Status: Chronic Qualifiers: Heart failure type: diastolic Heart failure chronicity: acute on chronic Qualified Code(s): I50.33 - Acute on chronic diastolic (congestive) heart failure Plan: Stable, cont med mgt. - Plan plan discussed w/ family PPx: SCDs. CODE: FULL. Dispo: Cont current mgt.
[2019-03-05] MEDS: Insulin Glargine 10 UNITS in Pre-Filled Syringe 1 EACH SC SCH (22:25)
[2019-03-05] MEDS: Atorvastatin Calcium 40 MG TAB PO SCH (22:35)
[2019-03-05] MEDS: Acetaminophen 650 MG/20.3 ML UDCUP PER TUBE PRN (22:41)
[2019-03-06] MEDS: Cefepime 2 GM in Sodium Chloride 0.9% 100 ML IVPB SCH ×2 (01:47→14:51)
[2019-03-06] MEDS: Acetaminophen 650 MG/20.3 ML UDCUP PER TUBE PRN ×2 (05:18→11:27)
[2019-03-06] MEDS: Sodium Chloride 0.9% 1,000 ML IV SCH (05:21)
[2019-03-06] MEDS: HumaLOG 300 UNITS/3 ML VIAL SC PRN ×3 (07:09→18:35)
[2019-03-06] MEDS: Docusate Sodium 100 MG/10 ML UDCUP PO SCH ×2 (08:33→21:20)
[2019-03-06] MEDS: Amlodipine 10 MG TAB PO SCH (09:19)
[2019-03-06] MEDS: Aspirin Chewable 81 MG TAB PO SCH (09:20)
[2019-03-06] MEDS: Carvedilol 6.25 MG TAB PO SCH ×2 (09:20→21:20)
[2019-03-06] MEDS: Famotidine 20 MG TAB PO SCH (09:21)
[2019-03-06] MEDS: Escitalopram Oxalate 10 mg Tablet PO SCH (09:21)
[2019-03-06] MEDS: Heparin 5,000 UNITS/ML VIAL SC SCH ×3 (09:22→21:15)
[2019-03-06] MEDS: Folic Acid 1 MG TAB PO SCH (09:22)
[2019-03-06] MEDS: hydrALAZINE 25 MG TAB PO SCH ×3 (09:23→21:19)
[2019-03-06] MEDS: Insulin Glargine 20 UNITS in Pre-Filled Syringe 1 EACH SC SCH (09:23)
[2019-03-06] MEDS: Multivitamins CHEW w/Iron Tablet PO SCH (09:24)
[2019-03-06] MEDS ORDERED: Iron, Sodium Ferric Gluconate 125 MG in Sodium Chloride 0.9% 100 ML IVPB SCH (10:15)
--- NOTE | 2019-03-06 13:23 | PDOC.HOSPP ---
- Subjective non-verbal Subjective: Pt's nurse noted that pt has been having new onset fever overnight. Blood cx were taken last night - Objective Vital Signs & Weight: Vital Signs (12 hours) Temp Pulse Resp BP BP BP Pulse Ox 03/06/19 11:05 100.2 F H 91 15 155/99 H 95 03/06/19 09:23 97 142/88 H 03/06/19 09:20 142/85 H 03/06/19 09:19 97 142/88 H 03/06/19 09:15 100.9 F H 91 20 142/88 H 97 03/06/19 04:00 100.7 F H 97 20 152/92 H 96 Weight Admit Weight 282 lb 11.2 oz Weight 303 lb 8 oz Most Recent Monitor Data Heart Rate from ECG 75 NIBP 154/95 NIBP BP-Mean 114 Respiration from ECG 20 SpO2 98 I&O: 03/05/19 03/06/19 03/07/19 06:59 06:59 06:59 Intake Total 4715 5270 634 Output Total 2125 2400 Balance 2590 2870 634 Result Diagrams: 03/05/19 03:30 03/05/19 03:30 Additional Labs: Accuchecks 03/06/19 03/06/19 03/05/19 10:38 06:08 20:14 POC Glucose 239 H 240 H 242 H 03/05/19 17:30 POC Glucose 233 H Hospitalist ROS - Review of Systems ROS unobtainable: due to mental status - Medication Medications: Active Medications Generic Name Dose Route Start Last Admin Trade Name Freq PRN Reason Stop Dose Admin Acetaminophen 1,000 mg 03/05/19 01:37 03/06/19 11:27 Tylenol Elixir PER TUBE 1,000 mg Q6H PRN Administration Fever/Mild Pain Albuterol/Ipratropium 3 ml 03/01/19 15:52 03/04/19 21:34 Duoneb NEB 3 ml Q6H PRN Administration SOB &/or Wheezing Amlodipine Besylate 10 mg 02/13/19 09:00 03/06/19 09:19 Norvasc PO 10 mg DAILY PANCHO Administration Aspirin 81 mg 03/05/19 09:00 03/06/19 09:20 Aspirin Chewable PO 81 mg DAILY PANCHO Administration Atorvastatin Calcium 40 mg 02/08/19 21:00 03/05/19 22:35 Lipitor PO 40 mg HS PANCHO Administration Carvedilol 12.5 mg 02/08/19 21:00 03/06/19 09:20 Coreg PO 12.5 mg BID PANCHO Administration Docusate Sodium 100 mg 02/25/19 21:00 03/06/19 08:33 Colace Liquid PO Not Given BID PANCHO Escitalopram Oxalate 10 mg 03/04/19 09:00 03/06/19 09:21 Lexapro PO 10 mg DAILY PANCHO Administration Famotidine 20 mg 03/04/19 09:00 03/06/19 09:21 Pepcid PO 20 mg 0900 PANCHO Administration Folic Acid 1 mg 02/13/19 09:00 03/06/19 09:22 Folvite PO 1 mg DAILY PANCHO Administration Heparin Sodium (Porcine) 5,000 units 03/01/19 21:00 03/06/19 09:22 Heparin SC 5,000 units TID PANCHO Administration Hydralazine HCl 25 mg 02/12/19 15:00 03/06/19 09:23 Apresoline PO 25 mg TID PANCHO Administration Hydralazine HCl 10 mg 02/17/19 16:33 03/03/19 03:04 Apresoline SLOW IVP 10 mg Q4H PRN Administration BP > 220/110 Insulin Glargine 20 units/ 0.2 mls @ 0 mls/hr 02/09/19 09:00 03/06/19 09:23 Miscellaneous Medication SC 0.2 mls QAM PANCHO Administration Insulin Glargine 10 units/ 0.1 mls @ 0 mls/hr 02/27/19 21:00 03/05/19 22:25 Miscellaneous Medication SC 0.1 mls HS PANCHO Administration Cefepime HCl 2 gm/ Sodium 100 mls @ 200 mls/hr 03/05/19 02:00 03/06/19 01:47 Chloride IVPB 100 mls 0200,1400 PANCHO Administration Ferric Sodium Gluconate 110 mls @ 110 mls/hr 03/06/19 10:15 03/06/19 11:27 Complex 125 mg/ Sodium IVPB 03/06/19 14:00 110 mls Chloride NOW PANCHO Administration Insulin Human Lispro 0 units 02/07/19 19:09 03/06/19 11:50 Humalog SC 3 unit .MILD SLIDING SCALE PRN Administration Mild Correctional Scale Insulin Human Lispro 0 units 02/07/19 19:09 03/03/19 00:12 Humalog SC 2 unit .BEDTIME SLIDING SC PRN Administration Bedtime Correctional Scale Labetalol HCl 20 mg 02/17/19 16:33 02/22/19 21:25 Normodyne SLOW IVP 20 mg Q1H PRN Administration BP > 220/110 Multivitamins/Iron 1 tab 02/16/19 09:00 03/06/19 09:24 Centrum Kids Complete/Iron PO 1 tab DAILY PANCHO Administration Ondansetron HCl 4 mg 02/07/19 19:05 02/15/19 14:23 Zofran IVP 4 mg Q6H PRN Administration Nausea/Vomiting Scopolamine 1.5 mg 02/21/19 13:00 03/05/19 13:47 Transderm Scop TD 1.5 mg Q3D PANCHO Administration Sodium Chloride 10 ml 02/07/19 19:05 03/05/19 09:32 Flush - Normal Saline IVF 10 ml Q12H PRN Administration Saline Flush - Exam General Appearance: ill appearing Eye: PERRL, anicteric sclera ENT: normocephalic atraumatic, moist mucosa Neck: supple, symmetric, no JVD, no thyromegaly Neck - other findings: Trach noted Heart: RRR, no murmur, no gallops, no rubs Respiratory: CTAB, no wheezes, no rales, no ronchi Gastrointestinal: soft, non-tender, non-distended, normal bowel sounds Gastrointestinal - other findings: PEG noted Extremities: no cyanosis, no clubbing, no edema Extremities - other findings: Left BKA Neurological: hemiplegia Musculoskeletal: generalized weakness Psychiatric: not oriented, lethargic Hosp A/P (1) Fever Code(s): R50.9 - FEVER, UNSPECIFIED Status: Resolved Qualifiers: Fever type: unspecified Qualified Code(s): R50.9 - Fever, unspecified Plan: New onset. Etiology unclear. Will check UA and CXR. Blood cx have already been taken. Will give Tylenol PRN. - Plan Hosp A/P (1) Status post below-knee amputation of left lower extremity Code(s): Z89.512 - ACQUIRED ABSENCE OF LEFT LEG BELOW KNEE Status: Acute Plan: Cont supportive care. (2) Anoxic brain injury Status: Resolved Plan: Cont supportive care. (3) Acute respiratory failure with hypoxia and hypercapnia Code(s): J96.01 - ACUTE RESPIRATORY FAILURE WITH HYPOXIA; J96.02 - ACUTE RESPIRATORY FAILURE WITH HYPERCAPNIA Status: Acute Plan: Cont Trach. (4) Diabetes mellitus Code(s): E11.9 - TYPE 2 DIABETES MELLITUS WITHOUT COMPLICATIONS Status: Chronic Qualifiers: Diabetes mellitus type: type 2 Diabetes mellitus senior care insulin use: with senior care use Diabetes mellitus complication status: with circulatory complication Plan: Stable. Cont current mgt. Monitor BG. (5) Acute on chronic renal insufficiency Code(s): N28.9 - DISORDER OF KIDNEY AND URETER, UNSPECIFIED; N18.9 - CHRONIC KIDNEY DISEASE, UNSPECIFIED Status: Resolved Plan: Monitor Cr. (6) Hypertension Code(s): I10 - ESSENTIAL (PRIMARY) HYPERTENSION Status: Chronic Qualifiers: Hypertension type: essential hypertension Qualified Code(s): I10 - Essential (primary) hypertension Plan: Stable. Cont BP meds (7) Anemia Code(s): D64.9 - ANEMIA, UNSPECIFIED Status: Acute Qualifiers: Anemia type: folate deficiency Plan: Likely chr. Will avoid unnecessary blood draws. Cont IV iron. (8) CHF (congestive heart failure) Code(s): I50.9 - HEART FAILURE, UNSPECIFIED Status: Chronic Qualifiers: Heart failure type: diastolic Heart failure chronicity: acute on chronic Qualified Code(s): I50.33 - Acute on chronic diastolic (congestive) heart failure Plan: Stable, cont med mgt. - Plan plan discussed w/ family. PPx: SCDs. CODE: FULL. Dispo: Cont current mgt.
--- NOTE | 2019-03-06 13:49 | RAD ---
EXAM: Single view of the chest HISTORY: Fever COMPARISON: 03/04/2019 FINDINGS: Single view of the chest shows an enlarged but stable cardiomediastinal silhouette. A trac heostomy is unchanged in position. The central venous catheter is unchanged in position. There is a veil like opacity in the right thorax which likely represents a layering pleural effusion. The bone s are unremarkable. IMPRESSION: Stable exam
[2019-03-06 13:51] LABS: Bilirubin Negative (Negative); Blood, Urine Negative (Negative); Clarity Turbid (Clear); Glucose, Urine (Dipstick) Normal (Negative); Leukocyte 75 Leu/uL (Negative); Nitrite Negative (Negative); Protein, Urine (Dipstick) 30 mg/dL (Neg-Trace); RBC/HPF 0-3 HPF (0-3); Squamous Epithelial 0-3 HPF (0-3); Urobilinogen Normal mg/dL (Less than 2)
[2019-03-06 14:01] LABS: Bacteria/HPF None Seen HPF (None Seen); Yeast-Budding 1+ HPF (None Seen)
[2019-03-06 14:03] LABS: Urine Culture Reflex Yes Yes
[2019-03-06] MEDS: Insulin Glargine 10 UNITS in Pre-Filled Syringe 1 EACH SC SCH (21:19)
[2019-03-06] MEDS: Atorvastatin Calcium 40 MG TAB PO SCH (21:20)
[2019-03-07] MEDS: Acetaminophen 650 MG/20.3 ML UDCUP PER TUBE PRN ×2 (01:02→15:52)
[2019-03-07] MEDS: Cefepime 2 GM in Sodium Chloride 0.9% 100 ML IVPB SCH ×2 (03:34→14:33)
[2019-03-07 05:31] LABS: #Eosinphils 0.5 thou/uL (0.0-0.7); #Monocytes 0.6 thou/uL (0.11-0.59); #Neutrophils 4.7 thou/uL (1.40-6.50); %Basophils 0.1 % (0.0-1.0); %Lymphocytes 25.6 % (21.0-51.0); %Monocytes 8.1 % (0.0-10.0); %Neutrophils 60.2 % (42.0-75.0); Hemoglobin 7.1 g/dL (14.0-18.0); Mean Corpuscular HGB CONC 29.5 g/dL (32.0-36.0); Mean Corpuscular Hemoglobin 24.5 pg (27.0-31.0); Mean Corpuscular Volume 83.2 fL (78.0-98.0); Mean Platelet Volume 8.2 fL (7.4-10.4); Platelet Count 315 thou/uL (130-400); RBC Distribution Width 15.9 % (11.5-14.5); Red Blood Cell (RBC) Count 2.91 mill/uL (4.70-6.10); White Blood Cell (WBC) Count 7.8 thou/uL (4.8-10.8)
[2019-03-07 05:50] LABS: Anion Gap 12 mmol/L (10-20); BUN (Urea Nitrogen) 43 mg/dL (8.4-25.7); Calc. Creatinine Clearance 80 mL/min (70-130); Carbon Dioxide 27 mmol/L (22-29); Chloride 114 mmol/L (98-107); Estimated GFR-MDRD 42; Glucose 202 mg/dL (70-105); Potassium 3.7 mmol/L (3.5-5.1); Sodium 149 mmol/L (136-145)
[2019-03-07] MEDS: HumaLOG 300 UNITS/3 ML VIAL SC PRN ×3 (06:20→19:33)
[2019-03-07] MEDS: Multivitamin W/ Minerals 1 TAB PO SCH (09:04)
[2019-03-07] MEDS: Insulin Glargine 20 UNITS in Pre-Filled Syringe 1 EACH SC SCH (09:04)
[2019-03-07] MEDS: Multivitamins CHEW w/Iron Tablet PO SCH (09:04)
[2019-03-07] MEDS: Escitalopram Oxalate 10 mg Tablet PO SCH (09:05)
[2019-03-07] MEDS: Carvedilol 6.25 MG TAB PO SCH ×2 (09:05→21:48)
[2019-03-07] MEDS: Amlodipine 10 MG TAB PO SCH (09:05)
[2019-03-07] MEDS: Aspirin Chewable 81 MG TAB PO SCH (09:05)
[2019-03-07] MEDS: Famotidine 20 MG TAB PO SCH (09:06)
[2019-03-07] MEDS: Folic Acid 1 MG TAB PO SCH (09:06)
[2019-03-07] MEDS: Heparin 5,000 UNITS/ML VIAL SC SCH ×3 (09:06→21:49)
[2019-03-07] MEDS: hydrALAZINE 25 MG TAB PO SCH ×3 (09:06→21:49)
[2019-03-07] MEDS: Docusate Sodium 100 MG/10 ML UDCUP PO SCH ×2 (09:43→23:00)
[2019-03-07] MEDS ORDERED: Fluconazole In NaCl,Iso-Osm 100 MG in Admixture Fee 2 EACH IVPB SCH (12:00)
--- NOTE | 2019-03-07 15:43 | PRG ---
DATE OF SERVICE: 03/07/2019 SERVICE: Pulmonary Medicine. INTERVAL HISTORY: The patient is doing fine from respiratory standpoint. Breathing comfortably. No cough, sputum production, fevers, or chills. Otherwise, there has been no change to his condition. PHYSICAL EXAMINATION: VITAL SIGNS: Afebrile currently with a T-max of 102.3 overnight. Pulse 89, blood pressure 142/83, respirations 24, saturation 97% on T-collar with 6L blood into it. HEENT: Normocephalic and atraumatic. Sclerae white. Conjunctivae pink. Oral mucosa is moist without lesions. LUNGS: Decent air entry. Rhonchi are present. No prolonged expiratory phase or wheezing is appreciated. HEART: Normal rate. Regular. ABDOMEN: Soft, nontender, and nondistended. Bowel sounds are positive. MUSCULOSKELETAL: No cyanosis or clubbing. No pitting in the bilateral lower extremities. LABORATORY DATA: WBC 7.8, hemoglobin 7.1, and platelets 315,000. Sodium 149 and gently downtrending. Creatinine 1.98, and roughly stable. Basic metabolic profile is otherwise unremarkable. Urinalysis from the is unremarkable except for minimal pyuria. Urine is growing some yeast, which is budding. IMAGING: Chest x-ray demonstrates stable exam. Tracheostomy is in good position. Central venous catheter is in place. A possible right-sided layering effusion is present. Lung volumes remain reduced. ASSESSMENT: 1. Acute hypoxic respiratory failure. 2. Wet gangrene in the left lower extremity, status post below-knee amputation. 3. Acute cerebrovascular accident, embolic, occurring on postop day 1. 4. Acute kidney injury on chronic kidney disease 3, at baseline. 5. Status post PEG tube and tracheostomy. DISCUSSION AND PLAN: We will increase our free water ever so slightly. He has had a recurrence in sepsis profile. We will get a Gram stain and culture of his respiratory sputum. Empiric antibiotics as well as antifungal coverage has once again been initiated. Hopefully, he will be able to complete his entire course this time through. Pulmonary will follow. Job ID: [id number]
[2019-03-07] MEDS: Dextrose 5% in Water 1,000 ML IV SCH (15:52)
--- NOTE | 2019-03-07 16:38 | PRG ---
DATE OF SERVICE: 03/07/2019 SUBJECTIVE: The patient has been transferred from the unit after PEG and trach. After his CVA, he still has no mental status. He is pretty much in a vegetative state and is unable to interact with the examiner. He has had some loose stool, but does not look like Clostridium difficile stool according to nurse, has a stage II sacral decubitus ulcer. OBJECTIVE: VITAL SIGNS: He has had recurrent episodes of temperature elevation now in a more consistent way, the maximum was 102.3 early this morning, now is 100.1. His BP 140/83, pulse 89, respirations 16, O2 saturation 89. HEENT: He does not establish eye contact. Pupils are equal about 2 mm and reactive. SKIN: Tracheostomy and gastrostomy tube sites appear normal. The patient has a full indwelling Richards catheter in place. Positive fluid balance for the past few days, and he has a few round-shaped ulcerations in the medial aspect of the right ankle associated with peripheral vascular disease. The left BKA site appears intact. The patient has a triple-lumen catheter in the left subclavian location. LUNGS: Diminished breath sounds in the right hemithorax. HEART: S1 and S2. ABDOMEN: Soft. Not distended. Bowel sounds are present. Could not test movements due to mental status. LABORATORY DATA: Sodium 149; creatinine 1.98, which is stable compared with prior values. The last bilirubin is 0.3 from the 24, AST 18, ALT 22. Urinalysis from March 06, with 11 to 20 wbc's. Microbiology with 2 sets of negative blood cultures from March 05, and negative urine cultures at 24 hours and 36 hours. IMAGING STUDIES: Include a chest x-ray with evidence of right hemithorax layering pleural effusion. MEDICATIONS: He is currently on: 1. MiraLAX. 2. Senokot. 3. Zofran. 4. Centrum. 5. Lactulose. 6. Normodyne. 7. Humalog insulin. 8. Apresoline. 9. Fluconazole. 10. Cefepime. 11. Coreg. ASSESSMENT: Peripheral vascular disease; type 2 diabetes; chronic ulcers in the lower extremities, which culminated in the left below-knee amputation; renal insufficiency, stage 2 to 3; multifocal cerebrovascular accidents, probably from atheroemboli with vegetative state; tracheostomy and gastrostomy tube feedings; and all low-grade temperature elevation with abnormal chest x-ray. DISCUSSION: Differential diagnosis includes thromboembolism versus aspiration pneumonia as the more likely scenario. Mucus plugging is a concern. Check duplex ultrasound of lower extremity, CT chest and abdomen, may need a V/Q scan. Discontinue cefepime and switch to meropenem and vancomycin. Job ID: [id number]
--- NOTE | 2019-03-07 17:05 | PDOC.HOSPP ---
- Subjective Subjective: No new issues. Still running low grade fever. is at bedside. - Objective Vital Signs & Weight: Vital Signs (12 hours) Temp Pulse Resp BP BP Pulse Ox 03/07/19 15:24 100.1 F H 93 16 142/83 H 89 L 03/07/19 14:35 89 142/83 H 03/07/19 11:34 99.8 F H 89 24 H 151/73 H 97 03/07/19 09:10 97 03/07/19 09:06 89 156/94 H 03/07/19 09:05 89 156/94 H 03/07/19 07:30 99.4 F 89 18 156/94 H 94 L 03/07/19 06:36 99.7 F H Weight Admit Weight 282 lb 11.2 oz Weight 302 lb 6.4 oz Most Recent Monitor Data Heart Rate from ECG 75 NIBP 154/95 NIBP BP-Mean 114 Respiration from ECG 20 SpO2 98 I&O: 03/06/19 03/07/19 03/08/19 06:59 06:59 06:59 Intake Total 5270 3915 474 Output Total 2400 1400 Balance 2870 2515 474 Result Diagrams: 03/07/19 05:17 03/07/19 05:17 Additional Labs: Accuchecks 03/07/19 03/07/19 03/07/19 16:38 11:00 05:55 POC Glucose 255 H 245 H 224 H 03/06/19 03/06/19 20:15 17:25 POC Glucose 180 H 190 H Hospitalist ROS - Review of Systems ROS unobtainable: due to mental status - Medication Medications: Active Medications Generic Name Dose Route Start Last Admin Trade Name Freq PRN Reason Stop Dose Admin Acetaminophen 1,000 mg 03/05/19 01:37 03/07/19 15:52 Tylenol Elixir PER TUBE 1,000 mg Q6H PRN Administration Fever/Mild Pain Albuterol/Ipratropium 3 ml 03/01/19 15:52 03/04/19 21:34 Duoneb NEB 3 ml Q6H PRN Administration SOB &/or Wheezing Amlodipine Besylate 10 mg 02/13/19 09:00 03/07/19 09:05 Norvasc PO 10 mg DAILY PANCHO Administration Aspirin 81 mg 03/05/19 09:00 03/07/19 09:05 Aspirin Chewable PO 81 mg DAILY PANCHO Administration Atorvastatin Calcium 40 mg 02/08/19 21:00 03/06/19 21:20 Lipitor PO 40 mg HS PANCHO Administration Carvedilol 12.5 mg 02/08/19 21:00 03/07/19 09:05 Coreg PO 12.5 mg BID PANCHO Administration Docusate Sodium 100 mg 02/25/19 21:00 03/07/19 09:43 Colace Liquid PO Not Given BID [facility] Escitalopram Oxalate 10 mg 03/04/19 09:00 03/07/19 09:05 Lexapro PO 10 mg DAILY PANCHO Administration Famotidine 20 mg 03/04/19 09:00 03/07/19 09:06 Pepcid PO 20 mg 0900 [facility] Administration Folic Acid 1 mg 02/13/19 09:00 03/07/19 09:06 Folvite PO 1 mg DAILY PANCHO Administration Heparin Sodium (Porcine) 5,000 units 03/01/19 21:00 03/07/19 14:32 Heparin SC 5,000 units TID PANCHO Administration Hydralazine HCl 25 mg 02/12/19 15:00 03/07/19 14:35 Apresoline PO 25 mg TID PANCHO Administration Hydralazine HCl 10 mg 02/17/19 16:33 03/03/19 03:04 Apresoline SLOW IVP 10 mg Q4H PRN Administration BP > 220/110 Insulin Glargine 20 units/ 0.2 mls @ 0 mls/hr 02/09/19 09:00 03/07/19 09:04 Miscellaneous Medication SC 0.2 mls QAM PANCHO Administration Insulin Glargine 10 units/ 0.1 mls @ 0 mls/hr 02/27/19 21:00 03/06/19 21:19 Miscellaneous Medication SC 0.1 mls HS PANCHO Administration Dextrose/Water 1,000 mls @ 100 mls/hr 03/07/19 15:30 03/07/19 15:52 D5w IV 03/08/19 11:29 1,000 mls .Q10H PANCHO Administration Insulin Human Lispro 0 units 02/07/19 19:09 03/07/19 12:59 Humalog SC 3 unit .MILD SLIDING SCALE PRN Administration Mild Correctional Scale Insulin Human Lispro 0 units 02/07/19 19:09 03/03/19 00:12 Humalog SC 2 unit .BEDTIME SLIDING SC PRN Administration Bedtime Correctional Scale Iron/Minerals/Multivitamins 1 tab 03/07/19 09:00 03/07/19 09:04 Theragran M PO 1 tab DAILY PANCHO Administration Labetalol HCl 20 mg 02/17/19 16:33 02/22/19 21:25 Normodyne SLOW IVP 20 mg Q1H PRN Administration BP > 220/110 Multivitamins/Iron 1 tab 02/16/19 09:00 03/07/19 09:04 Centrum Kids Complete/Iron PO 1 tab DAILY PANCHO Administration Ondansetron HCl 4 mg 02/07/19 19:05 02/15/19 14:23 Zofran IVP 4 mg Q6H PRN Administration Nausea/Vomiting Scopolamine 1.5 mg 02/21/19 13:00 03/05/19 13:47 Transderm Scop TD 1.5 mg Q3D PANCHO Administration Sodium Chloride 10 ml 02/07/19 19:05 03/05/19 09:32 Flush - Normal Saline IVF 10 ml Q12H PRN Administration Saline Flush - Exam General Appearance: ill appearing Eye: PERRL, anicteric sclera ENT: normocephalic atraumatic, no oropharyngeal lesions, moist mucosa ENT - other findings: trach noted Neck: supple, symmetric, no JVD, no thyromegaly, no lymphadenopathy Heart: RRR, no murmur, no gallops, no rubs, normal peripheral pulses Respiratory: CTAB, no wheezes, no rales, no ronchi Gastrointestinal: soft, non-tender, non-distended, normal bowel sounds Gastrointestinal - other findings: PEG noted Extremities: no cyanosis, no clubbing, no edema Skin: no lesions, no rashes Neurological: no focal deficits, hemiplegia Neurological - other findings: Unable to assess Musculoskeletal: generalized weakness Musculoskeletal - other findings: Left BKA Psychiatric - other findings: Unable to assess Hosp A/P (1) Fever Code(s): R50.9 - FEVER, UNSPECIFIED Status: Resolved Qualifiers: Fever type: unspecified Qualified Code(s): R50.9 - Fever, unspecified Plan: CXR is neg, UA shows possible yeast UTI. Pt was already on abx but will add Diflucan. have also consulted ID, will f/u withe their recs. (2) UTI (urinary tract infection) Status: Acute Qualifiers: Indwelling urinary catheter type: indwelling urethral catheter Encounter type: initial encounter Plan: Urine shows some yeast so will start pt on Diflucan. Will also consult ID due to ongoing fever despite abx use. Will f/u with ID recs. - Plan Hosp A/P (1) Status post below-knee amputation of left lower extremity Code(s): Z89.512 - ACQUIRED ABSENCE OF LEFT LEG BELOW KNEE Status: Acute Plan: Cont supportive care. (2) Anoxic brain injury Status: Resolved Plan: Cont supportive care. (3) Acute respiratory failure with hypoxia and hypercapnia Code(s): J96.01 - ACUTE RESPIRATORY FAILURE WITH HYPOXIA; J96.02 - ACUTE RESPIRATORY FAILURE WITH HYPERCAPNIA Status: Acute Plan: Cont Trach. (4) Diabetes mellitus Code(s): E11.9 - TYPE 2 DIABETES MELLITUS WITHOUT COMPLICATIONS Status: Chronic Qualifiers: Diabetes mellitus type: type 2 Diabetes mellitus termite treater helper insulin use: with jail use Diabetes mellitus complication status: with circulatory complication Plan: Stable. Cont current mgt. Monitor BG. (5) Acute on chronic renal insufficiency Code(s): N28.9 - DISORDER OF KIDNEY AND URETER, UNSPECIFIED; N18.9 - CHRONIC KIDNEY DISEASE, UNSPECIFIED Status: Resolved Plan: Monitor Cr. (6) Hypertension Code(s): I10 - ESSENTIAL (PRIMARY) HYPERTENSION Status: Chronic Qualifiers: Hypertension type: essential hypertension Qualified Code(s): I10 - Essential (primary) hypertension Plan: Stable. Cont BP meds (7) Anemia Code(s): D64.9 - ANEMIA, UNSPECIFIED Status: Acute Qualifiers: Anemia type: folate deficiency Plan: Likely chr. Will avoid unnecessary blood draws. Cont IV iron. (8) CHF (congestive heart failure) Code(s): I50.9 - HEART FAILURE, UNSPECIFIED Status: Chronic Qualifiers: Heart failure type: diastolic Heart failure chronicity: acute on chronic Qualified Code(s): I50.33 - Acute on chronic diastolic (congestive) heart failure Plan: Stable, cont med mgt. plan discussed w/ family. PPx: SCDs. CODE: FULL. Dispo: Awaiting placement. Will d/c when accepted. Will f/u with adult protective caseworker. Cont current mgt.
[2019-03-07] MEDS: Vancomycin HCl 1 GM in Premix Bag 1 BAG IVPB SCH (19:33)
--- NOTE | 2019-03-07 20:00 | CT ---
CT CHEST PERFORMED WITHOUT CONTRAST ENHANCEMENT: History: Follow up of abnormal chest radiograph showing an abnormal density over the right chest. Comparison: Prior day's chest radiograph. FINDINGS: There is a moderate right sided pleural effusion. In addition, there is right parahilar lung changes which have an appearance more suggestive of a pneumonic type process than an asymmetric pulmonary thelma ma change. Left lung is essentially clear. The thoracic aorta is normal in caliber. No significant mediastinal adenopathy. Visualized liver parenchyma is normal. IMPRESSION: Moderate right sided pleural effusion with right parahilar infiltrative appearing changes involving t he right upper and lower lobes, also some right middle lobe parenchymal change. I believe these medrano es are more likely pneumonic in nature than related to an asymmetric edema pattern. POS: JANELLE
[2019-03-07] MEDS: Atorvastatin Calcium 40 MG TAB PO SCH (21:48)
[2019-03-07] MEDS: Insulin Glargine 10 UNITS in Pre-Filled Syringe 1 EACH SC SCH (21:49)
[2019-03-07] MEDS: MEROPENEM 1 GM/50 ML 1 GM in Premix Bag 1 BAG IVPB SCH (21:49)
--- NOTE | 2019-03-07 21:52 | ULT ---
Bilateral lower extremity venous duplex exam: HISTORY: Bilateral lower extremity pain and edema. COMPARISON: None. FINDINGS: Real-time color Doppler evaluation of the right and left lower extremities were performed f rom groin to calf. This includes evaluation the common femoral superficial and profunda femoral, saphenous, popliteal veins. The patient has had a below the knee amputation on the left. The right po sterior tibial vein was evaluated. There are patent deep venous systems bilaterally. There is normal compressibility and augmentation. IMPRESSION: No evidence of DVT of either lower extremity.
[2019-03-08] MEDS: Dextrose 5% in Water 1,000 ML IV SCH (03:00)
[2019-03-08] MEDS: Vancomycin HCl 1 GM in Premix Bag 1 BAG IVPB SCH ×2 (05:18→16:07)
[2019-03-08] MEDS: HumaLOG 300 UNITS/3 ML VIAL SC PRN ×4 (06:42→22:44)
[2019-03-08] MEDS: Docusate Sodium 100 MG/10 ML UDCUP PO SCH ×2 (07:50→22:42)
[2019-03-08] MEDS: Aspirin Chewable 81 MG TAB PO SCH (09:42)
[2019-03-08] MEDS: Carvedilol 6.25 MG TAB PO SCH ×2 (09:42→22:41)
[2019-03-08] MEDS: Amlodipine 10 MG TAB PO SCH (09:42)
[2019-03-08] MEDS: Folic Acid 1 MG TAB PO SCH (09:43)
[2019-03-08] MEDS: Escitalopram Oxalate 10 mg Tablet PO SCH (09:43)
[2019-03-08] MEDS: Famotidine 20 MG TAB PO SCH (09:43)
[2019-03-08] MEDS: Multivitamin W/ Minerals 1 TAB PO SCH (09:43)
[2019-03-08] MEDS: Heparin 5,000 UNITS/ML VIAL SC SCH ×3 (09:44→22:41)
[2019-03-08] MEDS: Multivitamins CHEW w/Iron Tablet PO SCH (09:44)
[2019-03-08] MEDS: Insulin Glargine 20 UNITS in Pre-Filled Syringe 1 EACH SC SCH (09:45)
[2019-03-08] MEDS: MEROPENEM 1 GM/50 ML 1 GM in Premix Bag 1 BAG IVPB SCH ×2 (09:46→22:41)
[2019-03-08] MEDS: hydrALAZINE 25 MG TAB PO SCH ×3 (09:47→22:40)
[2019-03-08] MEDS: Scopolamine 1.5 mg/72 hour Patch TD SCH (13:56)
--- NOTE | 2019-03-08 17:07 | PRG ---
DATE OF SERVICE: 03/08/2019 SUBJECTIVE: Mr. Silvestre has improved. His mental state is awake, establishes eye contact, smiles. He apparently kissed his 's hand twice. OBJECTIVE: VITAL SIGNS: His temperature seems to be trending down from yesterday. HEENT: His pupils are equal. He has a left hemiparesis. LUNGS: Symmetric air entry. Somewhat coarse breath sounds, particularly in the right side. HEART: S1 and S2. Regular rate. ABDOMEN: Moderately distended, but no guarding. : He has an indwelling Richards catheter. His I's and O's have been positive. VITAL SIGNS: O2 saturations range from 93% to 96%. LABORATORY DATA: White cell count 7.8, hemoglobin 7.1, platelets 315. Creatinine is 1.98, which is a bit lower. Microbiology with negative urine culture at 48 hours and negative blood cultures at 48 hours from the 25th. He is currently on meropenem and vancomycin. CT of chest showed multiple infiltrates in the right side consistent with pneumonia. Venogram was negative. ASSESSMENT AND DISCUSSION: Peripheral vascular disease; type 2 diabetes; chronic ulcers in lower extremities, which culminated in left below-knee amputation; renal insufficiency, stage 2 to 3; multifocal cerebrovascular accidents, probably from atheroemboli previously with what I felt was vegetative state, but he has improved tremendously and now is establishing eye contact and interacting. Tracheostomy, gastrostomy, and temperature elevation with abnormal CT suggestive of aspiration pneumonia. Continue meropenem and vancomycin for a few more days. Job ID: [id number]
--- NOTE | 2019-03-08 20:08 | PDOC.HOSPP ---
- Subjective Encounter Date: 03/08/19 Encounter Time: 19:30 Subjective: f/u for resp failure with trach/PEG, CVA with aphasia/dysphagia and R-sided HCAP on Meropenem/Vancomycin. reports pt more alert today. - Objective Vital Signs & Weight: Vital Signs (12 hours) Temp Pulse Pulse Resp BP BP BP 03/08/19 15:57 81 120/75 03/08/19 15:49 98.2 F 81 18 03/08/19 13:12 91 113/70 118/69 03/08/19 11:50 99.3 F 85 20 03/08/19 09:47 84 134/86 03/08/19 09:42 84 134/86 BP Pulse Ox 03/08/19 15:57 03/08/19 15:49 115/71 93 L 03/08/19 13:12 03/08/19 11:50 118/76 94 L 03/08/19 09:47 03/08/19 09:42 Weight Admit Weight 282 lb 11.2 oz Weight 302 lb 6.4 oz Most Recent Monitor Data Heart Rate from ECG 75 NIBP 154/95 NIBP BP-Mean 114 Respiration from ECG 20 SpO2 98 I&O: 03/07/19 03/08/19 03/09/19 06:59 06:59 06:59 Intake Total 3915 3640 2612 Output Total 1400 3450 800 Balance 2515 190 1812 Result Diagrams: 03/07/19 05:17 03/07/19 05:17 Additional Labs: Accuchecks 03/08/19 03/08/19 03/08/19 16:53 10:51 06:07 POC Glucose 301 H 316 H 295 H 03/07/19 21:49 POC Glucose 274 H Microbiology 03/06/19 14:02 Urine orozco catheter Urine Culture - Final NO GROWTH AT 48 HOURS 03/05/19 03:58 Urine orozco catheter Urine Culture - Final NO GROWTH AT 36 HOURS 03/05/19 02:21 Venous blood - Left Arm Blood Culture - Preliminary NO GROWTH AT 48 HOURS 03/05/19 02:04 Venous blood - Left Arm Blood Culture - Preliminary NO GROWTH AT 48 HOURS Laboratory Tests 03/01/19 03/04/19 03/04/19 04:43 10:52 10:52 Hgb 7.2 L Sodium 145 150 H Creatinine 2.19 H 1.95 H 01/25/20 01/25/20 03:30 03:30 Hgb 7.3 L Sodium 150 H Creatinine 2.00 H Radiology Reviewed by me: Yes (CT chest - dense infiltrates R-side, trach in place) EKG Reviewed by me: Yes (Tele - SR) Hospitalist ROS - Medication Medications: Active Medications Generic Name Dose Route Start Last Admin Trade Name Freq PRN Reason Stop Dose Admin Acetaminophen 1,000 mg 03/05/19 01:37 03/07/19 15:52 Tylenol Elixir PER TUBE 1,000 mg Q6H PRN Administration Fever/Mild Pain Albuterol/Ipratropium 3 ml 03/01/19 15:52 03/04/19 21:34 Duoneb NEB 3 ml Q6H PRN Administration SOB &/or Wheezing Amlodipine Besylate 10 mg 02/13/19 09:00 03/08/19 09:42 Norvasc PO 10 mg DAILY PANCHO Administration Aspirin 81 mg 03/05/19 09:00 03/08/19 09:42 Aspirin Chewable PO 81 mg DAILY PANCHO Administration Atorvastatin Calcium 40 mg 02/08/19 21:00 03/07/19 21:48 Lipitor PO 40 mg HS PANCHO Administration Carvedilol 12.5 mg 02/08/19 21:00 03/08/19 09:42 Coreg PO 12.5 mg BID PANCHO Administration Docusate Sodium 100 mg 02/25/19 21:00 03/08/19 07:50 Colace Liquid PO Not Given BID [facility] Escitalopram Oxalate 10 mg 03/04/19 09:00 03/08/19 09:43 Lexapro PO 10 mg DAILY PANCHO Administration Famotidine 20 mg 03/04/19 09:00 03/08/19 09:43 Pepcid PO 20 mg 0900 PANCHO Administration Folic Acid 1 mg 02/13/19 09:00 03/08/19 09:43 Folvite PO 1 mg DAILY PANCHO Administration Heparin Sodium (Porcine) 5,000 units 03/01/19 21:00 03/08/19 15:56 Heparin SC 5,000 units TID PANCHO Administration Hydralazine HCl 25 mg 02/12/19 15:00 03/08/19 15:57 Apresoline PO Not Given TID PANCHO Hydralazine HCl 10 mg 02/17/19 16:33 03/03/19 03:04 Apresoline SLOW IVP 10 mg Q4H PRN Administration BP > 220/110 Insulin Glargine 20 units/ 0.2 mls @ 0 mls/hr 02/09/19 09:00 03/08/19 09:45 Miscellaneous Medication SC 0.2 mls QAM PANCHO Administration Insulin Glargine 10 units/ 0.1 mls @ 0 mls/hr 02/27/19 21:00 03/07/19 21:49 Miscellaneous Medication SC 0.1 mls HS PANCHO Administration Meropenem 1 gm/ Device 50 mls @ 100 mls/hr 03/07/19 21:00 03/08/19 09:46 IVPB 50 mls Q12HR PANCHO Administration Vancomycin HCl 1 gm/ Device 200 mls @ 200 mls/hr 03/07/19 17:00 03/08/19 16: 07 IVPB 200 mls 0500,1700 PANCHO Administration Insulin Human Lispro 0 units 02/07/19 19:09 03/08/19 18:06 Humalog SC 5 unit .MILD SLIDING SCALE PRN Administration Mild Correctional Scale Insulin Human Lispro 0 units 02/07/19 19:09 03/03/19 00:12 Humalog SC 2 unit .BEDTIME SLIDING SC PRN Administration Bedtime Correctional Scale Iron/Minerals/Multivitamins 1 tab 03/07/19 09:00 03/08/19 09:43 Theragran M PO 1 tab DAILY PANCHO Administration Labetalol HCl 20 mg 02/17/19 16:33 02/22/19 21:25 Normodyne SLOW IVP 20 mg Q1H PRN Administration BP > 220/110 Multivitamins/Iron 1 tab 02/16/19 09:00 03/08/19 09:44 Centrum Kids Complete/Iron PO 1 tab DAILY PANCHO Administration Ondansetron HCl 4 mg 02/07/19 19:05 02/15/19 14:23 Zofran IVP 4 mg Q6H PRN Administration Nausea/Vomiting Scopolamine 1.5 mg 02/21/19 13:00 03/08/19 13:56 Transderm Scop TD 1.5 mg Q3D PANCHO Administration Sodium Chloride 10 ml 02/07/19 19:05 03/05/19 09:32 Flush - Normal Saline IVF 10 ml Q12H PRN Administration Saline Flush - Exam General Appearance: ill appearing General - other findings: opens eyes and tracks to name Eye: PERRL, anicteric sclera ENT: normocephalic atraumatic, no oropharyngeal lesions ENT - other findings: trach in place Neck: supple, symmetric, no JVD, no thyromegaly Heart: RRR, no murmur, no gallops, no rubs, normal peripheral pulses Respiratory - other findings: coarse sounds on R, diminished bilat Gastrointestinal: soft, non-tender, non-distended, normal bowel sounds Gastrointestinal - other findings: PEG in place Extremities: no cyanosis Extremities - other findings: L BKA Skin: normal turgor Skin - other findings: mild edema of foreskin, Orozco in place Neurological - other findings: aphasic, dysphagia Hosp A/P (1) Healthcare-associated pneumonia Code(s): J18.9 - PNEUMONIA, UNSPECIFIED ORGANISM Status: Acute Plan: Continue Meropenem/Vancomycin, general pulmonary support (2) Acute CVA (cerebrovascular accident) Code(s): I63.9 - CEREBRAL INFARCTION, UNSPECIFIED Status: Acute Plan: Continue routine stroke protocol, CHEMICAL WORKER/PT/OT, SNF options pending (3) Acute respiratory failure with hypoxia and hypercapnia Code(s): J96.01 - ACUTE RESPIRATORY FAILURE WITH HYPOXIA; J96.02 - ACUTE RESPIRATORY FAILURE WITH HYPERCAPNIA Status: Acute (4) Acute on chronic renal insufficiency Code(s): N28.9 - DISORDER OF KIDNEY AND URETER, UNSPECIFIED; N18.9 - CHRONIC KIDNEY DISEASE, UNSPECIFIED Status: Acute Plan: Increase free-H2O with TF's, monitor renal function, avoid nephrotoxic meds and limit contrast (5) Hypernatremia Code(s): E87.0 - HYPEROSMOLALITY AND HYPERNATREMIA Status: Acute Plan: Likely due to dehydration, increase free-H2O - Plan plan discussed w/ family, continue antibiotics, PT/OT, foster care social worker, speech therapy, respiratory therapy, DVT proph w/SCDs Continue supportive mgmt Continue Meropenem/Vancomycin Continue ASA daily Increase free-H2O 60ml pre/post TF's CM for SNF options Bacitracin ointment to glans AM Lab: BMP, H/H
[2019-03-08] MEDS: Insulin Glargine 10 UNITS in Pre-Filled Syringe 1 EACH SC SCH (22:40)
[2019-03-08] MEDS: Atorvastatin Calcium 40 MG TAB PO SCH (22:41)
[2019-03-08] MEDS: Bacitracin 1 PK TOP SCH (23:25)
[2019-03-09] MEDS: Acetaminophen 650 MG/20.3 ML UDCUP PER TUBE PRN (03:55)
[2019-03-09] MEDS: Vancomycin HCl 1 GM in Premix Bag 1 BAG IVPB SCH (04:51)
[2019-03-09 05:09] LABS: Hemoglobin 6.6 g/dL (14.0-18.0); Platelet Count 265 thou/uL (130-400)
[2019-03-09 05:26] LABS: Vancomycin, Trough 24.1 ug/mL
[2019-03-09 05:28] LABS: Anion Gap 13 mmol/L (10-20); BUN (Urea Nitrogen) 46 mg/dL (8.4-25.7); Calc. Creatinine Clearance 81 mL/min (70-130); Calcium 8.8 mg/dL (7.8-10.44); Carbon Dioxide 25 mmol/L (22-29); Chloride 110 mmol/L (98-107); Estimated GFR-MDRD 43; Glucose 198 mg/dL (70-105); Potassium 3.9 mmol/L (3.5-5.1); Sodium 144 mmol/L (136-145)
[2019-03-09] MEDS: HumaLOG 300 UNITS/3 ML VIAL SC PRN (06:41)
[2019-03-09] MEDS: Heparin 5,000 UNITS/ML VIAL SC SCH ×2 (12:19→16:01)
[2019-03-09] MEDS: Famotidine 20 MG TAB PO SCH ×2 (12:19→23:19)
[2019-03-09] MEDS: Insulin Glargine 20 UNITS in Pre-Filled Syringe 1 EACH SC SCH (12:19)
[2019-03-09] MEDS: Bacitracin 1 PK TOP SCH ×2 (12:19→16:09)
[2019-03-09] MEDS: Docusate Sodium 100 MG/10 ML UDCUP PO SCH (12:20)
[2019-03-09] MEDS: Amlodipine 10 MG TAB PO SCH (12:23)
[2019-03-09] MEDS: Multivitamin W/ Minerals 1 TAB PO SCH (12:24)
[2019-03-09] MEDS: Escitalopram Oxalate 10 mg Tablet PO SCH (12:24)
[2019-03-09] MEDS: Aspirin Chewable 81 MG TAB PO SCH (12:24)
[2019-03-09] MEDS: Carvedilol 6.25 MG TAB PO SCH ×2 (12:24→23:18)
[2019-03-09] MEDS: Folic Acid 1 MG TAB PO SCH (12:24)
[2019-03-09] MEDS: Multivitamins CHEW w/Iron Tablet PO SCH (12:24)
[2019-03-09] MEDS: MEROPENEM 1 GM/50 ML 1 GM in Premix Bag 1 BAG IVPB SCH ×2 (12:25→21:55)
[2019-03-09] MEDS: hydrALAZINE 25 MG TAB PO SCH ×3 (12:25→23:21)
[2019-03-09 15:01] LABS: Hemoglobin 6.4 g/dL (14.0-18.0)
[2019-03-09] MEDS ORDERED: Sterile Water 10 ML VIAL IVP SCH (15:30)
--- NOTE | 2019-03-09 15:42 | PDOC.HOSPP ---
- Subjective Encounter Date: 03/09/19 Encounter Time: 15:40 Subjective: f/u for R-sided HCAP on Meropenem/Vancomycin. Nursing reports Hgb 6.4 down from 7.1. Had hypoxic episode last pm requiring suctioning trach. - Objective Vital Signs & Weight: Vital Signs (12 hours) Temp Pulse Resp BP BP BP Pulse Ox 03/09/19 12:25 86 03/09/19 12:24 118/69 03/09/19 12:23 86 118/69 03/09/19 11:54 98.9 F 86 20 118/69 92 L 03/09/19 07:40 99.9 F H 86 18 121/82 92 L 03/09/19 04:00 100.7 F H 93 20 144/89 H 94 L Weight Admit Weight 282 lb 11.2 oz Weight 301 lb 8 oz Most Recent Monitor Data Heart Rate from ECG 75 NIBP 154/95 NIBP BP-Mean 114 Respiration from ECG 20 SpO2 98 I&O: 03/08/19 03/09/19 03/10/19 06:59 06:59 06:59 Intake Total 3640 3086 Output Total 3450 1650 Balance 190 1436 Result Diagrams: 03/09/19 14:37 03/09/19 04:38 Additional Labs: Accuchecks 03/09/19 03/09/19 03/08/19 10:49 06:07 20:06 POC Glucose 172 H 263 H 288 H 03/08/19 16:53 POC Glucose 301 H Microbiology 03/06/19 14:02 Urine orozco catheter Urine Culture - Final NO GROWTH AT 48 HOURS 03/05/19 03:58 Urine orozco catheter Urine Culture - Final NO GROWTH AT 36 HOURS 03/05/19 02:21 Venous blood - Left Arm Blood Culture - Preliminary NO GROWTH AT 48 HOURS 03/05/19 02:04 Venous blood - Left Arm Blood Culture - Preliminary NO GROWTH AT 48 HOURS Laboratory Tests 03/01/19 03/04/19 03/04/19 04:43 10:52 10:52 Hgb 7.2 L Sodium 145 150 H Creatinine 2.19 H 1.95 H 03/05/19 03/05/19 03:30 03:30 Hgb 7.3 L Sodium 150 H Creatinine 2.00 H EKG Reviewed by me: Yes (Tele - SR) Hospitalist ROS - Medication Medications: Active Medications Generic Name Dose Route Start Last Admin Trade Name Freq PRN Reason Stop Dose Admin Acetaminophen 1,000 mg 03/05/19 01:37 03/09/19 03:55 Tylenol Elixir PER TUBE 1,000 mg Q6H PRN Administration Fever/Mild Pain Albuterol/Ipratropium 3 ml 03/01/19 15:52 03/04/19 21:34 Duoneb NEB 3 ml Q6H PRN Administration SOB &/or Wheezing Amlodipine Besylate 10 mg 02/13/19 09:00 03/09/19 12:23 Norvasc PO 10 mg DAILY PANCHO Administration Aspirin 81 mg 03/05/19 09:00 03/09/19 12:24 Aspirin Chewable PO 81 mg DAILY PANCHO Administration Atorvastatin Calcium 40 mg 02/08/19 21:00 03/08/19 22:41 Lipitor PO 40 mg HS PANCHO Administration Bacitracin 1 pk 03/08/19 21:00 03/09/19 12:19 Bacitracin TOP 1 pk TID PANCHO Administration Carvedilol 12.5 mg 02/08/19 21:00 03/09/19 12:24 Coreg PO 12.5 mg BID PANCHO Administration Docusate Sodium 100 mg 02/25/19 21:00 03/09/19 12:20 Colace Liquid PO Not Given BID PANCHO Escitalopram Oxalate 10 mg 03/04/19 09:00 03/09/19 12:24 Lexapro PO 10 mg DAILY PANCHO Administration Famotidine 20 mg 03/04/19 09:00 03/09/19 12:19 Pepcid PO 20 mg 0900 PANCHO Administration Folic Acid 1 mg 02/13/19 09:00 03/09/19 12:24 Folvite PO 1 mg DAILY PANCHO Administration Hydralazine HCl 25 mg 02/12/19 15:00 03/09/19 12:25 Apresoline PO Not Given TID PANCHO Hydralazine HCl 10 mg 02/17/19 16:33 03/03/19 03:04 Apresoline SLOW IVP 10 mg Q4H PRN Administration BP > 220/110 Insulin Glargine 20 units/ 0.2 mls @ 0 mls/hr 02/09/19 09:00 03/09/19 12:19 Miscellaneous Medication SC 0.2 mls QAM PANCHO Administration Insulin Glargine 10 units/ 0.1 mls @ 0 mls/hr 02/27/19 21:00 03/08/19 22:40 Miscellaneous Medication SC 0.1 mls HS PANCHO Administration Meropenem 1 gm/ Device 50 mls @ 100 mls/hr 03/07/19 21:00 03/09/19 12:25 IVPB 50 mls Q12HR PANCHO Administration Insulin Human Lispro 0 units 02/07/19 19:09 03/09/19 06:41 Humalog SC 4 unit .MILD SLIDING SCALE PRN Administration Mild Correctional Scale Insulin Human Lispro 0 units 02/07/19 19:09 03/08/19 22:44 Humalog SC 3 unit .BEDTIME SLIDING SC PRN Administration Bedtime Correctional Scale Iron/Minerals/Multivitamins 1 tab 03/07/19 09:00 03/09/19 12:24 Theragran M PO 1 tab DAILY PANCHO Administration Labetalol HCl 20 mg 02/17/19 16:33 02/22/19 21:25 Normodyne SLOW IVP 20 mg Q1H PRN Administration BP > 220/110 Multivitamins/Iron 1 tab 02/16/19 09:00 03/09/19 12:24 Centrum Kids Complete/Iron PO 1 tab DAILY PANCHO Administration Ondansetron HCl 4 mg 02/07/19 19:05 02/15/19 14:23 Zofran IVP 4 mg Q6H PRN Administration Nausea/Vomiting Scopolamine 1.5 mg 02/21/19 13:00 03/08/19 13:56 Transderm Scop TD 1.5 mg Q3D PANCHO Administration Sodium Chloride 10 ml 02/07/19 19:05 03/08/19 22:41 Flush - Normal Saline IVF 10 ml Q12H PRN Administration Saline Flush - Exam General Appearance: NAD, awake alert Eye: PERRL, anicteric sclera ENT: normocephalic atraumatic, no oropharyngeal lesions Neck: supple, symmetric, no JVD, no thyromegaly Neck - other findings: trach patent Heart: RRR, no gallops, no rubs, normal peripheral pulses Respiratory - other findings: coarse sounds R>L Gastrointestinal: soft, non-tender, non-distended, normal bowel sounds, no palpable masses Gastrointestinal - other findings: PEG in place Extremities: no cyanosis, 1+ LE edema Skin: normal turgor, no lesions Neurological: no new deficit Neurological - other findings: aphasic, gives thumbs up with R hand Psychiatric: flat affect Hosp A/P (1) Healthcare-associated pneumonia Code(s): J18.9 - PNEUMONIA, UNSPECIFIED ORGANISM Status: Acute Plan: Continue Meropenem/Vancomycin, O2 via T-collar, Duonebs prn (2) Acute CVA (cerebrovascular accident) Code(s): I63.9 - CEREBRAL INFARCTION, UNSPECIFIED Status: Acute (3) Acute respiratory failure with hypoxia and hypercapnia Code(s): J96.01 - ACUTE RESPIRATORY FAILURE WITH HYPOXIA; J96.02 - ACUTE RESPIRATORY FAILURE WITH HYPERCAPNIA Status: Acute Plan: Continue T-collar, trach suctioning (4) Acute blood loss anemia Code(s): D62 - ACUTE POSTHEMORRHAGIC ANEMIA Status: Acute Plan: Check stool occult, T&C 2u PRBC's and transfuse today, d/c Heparin, consider GI evaluation (5) Acute on chronic renal insufficiency Code(s): N28.9 - DISORDER OF KIDNEY AND URETER, UNSPECIFIED; N18.9 - CHRONIC KIDNEY DISEASE, UNSPECIFIED Status: Acute Plan: Stable currently, avoid nephrotoxic meds and limit contrast (6) Hypernatremia Code(s): E87.0 - HYPEROSMOLALITY AND HYPERNATREMIA Status: Acute Plan: Resolving, continue free-H2O supplementation - Plan plan discussed w/ family, continue antibiotics, PT/OT, social sciences department chair, speech therapy, respiratory therapy, DVT proph w/SCDs Continue supportive mgmt Continue Meropenem/Vancomycin D/C Heparin Stool hemoccult Increase free-H2O 60ml pre/post TF's CM for SNF options Bacitracin ointment to glans Transfuse 2u PRBC's today AM Lab: BMP, H/H
[2019-03-09] MEDS: Activase 2 MG VIAL CATH SCH (17:33)
[2019-03-09] MEDS: Vancomycin HCl 750 MG in Sodium Chloride 0.9% 250 ML 250 ML IVPB SCH (23:09)
[2019-03-09] MEDS: Atorvastatin Calcium 40 MG TAB PO SCH (23:20)
[2019-03-09] MEDS: Insulin Glargine 10 UNITS in Pre-Filled Syringe 1 EACH SC SCH (23:21)
[2019-03-10] MEDS: Bacitracin 1 PK TOP SCH ×4 (00:03→20:55)
[2019-03-10] MEDS: Docusate Sodium 100 MG/10 ML UDCUP PO SCH ×3 (00:03→20:55)
[2019-03-10] MEDS: Activase 2 MG VIAL CATH SCH (00:12)
[2019-03-10] MEDS: Acetaminophen 650 MG/20.3 ML UDCUP PER TUBE PRN (03:49)
[2019-03-10 06:08] LABS: Hemoglobin 7.4 g/dL (14.0-18.0); Platelet Count 248 thou/uL (130-400)
[2019-03-10 06:26] LABS: Anion Gap 12 mmol/L (10-20); BUN (Urea Nitrogen) 49 mg/dL (8.4-25.7); Calc. Creatinine Clearance 78 mL/min (70-130); Calcium 8.9 mg/dL (7.8-10.44); Carbon Dioxide 27 mmol/L (22-29); Chloride 110 mmol/L (98-107); Estimated GFR-MDRD 42; Glucose 195 mg/dL (70-105); Potassium 3.9 mmol/L (3.5-5.1); Sodium 145 mmol/L (136-145)
[2019-03-10] MEDS: HumaLOG 300 UNITS/3 ML VIAL SC PRN ×2 (08:09→18:26)
[2019-03-10] MEDS: Multivitamins CHEW w/Iron Tablet PO SCH (11:05)
[2019-03-10] MEDS: Amlodipine 10 MG TAB PO SCH (11:05)
[2019-03-10] MEDS: hydrALAZINE 25 MG TAB PO SCH ×3 (11:06→20:56)
[2019-03-10] MEDS: Aspirin Chewable 81 MG TAB PO SCH (11:06)
[2019-03-10] MEDS: Folic Acid 1 MG TAB PO SCH (11:06)
[2019-03-10] MEDS: Escitalopram Oxalate 10 mg Tablet PO SCH (11:07)
[2019-03-10] MEDS: Carvedilol 6.25 MG TAB PO SCH ×2 (11:07→20:55)
[2019-03-10] MEDS: Famotidine 20 MG TAB PO SCH (11:07)
[2019-03-10] MEDS: MEROPENEM 1 GM/50 ML 1 GM in Premix Bag 1 BAG IVPB SCH ×2 (11:08→20:54)
[2019-03-10] MEDS: Multivitamin W/ Minerals 1 TAB PO SCH (11:08)
[2019-03-10] MEDS: Insulin Glargine 20 UNITS in Pre-Filled Syringe 1 EACH SC SCH (11:09)
[2019-03-10] MEDS: Vancomycin HCl 750 MG in Sodium Chloride 0.9% 250 ML 250 ML IVPB SCH ×2 (12:15→20:57)
--- NOTE | 2019-03-10 15:48 | PDOC.HOSPP ---
- Subjective Encounter Date: 03/10/19 Encounter Time: 15:45 Subjective: f/u for CVA, resp failure with tracheostomy and PEG for TF's. Family reports no new changes noted. Tx for HCAP with Meropenem/Vancomycin. Sat EOB with PT about 10min today. - Objective Vital Signs & Weight: Vital Signs (12 hours) Temp Pulse Pulse Pulse Pulse Resp BP 03/10/19 15:41 86 135/80 03/10/19 13:36 86 88 03/10/19 11:54 98.7 F 86 20 03/10/19 11:07 145/87 H 03/10/19 11:06 86 145/87 H 03/10/19 11:05 86 145/87 H 03/10/19 07:52 99.1 F 85 18 03/10/19 05:39 99.9 F H 86 20 03/10/19 04:17 100.3 F H 86 18 03/10/19 04:00 99.2 F 86 18 03/10/19 03:58 99.9 F H 85 18 BP BP BP BP Pulse Ox 03/10/19 15:41 03/10/19 13:36 136/87 146/90 H 03/10/19 11:54 145/87 H 92 L 03/10/19 11:07 03/10/19 11:06 03/10/19 11:05 03/10/19 07:52 123/77 93 L 03/10/19 05:39 125/76 03/10/19 04:17 120/71 03/10/19 04:00 120/71 97 03/10/19 03:58 127/73 Weight Admit Weight 282 lb 11.2 oz Weight 302 lb 11.2 oz Most Recent Monitor Data Heart Rate from ECG 75 NIBP 154/95 NIBP BP-Mean 114 Respiration from ECG 20 SpO2 98 I&O: 03/09/19 03/10/19 03/11/19 06:59 06:59 06:59 Intake Total 3086 3422 337 Output Total 1650 850 Balance 1436 2572 337 Result Diagrams: 03/10/19 05:53 03/10/19 05:53 Additional Labs: Accuchecks 03/10/19 03/10/19 03/09/19 10:43 05:55 20:40 POC Glucose 216 H 230 H 185 H 03/09/19 16:37 POC Glucose 209 H Microbiology 03/06/19 14:02 Urine orozco catheter Urine Culture - Final NO GROWTH AT 48 HOURS 03/05/19 03:58 Urine orozco catheter Urine Culture - Final NO GROWTH AT 36 HOURS 03/05/19 02:21 Venous blood - Left Arm Blood Culture - Preliminary NO GROWTH AT 48 HOURS 03/05/19 02:04 Venous blood - Left Arm Blood Culture - Preliminary NO GROWTH AT 48 HOURS Laboratory Tests 03/01/19 03/04/19 03/04/19 04:43 10:52 10:52 Hgb 7.2 L Sodium 145 150 H Creatinine 2.19 H 1.95 H 03/05/19 03/05/19 03:30 03:30 Hgb 7.3 L Sodium 150 H Creatinine 2.00 H EKG Reviewed by me: Yes (Tele - SR) Hospitalist ROS - Medication Medications: Active Medications Generic Name Dose Route Start Last Admin Trade Name Freq PRN Reason Stop Dose Admin Acetaminophen 1,000 mg 03/05/19 01:37 03/10/19 03:49 Tylenol Elixir PER TUBE 1,000 mg Q6H PRN Administration Fever/Mild Pain Albuterol/Ipratropium 3 ml 03/01/19 15:52 03/04/19 21:34 Duoneb NEB 3 ml Q6H PRN Administration SOB &/or Wheezing Alteplase, Recombinant 2 mg 03/09/19 15:30 03/10/19 00:12 Cathflo CATH 2 mg WILLCALL PANCHO Administration Amlodipine Besylate 10 mg 02/13/19 09:00 03/10/19 11:05 Norvasc PO 10 mg DAILY PANCHO Administration Aspirin 81 mg 03/05/19 09:00 03/10/19 11:06 Aspirin Chewable PO 81 mg DAILY PANCHO Administration Atorvastatin Calcium 40 mg 02/08/19 21:00 03/09/19 23:20 Lipitor PO 40 mg HS PANCHO Administration Bacitracin 1 pk 03/08/19 21:00 03/10/19 11:06 Bacitracin TOP 1 pk TID PANCHO Administration Carvedilol 12.5 mg 02/08/19 21:00 03/10/19 11:07 Coreg PO 12.5 mg BID PANCHO Administration Docusate Sodium 100 mg 02/25/19 21:00 03/10/19 11:10 Colace Liquid PO Not Given BID PANCHO Escitalopram Oxalate 10 mg 03/04/19 09:00 03/10/19 11:07 Lexapro PO 10 mg DAILY PANCHO Administration Famotidine 20 mg 03/09/19 21:00 03/10/19 11:07 Pepcid PO 20 mg BID PANCHO Administration Folic Acid 1 mg 02/13/19 09:00 03/10/19 11:06 Folvite PO 1 mg DAILY PANCHO Administration Hydralazine HCl 25 mg 02/12/19 15:00 03/10/19 15:41 Apresoline PO 25 mg TID PANCHO Administration Hydralazine HCl 10 mg 02/17/19 16:33 03/03/19 03:04 Apresoline SLOW IVP 10 mg Q4H PRN Administration BP > 220/110 Insulin Glargine 20 units/ 0.2 mls @ 0 mls/hr 02/09/19 09:00 03/10/19 11:09 Miscellaneous Medication SC 0.2 mls QAM PANCHO Administration Insulin Glargine 10 units/ 0.1 mls @ 0 mls/hr 02/27/19 21:00 03/09/19 23:21 Miscellaneous Medication SC 0.1 mls HS PANCHO Administration Meropenem 1 gm/ Device 50 mls @ 100 mls/hr 03/07/19 21:00 03/10/19 11:08 IVPB 50 mls Q12HR PANCHO Administration Vancomycin HCl 750 mg/ Sodium 250 mls @ 250 mls/hr 03/09/19 21:00 03/10/19 12 :15 Chloride IVPB 250 mls Q12HR PANCHO Administration Insulin Human Lispro 0 units 02/07/19 19:09 03/10/19 08:09 Humalog SC 3 unit .MILD SLIDING SCALE PRN Administration Mild Correctional Scale Insulin Human Lispro 0 units 02/07/19 19:09 03/08/19 22:44 Humalog SC 3 unit .BEDTIME SLIDING SC PRN Administration Bedtime Correctional Scale Iron/Minerals/Multivitamins 1 tab 03/07/19 09:00 03/10/19 11:08 Theragran M PO 1 tab DAILY PANCHO Administration Labetalol HCl 20 mg 02/17/19 16:33 02/22/19 21:25 Normodyne SLOW IVP 20 mg Q1H PRN Administration BP > 220/110 Multivitamins/Iron 1 tab 02/16/19 09:00 03/10/19 11:05 Centrum Kids Complete/Iron PO 1 tab DAILY PANCHO Administration Ondansetron HCl 4 mg 02/07/19 19:05 02/15/19 14:23 Zofran IVP 4 mg Q6H PRN Administration Nausea/Vomiting Scopolamine 1.5 mg 02/21/19 13:00 03/08/19 13:56 Transderm Scop TD 1.5 mg Q3D PANCHO Administration Sodium Chloride 10 ml 02/07/19 19:05 03/09/19 21:56 Flush - Normal Saline IVF 10 ml Q12H PRN Administration Saline Flush Sodium Chloride 10 ml 02/23/19 17:12 03/09/19 21:57 Flush - Normal Saline IVF 10 ml PRN PRN Administration Saline Flush Sterile Water 10 ml 03/09/19 15:30 03/09/19 17:33 Water For Injection IVP 10 ml WILLCALL PANCHO Administration - Exam General Appearance: awake alert General - other findings: aphasic Eye: PERRL, anicteric sclera ENT: normocephalic atraumatic, no oropharyngeal lesions Neck: supple, symmetric, no JVD, no thyromegaly Neck - other findings: Trach in place Heart: RRR, no gallops, no rubs Respiratory - other findings: diminished bilat, coarse sounds bilat Gastrointestinal: soft, non-tender, non-distended, normal bowel sounds Gastrointestinal - other findings: + PEG in place Extremities: no cyanosis, 1+ LE edema Skin: normal turgor Neurological: no new deficit Neurological - other findings: aphasic, L hemiplegia, bed bound Psychiatric: oriented to person Hosp A/P (1) Healthcare-associated pneumonia Code(s): J18.9 - PNEUMONIA, UNSPECIFIED ORGANISM Status: Acute Plan: Continue Meropenem/Vancomycin, pulmonary supportive mgmt, suctioning for trach (2) Acute CVA (cerebrovascular accident) Code(s): I63.9 - CEREBRAL INFARCTION, UNSPECIFIED Status: Acute Plan: multifocal and likely atheroembolic phenomenon with aphasia, dysphagia, L hemiparesis (3) Acute respiratory failure with hypoxia and hypercapnia Code(s): J96.01 - ACUTE RESPIRATORY FAILURE WITH HYPOXIA; J96.02 - ACUTE RESPIRATORY FAILURE WITH HYPERCAPNIA Status: Acute Plan: Continue trach with T-collar (4) Acute blood loss anemia Code(s): D62 - ACUTE POSTHEMORRHAGIC ANEMIA Status: Acute Plan: s/p 2u PRBC's, guaiac + stool, consult GI service (5) Acute on chronic renal insufficiency Code(s): N28.9 - DISORDER OF KIDNEY AND URETER, UNSPECIFIED; N18.9 - CHRONIC KIDNEY DISEASE, UNSPECIFIED Status: Acute Plan: Stable currently, continue to monitor closely and avoid nephrotoxic meds (6) Hypernatremia Code(s): E87.0 - HYPEROSMOLALITY AND HYPERNATREMIA Status: Acute Plan: Resolved, continue serial Na+ - Plan plan discussed w/ family, continue antibiotics, PT/OT, administrator social welfare, speech therapy, respiratory therapy, DVT proph w/SCDs Continue supportive mgmt Continue Meropenem/Vancomycin D/C Heparin Stool hemoccult +, consult GI service Increase free-H2O 60ml pre/post TF's CM for SNF options Bacitracin ointment to glans Transfuse 2u PRBC's Trial Neuro chair daily AM Lab: BMP, H/H
--- NOTE | 2019-03-10 17:36 | PRG ---
DATE OF SERVICE: 03/10/2019 SERVICE: Pulmonary Medicine. INTERVAL HISTORY: The patient is doing really well from respiratory standpoint. Breathing comfortably. There has been no interval change to his condition. He remains on some broad-spectrum antibiotics and his fever profile has improved. Otherwise, there has been no interval change to his condition. PHYSICAL EXAMINATION: VITAL SIGNS: Afebrile, currently with a T-max of 100.3 overnight, pulse 89, blood pressure 135/84, respirations 20, saturation 92%, currently on T-collar, with nasal cannula 5 L bled into it. HEENT: Normocephalic and atraumatic. Sclerae white. Conjunctivae pink. Oral mucosa is moist without lesions. LUNGS: Decent air entry. Rhonchi are present. No prolonged expiratory phase or wheezing is appreciated. HEART: Normal rate and regular. ABDOMEN: Soft, nontender, and nondistended. Bowel sounds positive. MUSCULOSKELETAL: No cyanosis or clubbing. No pitting in the bilateral lower extremities. LABORATORY DATA: Hemoglobin 7.4. Creatinine 2.01, which is roughly stable. BUN 49. Basic metabolic profile is otherwise unremarkable. Urinalysis is negative. Vancomycin trough is 24. IMAGING STUDIES: CT of the chest demonstrates a dense infiltrate in the right lower lobe. It also extends into the right middle lobe and right upper lobe. It is all in dependent regions consistent with aspiration-related disease. I truthfully do not appreciate much for pleural effusion there. ASSESSMENT: 1. Acute hypoxic respiratory failure. 2. 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 3. Acute cerebrovascular accident, embolic, occurring postop day #1 from the amputation. 4. Hospital acquired pneumonia secondary to overt aspiration-related disease. 5. Acute kidney injury on chronic kidney disease 3, at baseline. 6. Status post percutaneous endoscopic gastrostomy tube and tracheostomy placement. 7. Debility as a result of the stroke. DISCUSSION AND PLAN: The patient is on good antibiotics. At this point, he has no further requirements for inpatient pulmonary or critical care opinion, and I will sign off. He is very likely to go on to develop increasing respiratory distress associated with aspiration-related disease. If his oxygen requirements increased significantly, please give me a phone call. He would not be a candidate for downsizing his tracheostomy until he more clearly can protect his airway. Job ID: [id number] [facility]
[2019-03-10] MEDS: Atorvastatin Calcium 40 MG TAB PO SCH (20:56)
[2019-03-10] MEDS: Insulin Glargine 10 UNITS in Pre-Filled Syringe 1 EACH SC SCH (20:57)
[2019-03-11] MEDS: Acetaminophen 650 MG/20.3 ML UDCUP PER TUBE PRN ×2 (00:14→06:38)
--- NOTE | 2019-03-11 01:41 | CON ---
DATE OF CONSULTATION: REASON FOR CONSULTATION: Hemoccult-positive stool and anemia. HISTORY OF PRESENT ILLNESS: Mr. Silvestre is a 58-year-old male who has had a stroke. He has had a PEG and a trach recently placed. He cannot relate any history. It is all derived from the chart and talking with the nurses. Mr. Silvestre is admitted to the hospital on 02/07/2019 with fever and chills and put on antibiotics for foot drainage in the left foot. He had ultimately had a debridement and had an amputation on 02/14/2019, left BKA. On the , he was found to have a stroke, bilateral cerebral watershed infarcts versus embolic infarcts. Ultimately, today he had a PEG and a low-pressure cuff tracheostomy placed. I was called today as his hemoccult was positive, he was given blood yesterday for hemoglobin of 6.4. Reviewing the chart, his blood count was 11, on admission, it was 9 on 02/08 and since 02/16 it is between 6 and 7. The nurses noted no overt bleeding. He did have a little bit of blood; however around his PEG site. They have not aspirated any blood from the PEG tube and there is no bright red blood in his stool. He has had no blood in his tracheostomy site. Once this was noted, his heparin was held. He has received 2 units of blood today and he received one on the and one on the . Taking with his family at the bedside, they were not aware of any previous colonoscopies or history of ulcer disease. The patient has remained hemodynamically stable and his heparin has been held. PAST MEDICAL HISTORY: 1. Morbid obesity. 2. Diabetes. 3. Recent diabetic foot ulcer with infection. 4. Congestive heart failure. 5. Hyperlipidemia. 6. Type 2 diabetes. 7. Stroke. 8. Chronic kidney disease. Other medical problems: 1. Heart failure, diastolic with ischemic cardiomyopathy. 2. Peripheral vascular disease, is not a problem. PAST SURGICAL HISTORY: 1. PEG. 2. Trach. 3. Recent debridement and then amputation of his left lower leg for osteomyelitis. SOCIAL HISTORY: Former smoker, active chewer of tobacco. No alcohol use. FAMILY HISTORY: Coronary artery disease, diabetes type 2, stroke and hypertension. MEDICATIONS: Presently: 1. Tylenol. 2. Albuterol. 3. . 4. Norvasc. 5. Aspirin. 6. Lipitor. 7. Bactrim. 8. Dulcolax. 9. Lexapro. 10. Pepcid. 11. Folvite. 12. Insulin sliding scale. 13. Humalog. 14. Theragran. 15. Lactulose. 16. Zofran p.r.n. 17. Vancomycin. 18. Apparently his heparin has been held today. PHYSICAL EXAMINATION: GENERAL: He is morbidly obese. ABDOMEN: He has a trach and a PEG and there is a little bit of blood at the PEG site, but there is no blood on aspirating from the PEG and there was no active bleeding at the PEG site. Dressing is clean and dry. Abdomen is soft and nontender. Abdomen is obese. Liver and spleen cannot be palpated. EXTREMITIES: Reveal no clubbing, cyanosis, or edema. He has a dressing on his left leg where he has had the amputation. LABORATORY DATA: White count 7.4 from 6.4 yesterday, it was 7.2 on 03/04, it was 7 on 02/19, platelets 315. White count 7.8, iron 33 on 02/12/2019. Ferritin 409 at 02/12/2019. B12 528 on 02/12/2019. ASSESSMENT: 1. Heme-positive stool without any overt hemorrhage. I do not know, if this is significant, but it does not seem that clinically he is having any gastrointestinal hemorrhage. In light of him being on heparin, it is not surprising his stool is Hemoccult positive. 2. Chronic anemia related to chronic disease. In light of his present medical condition, I would not recommend endoscopy or colonoscopy. He has no signs of active bleeding. 3. We would hold heparin for a few days and then restart it, if needed. 4. We would change ulcer prophylaxis to proton pump inhibitor. 5. If there is problem with the percutaneous endoscopic gastrostomy tube, I would call the doctor who placed this percutaneous endoscopic gastrostomy tube, which I think was his surgeon who also placed his tracheostomy. 6. At this point in time, we will sign off. 7. If there is any signs of acute hemorrhage, please do not hesitate to reconsult, if I can be of any further assistance. Job ID: [id number]
[2019-03-11 05:31] LABS: Hemoglobin 7.9 g/dL (14.0-18.0); Platelet Count 231 thou/uL (130-400)
[2019-03-11] MEDS: HumaLOG 300 UNITS/3 ML VIAL SC PRN ×3 (06:39→18:26)
[2019-03-11 08:39] LABS: Vancomycin, Trough 30.5 ug/mL
[2019-03-11] MEDS ORDERED: Vancomycin HCl 750 MG in Sodium Chloride 0.9% 250 ML 250 ML IVPB SCH ×2 (09:00→17:30)
[2019-03-11] MEDS: Carvedilol 6.25 MG TAB PO SCH ×2 (10:04→22:12)
[2019-03-11] MEDS: Aspirin Chewable 81 MG TAB PO SCH (10:04)
[2019-03-11] MEDS: Bacitracin 1 PK TOP SCH ×3 (10:06→22:11)
[2019-03-11] MEDS: hydrALAZINE 25 MG TAB PO SCH ×3 (10:06→22:12)
[2019-03-11] MEDS: Folic Acid 1 MG TAB PO SCH (10:07)
[2019-03-11] MEDS: Amlodipine 10 MG TAB PO SCH (10:07)
[2019-03-11] MEDS: Escitalopram Oxalate 10 mg Tablet PO SCH (10:07)
[2019-03-11] MEDS: Insulin Glargine 20 UNITS in Pre-Filled Syringe 1 EACH SC SCH (10:07)
[2019-03-11] MEDS: Multivitamins CHEW w/Iron Tablet PO SCH (10:08)
[2019-03-11] MEDS: Multivitamin W/ Minerals 1 TAB PO SCH (10:08)
[2019-03-11] MEDS: MEROPENEM 1 GM/50 ML 1 GM in Premix Bag 1 BAG IVPB SCH ×2 (10:08→22:11)
[2019-03-11] MEDS: Sodium Chloride 0.9% (PF) 10 ML VIAL FS PRN (10:09)
[2019-03-11] MEDS: Pantoprazole 40 MG VIAL IVP SCH (10:09)
[2019-03-11] MEDS: Docusate Sodium 100 MG/10 ML UDCUP PO SCH ×2 (10:45→22:13)
--- NOTE | 2019-03-11 12:26 | PDOC.HOSPP ---
- Subjective Encounter Date: 03/11/19 Encounter Time: 11:00 Subjective: pt seen on f/u for cva, pneumonia s/p amputation, pt is aphasic and is not following my commands, does follow my movements with his head/eyes - Objective Vital Signs & Weight: Vital Signs (12 hours) Temp Pulse Resp BP BP BP Pulse Ox 03/11/19 12:00 99.0 F 90 16 147/92 H 92 L 03/11/19 10:07 91 142/85 H 03/11/19 10:06 91 142/85 H 03/11/19 10:04 142/85 H 03/11/19 07:55 100.3 F H 89 18 141/84 H 92 L 03/11/19 04:54 100.3 F H 94 16 141/90 H 92 L Weight Admit Weight 282 lb 11.2 oz Weight 301 lb 1 oz Most Recent Monitor Data Heart Rate from ECG 75 NIBP 154/95 NIBP BP-Mean 114 Respiration from ECG 20 SpO2 98 I&O: 03/10/19 03/11/19 03/12/19 06:59 06:59 06:59 Intake Total 3422 3216 Output Total 850 2950 Balance 2572 266 Result Diagrams: 03/11/19 05:20 03/10/19 05:53 Additional Labs: Accuchecks 03/11/19 03/11/19 03/10/19 10:54 05:58 20:21 POC Glucose 224 H 274 H 258 H 03/10/19 16:51 POC Glucose 286 H Hospitalist ROS - Review of Systems ROS unobtainable: due to mental status - Medication Medications: Active Medications Generic Name Dose Route Start Last Admin Trade Name Freq PRN Reason Stop Dose Admin Acetaminophen 1,000 mg 03/05/19 01:37 03/11/19 06:38 Tylenol Elixir PER TUBE 1,000 mg Q6H PRN Administration Fever/Mild Pain Albuterol/Ipratropium 3 ml 03/01/19 15:52 03/04/19 21:34 Duoneb NEB 3 ml Q6H PRN Administration SOB &/or Wheezing Alteplase, Recombinant 2 mg 03/09/19 15:30 03/10/19 00:12 Cathflo CATH 2 mg WILLCALL PANCHO Administration Amlodipine Besylate 10 mg 02/13/19 09:00 03/11/19 10:07 Norvasc PO 10 mg DAILY PANCHO Administration Aspirin 81 mg 03/05/19 09:00 03/11/19 10:04 Aspirin Chewable PO 81 mg DAILY PANCHO Administration Atorvastatin Calcium 40 mg 02/08/19 21:00 03/10/19 20:56 Lipitor PO 40 mg HS PANCHO Administration Bacitracin 1 pk 03/08/19 21:00 03/11/19 10:06 Bacitracin TOP 1 pk TID PANCHO Administration Carvedilol 12.5 mg 02/08/19 21:00 03/11/19 10:04 Coreg PO 12.5 mg BID PANCHO Administration Docusate Sodium 100 mg 02/25/19 21:00 03/11/19 10:45 Colace Liquid PO Not Given BID [facility] Escitalopram Oxalate 10 mg 03/04/19 09:00 03/11/19 10:07 Lexapro PO 10 mg DAILY PANCHO Administration Folic Acid 1 mg 02/13/19 09:00 03/11/19 10:07 Folvite PO 1 mg DAILY PANCHO Administration Hydralazine HCl 25 mg 02/12/19 15:00 03/11/19 10:06 Apresoline PO 25 mg TID PANCHO Administration Hydralazine HCl 10 mg 02/17/19 16:33 03/03/19 03:04 Apresoline SLOW IVP 10 mg Q4H PRN Administration BP > 220/110 Insulin Glargine 20 units/ 0.2 mls @ 0 mls/hr 02/09/19 09:00 03/11/19 10:07 Miscellaneous Medication SC 0.2 mls QAM PANCHO Administration Insulin Glargine 10 units/ 0.1 mls @ 0 mls/hr 02/27/19 21:00 03/10/19 20:57 Miscellaneous Medication SC 0.1 mls HS PANCHO Administration Meropenem 1 gm/ Device 50 mls @ 100 mls/hr 03/07/19 21:00 03/11/19 10:08 IVPB 50 mls Q12HR PANCHO Administration Insulin Human Lispro 0 units 02/07/19 19:09 03/11/19 06:39 Humalog SC 4 unit .MILD SLIDING SCALE PRN Administration Mild Correctional Scale Insulin Human Lispro 0 units 02/07/19 19:09 03/08/19 22:44 Humalog SC 3 unit .BEDTIME SLIDING SC PRN Administration Bedtime Correctional Scale Iron/Minerals/Multivitamins 1 tab 03/07/19 09:00 03/11/19 10:08 Theragran M PO 1 tab DAILY PANCHO Administration Labetalol HCl 20 mg 02/17/19 16:33 02/22/19 21:25 Normodyne SLOW IVP 20 mg Q1H PRN Administration BP > 220/110 Multivitamins/Iron 1 tab 02/16/19 09:00 03/11/19 10:08 Centrum Kids Complete/Iron PO 1 tab DAILY PANCHO Administration Ondansetron HCl 4 mg 02/07/19 19:05 02/15/19 14:23 Zofran IVP 4 mg Q6H PRN Administration Nausea/Vomiting Pantoprazole Sodium 40 mg 03/11/19 09:00 03/11/19 10:09 Protonix IVP 40 mg DAILY PANCHO Administration Scopolamine 1.5 mg 02/21/19 13:00 03/08/19 13:56 Transderm Scop TD 1.5 mg Q3D PANCHO Administration Sodium Chloride 10 ml 02/07/19 19:05 03/09/19 21:56 Flush - Normal Saline IVF 10 ml Q12H PRN Administration Saline Flush Sodium Chloride 10 ml 02/23/19 17:12 03/09/19 21:57 Flush - Normal Saline IVF 10 ml PRN PRN Administration Saline Flush Sodium Chloride 10 ml 03/10/19 18:50 03/11/19 10:09 Normal Saline Pf FS 10 ml PRN PRN Administration RECONSTITUTION Sterile Water 10 ml 03/09/19 15:30 03/09/19 17:33 Water For Injection IVP 10 ml WILLCALL PANCHO Administration - Exam General Appearance: NAD Eye: PERRL, anicteric sclera ENT: normocephalic atraumatic, no oropharyngeal lesions Neck: supple, symmetric, no JVD Heart: RRR, no murmur, no gallops Respiratory: CTAB, no wheezes, no rales, no ronchi Gastrointestinal: soft, non-tender, non-distended Extremities: no cyanosis, no clubbing Neurological - other findings: not following commands Hosp A/P (1) Healthcare-associated pneumonia Code(s): J18.9 - PNEUMONIA, UNSPECIFIED ORGANISM Status: Acute (2) Acute CVA (cerebrovascular accident) Code(s): I63.9 - CEREBRAL INFARCTION, UNSPECIFIED Status: Acute (3) Acute blood loss anemia Code(s): D62 - ACUTE POSTHEMORRHAGIC ANEMIA Status: Acute (4) Acute metabolic encephalopathy Code(s): G93.41 - METABOLIC ENCEPHALOPATHY Status: Acute (5) Acute on chronic renal insufficiency Code(s): N28.9 - DISORDER OF KIDNEY AND URETER, UNSPECIFIED; N18.9 - CHRONIC KIDNEY DISEASE, UNSPECIFIED Status: Acute (6) Acute respiratory failure with hypoxia and hypercapnia Code(s): J96.01 - ACUTE RESPIRATORY FAILURE WITH HYPOXIA; J96.02 - ACUTE RESPIRATORY FAILURE WITH HYPERCAPNIA Status: Acute (7) Anemia Code(s): D64.9 - ANEMIA, UNSPECIFIED Status: Acute Qualifiers: Anemia type: folate deficiency - Plan -continue antibiotics, patient with low grade fevers, all cultures have been negative including urine, blood and sputum with only emmy which is likely a contaminant, will repeat cultures, should be covered with merem/vanc -PT/OT/speech therapy - DVT proph w/SCDs -Continue supportive mgmt -Stool hemoccult, gi consulted, no plan for egd or colonoscopy at this moment, will continue to monitor hg levels -CM for SNF options -Bacitracin ointment to glans -continue asa statin for secondary stroke prevention -vanc levels over therapeutic, will hold for now, pharmacy was notified -penis noted with some edema, patient might have some fluid overload, will give a dose of lasix and follow clinical response, noted an 9pound increase since admition, likely secondary to ivfs -nurse reports some purulent secretions from urethra will repeat u/c should be covered with merem
[2019-03-11] MEDS: Scopolamine 1.5 mg/72 hour Patch TD SCH (12:30)
[2019-03-11] MEDS ORDERED: Furosemide 20 MG/2 ML VIAL SLOW IVP SCH (12:45)
[2019-03-11] MEDS: Insulin Glargine 10 UNITS in Pre-Filled Syringe 1 EACH SC SCH (22:11)
[2019-03-11] MEDS: Atorvastatin Calcium 40 MG TAB PO SCH (22:12)
[2019-03-12 04:55] LABS: #Eosinphils 0.5 thou/uL (0.0-0.7); #Lymphocytes 1.5 thou/uL (1.20-3.40); #Monocytes 0.4 thou/uL (0.11-0.59); #Neutrophils 3.4 thou/uL (1.40-6.50); %Basophils 0.2 % (0.0-1.0); %Eosinophils 8.7 % (0.0-10.0); %Lymphocytes 25.5 % (21.0-51.0); %Monocytes 7.4 % (0.0-10.0); %Neutrophils 58.3 % (42.0-75.0); Hemoglobin 7.3 g/dL (14.0-18.0); Mean Corpuscular HGB CONC 30.7 g/dL (32.0-36.0); Mean Corpuscular Hemoglobin 25.8 pg (27.0-31.0); Mean Platelet Volume 9.8 fL (7.4-10.4); Platelet Count 230 thou/uL (130-400); RBC Distribution Width 16.3 % (11.5-14.5); Red Blood Cell (RBC) Count 2.83 mill/uL (4.70-6.10); White Blood Cell (WBC) Count 5.8 thou/uL (4.8-10.8)
[2019-03-12 05:16] LABS: Anion Gap 15 mmol/L (10-20); BUN (Urea Nitrogen) 48 mg/dL (8.4-25.7); Calc. Creatinine Clearance 97 mL/min (70-130); Calcium 8.8 mg/dL (7.8-10.44); Carbon Dioxide 24 mmol/L (22-29); Chloride 115 mmol/L (98-107); Estimated GFR-MDRD 53; Glucose 227 mg/dL (70-105); Potassium 3.9 mmol/L (3.5-5.1); Sodium 150 mmol/L (136-145)
[2019-03-12] MEDS: HumaLOG 300 UNITS/3 ML VIAL SC PRN ×3 (06:21→17:43)
[2019-03-12 08:24] LABS: Vancomycin, Random 18.9 ug/mL (See Comment)
[2019-03-12] MEDS: MEROPENEM 1 GM/50 ML 1 GM in Premix Bag 1 BAG IVPB SCH ×2 (08:39→22:04)
[2019-03-12] MEDS: Pantoprazole 40 MG VIAL IVP SCH (08:44)
[2019-03-12] MEDS: Bacitracin 1 PK TOP SCH ×3 (09:40→22:04)
[2019-03-12] MEDS: Docusate Sodium 100 MG/10 ML UDCUP PO SCH (09:42)
[2019-03-12] MEDS: Aspirin Chewable 81 MG TAB PO SCH (09:42)
[2019-03-12] MEDS: Carvedilol 6.25 MG TAB PO SCH ×2 (09:42→22:03)
[2019-03-12] MEDS: Amlodipine 10 MG TAB PO SCH (09:42)
[2019-03-12] MEDS: Escitalopram Oxalate 10 mg Tablet PO SCH (09:43)
[2019-03-12] MEDS: Multivitamin W/ Minerals 1 TAB PO SCH (09:43)
[2019-03-12] MEDS: Acetaminophen 650 MG/20.3 ML UDCUP PER TUBE PRN (09:43)
[2019-03-12] MEDS: Multivitamins CHEW w/Iron Tablet PO SCH (09:43)
[2019-03-12] MEDS: hydrALAZINE 25 MG TAB PO SCH ×3 (09:43→22:03)
[2019-03-12] MEDS: Folic Acid 1 MG TAB PO SCH (09:43)
[2019-03-12] MEDS: Insulin Glargine 20 UNITS in Pre-Filled Syringe 1 EACH SC SCH (09:47)
[2019-03-12] MEDS: Vancomycin 1.5 GRAM/300 ML BAG 1.5 GM in Premix Bag 1 BAG IVPB SCH (12:36)
--- NOTE | 2019-03-12 15:55 | PDOC.HOSPP ---
- Subjective Encounter Date: 03/12/19 Encounter Time: 15:45 Subjective: f/u for CVA, aphasic, dysphagia on TF's and resp failure with tracheostomy with R-sided PNA on Meropenem/Vancomycin. - Objective Vital Signs & Weight: Vital Signs (12 hours) Temp Pulse Resp BP BP Pulse Ox 03/12/19 15:00 76 124/71 03/12/19 12:00 98.3 F 76 22 H 124/71 92 L 03/12/19 09:43 90 128/70 03/12/19 09:42 90 128/70 03/12/19 07:55 99.0 F 90 24 H 128/70 91 L Weight Admit Weight 282 lb 11.2 oz Weight 289 lb 9.6 oz Most Recent Monitor Data Heart Rate from ECG 75 NIBP 154/95 NIBP BP-Mean 114 Respiration from ECG 20 SpO2 98 I&O: 03/11/19 03/12/19 03/13/19 06:59 06:59 06:59 Intake Total 3216 3293 1248 Output Total 2950 3200 Balance 636 75 3757 Result Diagrams: 03/12/19 04:30 03/12/19 04:30 Additional Labs: Accuchecks 03/12/19 03/12/19 03/11/19 10:43 05:21 21:36 POC Glucose 234 H 235 H 194 H 03/11/19 16:49 POC Glucose 279 H Microbiology 03/09/19 17:50 Stool Stool Occult Blood (PHILIP) - Final 03/06/19 14:02 Urine orozco catheter Urine Culture - Final NO GROWTH AT 48 HOURS 03/05/19 03:58 Urine orozco catheter Urine Culture - Final NO GROWTH AT 36 HOURS 03/11/19 13:55 Urine clean catch Urine Culture - Preliminary NO GROWTH AT 24 HOURS 03/11/19 13:19 Venous blood - Right Hand Blood Culture - Preliminary Specimen has been received and culture in progress. No Growth to date. 03/11/19 13:19 Central Line - Left external jugular vein Blood Culture - Preliminary NO GROWTH AT 48 HOURS 03/05/19 02:21 Venous blood - Left Arm Blood Culture - Preliminary NO GROWTH AT 48 HOURS 03/05/19 02:04 Venous blood - Left Arm Blood Culture - Preliminary NO GROWTH AT 48 HOURS Laboratory Tests 03/01/19 03/04/19 03/04/19 04:43 10:52 10:52 Hgb 7.2 L Sodium 145 150 H Creatinine 2.19 H 1.95 H Vancomycin Trough Random Vancomycin 03/05/19 03/05/19 03/07/19 03:30 03:30 05:17 Hgb 7.3 L Sodium 150 H 149 H Creatinine 2.00 H 1.98 H Vancomycin Trough Random Vancomycin 03/09/19 03/10/19 03/11/19 04:38 05:53 08:00 Hgb Sodium 144 145 Creatinine 1.96 H 2.01 H Vancomycin Trough 30.5 H* Random Vancomycin 03/12/19 08:00 Hgb Sodium Creatinine Vancomycin Trough Random Vancomycin 18.9 EKG Reviewed by me: Yes (Tele - SR) Hospitalist ROS - Medication Medications: Active Medications Generic Name Dose Route Start Last Admin Trade Name Freq PRN Reason Stop Dose Admin Acetaminophen 1,000 mg 03/05/19 01:37 03/12/19 09:43 Tylenol Elixir PER TUBE 1,000 mg Q6H PRN Administration Fever/Mild Pain Albuterol/Ipratropium 3 ml 03/01/19 15:52 03/04/19 21:34 Duoneb NEB 3 ml Q6H PRN Administration SOB &/or Wheezing Alteplase, Recombinant 2 mg 03/09/19 15:30 03/10/19 00:12 Cathflo CATH 2 mg WILLCALL PANCHO Administration Amlodipine Besylate 10 mg 02/13/19 09:00 03/12/19 09:42 Norvasc PO 10 mg DAILY PANCHO Administration Aspirin 81 mg 03/05/19 09:00 03/12/19 09:42 Aspirin Chewable PO 81 mg DAILY PANCHO Administration Atorvastatin Calcium 40 mg 02/08/19 21:00 03/11/19 22:12 Lipitor PO 40 mg HS PANCHO Administration Bacitracin 1 pk 03/08/19 21:00 03/12/19 15:00 Bacitracin TOP 1 pk TID PANCHO Administration Carvedilol 12.5 mg 02/08/19 21:00 03/12/19 09:42 Coreg PO 12.5 mg BID PANCHO Administration Docusate Sodium 100 mg 02/25/19 21:00 03/12/19 09:42 Colace Liquid PO 100 mg BID PANCHO Administration Escitalopram Oxalate 10 mg 03/04/19 09:00 03/12/19 09:43 Lexapro PO 10 mg DAILY PANCHO Administration Folic Acid 1 mg 02/13/19 09:00 03/12/19 09:43 Folvite PO 1 mg DAILY PANCHO Administration Hydralazine HCl 25 mg 02/12/19 15:00 03/12/19 15:00 Apresoline PO 25 mg TID PANCHO Administration Hydralazine HCl 10 mg 02/17/19 16:33 03/03/19 03:04 Apresoline SLOW IVP 10 mg Q4H PRN Administration BP > 220/110 Insulin Glargine 20 units/ 0.2 mls @ 0 mls/hr 02/09/19 09:00 03/12/19 09:47 Miscellaneous Medication SC 0.2 mls QAM PANCHO Administration Insulin Glargine 10 units/ 0.1 mls @ 0 mls/hr 02/27/19 21:00 03/11/19 22:11 Miscellaneous Medication SC 0.1 mls HS PANCHO Administration Meropenem 1 gm/ Device 50 mls @ 100 mls/hr 03/07/19 21:00 03/12/19 08:39 IVPB 50 mls Q12HR PANCHO Administration Vancomycin HCl 1.5 gm/ Device 300 mls @ 200 mls/hr 03/12/19 10:00 03/12/19 12 :36 IVPB 300 mls 1000 PANCHO Administration Insulin Human Lispro 0 units 02/07/19 19:09 03/12/19 11:08 Humalog SC 3 unit .MILD SLIDING SCALE PRN Administration Mild Correctional Scale Insulin Human Lispro 0 units 02/07/19 19:09 03/08/19 22:44 Humalog SC 3 unit .BEDTIME SLIDING SC PRN Administration Bedtime Correctional Scale Iron/Minerals/Multivitamins 1 tab 03/07/19 09:00 03/12/19 09:43 Theragran M PO 1 tab DAILY PANCHO Administration Labetalol HCl 20 mg 02/17/19 16:33 02/22/19 21:25 Normodyne SLOW IVP 20 mg Q1H PRN Administration BP > 220/110 Multivitamins/Iron 1 tab 02/16/19 09:00 03/12/19 09:43 Centrum Kids Complete/Iron PO 1 tab DAILY PANCHO Administration Ondansetron HCl 4 mg 02/07/19 19:05 02/15/19 14:23 Zofran IVP 4 mg Q6H PRN Administration Nausea/Vomiting Pantoprazole Sodium 40 mg 03/11/19 09:00 03/12/19 08:44 Protonix IVP 40 mg DAILY PANCHO Administration Scopolamine 1.5 mg 02/21/19 13:00 03/11/19 12:30 Transderm Scop TD 1.5 mg Q3D PANCHO Administration Sodium Chloride 10 ml 02/07/19 19:05 03/11/19 22:11 Flush - Normal Saline IVF 10 ml Q12H PRN Administration Saline Flush Sodium Chloride 10 ml 03/10/19 18:50 03/11/19 10:09 Normal Saline Pf FS 10 ml PRN PRN Administration RECONSTITUTION Sterile Water 10 ml 03/09/19 15:30 03/09/19 17:33 Water For Injection IVP 10 ml WILLCALL PANCHO Administration - Exam General Appearance: NAD, awake alert Eye: PERRL, anicteric sclera ENT: normocephalic atraumatic, no oropharyngeal lesions Neck: supple, symmetric, no JVD, no thyromegaly Neck - other findings: trach in place Heart: RRR, no gallops, no rubs, normal peripheral pulses Respiratory - other findings: few scattered coarse sounds bilat Gastrointestinal: soft, non-tender, non-distended, normal bowel sounds Gastrointestinal - other findings: PEG in place Extremities: no cyanosis, 1+ LE edema Skin: normal turgor Skin - other findings: foreskin edema, minimal glans edema, Orozco in place Neurological: no new deficit Neurological - other findings: aphasic, dysphagia Musculoskeletal: generalized weakness Psychiatric: oriented to person, flat affect Hosp A/P (1) Healthcare-associated pneumonia Code(s): J18.9 - PNEUMONIA, UNSPECIFIED ORGANISM Status: Acute Plan: Continue Meropenem/Vancomycin, Duonebs (2) Acute CVA (cerebrovascular accident) Code(s): I63.9 - CEREBRAL INFARCTION, UNSPECIFIED Status: Acute Plan: Likely embolic phenomenon, continue ASA/Lipitor (3) Acute respiratory failure with hypoxia and hypercapnia Code(s): J96.01 - ACUTE RESPIRATORY FAILURE WITH HYPOXIA; J96.02 - ACUTE RESPIRATORY FAILURE WITH HYPERCAPNIA Status: Acute Plan: T-collar, continue O2, Duonebs (4) Acute blood loss anemia Code(s): D62 - ACUTE POSTHEMORRHAGIC ANEMIA Status: Acute Plan: Continue serial H/H, PPI, no active loss identified (5) Acute on chronic renal insufficiency Code(s): N28.9 - DISORDER OF KIDNEY AND URETER, UNSPECIFIED; N18.9 - CHRONIC KIDNEY DISEASE, UNSPECIFIED Status: Acute (6) Hypernatremia Code(s): E87.0 - HYPEROSMOLALITY AND HYPERNATREMIA Status: Acute Plan: Increase free-H2O intake, D5W IV 50ml/h - Plan continue antibiotics, PT/OT, social work case manager, speech therapy, respiratory therapy, DVT proph w/SCDs Continue supportive mgmt Continue Meropenem/Vancomycin D/C Heparin Increase free-H2O with D5W IV @ 50ml/h CM for SNF options Bacitracin ointment to glans Consult Urology for any further recommendations Trial Neuro chair daily AM Lab: BMP, H/H
[2019-03-12] MEDS: Dextrose 5% in Water 1,000 ML IV SCH (17:43)
[2019-03-12] MEDS: Atorvastatin Calcium 40 MG TAB PO SCH (22:03)
[2019-03-12] MEDS: Insulin Glargine 10 UNITS in Pre-Filled Syringe 1 EACH SC SCH (22:04)
[2019-03-13] MEDS: Docusate Sodium 100 MG/10 ML UDCUP PO SCH ×3 (00:11→23:47)
[2019-03-13 05:16] LABS: Hemoglobin 7.3 g/dL (14.0-18.0); Platelet Count 219 thou/uL (130-400)
[2019-03-13 05:29] LABS: Anion Gap 13 mmol/L (10-20); BUN (Urea Nitrogen) 54 mg/dL (8.4-25.7); Calc. Creatinine Clearance 100 mL/min (70-130); Calcium 8.7 mg/dL (7.8-10.44); Carbon Dioxide 25 mmol/L (22-29); Chloride 115 mmol/L (98-107); Estimated GFR-MDRD 58; Glucose 187 mg/dL (70-105); Potassium 3.6 mmol/L (3.5-5.1); Sodium 149 mmol/L (136-145)
[2019-03-13] MEDS: HumaLOG 300 UNITS/3 ML VIAL SC PRN ×3 (06:13→16:52)
[2019-03-13] MEDS: MEROPENEM 1 GM/50 ML 1 GM in Premix Bag 1 BAG IVPB SCH ×2 (08:35→22:49)
[2019-03-13] MEDS: Insulin Glargine 20 UNITS in Pre-Filled Syringe 1 EACH SC SCH (08:35)
[2019-03-13] MEDS: Pantoprazole 40 MG VIAL IVP SCH (09:31)
[2019-03-13] MEDS: Amlodipine 10 MG TAB PO SCH (09:32)
[2019-03-13] MEDS: hydrALAZINE 25 MG TAB PO SCH ×3 (09:33→23:46)
[2019-03-13] MEDS: Escitalopram Oxalate 10 mg Tablet PO SCH (09:33)
[2019-03-13] MEDS: Carvedilol 6.25 MG TAB PO SCH ×2 (09:33→23:45)
[2019-03-13] MEDS: Aspirin Chewable 81 MG TAB PO SCH (09:33)
[2019-03-13] MEDS: Folic Acid 1 MG TAB PO SCH (09:33)
[2019-03-13] MEDS: Multivitamins CHEW w/Iron Tablet PO SCH (09:34)
[2019-03-13] MEDS: Multivitamin W/ Minerals 1 TAB PO SCH (09:34)
[2019-03-13] MEDS: Vancomycin 1.5 GRAM/300 ML BAG 1.5 GM in Premix Bag 1 BAG IVPB SCH (09:57)
[2019-03-13] MEDS: Bacitracin 1 PK TOP SCH ×3 (09:57→23:45)
--- NOTE | 2019-03-13 12:21 | PDOC.HOSPP ---
- Subjective Encounter Date: 03/13/19 Encounter Time: 12:20 Subjective: f/u for PNA, resp failure with trach on current Meropenem/Vancomycin. No new events reported. - Objective Vital Signs & Weight: Vital Signs (12 hours) Temp Pulse Resp BP BP BP Pulse Ox 03/13/19 09:33 82 133/80 03/13/19 09:32 82 133/80 03/13/19 07:33 98.0 F 82 18 133/80 94 L 03/13/19 03:44 97.6 F 78 20 135/80 95 Weight Admit Weight 282 lb 11.2 oz Weight 290 lb 3.2 oz Most Recent Monitor Data Heart Rate from ECG 75 NIBP 154/95 NIBP BP-Mean 114 Respiration from ECG 20 SpO2 98 I&O: 03/12/19 03/13/19 03/14/19 06:59 06:59 06:59 Intake Total 3293 2596 637 Output Total 3200 2150 Balance 93 446 637 Result Diagrams: 03/13/19 04:50 03/13/19 04:50 Additional Labs: Accuchecks 03/13/19 03/13/19 03/12/19 10:54 05:36 20:55 POC Glucose 267 H 228 H 194 H 03/12/19 16:52 POC Glucose 230 H Microbiology 03/09/19 17:50 Stool Stool Occult Blood (PHILIP) - Final 03/06/19 14:02 Urine orozco catheter Urine Culture - Final NO GROWTH AT 48 HOURS 03/05/19 03:58 Urine orozco catheter Urine Culture - Final NO GROWTH AT 36 HOURS 03/11/19 13:55 Urine clean catch Urine Culture - Preliminary NO GROWTH AT 24 HOURS 03/11/19 13:19 Venous blood - Right Hand Blood Culture - Preliminary Specimen has been received and culture in progress. No Growth to date. 03/11/19 13:19 Central Line - Left external jugular vein Blood Culture - Preliminary NO GROWTH AT 48 HOURS 03/05/19 02:21 Venous blood - Left Arm Blood Culture - Preliminary NO GROWTH AT 48 HOURS 03/05/19 02:04 Venous blood - Left Arm Blood Culture - Preliminary NO GROWTH AT 48 HOURS Laboratory Tests 03/01/19 03/04/19 03/04/19 04:43 10:52 10:52 Hgb 7.2 L Sodium 145 150 H Creatinine 2.19 H 1.95 H Vancomycin Trough Random Vancomycin 03/05/19 03/05/19 03/07/19 03:30 03:30 05:17 Hgb 7.3 L Sodium 150 H 149 H Creatinine 2.00 H 1.98 H Vancomycin Trough Random Vancomycin 03/09/19 03/10/19 03/11/19 04:38 05:53 08:00 Hgb Sodium 144 145 Creatinine 1.96 H 2.01 H Vancomycin Trough 30.5 H* Random Vancomycin 03/12/19 08:00 Hgb Sodium Creatinine Vancomycin Trough Random Vancomycin 18.9 EKG Reviewed by me: Yes (Tele - SR) Hospitalist ROS - Medication Medications: Active Medications Generic Name Dose Route Start Last Admin Trade Name Freq PRN Reason Stop Dose Admin Acetaminophen 1,000 mg 03/05/19 01:37 03/12/19 09:43 Tylenol Elixir PER TUBE 1,000 mg Q6H PRN Administration Fever/Mild Pain Albuterol/Ipratropium 3 ml 03/01/19 15:52 03/04/19 21:34 Duoneb NEB 3 ml Q6H PRN Administration SOB &/or Wheezing Alteplase, Recombinant 2 mg 03/09/19 15:30 03/10/19 00:12 Cathflo CATH 2 mg WILLCALL PANCHO Administration Amlodipine Besylate 10 mg 02/13/19 09:00 03/13/19 09:32 Norvasc PO 10 mg DAILY PANCHO Administration Aspirin 81 mg 03/05/19 09:00 03/13/19 09:33 Aspirin Chewable PO 81 mg DAILY PANCHO Administration Atorvastatin Calcium 40 mg 02/08/19 21:00 03/12/19 22:03 Lipitor PO 40 mg HS PANCHO Administration Bacitracin 1 pk 03/08/19 21:00 03/13/19 09:57 Bacitracin TOP 1 pk TID PANCHO Administration Carvedilol 12.5 mg 02/08/19 21:00 03/13/19 09:33 Coreg PO 12.5 mg BID PANCHO Administration Docusate Sodium 100 mg 02/25/19 21:00 03/13/19 09:32 Colace Liquid PO Not Given BID PANCHO Escitalopram Oxalate 10 mg 03/04/19 09:00 03/13/19 09:33 Lexapro PO 10 mg DAILY PANCHO Administration Folic Acid 1 mg 02/13/19 09:00 03/13/19 09:33 Folvite PO 1 mg DAILY PANCHO Administration Hydralazine HCl 25 mg 02/12/19 15:00 03/13/19 09:33 Apresoline PO 25 mg TID PANCHO Administration Hydralazine HCl 10 mg 02/17/19 16:33 03/03/19 03:04 Apresoline SLOW IVP 10 mg Q4H PRN Administration BP > 220/110 Insulin Glargine 20 units/ 0.2 mls @ 0 mls/hr 02/09/19 09:00 03/13/19 08:35 Miscellaneous Medication SC 0.2 mls QAM PANCHO Administration Insulin Glargine 10 units/ 0.1 mls @ 0 mls/hr 02/27/19 21:00 03/12/19 22:04 Miscellaneous Medication SC 0.1 mls HS PANCHO Administration Meropenem 1 gm/ Device 50 mls @ 100 mls/hr 03/07/19 21:00 03/13/19 08:35 IVPB 50 mls Q12HR PANCHO Administration Vancomycin HCl 1.5 gm/ Device 300 mls @ 200 mls/hr 03/12/19 10:00 03/13/19 09 :57 IVPB 300 mls 1000 PANCHO Administration Dextrose/Water 1,000 mls @ 50 mls/hr 03/12/19 16:15 03/12/19 17:43 D5w IV 1,000 mls .Q20H PANCHO Administration Insulin Human Lispro 0 units 02/07/19 19:09 03/13/19 11:27 Humalog SC 4 unit .MILD SLIDING SCALE PRN Administration Mild Correctional Scale Insulin Human Lispro 0 units 02/07/19 19:09 03/08/19 22:44 Humalog SC 3 unit .BEDTIME SLIDING SC PRN Administration Bedtime Correctional Scale Iron/Minerals/Multivitamins 1 tab 03/07/19 09:00 03/13/19 09:34 Theragran M PO 1 tab DAILY PANCHO Administration Labetalol HCl 20 mg 02/17/19 16:33 02/22/19 21:25 Normodyne SLOW IVP 20 mg Q1H PRN Administration BP > 220/110 Multivitamins/Iron 1 tab 02/16/19 09:00 03/13/19 09:34 Centrum Kids Complete/Iron PO 1 tab DAILY PANCHO Administration Ondansetron HCl 4 mg 02/07/19 19:05 02/15/19 14:23 Zofran IVP 4 mg Q6H PRN Administration Nausea/Vomiting Pantoprazole Sodium 40 mg 03/11/19 09:00 03/13/19 09:31 Protonix IVP 40 mg DAILY PANCHO Administration Scopolamine 1.5 mg 02/21/19 13:00 03/11/19 12:30 Transderm Scop TD 1.5 mg Q3D PANCHO Administration Sodium Chloride 10 ml 02/07/19 19:05 03/12/19 22:04 Flush - Normal Saline IVF 10 ml Q12H PRN Administration Saline Flush Sodium Chloride 10 ml 03/10/19 18:50 03/11/19 10:09 Normal Saline Pf FS 10 ml PRN PRN Administration RECONSTITUTION Sterile Water 10 ml 03/09/19 15:30 03/09/19 17:33 Water For Injection IVP 10 ml WILLCALL PANCHO Administration - Exam General - other findings: somnolent, opens eyes to name/touch briefly Eye: PERRL, anicteric sclera ENT: normocephalic atraumatic, no oropharyngeal lesions Neck: supple, symmetric, no JVD, no thyromegaly Neck - other findings: trach in place Heart: RRR, no gallops, no rubs, normal peripheral pulses Respiratory: CTAB, no wheezes, no rales Respiratory - other findings: occasional rhonchi Gastrointestinal: soft, non-tender, non-distended, normal bowel sounds, no palpable masses Gastrointestinal - other findings: PEG tube in place Extremities: no cyanosis, 1+ LE edema Skin: normal turgor Neurological: no new deficit, hemiplegia Neurological - other findings: aphasic, dysphagia Musculoskeletal: generalized weakness Psychiatric: oriented to person Hosp A/P (1) Healthcare-associated pneumonia Code(s): J18.9 - PNEUMONIA, UNSPECIFIED ORGANISM Status: Acute Plan: Continue Meropenem/Vancomycin, pulmonary supportive measures, O2 via T-collar (2) Acute CVA (cerebrovascular accident) Code(s): I63.9 - CEREBRAL INFARCTION, UNSPECIFIED Status: Acute Plan: Continue ASA/Lipitor, routine stroke protocol (3) Acute respiratory failure with hypoxia and hypercapnia Code(s): J96.01 - ACUTE RESPIRATORY FAILURE WITH HYPOXIA; J96.02 - ACUTE RESPIRATORY FAILURE WITH HYPERCAPNIA Status: Acute Plan: Trach in place, general suctioning, T-collar with O2 supplementation (4) Acute blood loss anemia Code(s): D62 - ACUTE POSTHEMORRHAGIC ANEMIA Status: Acute (5) Acute on chronic renal insufficiency Code(s): N28.9 - DISORDER OF KIDNEY AND URETER, UNSPECIFIED; N18.9 - CHRONIC KIDNEY DISEASE, UNSPECIFIED Status: Acute (6) Hypernatremia Code(s): E87.0 - HYPEROSMOLALITY AND HYPERNATREMIA Status: Acute Plan: Mild improvement, continue D5W @ 50ml/h, serial Na+ monitoring - Plan plan discussed w/ family, continue antibiotics, PT/OT, social service worker, speech therapy, respiratory therapy, DVT proph w/SCDs Continue supportive mgmt Continue Meropenem/Vancomycin D/C Heparin Increase free-H2O with D5W IV @ 50ml/h CM for SNF options Bacitracin ointment to glans Consult Urology for any further recommendations Trial Neuro chair daily AM Lab: BMP
--- NOTE | 2019-03-13 12:22 | CON ---
DATE OF CONSULTATION: This is a 58-year-old male, who I saw yesterday and I saw him because of a paraphimosis. I was able to reduce that. I came by to check on him today and the foreskin is in normal position, is no longer swollen. There is no drainage. There is no cellulitis. There is no tenderness to the penis. He seemed to be doing fine today. Job ID: [id number]
[2019-03-13] MEDS: Dextrose 5% in Water 1,000 ML IV SCH (13:59)
[2019-03-13] MEDS ORDERED: Heparin 10,000 UNITS/1 ML VIAL ONE (18:30)
[2019-03-13] MEDS: Atorvastatin Calcium 40 MG TAB PO SCH (23:45)
[2019-03-13] MEDS: Insulin Glargine 10 UNITS in Pre-Filled Syringe 1 EACH SC SCH (23:47)
[2019-03-14] MEDS: Activase 2 MG VIAL CATH SCH ×3 (06:13→06:18)
[2019-03-14] MEDS: HumaLOG 300 UNITS/3 ML VIAL SC PRN ×3 (07:34→17:37)
[2019-03-14 08:01] LABS: Anion Gap 15 mmol/L (10-20); BUN (Urea Nitrogen) 58 mg/dL (8.4-25.7); Calc. Creatinine Clearance 100 mL/min (70-130); Calcium 9.6 mg/dL (7.8-10.44); Carbon Dioxide 26 mmol/L (22-29); Chloride 111 mmol/L (98-107); Estimated GFR-MDRD 58; Glucose 219 mg/dL (70-105); Potassium 3.6 mmol/L (3.5-5.1); Sodium 148 mmol/L (136-145)
[2019-03-14 08:03] LABS: Vancomycin, Trough 26.4 ug/mL
[2019-03-14] MEDS: Amlodipine 10 MG TAB PO SCH (09:27)
[2019-03-14] MEDS: Bacitracin 1 PK TOP SCH ×2 (09:28→15:28)
[2019-03-14] MEDS: Carvedilol 6.25 MG TAB PO SCH (09:28)
[2019-03-14] MEDS: Aspirin Chewable 81 MG TAB PO SCH (09:28)
[2019-03-14] MEDS: hydrALAZINE 25 MG TAB PO SCH ×2 (09:29→14:56)
[2019-03-14] MEDS: Folic Acid 1 MG TAB PO SCH (09:29)
[2019-03-14] MEDS: Escitalopram Oxalate 10 mg Tablet PO SCH (09:29)
[2019-03-14] MEDS: Insulin Glargine 20 UNITS in Pre-Filled Syringe 1 EACH SC SCH (09:31)
[2019-03-14] MEDS: MEROPENEM 1 GM/50 ML 1 GM in Premix Bag 1 BAG IVPB SCH ×2 (09:32→21:13)
[2019-03-14] MEDS: Multivitamin W/ Minerals 1 TAB PO SCH (09:33)
[2019-03-14] MEDS: Multivitamins CHEW w/Iron Tablet PO SCH (09:33)
[2019-03-14] MEDS: Pantoprazole 40 MG VIAL IVP SCH (09:34)
[2019-03-14] MEDS: Scopolamine 1.5 mg/72 hour Patch TD SCH (13:40)
[2019-03-14] MEDS: Dextrose 5% in Water 1,000 ML IV SCH (13:41)
--- NOTE | 2019-03-14 15:10 | PDOC.HOSPP ---
- Subjective Encounter Date: 03/14/19 Encounter Time: 15:00 Subjective: f/u for resp failure, trach/PEG, CVA and PNA on Meropenem/Vancomycin. More alert and interactive per family and nursing. Tolerating TF's currently. - Objective Vital Signs & Weight: Vital Signs (12 hours) Temp Pulse Resp BP BP BP Pulse Ox 03/14/19 14:04 79 96 03/14/19 12:00 97.2 F L 78 20 134/80 91 L 03/14/19 09:29 75 147/89 H 03/14/19 09:28 158/96 H 03/14/19 09:27 75 147/89 H 03/14/19 08:00 97.7 F 75 18 147/84 H 98 03/14/19 07:43 97.7 F 75 18 147/84 H 98 Weight Admit Weight 282 lb 11.2 oz Weight 290 lb 3.2 oz Most Recent Monitor Data Heart Rate from ECG 75 NIBP 154/95 NIBP BP-Mean 114 Respiration from ECG 20 SpO2 98 I&O: 03/13/19 03/14/19 03/15/19 06:59 06:59 06:59 Intake Total 2596 2896 474 Output Total 2150 3050 Balance 446 -154 474 Result Diagrams: 03/13/19 04:50 03/14/19 07:30 Additional Labs: Accuchecks 03/14/19 03/14/19 03/13/19 10:48 06:47 16:26 POC Glucose 226 H 214 H 279 H Microbiology 03/09/19 17:50 Stool Stool Occult Blood (PHILIP) - Final 03/06/19 14:02 Urine orozco catheter Urine Culture - Final NO GROWTH AT 48 HOURS 03/05/19 03:58 Urine orozco catheter Urine Culture - Final NO GROWTH AT 36 HOURS 03/11/19 13:55 Urine clean catch Urine Culture - Preliminary NO GROWTH AT 24 HOURS 03/11/19 13:19 Venous blood - Right Hand Blood Culture - Preliminary Specimen has been received and culture in progress. No Growth to date. 03/11/19 13:19 Central Line - Left external jugular vein Blood Culture - Preliminary NO GROWTH AT 48 HOURS 03/05/19 02:21 Venous blood - Left Arm Blood Culture - Preliminary NO GROWTH AT 48 HOURS 03/05/19 02:04 Venous blood - Left Arm Blood Culture - Preliminary NO GROWTH AT 48 HOURS Laboratory Tests 03/01/19 03/04/19 03/04/19 04:43 10:52 10:52 Hgb 7.2 L Sodium 145 150 H Creatinine 2.19 H 1.95 H Vancomycin Trough Random Vancomycin 03/05/19 03/05/19 03/07/19 03:30 03:30 05:17 Hgb 7.3 L Sodium 150 H 149 H Creatinine 2.00 H 1.98 H Vancomycin Trough Random Vancomycin 03/09/19 03/10/19 03/11/19 04:38 05:53 08:00 Hgb Sodium 144 145 Creatinine 1.96 H 2.01 H Vancomycin Trough 30.5 H* Random Vancomycin 03/12/19 08:00 Hgb Sodium Creatinine Vancomycin Trough Random Vancomycin 18.9 Hospitalist ROS - Medication Medications: Active Medications Generic Name Dose Route Start Last Admin Trade Name Freq PRN Reason Stop Dose Admin Acetaminophen 1,000 mg 03/05/19 01:37 03/12/19 09:43 Tylenol Elixir PER TUBE 1,000 mg Q6H PRN Administration Fever/Mild Pain Albuterol/Ipratropium 3 ml 03/01/19 15:52 03/04/19 21:34 Duoneb NEB 3 ml Q6H PRN Administration SOB &/or Wheezing Alteplase, Recombinant 2 mg 03/09/19 15:30 03/14/19 06:18 Cathflo CATH 2 mg WILLCALL PANCHO Administration Amlodipine Besylate 10 mg 02/13/19 09:00 03/14/19 09:27 Norvasc PO 10 mg DAILY PANCHO Administration Aspirin 81 mg 03/05/19 09:00 03/14/19 09:28 Aspirin Chewable PO 81 mg DAILY PANCHO Administration Atorvastatin Calcium 40 mg 02/08/19 21:00 03/13/19 23:45 Lipitor PO 40 mg HS PANCHO Administration Bacitracin 1 pk 03/08/19 21:00 03/14/19 09:28 Bacitracin TOP 1 pk TID PANCHO Administration Carvedilol 12.5 mg 02/08/19 21:00 03/14/19 09:28 Coreg PO 12.5 mg BID PANCHO Administration Docusate Sodium 100 mg 02/25/19 21:00 03/13/19 23:47 Colace Liquid PO Not Given BID PANCHO Escitalopram Oxalate 10 mg 03/04/19 09:00 03/14/19 09:29 Lexapro PO 10 mg DAILY PANCHO Administration Folic Acid 1 mg 02/13/19 09:00 03/14/19 09:29 Folvite PO 1 mg DAILY PANCHO Administration Hydralazine HCl 25 mg 02/12/19 15:00 03/14/19 14:56 Apresoline PO 25 mg TID PANCHO Administration Hydralazine HCl 10 mg 02/17/19 16:33 03/03/19 03:04 Apresoline SLOW IVP 10 mg Q4H PRN Administration BP > 220/110 Insulin Glargine 20 units/ 0.2 mls @ 0 mls/hr 02/09/19 09:00 03/14/19 09:31 Miscellaneous Medication SC 0.2 mls QAM PANCHO Administration Insulin Glargine 10 units/ 0.1 mls @ 0 mls/hr 02/27/19 21:00 03/13/19 23:47 Miscellaneous Medication SC 0.1 mls HS PANCHO Administration Meropenem 1 gm/ Device 50 mls @ 100 mls/hr 03/07/19 21:00 03/14/19 09:32 IVPB 50 mls Q12HR PANCHO Administration Dextrose/Water 1,000 mls @ 50 mls/hr 03/12/19 16:15 03/14/19 13:41 D5w IV 1,000 mls .Q20H PANCHO Administration Insulin Human Lispro 0 units 02/07/19 19:09 03/14/19 14:56 Humalog SC 3 unit .MILD SLIDING SCALE PRN Administration Mild Correctional Scale Insulin Human Lispro 0 units 02/07/19 19:09 03/08/19 22:44 Humalog SC 3 unit .BEDTIME SLIDING SC PRN Administration Bedtime Correctional Scale Iron/Minerals/Multivitamins 1 tab 03/07/19 09:00 03/14/19 09:33 Theragran M PO 1 tab DAILY PANCHO Administration Labetalol HCl 20 mg 02/17/19 16:33 02/22/19 21:25 Normodyne SLOW IVP 20 mg Q1H PRN Administration BP > 220/110 Multivitamins/Iron 1 tab 02/16/19 09:00 03/14/19 09:33 Centrum Kids Complete/Iron PO 1 tab DAILY PANCHO Administration Ondansetron HCl 4 mg 02/07/19 19:05 02/15/19 14:23 Zofran IVP 4 mg Q6H PRN Administration Nausea/Vomiting Pantoprazole Sodium 40 mg 03/11/19 09:00 03/14/19 09:34 Protonix IVP 40 mg DAILY PANCHO Administration Scopolamine 1.5 mg 02/21/19 13:00 03/14/19 13:40 Transderm Scop TD 1.5 mg Q3D PANCHO Administration Sodium Chloride 10 ml 02/07/19 19:05 03/12/19 22:04 Flush - Normal Saline IVF 10 ml Q12H PRN Administration Saline Flush Sodium Chloride 10 ml 03/10/19 18:50 03/11/19 10:09 Normal Saline Pf FS 10 ml PRN PRN Administration RECONSTITUTION Sterile Water 10 ml 03/09/19 15:30 03/09/19 17:33 Water For Injection IVP 10 ml WILLCALL PANCHO Administration - Exam General Appearance: awake alert General - other findings: tracks with eyes Eye: PERRL, anicteric sclera ENT: normocephalic atraumatic, no oropharyngeal lesions Neck: supple, symmetric, no JVD Neck - other findings: trach in place with T-collar Heart: RRR, no gallops, no rubs, normal peripheral pulses Respiratory - other findings: scattered coarse sounds Gastrointestinal: soft, non-tender, non-distended, normal bowel sounds Gastrointestinal - other findings: PEG in place Extremities: no cyanosis, 1+ LE edema Skin: normal turgor Skin - other findings: multiple keloids Neurological: no new deficit Neurological - other findings: aphasic, dysphagia, L hemiplegia Musculoskeletal: generalized weakness Psychiatric: oriented to person Hosp A/P (1) Healthcare-associated pneumonia Code(s): J18.9 - PNEUMONIA, UNSPECIFIED ORGANISM Status: Acute Plan: Improved, continue Meropenem/Vancomycin, pulmonary supportive mgmt (2) Acute CVA (cerebrovascular accident) Code(s): I63.9 - CEREBRAL INFARCTION, UNSPECIFIED Status: Acute Plan: General stroke protocol (3) Acute respiratory failure with hypoxia and hypercapnia Code(s): J96.01 - ACUTE RESPIRATORY FAILURE WITH HYPOXIA; J96.02 - ACUTE RESPIRATORY FAILURE WITH HYPERCAPNIA Status: Acute Plan: O2 supplementation by T-collar (4) Acute blood loss anemia Code(s): D62 - ACUTE POSTHEMORRHAGIC ANEMIA Status: Acute (5) Acute on chronic renal insufficiency Code(s): N28.9 - DISORDER OF KIDNEY AND URETER, UNSPECIFIED; N18.9 - CHRONIC KIDNEY DISEASE, UNSPECIFIED Status: Acute (6) Hypernatremia Code(s): E87.0 - HYPEROSMOLALITY AND HYPERNATREMIA Status: Acute Plan: Slow improvement, continue IVF's - Plan plan discussed w/ family, continue antibiotics, PT/OT, social sciences department chair, speech therapy, respiratory therapy, DVT proph w/SCDs Continue supportive mgmt Continue Meropenem/Vancomycin D/C Heparin Increase free-H2O with D5W IV @ 50ml/h CM for SNF options Bacitracin ointment to lloyd Trial Neuro chair daily AM Lab: BMP
[2019-03-14] MEDS: Docusate Sodium 100 MG/10 ML UDCUP PO SCH ×2 (15:28→21:17)
[2019-03-15] MEDS: hydrALAZINE 25 MG TAB PO SCH ×4 (01:17→21:38)
[2019-03-15] MEDS: Atorvastatin Calcium 40 MG TAB PO SCH ×2 (01:17→21:38)
[2019-03-15] MEDS: Carvedilol 6.25 MG TAB PO SCH ×3 (01:17→21:38)
[2019-03-15] MEDS: Bacitracin 1 PK TOP SCH ×4 (01:17→21:39)
[2019-03-15] MEDS: Insulin Glargine 10 UNITS in Pre-Filled Syringe 1 EACH SC SCH ×2 (01:30→21:39)
[2019-03-15] MEDS: Vancomycin HCl 1 GM in Premix Bag 1 BAG IVPB SCH (01:32)
[2019-03-15] MEDS: Dextrose 5% in Water 1,000 ML IV SCH ×2 (06:29→19:22)
[2019-03-15] MEDS: HumaLOG 300 UNITS/3 ML VIAL SC PRN ×3 (06:33→18:03)
[2019-03-15] MEDS: Insulin Glargine 20 UNITS in Pre-Filled Syringe 1 EACH SC SCH (10:18)
[2019-03-15] MEDS: Amlodipine 10 MG TAB PO SCH (10:19)
[2019-03-15] MEDS: Multivitamin W/ Minerals 1 TAB PO SCH (10:20)
[2019-03-15] MEDS: Aspirin Chewable 81 MG TAB PO SCH (10:20)
[2019-03-15] MEDS: Multivitamins CHEW w/Iron Tablet PO SCH (10:20)
[2019-03-15] MEDS: Folic Acid 1 MG TAB PO SCH (10:21)
[2019-03-15] MEDS: Escitalopram Oxalate 10 mg Tablet PO SCH (10:21)
[2019-03-15] MEDS: Pantoprazole 40 MG VIAL IVP SCH (10:22)
[2019-03-15] MEDS: Sodium Chloride 0.9% (PF) 10 ML VIAL FS PRN (10:22)
[2019-03-15] MEDS: Docusate Sodium 100 MG/10 ML UDCUP PO SCH ×2 (11:41→21:36)
[2019-03-15] MEDS: MEROPENEM 1 GM/50 ML 1 GM in Premix Bag 1 BAG IVPB SCH ×2 (11:41→21:39)
--- NOTE | 2019-03-15 14:51 | RAD ---
KUB INDICATION: History of vomiting and absent bowel sounds COMPARISON: Prior exam dated 02/19/2019 FINDINGS: Bowel gas: Since the comparison examination there is been removal of the Dobbhoff feeding tube and pl acement of a PEG catheter. The bowel gas pattern is nonspecific but without overt evidence of obstruction. Lung bases: Clear. Additional findings: No suspicious calcification demonstrated. Osseous structures: No acute osseous abnormality is demonstrated. IMPRESSION: 1. Interval placement of a PEG catheter in the left upper quadrant of the abdomen with removal of the Dobbhoff feeding tube. 2. No overt radiographic evidence to suggest bowel obstruction.
--- NOTE | 2019-03-15 18:31 | PDOC.HOSPP ---
- Subjective Encounter Date: 03/15/19 Encounter Time: 18:10 Subjective: f/u for CVA, resp failure with trach, PNA and PEG TF's. Nursing reports pt nauseated with emesis this am. TF's on hold earlier. - Objective Vital Signs & Weight: Vital Signs (12 hours) Temp Pulse Resp BP BP Pulse Ox 03/15/19 16:10 75 03/15/19 15:27 97.9 F 75 16 147/85 H 99 03/15/19 12:00 97.4 F L 79 14 132/76 98 03/15/19 10:21 150/92 H 03/15/19 10:20 79 150/92 H 03/15/19 10:19 79 150/92 H 03/15/19 08:00 97.5 F L 79 18 153/88 H 98 Weight Admit Weight 282 lb 11.2 oz Weight 290 lb 3.2 oz Most Recent Monitor Data Heart Rate from ECG 75 NIBP 154/95 NIBP BP-Mean 114 Respiration from ECG 20 SpO2 98 I&O: 03/14/19 03/15/19 03/16/19 06:59 06:59 06:59 Intake Total 2896 2746 3299.8 Output Total 3050 2750 1250 Balance -154 -4 2049.8 Result Diagrams: 03/13/19 04:50 03/14/19 07:30 Additional Labs: Accuchecks 03/15/19 03/15/19 03/15/19 16:56 11:37 06:27 POC Glucose 197 H 269 H 224 H 03/14/19 20:13 POC Glucose 237 H Microbiology 03/09/19 17:50 Stool Stool Occult Blood (PHILIP) - Final 03/06/19 14:02 Urine orozco catheter Urine Culture - Final NO GROWTH AT 48 HOURS 03/05/19 03:58 Urine orozco catheter Urine Culture - Final NO GROWTH AT 36 HOURS 03/11/19 13:55 Urine clean catch Urine Culture - Preliminary NO GROWTH AT 24 HOURS 03/11/19 13:19 Venous blood - Right Hand Blood Culture - Preliminary Specimen has been received and culture in progress. No Growth to date. 03/11/19 13:19 Central Line - Left external jugular vein Blood Culture - Preliminary NO GROWTH AT 48 HOURS 03/05/19 02:21 Venous blood - Left Arm Blood Culture - Preliminary NO GROWTH AT 48 HOURS 03/05/19 02:04 Venous blood - Left Arm Blood Culture - Preliminary NO GROWTH AT 48 HOURS Laboratory Tests 03/01/19 03/04/19 03/04/19 04:43 10:52 10:52 Hgb 7.2 L Sodium 145 150 H Creatinine 2.19 H 1.95 H Vancomycin Trough Random Vancomycin 03/05/19 03/05/19 03/07/19 03:30 03:30 05:17 Hgb 7.3 L Sodium 150 H 149 H Creatinine 2.00 H 1.98 H Vancomycin Trough Random Vancomycin 03/09/19 03/10/19 03/11/19 04:38 05:53 08:00 Hgb Sodium 144 145 Creatinine 1.96 H 2.01 H Vancomycin Trough 30.5 H* Random Vancomycin 03/12/19 08:00 Hgb Sodium Creatinine Vancomycin Trough Random Vancomycin 18.9 Radiology Reviewed by me: Yes (ABD x-ray - PEG in place, no obstruction) EKG Reviewed by me: Yes (Tele - SR) Hospitalist ROS - Medication Medications: Active Medications Generic Name Dose Route Start Last Admin Trade Name Freq PRN Reason Stop Dose Admin Acetaminophen 1,000 mg 03/05/19 01:37 03/12/19 09:43 Tylenol Elixir PER TUBE 1,000 mg Q6H PRN Administration Fever/Mild Pain Albuterol/Ipratropium 3 ml 03/01/19 15:52 03/04/19 21:34 Duoneb NEB 3 ml Q6H PRN Administration SOB &/or Wheezing Alteplase, Recombinant 2 mg 03/09/19 15:30 03/14/19 06:18 Cathflo CATH 2 mg WILLCALL PANCHO Administration Amlodipine Besylate 10 mg 02/13/19 09:00 03/15/19 10:19 Norvasc PO 10 mg DAILY PANCHO Administration Aspirin 81 mg 03/05/19 09:00 03/15/19 10:20 Aspirin Chewable PO 81 mg DAILY PANCHO Administration Atorvastatin Calcium 40 mg 02/08/19 21:00 03/15/19 01:17 Lipitor PO 40 mg HS PANCHO Administration Bacitracin 1 pk 03/08/19 21:00 03/15/19 16:41 Bacitracin TOP 1 pk TID PANCHO Administration Carvedilol 12.5 mg 02/08/19 21:00 03/15/19 10:21 Coreg PO 12.5 mg BID PANCHO Administration Docusate Sodium 100 mg 02/25/19 21:00 03/15/19 11:41 Colace Liquid PO Not Given BID [facility] Escitalopram Oxalate 10 mg 03/04/19 09:00 03/15/19 10:21 Lexapro PO 10 mg DAILY PANCHO Administration Folic Acid 1 mg 02/13/19 09:00 03/15/19 10:21 Folvite PO 1 mg DAILY PANCHO Administration Hydralazine HCl 25 mg 02/12/19 15:00 03/15/19 16:10 Apresoline PO 25 mg TID PANCHO Administration Hydralazine HCl 10 mg 02/17/19 16:33 03/03/19 03:04 Apresoline SLOW IVP 10 mg Q4H PRN Administration BP > 220/110 Insulin Glargine 20 units/ 0.2 mls @ 0 mls/hr 02/09/19 09:00 03/15/19 10:18 Miscellaneous Medication SC 0.2 mls QAM PANCHO Administration Insulin Glargine 10 units/ 0.1 mls @ 0 mls/hr 02/27/19 21:00 03/15/19 01:30 Miscellaneous Medication SC 0.1 mls HS PANCHO Administration Meropenem 1 gm/ Device 50 mls @ 100 mls/hr 03/07/19 21:00 03/15/19 11:41 IVPB 50 mls Q12HR PANCHO Administration Dextrose/Water 1,000 mls @ 50 mls/hr 03/12/19 16:15 03/15/19 06:29 D5w IV Not Given .Q20H PANCHO Vancomycin HCl 1 gm/ Device 200 mls @ 200 mls/hr 03/14/19 23:59 03/15/19 01: 32 IVPB 200 mls 2359 PANCHO Administration Insulin Human Lispro 0 units 02/07/19 19:09 03/15/19 18:03 Humalog SC 2 unit .MILD SLIDING SCALE PRN Administration Mild Correctional Scale Insulin Human Lispro 0 units 02/07/19 19:09 03/08/19 22:44 Humalog SC 3 unit .BEDTIME SLIDING SC PRN Administration Bedtime Correctional Scale Iron/Minerals/Multivitamins 1 tab 03/07/19 09:00 03/15/19 10:20 Theragran M PO 1 tab DAILY PANCHO Administration Labetalol HCl 20 mg 02/17/19 16:33 02/22/19 21:25 Normodyne SLOW IVP 20 mg Q1H PRN Administration BP > 220/110 Multivitamins/Iron 1 tab 02/16/19 09:00 03/15/19 10:20 Centrum Kids Complete/Iron PO 1 tab DAILY PANCHO Administration Ondansetron HCl 4 mg 02/07/19 19:05 02/15/19 14:23 Zofran IVP 4 mg Q6H PRN Administration Nausea/Vomiting Scopolamine 1.5 mg 02/21/19 13:00 03/14/19 13:40 Transderm Scop TD 1.5 mg Q3D PANCHO Administration Sodium Chloride 10 ml 02/07/19 19:05 03/12/19 22:04 Flush - Normal Saline IVF 10 ml Q12H PRN Administration Saline Flush Sodium Chloride 10 ml 03/10/19 18:50 03/15/19 10:22 Normal Saline Pf FS 10 ml PRN PRN Administration RECONSTITUTION Sterile Water 10 ml 03/09/19 15:30 03/09/19 17:33 Water For Injection IVP 10 ml WILLCALL PANCHO Administration - Exam General Appearance: NAD, awake alert Eye: PERRL, anicteric sclera ENT: normocephalic atraumatic, no oropharyngeal lesions Neck: supple, symmetric, no JVD, no thyromegaly Neck - other findings: Trach in place Heart: RRR, no murmur, no gallops, no rubs, normal peripheral pulses Respiratory - other findings: diminished in bases, few scattered rhonchi Gastrointestinal: soft, non-tender, normal bowel sounds, no palpable masses, no guarding Gastrointestinal - other findings: PEG in place Extremities: no cyanosis, 1+ LE edema Skin: normal turgor Neurological: no new deficit Neurological - other findings: aphasic, dysphagia Musculoskeletal: generalized weakness Psychiatric: oriented to person Hosp A/P (1) Healthcare-associated pneumonia Code(s): J18.9 - PNEUMONIA, UNSPECIFIED ORGANISM Status: Acute Plan: Continue Meropenem/Vancomycin, afebrile and clinically improved, pulmonary supportive care (2) Acute CVA (cerebrovascular accident) Code(s): I63.9 - CEREBRAL INFARCTION, UNSPECIFIED Status: Acute Plan: General stroke protocol, ASA (3) Acute respiratory failure with hypoxia and hypercapnia Code(s): J96.01 - ACUTE RESPIRATORY FAILURE WITH HYPOXIA; J96.02 - ACUTE RESPIRATORY FAILURE WITH HYPERCAPNIA Status: Acute (4) Acute blood loss anemia Code(s): D62 - ACUTE POSTHEMORRHAGIC ANEMIA Status: Acute (5) Acute on chronic renal insufficiency Code(s): N28.9 - DISORDER OF KIDNEY AND URETER, UNSPECIFIED; N18.9 - CHRONIC KIDNEY DISEASE, UNSPECIFIED Status: Acute (6) Hypernatremia Code(s): E87.0 - HYPEROSMOLALITY AND HYPERNATREMIA Status: Acute Plan: Continue D5W another 24h then d/c - Plan plan discussed w/ family, continue antibiotics, PT/OT, social services analyst, speech therapy, respiratory therapy, DVT proph w/SCDs Continue supportive mgmt Continue Meropenem/Vancomycin D/C Heparin Free-H2O with D5W IV @ 30ml/h CM for SNF options Bacitracin ointment to [facility] Neuro chair daily AM Lab: BMP
[2019-03-16 00:33] LABS: Vancomycin, Trough 19.1 ug/mL
[2019-03-16] MEDS: Vancomycin HCl 1 GM in Premix Bag 1 BAG IVPB SCH (01:42)
[2019-03-16 04:53] LABS: Anion Gap 11 mmol/L (10-20); BUN (Urea Nitrogen) 47 mg/dL (8.4-25.7); Calc. Creatinine Clearance 117 mL/min (70-130); Calcium 9.3 mg/dL (7.8-10.44); Carbon Dioxide 31 mmol/L (22-29); Chloride 108 mmol/L (98-107); Estimated GFR-MDRD 69; Glucose 165 mg/dL (70-105); Potassium 3.6 mmol/L (3.5-5.1); Sodium 146 mmol/L (136-145)
[2019-03-16] MEDS: HumaLOG 300 UNITS/3 ML VIAL SC PRN ×3 (06:46→17:37)
[2019-03-16] MEDS ORDERED: Pantoprazole 40 MG GRANULES PACKET PER TUBE SCH (09:00)
[2019-03-16] MEDS: MEROPENEM 1 GM/50 ML 1 GM in Premix Bag 1 BAG IVPB SCH ×2 (10:02→21:20)
[2019-03-16] MEDS: Folic Acid 1 MG TAB PO SCH (10:03)
[2019-03-16] MEDS: Multivitamins CHEW w/Iron Tablet PO SCH (10:04)
[2019-03-16] MEDS: Escitalopram Oxalate 10 mg Tablet PO SCH (10:04)
[2019-03-16] MEDS: Docusate Sodium 100 MG/10 ML UDCUP PO SCH ×2 (10:04→21:21)
[2019-03-16] MEDS: Aspirin Chewable 81 MG TAB PO SCH (10:04)
[2019-03-16] MEDS: Multivitamin W/ Minerals 1 TAB PO SCH (10:05)
[2019-03-16] MEDS: Amlodipine 10 MG TAB PO SCH (10:05)
[2019-03-16] MEDS: Carvedilol 6.25 MG TAB PO SCH ×2 (10:06→21:21)
[2019-03-16] MEDS: hydrALAZINE 25 MG TAB PO SCH ×3 (10:06→21:21)
[2019-03-16] MEDS: Insulin Glargine 20 UNITS in Pre-Filled Syringe 1 EACH SC SCH (10:08)
[2019-03-16] MEDS: Pantoprazole 40 MG VIAL IVP SCH (10:18)
[2019-03-16] MEDS: Bacitracin 1 PK TOP SCH ×3 (10:23→21:21)
[2019-03-16] MEDS: Dextrose 5% in Water 1,000 ML IV SCH (15:40)
[2019-03-16] MEDS: Acetaminophen 650 MG/20.3 ML UDCUP PER TUBE PRN (15:52)
--- NOTE | 2019-03-16 17:50 | PDOC.HOSPP ---
- Subjective Encounter Date: 03/16/19 Encounter Time: 15:20 Subjective: f/u for CVA, resp failure with trach/PEG. More alert per family but still weak and aphasic. - Objective Vital Signs & Weight: Vital Signs (12 hours) Temp Pulse Pulse Pulse Resp BP BP 03/16/19 16:05 98.4 F 82 19 03/16/19 15:39 88 119/73 03/16/19 11:54 99.0 F 88 19 03/16/19 10:26 81 83 138/83 03/16/19 10:06 83 126/74 03/16/19 10:05 83 126/74 03/16/19 09:49 03/16/19 07:42 99.2 F 85 18 03/16/19 07:00 BP BP Pulse Ox 03/16/19 16:05 119/73 94 L 03/16/19 15:39 03/16/19 11:54 128/73 96 03/16/19 10:26 126/74 03/16/19 10:06 03/16/19 10:05 03/16/19 09:49 93 L 03/16/19 07:42 117/62 93 L 03/16/19 07:00 988 H Weight Admit Weight 282 lb 11.2 oz Weight 285 lb Most Recent Monitor Data Heart Rate from ECG 75 NIBP 154/95 NIBP BP-Mean 114 Respiration from ECG 20 SpO2 98 I&O: 03/15/19 03/16/19 03/17/19 06:59 06:59 06:59 Intake Total 2746 4199.8 1600 Output Total 2750 2400 Balance -4 1799.8 1600 Result Diagrams: 03/13/19 04:50 03/16/19 03:30 Additional Labs: Accuchecks 03/16/19 03/16/19 03/16/19 16:55 11:12 06:25 POC Glucose 171 H 158 H 181 H 03/15/19 20:21 POC Glucose 177 H Microbiology 03/09/19 17:50 Stool Stool Occult Blood (PHILIP) - Final 03/06/19 14:02 Urine orozco catheter Urine Culture - Final NO GROWTH AT 48 HOURS 03/05/19 03:58 Urine orozco catheter Urine Culture - Final NO GROWTH AT 36 HOURS 03/11/19 13:55 Urine clean catch Urine Culture - Preliminary NO GROWTH AT 24 HOURS 03/11/19 13:19 Venous blood - Right Hand Blood Culture - Preliminary Specimen has been received and culture in progress. No Growth to date. 03/11/19 13:19 Central Line - Left external jugular vein Blood Culture - Preliminary NO GROWTH AT 48 HOURS 03/05/19 02:21 Venous blood - Left Arm Blood Culture - Preliminary NO GROWTH AT 48 HOURS 03/05/19 02:04 Venous blood - Left Arm Blood Culture - Preliminary NO GROWTH AT 48 HOURS Laboratory Tests 03/01/19 03/04/19 03/04/19 04:43 10:52 10:52 Hgb 7.2 L Sodium 145 150 H Creatinine 2.19 H 1.95 H Vancomycin Trough Random Vancomycin 03/05/19 03/05/19 03/07/19 03:30 03:30 05:17 Hgb 7.3 L Sodium 150 H 149 H Creatinine 2.00 H 1.98 H Vancomycin Trough Random Vancomycin 03/09/19 03/10/19 03/11/19 04:38 05:53 08:00 Hgb Sodium 144 145 Creatinine 1.96 H 2.01 H Vancomycin Trough 30.5 H* Random Vancomycin 03/12/19 08:00 Hgb Sodium Creatinine Vancomycin Trough Random Vancomycin 18.9 Radiology Reviewed by me: Yes (ABD x-ray - no obstruction) EKG Reviewed by me: Yes (Tele - SR) Hospitalist ROS - Medication Medications: Active Medications Generic Name Dose Route Start Last Admin Trade Name Freq PRN Reason Stop Dose Admin Acetaminophen 1,000 mg 03/05/19 01:37 03/16/19 15:52 Tylenol Elixir PER TUBE 1,000 mg Q6H PRN Administration Fever/Mild Pain Albuterol/Ipratropium 3 ml 03/01/19 15:52 03/15/19 18:48 Duoneb NEB 3 ml Q6H PRN Administration SOB &/or Wheezing Alteplase, Recombinant 2 mg 03/09/19 15:30 03/14/19 06:18 Cathflo CATH 2 mg WILLCALL PANCHO Administration Amlodipine Besylate 10 mg 02/13/19 09:00 03/16/19 10:05 Norvasc PO 10 mg DAILY PANCHO Administration Aspirin 81 mg 03/05/19 09:00 03/16/19 10:04 Aspirin Chewable PO 81 mg DAILY PANCHO Administration Atorvastatin Calcium 40 mg 02/08/19 21:00 03/15/19 21:38 Lipitor PO 40 mg HS PANCHO Administration Bacitracin 1 pk 03/08/19 21:00 03/16/19 15:41 Bacitracin TOP 1 pk TID PANCHO Administration Carvedilol 12.5 mg 02/08/19 21:00 03/16/19 10:06 Coreg PO 12.5 mg BID PANCHO Administration Docusate Sodium 100 mg 02/25/19 21:00 03/16/19 10:04 Colace Liquid PO Not Given BID PANCHO Escitalopram Oxalate 10 mg 03/04/19 09:00 03/16/19 10:04 Lexapro PO 10 mg DAILY PANCHO Administration Folic Acid 1 mg 02/13/19 09:00 03/16/19 10:03 Folvite PO 1 mg DAILY PANCHO Administration Hydralazine HCl 25 mg 02/12/19 15:00 03/16/19 15:39 Apresoline PO Not Given TID PANCHO Hydralazine HCl 10 mg 02/17/19 16:33 03/03/19 03:04 Apresoline SLOW IVP 10 mg Q4H PRN Administration BP > 220/110 Insulin Glargine 20 units/ 0.2 mls @ 0 mls/hr 02/09/19 09:00 03/16/19 10:08 Miscellaneous Medication SC 0.2 mls QAM PANCHO Administration Insulin Glargine 10 units/ 0.1 mls @ 0 mls/hr 02/27/19 21:00 03/15/19 21:39 Miscellaneous Medication SC 0.1 mls HS PANCHO Administration Meropenem 1 gm/ Device 50 mls @ 100 mls/hr 03/07/19 21:00 03/16/19 10:02 IVPB 50 mls Q12HR PANCHO Administration Vancomycin HCl 1 gm/ Device 200 mls @ 200 mls/hr 03/14/19 23:59 03/16/19 01: 42 IVPB 200 mls 2359 PANCHO Administration Dextrose/Water 1,000 mls @ 30 mls/hr 03/15/19 18:34 03/16/19 15:40 D5w IV 1,000 mls .Q24H PANCHO Administration Insulin Human Lispro 0 units 02/07/19 19:09 03/16/19 17:37 Humalog SC 2 unit .MILD SLIDING SCALE PRN Administration Mild Correctional Scale Insulin Human Lispro 0 units 02/07/19 19:09 03/08/19 22:44 Humalog SC 3 unit .BEDTIME SLIDING SC PRN Administration Bedtime Correctional Scale Iron/Minerals/Multivitamins 1 tab 03/07/19 09:00 03/16/19 10:05 Theragran M PO 1 tab DAILY PANCHO Administration Labetalol HCl 20 mg 02/17/19 16:33 02/22/19 21:25 Normodyne SLOW IVP 20 mg Q1H PRN Administration BP > 220/110 Multivitamins/Iron 1 tab 02/16/19 09:00 03/16/19 10:04 Centrum Kids Complete/Iron PO 1 tab DAILY PANCHO Administration Ondansetron HCl 4 mg 02/07/19 19:05 02/15/19 14:23 Zofran IVP 4 mg Q6H PRN Administration Nausea/Vomiting Pantoprazole Sodium 40 mg 03/16/19 09:00 03/16/19 10:18 Protonix IVP 40 mg DAILY PANCHO Administration Scopolamine 1.5 mg 02/21/19 13:00 03/14/19 13:40 Transderm Scop TD 1.5 mg Q3D PANCHO Administration Sodium Chloride 10 ml 02/07/19 19:05 03/12/19 22:04 Flush - Normal Saline IVF 10 ml Q12H PRN Administration Saline Flush Sodium Chloride 10 ml 03/10/19 18:50 03/15/19 10:22 Normal Saline Pf FS 10 ml PRN PRN Administration RECONSTITUTION Sterile Water 10 ml 03/09/19 15:30 03/09/19 17:33 Water For Injection IVP 10 ml WILLCALL PANCHO Administration - Exam General Appearance: awake alert General - other findings: tracks with eyes Eye: PERRL, anicteric sclera ENT: normocephalic atraumatic, no oropharyngeal lesions Neck: supple, symmetric, no JVD, no thyromegaly Neck - other findings: trach in place Heart: RRR, no murmur, no gallops, no rubs, normal peripheral pulses Respiratory - other findings: coarse sounds bilat Gastrointestinal: soft, non-tender, non-distended, normal bowel sounds Gastrointestinal - other findings: PEG in place Extremities: no cyanosis, 1+ LE edema Skin: normal turgor Neurological: no new deficit Neurological - other findings: aphasic, L hemiparesis, dysphagia Musculoskeletal: generalized weakness Psychiatric: oriented to person Hosp A/P (1) Healthcare-associated pneumonia Code(s): J18.9 - PNEUMONIA, UNSPECIFIED ORGANISM Status: Acute Plan: Continue Meropenem/Vancomycin, likely de-escalate in next 48h (2) Acute CVA (cerebrovascular accident) Code(s): I63.9 - CEREBRAL INFARCTION, UNSPECIFIED Status: Acute Plan: General stroke protocol (3) Acute respiratory failure with hypoxia and hypercapnia Code(s): J96.01 - ACUTE RESPIRATORY FAILURE WITH HYPOXIA; J96.02 - ACUTE RESPIRATORY FAILURE WITH HYPERCAPNIA Status: Acute (4) Acute blood loss anemia Code(s): D62 - ACUTE POSTHEMORRHAGIC ANEMIA Status: Acute (5) Acute on chronic renal insufficiency Code(s): N28.9 - DISORDER OF KIDNEY AND URETER, UNSPECIFIED; N18.9 - CHRONIC KIDNEY DISEASE, UNSPECIFIED Status: Acute (6) Hypernatremia Code(s): E87.0 - HYPEROSMOLALITY AND HYPERNATREMIA Status: Acute Plan: Slow improvement, continue low-volume free-H2O replacement - Plan plan discussed w/ family, continue antibiotics, PT/OT, manager social services, speech therapy, respiratory therapy, DVT proph w/SCDs Continue supportive mgmt Continue Meropenem/Vancomycin D/C Heparin Free-H2O with D5W IV @ 30ml/h CM for SNF options Bacitracin ointment to glans Trial Neuro chair daily AM Lab: BMP
[2019-03-16] MEDS: Insulin Glargine 10 UNITS in Pre-Filled Syringe 1 EACH SC SCH (21:21)
[2019-03-16] MEDS: Atorvastatin Calcium 40 MG TAB PO SCH (21:21)
[2019-03-17] MEDS: Vancomycin HCl 1 GM in Premix Bag 1 BAG IVPB SCH (00:27)
[2019-03-17] MEDS: HumaLOG 300 UNITS/3 ML VIAL SC PRN (06:30)
[2019-03-17] MEDS: Acetaminophen 650 MG/20.3 ML UDCUP PER TUBE PRN (06:32)
[2019-03-17] MEDS: Bacitracin 1 PK TOP SCH ×3 (09:04→21:10)
[2019-03-17] MEDS: Multivitamins CHEW w/Iron Tablet PO SCH (09:05)
[2019-03-17] MEDS: Carvedilol 6.25 MG TAB PO SCH ×2 (09:05→21:11)
[2019-03-17] MEDS: Folic Acid 1 MG TAB PO SCH (09:05)
[2019-03-17] MEDS: Aspirin Chewable 81 MG TAB PO SCH (09:05)
[2019-03-17] MEDS: Amlodipine 10 MG TAB PO SCH (09:05)
[2019-03-17] MEDS: hydrALAZINE 25 MG TAB PO SCH ×3 (09:05→21:10)
[2019-03-17] MEDS: Escitalopram Oxalate 10 mg Tablet PO SCH (09:05)
[2019-03-17] MEDS: Docusate Sodium 100 MG/10 ML UDCUP PO SCH ×2 (09:05→22:09)
[2019-03-17] MEDS: MEROPENEM 1 GM/50 ML 1 GM in Premix Bag 1 BAG IVPB SCH ×2 (09:06→21:10)
[2019-03-17] MEDS: Pantoprazole 40 MG VIAL IVP SCH (09:06)
[2019-03-17] MEDS: Multivitamin W/ Minerals 1 TAB PO SCH (09:06)
[2019-03-17] MEDS: Insulin Glargine 20 UNITS in Pre-Filled Syringe 1 EACH SC SCH (09:07)
[2019-03-17] MEDS: Scopolamine 1.5 mg/72 hour Patch TD SCH (13:40)
--- NOTE | 2019-03-17 18:15 | PDOC.HOSPP ---
- Subjective Encounter Date: 03/17/19 Encounter Time: 18:00 Subjective: f/u for CVA, with trach/PEG and R-sided PNA on Meropenem/Vancomycin now improved. Nursing reports increased gastric residual with TF's and currently held for 6h. - Objective Vital Signs & Weight: Vital Signs (12 hours) Temp Pulse Resp BP BP Pulse Ox 03/17/19 15:38 97.7 F 75 16 147/90 H 100 03/17/19 15:13 74 17 96 03/17/19 15:05 96 03/17/19 14:57 73 147/86 H 03/17/19 12:08 97 03/17/19 11:37 97.5 F L 73 16 147/86 H 99 03/17/19 09:05 74 154/95 H 03/17/19 07:47 98.2 F 74 16 154/95 H 99 Weight Admit Weight 282 lb 11.2 oz Weight 282 lb 14.4 oz Most Recent Monitor Data Heart Rate from ECG 75 NIBP 154/95 NIBP BP-Mean 114 Respiration from ECG 20 SpO2 98 I&O: 03/16/19 03/17/19 03/18/19 06:59 06:59 06:59 Intake Total 4199.8 3590 787 Output Total 2400 1575 1250 Balance 1799.8 2015 -463 Result Diagrams: 03/13/19 04:50 03/16/19 03:30 Additional Labs: Accuchecks 03/17/19 03/17/19 03/17/19 17:00 10:51 06:17 POC Glucose 159 H 157 H 179 H 03/16/19 21:18 POC Glucose 139 H Microbiology 03/09/19 17:50 Stool Stool Occult Blood (PHILIP) - Final 03/06/19 14:02 Urine orozco catheter Urine Culture - Final NO GROWTH AT 48 HOURS 03/05/19 03:58 Urine orozco catheter Urine Culture - Final NO GROWTH AT 36 HOURS 03/11/19 13:55 Urine clean catch Urine Culture - Preliminary NO GROWTH AT 24 HOURS 03/11/19 13:19 Venous blood - Right Hand Blood Culture - Preliminary Specimen has been received and culture in progress. No Growth to date. 03/11/19 13:19 Central Line - Left external jugular vein Blood Culture - Preliminary NO GROWTH AT 48 HOURS 03/05/19 02:21 Venous blood - Left Arm Blood Culture - Preliminary NO GROWTH AT 48 HOURS 03/05/19 02:04 Venous blood - Left Arm Blood Culture - Preliminary NO GROWTH AT 48 HOURS Laboratory Tests 03/01/19 03/04/19 03/04/19 04:43 10:52 10:52 Hgb 7.2 L Sodium 145 150 H Creatinine 2.19 H 1.95 H Vancomycin Trough Random Vancomycin 03/05/19 03/05/19 03/07/19 03:30 03:30 05:17 Hgb 7.3 L Sodium 150 H 149 H Creatinine 2.00 H 1.98 H Vancomycin Trough Random Vancomycin 03/09/19 03/10/19 03/11/19 04:38 05:53 08:00 Hgb Sodium 144 145 Creatinine 1.96 H 2.01 H Vancomycin Trough 30.5 H* Random Vancomycin 03/12/19 08:00 Hgb Sodium Creatinine Vancomycin Trough Random Vancomycin 18.9 EKG Reviewed by me: Yes (Tele - SR) Hospitalist ROS - Medication Medications: Active Medications Generic Name Dose Route Start Last Admin Trade Name Freq PRN Reason Stop Dose Admin Acetaminophen 1,000 mg 03/05/19 01:37 03/17/19 06:32 Tylenol Elixir PER TUBE 1,000 mg Q6H PRN Administration Fever/Mild Pain Albuterol/Ipratropium 3 ml 03/01/19 15:52 03/17/19 15:13 Duoneb NEB 3 ml Q6H PRN Administration SOB &/or Wheezing Alteplase, Recombinant 2 mg 03/09/19 15:30 03/14/19 06:18 Cathflo CATH 2 mg WILLCALL PANCHO Administration Amlodipine Besylate 10 mg 02/13/19 09:00 03/17/19 09:05 Norvasc PO 10 mg DAILY PANCHO Administration Aspirin 81 mg 03/05/19 09:00 03/17/19 09:05 Aspirin Chewable PO 81 mg DAILY PANCHO Administration Atorvastatin Calcium 40 mg 02/08/19 21:00 03/16/19 21:21 Lipitor PO 40 mg HS PANCHO Administration Bacitracin 1 pk 03/08/19 21:00 03/17/19 15:08 Bacitracin TOP 1 pk TID PANCHO Administration Carvedilol 12.5 mg 02/08/19 21:00 03/17/19 09:05 Coreg PO 12.5 mg BID PANCHO Administration Docusate Sodium 100 mg 02/25/19 21:00 03/17/19 09:05 Colace Liquid PO 100 mg BID PANCHO Administration Escitalopram Oxalate 10 mg 03/04/19 09:00 03/17/19 09:05 Lexapro PO 10 mg DAILY PANCHO Administration Folic Acid 1 mg 02/13/19 09:00 03/17/19 09:05 Folvite PO 1 mg DAILY PANCHO Administration Hydralazine HCl 25 mg 02/12/19 15:00 03/17/19 14:57 Apresoline PO 25 mg TID PANCHO Administration Hydralazine HCl 10 mg 02/17/19 16:33 03/03/19 03:04 Apresoline SLOW IVP 10 mg Q4H PRN Administration BP > 220/110 Insulin Glargine 20 units/ 0.2 mls @ 0 mls/hr 02/09/19 09:00 03/17/19 09:07 Miscellaneous Medication SC 0.2 mls QAM PANCHO Administration Insulin Glargine 10 units/ 0.1 mls @ 0 mls/hr 02/27/19 21:00 03/16/19 21:21 Miscellaneous Medication SC 0.1 mls HS PANCHO Administration Meropenem 1 gm/ Device 50 mls @ 100 mls/hr 03/07/19 21:00 03/17/19 09:06 IVPB 50 mls Q12HR PANCHO Administration Vancomycin HCl 1 gm/ Device 200 mls @ 200 mls/hr 03/14/19 23:59 03/17/19 00: 27 IVPB 200 mls 2359 PANCHO Administration Dextrose/Water 1,000 mls @ 30 mls/hr 03/15/19 18:34 03/16/19 15:40 D5w IV 1,000 mls .Q24H PANCHO Administration Insulin Human Lispro 0 units 02/07/19 19:09 03/17/19 06:30 Humalog SC 2 unit .MILD SLIDING SCALE PRN Administration Mild Correctional Scale Insulin Human Lispro 0 units 02/07/19 19:09 03/08/19 22:44 Humalog SC 3 unit .BEDTIME SLIDING SC PRN Administration Bedtime Correctional Scale Iron/Minerals/Multivitamins 1 tab 03/07/19 09:00 03/17/19 09:06 Theragran M PO 1 tab DAILY PANCHO Administration Labetalol HCl 20 mg 02/17/19 16:33 02/22/19 21:25 Normodyne SLOW IVP 20 mg Q1H PRN Administration BP > 220/110 Multivitamins/Iron 1 tab 02/16/19 09:00 03/17/19 09:05 Centrum Kids Complete/Iron PO 1 tab DAILY PANCHO Administration Ondansetron HCl 4 mg 02/07/19 19:05 02/15/19 14:23 Zofran IVP 4 mg Q6H PRN Administration Nausea/Vomiting Pantoprazole Sodium 40 mg 03/16/19 09:00 03/17/19 09:06 Protonix IVP 40 mg DAILY PANCHO Administration Scopolamine 1.5 mg 02/21/19 13:00 03/17/19 13:40 Transderm Scop TD 1.5 mg Q3D PANCHO Administration Sodium Chloride 10 ml 02/07/19 19:05 03/12/19 22:04 Flush - Normal Saline IVF 10 ml Q12H PRN Administration Saline Flush Sodium Chloride 10 ml 03/10/19 18:50 03/15/19 10:22 Normal Saline Pf FS 10 ml PRN PRN Administration RECONSTITUTION Sterile Water 10 ml 03/09/19 15:30 03/09/19 17:33 Water For Injection IVP 10 ml WILLCALL PANCHO Administration - Exam General Appearance: awake alert General - other findings: nods, tracks Eye: PERRL, anicteric sclera ENT: normocephalic atraumatic, no oropharyngeal lesions Neck: supple, symmetric, no JVD Neck - other findings: Trach in place Heart: RRR, no murmur, no gallops, no rubs, normal peripheral pulses Respiratory - other findings: scattered coarse sounds Gastrointestinal: soft, non-tender, non-distended, normal bowel sounds Gastrointestinal - other findings: PEG in place Extremities: no cyanosis, no clubbing, no edema Skin: normal turgor Neurological: no new deficit Neurological - other findings: aphasic, dysphagia, L hemiparesis Psychiatric: oriented to person Hosp A/P (1) Healthcare-associated pneumonia Code(s): J18.9 - PNEUMONIA, UNSPECIFIED ORGANISM Status: Acute Plan: Continue Meropenem/Vanc another 24h then d/c, trach suctioning (2) Acute CVA (cerebrovascular accident) Code(s): I63.9 - CEREBRAL INFARCTION, UNSPECIFIED Status: Acute Plan: General stroke care, SNF options pending (3) Acute respiratory failure with hypoxia and hypercapnia Code(s): J96.01 - ACUTE RESPIRATORY FAILURE WITH HYPOXIA; J96.02 - ACUTE RESPIRATORY FAILURE WITH HYPERCAPNIA Status: Acute Plan: General trach care, Scopolamine patch for secretions (4) Acute blood loss anemia Code(s): D62 - ACUTE POSTHEMORRHAGIC ANEMIA Status: Acute (5) Acute on chronic renal insufficiency Code(s): N28.9 - DISORDER OF KIDNEY AND URETER, UNSPECIFIED; N18.9 - CHRONIC KIDNEY DISEASE, UNSPECIFIED Status: Acute (6) Hypernatremia Code(s): E87.0 - HYPEROSMOLALITY AND HYPERNATREMIA Status: Acute - Plan plan discussed w/ family, continue antibiotics, PT/OT, social work nurse, speech therapy, respiratory therapy, DVT proph w/SCDs Continue supportive mgmt Continue Meropenem/Vancomycin another 24h then d/c D/C Heparin D/C IVF's CM for SNF options Bacitracin ointment to lloyd Trial Neuro chair daily AM Lab: BMP
[2019-03-17] MEDS: Atorvastatin Calcium 40 MG TAB PO SCH (21:10)
[2019-03-17] MEDS: Metoclopramide 10 MG/10 ML UDCUP PER TUBE SCH (21:11)
[2019-03-17] MEDS: Insulin Glargine 10 UNITS in Pre-Filled Syringe 1 EACH SC SCH (21:11)
[2019-03-18] MEDS: Vancomycin HCl 1 GM in Premix Bag 1 BAG IVPB SCH (00:26)
[2019-03-18] MEDS: Folic Acid 1 MG TAB PO SCH (09:29)
[2019-03-18] MEDS: Multivitamin W/ Minerals 1 TAB PO SCH (09:29)
[2019-03-18] MEDS: Escitalopram Oxalate 10 mg Tablet PO SCH (09:29)
[2019-03-18] MEDS: hydrALAZINE 25 MG TAB PO SCH ×3 (09:29→22:33)
[2019-03-18] MEDS: Multivitamins CHEW w/Iron Tablet PO SCH (09:29)
[2019-03-18] MEDS: Carvedilol 6.25 MG TAB PO SCH ×2 (09:29→22:33)
[2019-03-18] MEDS: Amlodipine 10 MG TAB PO SCH (09:29)
[2019-03-18] MEDS: Pantoprazole 40 MG VIAL IVP SCH (09:30)
[2019-03-18] MEDS: Aspirin Chewable 81 MG TAB PO SCH (09:30)
[2019-03-18] MEDS: Metoclopramide 10 MG/10 ML UDCUP PER TUBE SCH ×4 (09:30→22:33)
[2019-03-18] MEDS: Bacitracin 1 PK TOP SCH ×3 (10:12→22:34)
[2019-03-18] MEDS: Insulin Glargine 20 UNITS in Pre-Filled Syringe 1 EACH SC SCH (10:13)
[2019-03-18] MEDS: Docusate Sodium 100 MG/10 ML UDCUP PO SCH ×2 (10:13→22:34)
--- NOTE | 2019-03-18 20:04 | PDOC.HOSPP ---
- Subjective Encounter Date: 03/18/19 Encounter Time: 14:00 Subjective: f/u for resp failure with trach/PEG and receiving TF's completing Meropenem and now on Vancomycin. More alert and interactive. Monitoring gastric residuals with increased volumes reported. - Objective Vital Signs & Weight: Vital Signs (12 hours) Temp Pulse Pulse Resp BP BP BP 03/18/19 15:50 98.1 F 91 20 141/83 H 03/18/19 14:27 80 125/76 03/18/19 13:07 81 132/78 03/18/19 11:53 98.0 F 80 16 125/76 03/18/19 09:29 77 138/84 03/18/19 08:50 99.4 F 77 16 138/84 Pulse Ox 03/18/19 15:50 100 03/18/19 14:27 03/18/19 13:07 03/18/19 11:53 100 03/18/19 09:29 96 03/18/19 08:50 99 Weight Admit Weight 282 lb 11.2 oz Weight 282 lb 14.4 oz Most Recent Monitor Data Heart Rate from ECG 75 NIBP 154/95 NIBP BP-Mean 114 Respiration from ECG 20 SpO2 98 I&O: 03/17/19 03/18/19 03/19/19 06:59 06:59 06:59 Intake Total 3590 1257 754 Output Total 6012 1095 Balance 4326 -4133 459 Result Diagrams: 03/13/19 04:50 03/16/19 03:30 Additional Labs: Accuchecks 03/18/19 03/18/19 03/18/19 16:59 10:34 05:58 POC Glucose 157 H 154 H 128 H 03/17/19 20:17 POC Glucose 168 H Microbiology 03/09/19 17:50 Stool Stool Occult Blood (PHILIP) - Final 03/06/19 14:02 Urine orozco catheter Urine Culture - Final NO GROWTH AT 48 HOURS 03/05/19 03:58 Urine orozco catheter Urine Culture - Final NO GROWTH AT 36 HOURS 03/11/19 13:55 Urine clean catch Urine Culture - Preliminary NO GROWTH AT 24 HOURS 03/11/19 13:19 Venous blood - Right Hand Blood Culture - Preliminary Specimen has been received and culture in progress. No Growth to date. 03/11/19 13:19 Central Line - Left external jugular vein Blood Culture - Preliminary NO GROWTH AT 48 HOURS 03/05/19 02:21 Venous blood - Left Arm Blood Culture - Preliminary NO GROWTH AT 48 HOURS 03/05/19 02:04 Venous blood - Left Arm Blood Culture - Preliminary NO GROWTH AT 48 HOURS Laboratory Tests 03/01/19 03/04/19 03/04/19 04:43 10:52 10:52 Hgb 7.2 L Sodium 145 150 H Creatinine 2.19 H 1.95 H Vancomycin Trough Random Vancomycin 03/05/19 03/05/19 03/07/19 03:30 03:30 05:17 Hgb 7.3 L Sodium 150 H 149 H Creatinine 2.00 H 1.98 H Vancomycin Trough Random Vancomycin 03/09/19 03/10/19 03/11/19 04:38 05:53 08:00 Hgb Sodium 144 145 Creatinine 1.96 H 2.01 H Vancomycin Trough 30.5 H* Random Vancomycin 03/12/19 08:00 Hgb Sodium Creatinine Vancomycin Trough Random Vancomycin 18.9 EKG Reviewed by me: Yes (Tele - SR) Hospitalist ROS - Medication Medications: Active Medications Generic Name Dose Route Start Last Admin Trade Name Freq PRN Reason Stop Dose Admin Acetaminophen 1,000 mg 03/05/19 01:37 03/17/19 06:32 Tylenol Elixir PER TUBE 1,000 mg Q6H PRN Administration Fever/Mild Pain Albuterol/Ipratropium 3 ml 03/01/19 15:52 03/17/19 15:13 Duoneb NEB 3 ml Q6H PRN Administration SOB &/or Wheezing Alteplase, Recombinant 2 mg 03/09/19 15:30 03/14/19 06:18 Cathflo CATH 2 mg WILLCALL PANCHO Administration Amlodipine Besylate 10 mg 02/13/19 09:00 03/18/19 09:29 Norvasc PO 10 mg DAILY PANCHO Administration Aspirin 81 mg 03/05/19 09:00 03/18/19 09:30 Aspirin Chewable PO 81 mg DAILY PANCHO Administration Atorvastatin Calcium 40 mg 02/08/19 21:00 03/17/19 21:10 Lipitor PO 40 mg HS PANCHO Administration Bacitracin 1 pk 03/08/19 21:00 03/18/19 14:28 Bacitracin TOP 1 pk TID PANCHO Administration Carvedilol 12.5 mg 02/08/19 21:00 03/18/19 09:29 Coreg PO 12.5 mg BID PANCHO Administration Docusate Sodium 100 mg 02/25/19 21:00 03/18/19 10:13 Colace Liquid PO 100 mg BID PANCHO Administration Escitalopram Oxalate 10 mg 03/04/19 09:00 03/18/19 09:29 Lexapro PO 10 mg DAILY PANCHO Administration Folic Acid 1 mg 02/13/19 09:00 03/18/19 09:29 Folvite PO 1 mg DAILY PANCHO Administration Hydralazine HCl 25 mg 02/12/19 15:00 03/18/19 14:27 Apresoline PO 25 mg TID PANCHO Administration Hydralazine HCl 10 mg 02/17/19 16:33 03/03/19 03:04 Apresoline SLOW IVP 10 mg Q4H PRN Administration BP > 220/110 Insulin Glargine 20 units/ 0.2 mls @ 0 mls/hr 02/09/19 09:00 03/18/19 10:13 Miscellaneous Medication SC Not Given QAM [facility] Insulin Glargine 10 units/ 0.1 mls @ 0 mls/hr 02/27/19 21:00 03/17/19 21:11 Miscellaneous Medication SC 0.1 mls HS PANCHO Administration Vancomycin HCl 1 gm/ Device 200 mls @ 200 mls/hr 03/14/19 23:59 03/18/19 00: 26 IVPB 200 mls 2359 PANCHO Administration Insulin Human Lispro 0 units 02/07/19 19:09 03/17/19 06:30 Humalog SC 2 unit .MILD SLIDING SCALE PRN Administration Mild Correctional Scale Insulin Human Lispro 0 units 02/07/19 19:09 03/08/19 22:44 Humalog SC 3 unit .BEDTIME SLIDING SC PRN Administration Bedtime Correctional Scale Iron/Minerals/Multivitamins 1 tab 03/07/19 09:00 03/18/19 09:29 Theragran M PO 1 tab DAILY PANCHO Administration Labetalol HCl 20 mg 02/17/19 16:33 02/22/19 21:25 Normodyne SLOW IVP 20 mg Q1H PRN Administration BP > 220/110 Metoclopramide HCl 5 mg 03/17/19 21:00 02/07/20 16:46 Reglan PER TUBE 5 mg ACHS PANCHO Administration Multivitamins/Iron 1 tab 02/16/19 09:00 03/18/19 09:29 Centrum Kids Complete/Iron PO 1 tab DAILY PANCHO Administration Ondansetron HCl 4 mg 02/07/19 19:05 02/15/19 14:23 Zofran IVP 4 mg Q6H PRN Administration Nausea/Vomiting Pantoprazole Sodium 40 mg 03/16/19 09:00 03/18/19 09:30 Protonix IVP 40 mg DAILY PANCHO Administration Scopolamine 1.5 mg 02/21/19 13:00 03/17/19 13:40 Transderm Scop TD 1.5 mg Q3D PANCHO Administration Sodium Chloride 10 ml 02/07/19 19:05 03/12/19 22:04 Flush - Normal Saline IVF 10 ml Q12H PRN Administration Saline Flush Sodium Chloride 10 ml 03/10/19 18:50 03/15/19 10:22 Normal Saline Pf FS 10 ml PRN PRN Administration RECONSTITUTION Sterile Water 10 ml 03/09/19 15:30 03/09/19 17:33 Water For Injection IVP 10 ml WILLCALL PANCHO Administration - Exam General Appearance: awake alert Eye: PERRL, anicteric sclera ENT: normocephalic atraumatic, no oropharyngeal lesions Neck: supple, symmetric, no JVD, no thyromegaly Neck - other findings: trach in place Heart: RRR, no gallops, no rubs, normal peripheral pulses Respiratory - other findings: diminished breath sounds, occasional coarse sounds Gastrointestinal: soft, non-tender, non-distended, normal bowel sounds Gastrointestinal - other findings: obese Extremities: no cyanosis, 1+ LE edema Skin: normal turgor, no lesions Neurological: no new deficit Musculoskeletal: generalized weakness Psychiatric: oriented to person Hosp A/P (1) Healthcare-associated pneumonia Code(s): J18.9 - PNEUMONIA, UNSPECIFIED ORGANISM Status: Acute Plan: Completed Meropenem, continue Vancomycin, O2 support with T-collar (2) Acute CVA (cerebrovascular accident) Code(s): I63.9 - CEREBRAL INFARCTION, UNSPECIFIED Status: Acute (3) Acute respiratory failure with hypoxia and hypercapnia Code(s): J96.01 - ACUTE RESPIRATORY FAILURE WITH HYPOXIA; J96.02 - ACUTE RESPIRATORY FAILURE WITH HYPERCAPNIA Status: Acute Plan: Continue trach with T-collar, PNA resolving (4) Acute blood loss anemia Code(s): D62 - ACUTE POSTHEMORRHAGIC ANEMIA Status: Acute (5) Acute on chronic renal insufficiency Code(s): N28.9 - DISORDER OF KIDNEY AND URETER, UNSPECIFIED; N18.9 - CHRONIC KIDNEY DISEASE, UNSPECIFIED Status: Acute (6) Hypernatremia Code(s): E87.0 - HYPEROSMOLALITY AND HYPERNATREMIA Status: Acute Plan: Improved, monitor free-H2O intake - Plan plan discussed w/ family, continue antibiotics, PT/OT, certified social workers in health care, speech therapy, respiratory therapy, DVT proph w/SCDs Continue supportive mgmt Continue Vancomycin D/C Meropenem D/C Heparin D/C IVF's CM for SNF options Bacitracin ointment to lloyd Trial Neuro chair daily AM Lab: BMP
[2019-03-18] MEDS: Atorvastatin Calcium 40 MG TAB PO SCH (22:34)
[2019-03-19] MEDS: Insulin Glargine 10 UNITS in Pre-Filled Syringe 1 EACH SC SCH ×2 (00:21→22:12)
[2019-03-19] MEDS: Vancomycin HCl 1 GM in Premix Bag 1 BAG IVPB SCH (00:28)
[2019-03-19 05:53] LABS: Anion Gap 11 mmol/L (10-20); BUN (Urea Nitrogen) 39 mg/dL (8.4-25.7); Calc. Creatinine Clearance 80 mL/min (70-130); Calcium 9.5 mg/dL (7.8-10.44); Carbon Dioxide 32 mmol/L (22-29); Chloride 103 mmol/L (98-107); Estimated GFR-MDRD 68; Glucose 156 mg/dL (70-105); Potassium 3.7 mmol/L (3.5-5.1); Sodium 142 mmol/L (136-145)
[2019-03-19] MEDS: HumaLOG 300 UNITS/3 ML VIAL SC PRN ×2 (06:02→13:00)
[2019-03-19] MEDS: Docusate Sodium 100 MG/10 ML UDCUP PO SCH ×2 (09:46→22:10)
[2019-03-19] MEDS: Amlodipine 10 MG TAB PO SCH (09:46)
[2019-03-19] MEDS: Aspirin Chewable 81 MG TAB PO SCH (09:46)
[2019-03-19] MEDS: Multivitamins CHEW w/Iron Tablet PO SCH (09:46)
[2019-03-19] MEDS: Metoclopramide 10 MG/10 ML UDCUP PER TUBE SCH ×4 (09:49→22:09)
[2019-03-19] MEDS: Carvedilol 6.25 MG TAB PO SCH ×2 (09:49→22:09)
[2019-03-19] MEDS: Escitalopram Oxalate 10 mg Tablet PO SCH (09:50)
[2019-03-19] MEDS: Multivitamin W/ Minerals 1 TAB PO SCH (09:50)
[2019-03-19] MEDS: Folic Acid 1 MG TAB PO SCH (09:50)
[2019-03-19] MEDS: hydrALAZINE 25 MG TAB PO SCH ×3 (09:50→22:10)
[2019-03-19] MEDS: Pantoprazole 40 MG VIAL IVP SCH (09:50)
[2019-03-19] MEDS: Insulin Glargine 20 UNITS in Pre-Filled Syringe 1 EACH SC SCH (10:35)
--- NOTE | 2019-03-19 16:10 | PDOC.HOSPP ---
- Subjective Encounter Date: 03/19/19 Encounter Time: 11:25 Subjective: pt seen and examined, no acute c/o; been treated for HCAP. trach in place. d/ w pt's . plan to transfer to [facility]. blood cx neg. - Objective Vital Signs & Weight: Vital Signs (12 hours) Temp Pulse Resp BP BP Pulse Ox 03/19/19 16:04 98.1 F 81 16 133/78 93 L 03/19/19 11:56 98.6 F 86 20 132/86 97 03/19/19 10:13 86 12 03/19/19 09:50 83 135/77 03/19/19 09:49 135/77 96 03/19/19 09:46 83 135/77 03/19/19 08:00 98.8 F 83 18 135/77 95 Weight Admit Weight 282 lb 11.2 oz Weight 200 lb 8 oz Most Recent Monitor Data Heart Rate from ECG 75 NIBP 154/95 NIBP BP-Mean 114 Respiration from ECG 20 SpO2 98 I&O: 03/18/19 03/19/19 03/20/19 06:59 06:59 06:59 Intake Total 1257 1853 237 Output Total 2525 1075 Balance -1268 778 237 Result Diagrams: 03/13/19 04:50 03/19/19 05:19 Additional Labs: Accuchecks 03/19/19 03/19/19 03/18/19 12:01 05:48 21:40 POC Glucose 207 H 167 H 120 H 03/18/19 16:59 POC Glucose 157 H Hospitalist ROS - Medication Medications: Active Medications Generic Name Dose Route Start Last Admin Trade Name Blu PRN Reason Stop Dose Admin Acetaminophen 1,000 mg 03/05/19 01:37 03/17/19 06:32 Tylenol Elixir PER TUBE 1,000 mg Q6H PRN Administration Fever/Mild Pain Albuterol/Ipratropium 3 ml 03/01/19 15:52 03/19/19 10:13 Duoneb NEB 3 ml Q6H PRN Administration SOB &/or Wheezing Alteplase, Recombinant 2 mg 03/09/19 15:30 03/14/19 06:18 Cathflo CATH 2 mg WILLCALL PANCHO Administration Amlodipine Besylate 10 mg 02/13/19 09:00 03/19/19 09:46 Norvasc PO 10 mg DAILY PANCHO Administration Aspirin 81 mg 03/05/19 09:00 03/19/19 09:46 Aspirin Chewable PO 81 mg DAILY PANCHO Administration Atorvastatin Calcium 40 mg 02/08/19 21:00 03/18/19 22:34 Lipitor PO 40 mg HS [facility], [facility]–1983 Administration Carvedilol 12.5 mg 02/08/19 21:00 03/19/19 09:49 Coreg PO 12.5 mg BID [facility]1983 Administration Docusate Sodium 100 mg 02/25/19 21:00 03/19/19 09:46 Colace Liquid PO 100 mg BID PANCHO Administration Escitalopram Oxalate 10 mg 03/04/19 09:00 03/19/19 09:50 Lexapro PO 10 mg DAILY [facility]1983 Administration Folic Acid 1 mg 02/13/19 09:00 03/19/19 09:50 Folvite PO 1 mg DAILY PANCHO Administration Hydralazine HCl 25 mg 02/12/19 15:00 03/19/19 09:50 Apresoline PO 25 mg TID PANCHO Administration Hydralazine HCl 10 mg 02/17/19 16:33 03/03/19 03:04 Apresoline SLOW IVP 10 mg Q4H PRN Administration BP > 220/110 Insulin Glargine 20 units/ 0.2 mls @ 0 mls/hr 02/09/19 09:00 03/19/19 10:35 Miscellaneous Medication SC 0.2 mls QAM PANCHO Administration Insulin Glargine 10 units/ 0.1 mls @ 0 mls/hr 02/27/19 21:00 03/19/19 00:21 Miscellaneous Medication SC Not Given HS [facility] Vancomycin HCl 1 gm/ Device 200 mls @ 200 mls/hr 03/14/19 23:59 03/19/19 00: 28 IVPB 200 mls 2359 PANCHO Administration Insulin Human Lispro 0 units 02/07/19 19:09 03/19/19 13:00 Humalog SC 2 unit .MILD SLIDING SCALE PRN Administration Mild Correctional Scale Insulin Human Lispro 0 units 02/07/19 19:09 03/08/19 22:44 Humalog SC 3 unit .BEDTIME SLIDING SC PRN Administration Bedtime Correctional Scale Iron/Minerals/Multivitamins 1 tab 03/07/19 09:00 03/19/19 09:50 Theragran M PO 1 tab DAILY PANCHO Administration Labetalol HCl 20 mg 02/17/19 16:33 02/22/19 21:25 Normodyne SLOW IVP 20 mg Q1H PRN Administration BP > 220/110 Metoclopramide HCl 5 mg 03/17/19 21:00 03/19/19 13:00 Reglan PER TUBE 5 mg ACHS PANCHO Administration Multivitamins/Iron 1 tab 02/16/19 09:00 03/19/19 09:46 Centrum Kids Complete/Iron PO 1 tab DAILY PANCHO Administration Ondansetron HCl 4 mg 02/07/19 19:05 02/15/19 14:23 Zofran IVP 4 mg Q6H PRN Administration Nausea/Vomiting Pantoprazole Sodium 40 mg 03/16/19 09:00 03/19/19 09:50 Protonix IVP 40 mg DAILY PANCHO Administration Scopolamine 1.5 mg 02/21/19 13:00 03/17/19 13:40 Transderm Scop TD 1.5 mg Q3D PANCHO Administration Sodium Chloride 10 ml 02/07/19 19:05 03/12/19 22:04 Flush - Normal Saline IVF 10 ml Q12H PRN Administration Saline Flush Sodium Chloride 10 ml 03/10/19 18:50 03/15/19 10:22 Normal Saline Pf FS 10 ml PRN PRN Administration RECONSTITUTION Sterile Water 10 ml 03/09/19 15:30 03/09/19 17:33 Water For Injection IVP 10 ml WILLCALL PANCHO Administration - Exam General Appearance: NAD, awake alert Eye: PERRL ENT - other findings: trach Neck: supple, symmetric Heart: RRR Respiratory: CTAB Gastrointestinal: soft, non-distended, normal bowel sounds Extremities: no cyanosis Extremities - other findings: r. LE - have several dry dressing - states that he hit himself recentl Skin: normal turgor Skin - other findings: left BKA Neurological: cranial nerve grossly intact Musculoskeletal: normal tone Hosp A/P - Plan (1) Healthcare-associated pneumonia - Completed Meropenem, continue Vancomycin, O2 support with T-collar -compl'd merum blood cx neg. (2) Acute CVA (cerebrovascular accident) Code(s): I63.9 - CEREBRAL INFARCTION, UNSPECIFIED Status: Acute (3) Acute respiratory failure with hypoxia and hypercapnia - Continue trach with T-collar, PNA resolving -bl jeremiah neg. (4) Acute blood loss anemia- (5) Acute on chronic renal insufficiency cr 2.6 at max and then down trend at 1.3 and he had baseline of 1.17 on 02/12 (6) Hypernatremia - Improved, monitor free-H2O intake RLE ulcer, POA - routine nursing care Bacitracin ointment to [facility] Neuro chair daily d/w pt's . plan to transfer to [facility].
[2019-03-19] MEDS: Atorvastatin Calcium 40 MG TAB PO SCH (22:10)
[2019-03-19 23:46] LABS: Vancomycin, Trough 19.8 ug/mL
[2019-03-20] MEDS: Vancomycin HCl 1 GM in Premix Bag 1 BAG IVPB SCH (01:09)
[2019-03-20] MEDS: Metoclopramide 10 MG/10 ML UDCUP PER TUBE SCH ×4 (09:04→20:27)
[2019-03-20] MEDS: Docusate Sodium 100 MG/10 ML UDCUP PO SCH ×2 (09:04→21:28)
[2019-03-20] MEDS: Multivitamins CHEW w/Iron Tablet PO SCH (09:04)
[2019-03-20] MEDS: Carvedilol 6.25 MG TAB PO SCH ×2 (09:04→20:27)
[2019-03-20] MEDS: Escitalopram Oxalate 10 mg Tablet PO SCH (09:04)
[2019-03-20] MEDS: Amlodipine 10 MG TAB PO SCH (09:04)
[2019-03-20] MEDS: Insulin Glargine 20 UNITS in Pre-Filled Syringe 1 EACH SC SCH (09:05)
[2019-03-20] MEDS: Multivitamin W/ Minerals 1 TAB PO SCH (09:05)
[2019-03-20] MEDS: hydrALAZINE 25 MG TAB PO SCH ×3 (09:05→20:27)
[2019-03-20] MEDS: Aspirin Chewable 81 MG TAB PO SCH (09:05)
[2019-03-20] MEDS: Pantoprazole 40 MG VIAL IVP SCH (09:05)
[2019-03-20] MEDS: Folic Acid 1 MG TAB PO SCH (09:05)
[2019-03-20] MEDS: Scopolamine 1.5 mg/72 hour Patch TD SCH (12:39)
--- NOTE | 2019-03-20 13:09 | PDOC.HOSPP ---
- Subjective Encounter Date: 03/20/19 Encounter Time: 11:00 Subjective: pt being cleaned up. had an episode of emesis. looks quite fatigued. - Objective Vital Signs & Weight: Vital Signs (12 hours) Temp Pulse Resp BP BP BP Pulse Ox 03/20/19 11:55 99.9 F H 96 17 146/84 H 98 03/20/19 09:05 85 03/20/19 09:04 85 154/92 H 03/20/19 07:36 98.1 F 85 14 123/73 99 03/20/19 04:00 98 F 79 18 126/89 98 Weight Admit Weight 282 lb 11.2 oz Weight 200 lb 8 oz Most Recent Monitor Data Heart Rate from ECG 75 NIBP 154/95 NIBP BP-Mean 114 Respiration from ECG 20 SpO2 98 I&O: 03/19/19 03/20/19 03/21/19 06:59 06:59 06:59 Intake Total 1853 2456 470 Output Total 1075 1625 Balance 778 831 470 Result Diagrams: 03/13/19 04:50 03/19/19 05:19 Additional Labs: Accuchecks 03/20/19 03/20/19 03/19/19 10:24 06:21 20:09 POC Glucose 228 H 210 H 158 H 03/19/19 16:41 POC Glucose 149 H Hospitalist ROS - Medication Medications: Active Medications Generic Name Dose Route Start Last Admin Trade Name Freq PRN Reason Stop Dose Admin Acetaminophen 1,000 mg 03/05/19 01:37 03/17/19 06:32 Tylenol Elixir PER TUBE 1,000 mg Q6H PRN Administration Fever/Mild Pain Albuterol/Ipratropium 3 ml 03/01/19 15:52 03/19/19 10:13 Duoneb NEB 3 ml Q6H PRN Administration SOB &/or Wheezing Alteplase, Recombinant 2 mg 03/09/19 15:30 03/14/19 06:18 Cathflo CATH 2 mg WILLCALL PANCHO Administration Amlodipine Besylate 10 mg 02/13/19 09:00 03/20/19 09:04 Norvasc PO 10 mg DAILY PANCHO Administration Aspirin 81 mg 03/05/19 09:00 03/20/19 09:05 Aspirin Chewable PO 81 mg DAILY PANCHO Administration Atorvastatin Calcium 40 mg 02/08/19 21:00 03/19/19 22:10 Lipitor PO 40 mg HS PANCHO Administration Carvedilol 12.5 mg 02/08/19 21:00 03/20/19 09:04 Coreg PO 12.5 mg BID PANCHO Administration Docusate Sodium 100 mg 02/25/19 21:00 03/20/19 09:04 Colace Liquid PO 100 mg BID PANCHO Administration Escitalopram Oxalate 10 mg 03/04/19 09:00 03/20/19 09:04 Lexapro PO 10 mg DAILY PANCHO Administration Folic Acid 1 mg 02/13/19 09:00 03/20/19 09:05 Folvite PO 1 mg DAILY PANCHO Administration Hydralazine HCl 25 mg 02/12/19 15:00 03/20/19 09:05 Apresoline PO 25 mg TID PANCHO Administration Hydralazine HCl 10 mg 02/17/19 16:33 03/03/19 03:04 Apresoline SLOW IVP 10 mg Q4H PRN Administration BP > 220/110 Insulin Glargine 20 units/ 0.2 mls @ 0 mls/hr 02/09/19 09:00 03/20/19 09:05 Miscellaneous Medication SC 0.2 mls QAM PANCHO Administration Insulin Glargine 10 units/ 0.1 mls @ 0 mls/hr 02/27/19 21:00 03/19/19 22:12 Miscellaneous Medication SC Not Given HS PANCHO Vancomycin HCl 1 gm/ Device 200 mls @ 200 mls/hr 03/14/19 23:59 03/20/19 01: 09 IVPB 200 mls 2359 PANCHO Administration Insulin Human Lispro 0 units 02/07/19 19:09 03/19/19 13:00 Humalog SC 2 unit .MILD SLIDING SCALE PRN Administration Mild Correctional Scale Insulin Human Lispro 0 units 02/07/19 19:09 03/08/19 22:44 Humalog SC 3 unit .BEDTIME SLIDING SC PRN Administration Bedtime Correctional Scale Iron/Minerals/Multivitamins 1 tab 03/07/19 09:00 03/20/19 09:05 Theragran M PO 1 tab DAILY PANCHO Administration Labetalol HCl 20 mg 02/17/19 16:33 02/22/19 21:25 Normodyne SLOW IVP 20 mg Q1H PRN Administration BP > 220/110 Metoclopramide HCl 5 mg 03/17/19 21:00 03/20/19 12:38 Reglan PER TUBE 5 mg ACHS PANCHO Administration Multivitamins/Iron 1 tab 02/16/19 09:00 03/20/19 09:04 Centrum Kids Complete/Iron PO 1 tab DAILY PANCHO Administration Ondansetron HCl 4 mg 02/07/19 19:05 02/15/19 14:23 Zofran IVP 4 mg Q6H PRN Administration Nausea/Vomiting Pantoprazole Sodium 40 mg 03/16/19 09:00 03/20/19 09:05 Protonix IVP 40 mg DAILY PANCHO Administration Scopolamine 1.5 mg 02/21/19 13:00 03/20/19 12:39 Transderm Scop TD 1.5 mg Q3D PANCHO Administration Sodium Chloride 10 ml 02/07/19 19:05 03/12/19 22:04 Flush - Normal Saline IVF 10 ml Q12H PRN Administration Saline Flush Sodium Chloride 10 ml 03/10/19 18:50 03/15/19 10:22 Normal Saline Pf FS 10 ml PRN PRN Administration RECONSTITUTION Sterile Water 10 ml 03/09/19 15:30 03/09/19 17:33 Water For Injection IVP 10 ml WILLCALL PANCHO Administration - Exam General Appearance: awake alert, ill appearing Eye: PERRL, anicteric sclera ENT: normocephalic atraumatic Neck: symmetric Heart: RRR Respiratory: CTAB, no wheezes, normal chest expansion Extremities - other findings: L-BKA Skin - other findings: signi kelosis in the chest area and gynecomastia. Hosp A/P - Plan (1) Healthcare-associated pneumonia - Completed Meropenem, continue Vancomycin, O2 support with T-collar -compl'd merum blood cx neg. (2) Acute CVA (cerebrovascular accident) Code(s): I63.9 - CEREBRAL INFARCTION, UNSPECIFIED Status: Acute (3) Acute respiratory failure with hypoxia and hypercapnia - Continue trach with T-collar, PNA resolving -bl jeremiah neg. (4) Acute blood loss anemia- (5) Acute on chronic renal insufficiency cr 2.6 at max and then down trend at 1.3 and he had baseline of 1.17 on 02/12 (6) Hypernatremia - Improved, monitor free-H2O intake RLE ulcer, POA - routine nursing care Bacitracin ointment to [facility] Trial Neuro chair daily d/w pt's . plan to transfer to [facility]. 9th- no change in the mgmt -plan as above.
[2019-03-20] MEDS: HumaLOG 300 UNITS/3 ML VIAL SC PRN ×2 (16:17→17:32)
[2019-03-20] MEDS: Atorvastatin Calcium 40 MG TAB PO SCH (20:27)
[2019-03-20] MEDS: Insulin Glargine 10 UNITS in Pre-Filled Syringe 1 EACH SC SCH (21:33)
[2019-03-21] MEDS: Vancomycin HCl 1 GM in Premix Bag 1 BAG IVPB SCH (00:08)
[2019-03-21 04:55] LABS: #Eosinphils 0.3 thou/uL (0.0-0.7); #Lymphocytes 1.6 thou/uL (1.20-3.40); #Monocytes 0.4 thou/uL (0.11-0.59); #Neutrophils 2.2 thou/uL (1.40-6.50); %Basophils 0.2 % (0.0-1.0); %Eosinophils 6.6 % (0.0-10.0); %Monocytes 8.6 % (0.0-10.0); %Neutrophils 48.6 % (42.0-75.0); Hemoglobin 8.6 g/dL (14.0-18.0); Mean Corpuscular HGB CONC 31.7 g/dL (32.0-36.0); Mean Corpuscular Hemoglobin 25.6 pg (27.0-31.0); Mean Corpuscular Volume 80.8 fL (78.0-98.0); Mean Platelet Volume 8.9 fL (7.4-10.4); Platelet Count 251 thou/uL (130-400); RBC Distribution Width 15.8 % (11.5-14.5); Red Blood Cell (RBC) Count 3.34 mill/uL (4.70-6.10); White Blood Cell (WBC) Count 4.4 thou/uL (4.8-10.8)
[2019-03-21 05:20] LABS: Anion Gap 10 mmol/L (10-20); BUN (Urea Nitrogen) 38 mg/dL (8.4-25.7); Calc. Creatinine Clearance 81 mL/min (70-130); Calcium 9.4 mg/dL (7.8-10.44); Carbon Dioxide 33 mmol/L (22-29); Chloride 102 mmol/L (98-107); Estimated GFR-MDRD 69; Glucose 136 mg/dL (70-105); Potassium 3.4 mmol/L (3.5-5.1); Sodium 142 mmol/L (136-145)
[2019-03-21] MEDS ORDERED: Potassium Citrate 10 MEQ TAB PO SCH (09:15)
[2019-03-21] MEDS: Metoclopramide 10 MG/10 ML UDCUP PER TUBE SCH ×4 (09:45→20:46)
[2019-03-21] MEDS: Folic Acid 1 MG TAB PO SCH (09:46)
[2019-03-21] MEDS: Multivitamin W/ Minerals 1 TAB PO SCH (09:46)
[2019-03-21] MEDS: Multivitamins CHEW w/Iron Tablet PO SCH (09:46)
[2019-03-21] MEDS: Amlodipine 10 MG TAB PO SCH (09:47)
[2019-03-21] MEDS: Carvedilol 6.25 MG TAB PO SCH ×2 (09:48→20:42)
[2019-03-21] MEDS: hydrALAZINE 25 MG TAB PO SCH ×3 (09:49→20:42)
[2019-03-21] MEDS: Escitalopram Oxalate 10 mg Tablet PO SCH (09:49)
[2019-03-21] MEDS: Aspirin Chewable 81 MG TAB PO SCH (09:49)
[2019-03-21] MEDS: Pantoprazole 40 MG VIAL IVP SCH (09:50)
[2019-03-21] MEDS: Insulin Glargine 20 UNITS in Pre-Filled Syringe 1 EACH SC SCH (09:51)
[2019-03-21] MEDS: Docusate Sodium 100 MG/10 ML UDCUP PO SCH ×2 (09:56→20:46)
--- NOTE | 2019-03-21 12:42 | PDOC.HOSPP ---
- Subjective Encounter Date: 03/21/19 Encounter Time: 09:40 Subjective: family at bedside. pt is sleeping. no acute events. - Objective Vital Signs & Weight: Vital Signs (12 hours) Temp Pulse Resp BP BP BP Pulse Ox 03/21/19 11:30 98.8 F 81 19 112/67 95 03/21/19 09:49 79 131/74 03/21/19 09:48 131/74 03/21/19 09:47 79 131/74 03/21/19 07:46 98.1 F 80 18 131/78 97 03/21/19 04:06 97.4 F L 80 18 152/80 H 96 Weight Admit Weight 282 lb 11.2 oz Weight 200 lb 8 oz Most Recent Monitor Data Heart Rate from ECG 75 NIBP 154/95 NIBP BP-Mean 114 Respiration from ECG 20 SpO2 98 I&O: 03/20/19 03/21/19 03/22/19 06:59 06:59 06:59 Intake Total 2456 1177 210 Output Total 1625 1400 Balance 831 -223 210 Result Diagrams: 03/21/19 04:40 03/21/19 04:40 Additional Labs: Accuchecks 03/21/19 03/21/19 03/20/19 10:28 05:52 20:21 POC Glucose 150 H 154 H 97 03/20/19 17:12 POC Glucose 174 H Hospitalist ROS - Medication Medications: Active Medications Generic Name Dose Route Start Last Admin Trade Name Freq PRN Reason Stop Dose Admin Acetaminophen 1,000 mg 03/05/19 01:37 03/17/19 06:32 Tylenol Elixir PER TUBE 1,000 mg Q6H PRN Administration Fever/Mild Pain Albuterol/Ipratropium 3 ml 03/01/19 15:52 03/19/19 10:13 Duoneb NEB 3 ml Q6H PRN Administration SOB &/or Wheezing Alteplase, Recombinant 2 mg 03/09/19 15:30 03/14/19 06:18 Cathflo CATH 2 mg WILLCALL PANCHO Administration Amlodipine Besylate 10 mg 02/13/19 09:00 03/21/19 09:47 Norvasc PO 10 mg DAILY PANCHO Administration Aspirin 81 mg 03/05/19 09:00 03/21/19 09:49 Aspirin Chewable PO 81 mg DAILY PANCHO Administration Atorvastatin Calcium 40 mg 02/08/19 21:00 03/20/19 20:27 Lipitor PO 40 mg HS PANCHO Administration Carvedilol 12.5 mg 02/08/19 21:00 03/21/19 09:48 Coreg PO 12.5 mg BID PANCHO Administration Docusate Sodium 100 mg 02/25/19 21:00 03/21/19 09:56 Colace Liquid PO 100 mg BID PANCHO Administration Escitalopram Oxalate 10 mg 03/04/19 09:00 03/21/19 09:49 Lexapro PO 10 mg DAILY PANCHO Administration Folic Acid 1 mg 02/13/19 09:00 03/21/19 09:46 Folvite PO 1 mg DAILY PANCHO Administration Hydralazine HCl 25 mg 02/12/19 15:00 03/21/19 09:49 Apresoline PO 25 mg TID PANCHO Administration Hydralazine HCl 10 mg 02/17/19 16:33 03/03/19 03:04 Apresoline SLOW IVP 10 mg Q4H PRN Administration BP > 220/110 Insulin Glargine 20 units/ 0.2 mls @ 0 mls/hr 02/09/19 09:00 03/21/19 09:51 Miscellaneous Medication SC 0.2 mls QAM PANCHO Administration Insulin Glargine 10 units/ 0.1 mls @ 0 mls/hr 02/27/19 21:00 03/20/19 21:33 Miscellaneous Medication SC Not Given HS PANCHO Vancomycin HCl 1 gm/ Device 200 mls @ 200 mls/hr 03/14/19 23:59 03/21/19 00: 08 IVPB 200 mls 2359 PANCHO Administration Insulin Human Lispro 0 units 02/07/19 19:09 03/20/19 17:32 Humalog SC 2 unit .MILD SLIDING SCALE PRN Administration Mild Correctional Scale Insulin Human Lispro 0 units 02/07/19 19:09 03/08/19 22:44 Humalog SC 3 unit .BEDTIME SLIDING SC PRN Administration Bedtime Correctional Scale Iron/Minerals/Multivitamins 1 tab 03/07/19 09:00 03/21/19 09:46 Theragran M PO 1 tab DAILY PANCHO Administration Labetalol HCl 20 mg 02/17/19 16:33 02/22/19 21:25 Normodyne SLOW IVP 20 mg Q1H PRN Administration BP > 220/110 Metoclopramide HCl 5 mg 03/17/19 21:00 03/21/19 09:45 Reglan PER TUBE 5 mg ACHS PANCHO Administration Multivitamins/Iron 1 tab 02/16/19 09:00 03/21/19 09:46 Centrum Kids Complete/Iron PO 1 tab DAILY PANCHO Administration Ondansetron HCl 4 mg 02/07/19 19:05 02/15/19 14:23 Zofran IVP 4 mg Q6H PRN Administration Nausea/Vomiting Pantoprazole Sodium 40 mg 03/16/19 09:00 03/21/19 09:50 Protonix IVP 40 mg DAILY PANCHO Administration Scopolamine 1.5 mg 02/21/19 13:00 03/20/19 12:39 Transderm Scop TD 1.5 mg Q3D PANCHO Administration Sodium Chloride 10 ml 02/07/19 19:05 03/21/19 09:52 Flush - Normal Saline IVF 10 ml Q12H PRN Administration Saline Flush Sodium Chloride 10 ml 03/10/19 18:50 03/15/19 10:22 Normal Saline Pf FS 10 ml PRN PRN Administration RECONSTITUTION Sterile Water 10 ml 03/09/19 15:30 03/09/19 17:33 Water For Injection IVP 10 ml WILLCALL PANCHO Administration - Exam General Appearance: ill appearing Eye: PERRL ENT: normocephalic atraumatic Neck: supple Heart: RRR Respiratory: CTAB Gastrointestinal: normal bowel sounds, no palpable masses, no hepatomegaly Extremities: no cyanosis Extremities - other findings: L aka; right leg several ulcers -- POA and being cared. Hosp A/P - Plan (1) Healthcare-associated pneumonia - Completed Meropenem, continue Vancomycin, O2 support with T-collar -compl'd merum blood cx neg. (2) Acute CVA (cerebrovascular accident) Code(s): I63.9 - CEREBRAL INFARCTION, UNSPECIFIED Status: Acute (3) Acute respiratory failure with hypoxia and hypercapnia - Continue trach with T-collar, PNA resolving -bl jeremiah neg. (4) Acute blood loss anemia- (5) Acute on chronic renal insufficiency cr 2.6 at max and then down trend at 1.3 and he had baseline of 1.17 on 02/12 (6) Hypernatremia - Improved, monitor free-H2O intake RLE ulcer, POA - routine nursing care [facility] to [facility] Neuro chair daily d/w pt's . plan to transfer to [facility]. 9th- no change in the mgmt -plan as above. 10th - prob transfer to their facility either today or in am, if bed available.
[2019-03-21] MEDS: Atorvastatin Calcium 40 MG TAB PO SCH (20:45)
[2019-03-21] MEDS: Insulin Glargine 10 UNITS in Pre-Filled Syringe 1 EACH SC SCH (20:46)
[2019-03-22] MEDS: Insulin Glargine 20 UNITS in Pre-Filled Syringe 1 EACH SC SCH (10:02)
[2019-03-22] MEDS: Multivitamins CHEW w/Iron Tablet PO SCH (10:03)
[2019-03-22] MEDS: Carvedilol 6.25 MG TAB PO SCH ×2 (10:03→21:11)
[2019-03-22] MEDS: Pantoprazole 40 MG VIAL IVP SCH (10:03)
[2019-03-22] MEDS: Docusate Sodium 100 MG/10 ML UDCUP PO SCH ×2 (10:03→21:11)
[2019-03-22] MEDS: Amlodipine 10 MG TAB PO SCH (10:03)
[2019-03-22] MEDS: Aspirin Chewable 81 MG TAB PO SCH (10:03)
[2019-03-22] MEDS: Escitalopram Oxalate 10 mg Tablet PO SCH (10:04)
[2019-03-22] MEDS: Folic Acid 1 MG TAB PO SCH (10:04)
[2019-03-22] MEDS: Metoclopramide 10 MG/10 ML UDCUP PER TUBE SCH ×4 (10:04→21:10)
[2019-03-22] MEDS: hydrALAZINE 25 MG TAB PO SCH ×3 (10:04→21:32)
[2019-03-22] MEDS: Multivitamin W/ Minerals 1 TAB PO SCH (10:04)
--- NOTE | 2019-03-22 12:02 | PDOC.HOSPP ---
- Subjective Encounter Date: 03/22/19 Encounter Time: 10:50 Subjective: pt examined today, sleeping, no acute events noted. - Objective Vital Signs & Weight: Vital Signs (12 hours) Temp Pulse Resp BP BP Pulse Ox 03/22/19 11:26 99.1 F 81 20 122/76 98 03/22/19 10:04 81 122/74 03/22/19 10:03 81 122/74 03/22/19 08:00 99.1 F 84 20 125/82 99 03/22/19 04:30 107/55 L 03/22/19 04:00 98.9 F 80 20 90/51 L 94 L Weight Admit Weight 282 lb 11.2 oz Weight 200 lb 8 oz Most Recent Monitor Data Heart Rate from ECG 75 NIBP 154/95 NIBP BP-Mean 114 Respiration from ECG 20 SpO2 98 I&O: 03/21/19 03/22/19 03/23/19 06:59 06:59 06:59 Intake Total 1177 1375 180 Output Total 1400 1550 Balance -223 -175 180 Result Diagrams: 03/21/19 04:40 03/21/19 04:40 Additional Labs: Accuchecks 03/22/19 03/22/19 03/21/19 11:02 06:19 20:04 POC Glucose 143 H 151 H 161 H 03/21/19 17:18 POC Glucose 159 H Hospitalist ROS - Medication Medications: Active Medications Generic Name Dose Route Start Last Admin Trade Name Freq PRN Reason Stop Dose Admin Acetaminophen 1,000 mg 03/05/19 01:37 03/17/19 06:32 Tylenol Elixir PER TUBE 1,000 mg Q6H PRN Administration Fever/Mild Pain Albuterol/Ipratropium 3 ml 03/01/19 15:52 03/19/19 10:13 Duoneb NEB 3 ml Q6H PRN Administration SOB &/or Wheezing Alteplase, Recombinant 2 mg 03/09/19 15:30 03/14/19 06:18 Cathflo CATH 2 mg WILLCALL PANCHO Administration Amlodipine Besylate 10 mg 02/13/19 09:00 03/22/19 10:03 Norvasc PO 10 mg DAILY PANCHO Administration Aspirin 81 mg 03/05/19 09:00 03/22/19 10:03 Aspirin Chewable PO 81 mg DAILY PANCHO Administration Atorvastatin Calcium 40 mg 12/31/19 21:00 03/21/19 20:45 Lipitor PO 40 mg HS PANCHO Administration Carvedilol 12.5 mg 02/08/19 21:00 03/22/19 10:03 Coreg PO 12.5 mg BID PANCHO Administration Docusate Sodium 100 mg 02/25/19 21:00 03/22/19 10:03 Colace Liquid PO 100 mg BID PANCHO Administration Escitalopram Oxalate 10 mg 03/04/19 09:00 03/22/19 10:04 Lexapro PO 10 mg DAILY PANCHO Administration Folic Acid 1 mg 02/13/19 09:00 03/22/19 10:04 Folvite PO 1 mg DAILY PANCHO Administration Hydralazine HCl 25 mg 02/12/19 15:00 03/22/19 10:04 Apresoline PO Not Given TID PANCHO Hydralazine HCl 10 mg 02/17/19 16:33 03/03/19 03:04 Apresoline SLOW IVP 10 mg Q4H PRN Administration BP > 220/110 Insulin Glargine 20 units/ 0.2 mls @ 0 mls/hr 02/09/19 09:00 03/22/19 10:02 Miscellaneous Medication SC 0.2 mls QAM PANCHO Administration Insulin Glargine 10 units/ 0.1 mls @ 0 mls/hr 02/27/19 21:00 03/21/19 20:46 Miscellaneous Medication SC 0.1 mls HS PANCHO Administration Insulin Human Lispro 0 units 02/07/19 19:09 03/20/19 17:32 Humalog SC 2 unit .MILD SLIDING SCALE PRN Administration Mild Correctional Scale Insulin Human Lispro 0 units 02/07/19 19:09 03/08/19 22:44 Humalog SC 3 unit .BEDTIME SLIDING SC PRN Administration Bedtime Correctional Scale Iron/Minerals/Multivitamins 1 tab 03/07/19 09:00 03/22/19 10:04 Theragran M PO 1 tab DAILY PANCHO Administration Labetalol HCl 20 mg 02/17/19 16:33 02/22/19 21:25 Normodyne SLOW IVP 20 mg Q1H PRN Administration BP > 220/110 Metoclopramide HCl 5 mg 03/17/19 21:00 03/22/19 10:04 Reglan PER TUBE 5 mg ACHS PANCHO Administration Multivitamins/Iron 1 tab 02/16/19 09:00 03/22/19 10:03 Centrum Kids Complete/Iron PO 1 tab DAILY PANCHO Administration Ondansetron HCl 4 mg 02/07/19 19:05 02/15/19 14:23 Zofran IVP 4 mg Q6H PRN Administration Nausea/Vomiting Pantoprazole Sodium 40 mg 03/16/19 09:00 03/22/19 10:03 Protonix IVP 40 mg DAILY PANCHO Administration Scopolamine 1.5 mg 02/21/19 13:00 03/20/19 12:39 Transderm Scop TD 1.5 mg Q3D PANCHO Administration Sodium Chloride 10 ml 02/07/19 19:05 03/22/19 10:05 Flush - Normal Saline IVF 10 ml Q12H PRN Administration Saline Flush Sodium Chloride 10 ml 03/10/19 18:50 03/15/19 10:22 Normal Saline Pf FS 10 ml PRN PRN Administration RECONSTITUTION Sterile Water 10 ml 03/09/19 15:30 03/09/19 17:33 Water For Injection IVP 10 ml WILLCALL PANCHO Administration - Exam General Appearance: NAD, awake alert Eye: anicteric sclera ENT: normocephalic atraumatic ENT - other findings: trach Neck: supple, symmetric Heart: RRR Respiratory: CTAB Gastrointestinal: soft, non-tender, non-distended, normal bowel sounds Extremities - other findings: left BKA Hosp A/P - Plan (1) Healthcare-associated pneumonia - Completed Meropenem, continue Vancomycin, O2 support with T-collar -compl'd merum blood cx neg. (2) Acute CVA (cerebrovascular accident) Code(s): I63.9 - CEREBRAL INFARCTION, UNSPECIFIED Status: Acute (3) Acute respiratory failure with hypoxia and hypercapnia - Continue trach with T-collar, PNA resolving -bl jeremiah neg. (4) Acute blood loss anemia- (5) Acute on chronic renal insufficiency cr 2.6 at max and then down trend at 1.3 and he had baseline of 1.17 on 02/12 (6) Hypernatremia - Improved, monitor free-H2O intake RLE ulcer, POA - routine nursing care Bacitracin ointment to [facility] Neuro chair daily d/w pt's . plan to transfer to [facility]. 9th- no change in the mgmt -plan as above. 10th - prob transfer to their facility either today or in am, if bed available. 11th - no change in med mgmt -- low acuity pending placement.
[2019-03-22] MEDS: Acetaminophen 650 MG/20.3 ML UDCUP PER TUBE PRN (21:10)
[2019-03-22] MEDS: Atorvastatin Calcium 40 MG TAB PO SCH (21:11)
[2019-03-22] MEDS: Insulin Glargine 10 UNITS in Pre-Filled Syringe 1 EACH SC SCH (21:33)
[2019-03-23] MEDS: hydrALAZINE 25 MG TAB PO SCH ×3 (08:50→22:03)
[2019-03-23] MEDS: Carvedilol 6.25 MG TAB PO SCH ×2 (08:51→22:02)
[2019-03-23] MEDS: Multivitamins CHEW w/Iron Tablet PO SCH (08:52)
[2019-03-23] MEDS: Aspirin Chewable 81 MG TAB PO SCH (08:52)
[2019-03-23] MEDS: Folic Acid 1 MG TAB PO SCH (08:52)
[2019-03-23] MEDS: Amlodipine 10 MG TAB PO SCH (08:53)
[2019-03-23] MEDS: Escitalopram Oxalate 10 mg Tablet PO SCH (08:53)
[2019-03-23] MEDS: Metoclopramide 10 MG/10 ML UDCUP PER TUBE SCH ×4 (08:53→22:02)
[2019-03-23] MEDS: Multivitamin W/ Minerals 1 TAB PO SCH (08:53)
[2019-03-23] MEDS: Pantoprazole 40 MG VIAL IVP SCH (08:55)
[2019-03-23] MEDS: Docusate Sodium 100 MG/10 ML UDCUP PO SCH ×2 (08:55→22:02)
[2019-03-23] MEDS: Insulin Glargine 20 UNITS in Pre-Filled Syringe 1 EACH SC SCH (08:56)
[2019-03-23] MEDS: HumaLOG 300 UNITS/3 ML VIAL SC PRN ×2 (12:51→18:13)
[2019-03-23] MEDS: Scopolamine 1.5 mg/72 hour Patch TD SCH (12:52)
--- NOTE | 2019-03-23 13:08 | PDOC.HOSPP ---
- Subjective Encounter Date: 03/23/19 Encounter Time: 10:10 Subjective: is having some snack, pt is sleeping, no word yet regarding bed availability. he is afebrile, normotensive. labs for am ordered. - Objective Vital Signs & Weight: Vital Signs (12 hours) Temp Pulse Resp BP BP Pulse Ox 03/23/19 11:22 99.4 F 97 22 H 100/59 L 91 L 03/23/19 08:53 95 03/23/19 07:30 98.7 F 95 20 133/78 03/23/19 03:25 99.9 F H 85 18 133/77 94 L Weight Admit Weight 282 lb 11.2 oz Weight 200 lb 8 oz Most Recent Monitor Data Heart Rate from ECG 75 NIBP 154/95 NIBP BP-Mean 114 Respiration from ECG 20 SpO2 98 I&O: 03/22/19 03/23/19 03/24/19 06:59 06:59 06:59 Intake Total 1375 1726 Output Total 1550 1650 Balance -175 76 Result Diagrams: 03/21/19 04:40 03/21/19 04:40 Additional Labs: Accuchecks 03/23/19 03/23/19 03/22/19 10:37 06:23 19:51 POC Glucose 192 H 135 H 169 H 03/22/19 17:09 POC Glucose 160 H Hospitalist ROS - Medication Medications: Active Medications Generic Name Dose Route Start Last Admin Trade Name Freq PRN Reason Stop Dose Admin Acetaminophen 1,000 mg 03/05/19 01:37 03/22/19 21:10 Tylenol Elixir PER TUBE 1,000 mg Q6H PRN Administration Fever/Mild Pain Albuterol/Ipratropium 3 ml 03/01/19 15:52 03/19/19 10:13 Duoneb NEB 3 ml Q6H PRN Administration SOB &/or Wheezing Alteplase, Recombinant 2 mg 03/09/19 15:30 03/14/19 06:18 Cathflo CATH 2 mg WILLCALL PANCHO Administration Amlodipine Besylate 10 mg 02/13/19 09:00 03/23/19 08:53 Norvasc PO 10 mg DAILY PANCHO Administration Aspirin 81 mg 03/05/19 09:00 03/23/19 08:52 Aspirin Chewable PO 81 mg DAILY PANCHO Administration Atorvastatin Calcium 40 mg 02/08/19 21:00 03/22/19 21:11 Lipitor PO 40 mg HS PANCHO Administration Carvedilol 12.5 mg 02/08/19 21:00 03/23/19 08:51 Coreg PO 12.5 mg BID PANCHO Administration Docusate Sodium 100 mg 02/25/19 21:00 03/23/19 08:55 Colace Liquid PO 100 mg BID PANCHO Administration Escitalopram Oxalate 10 mg 03/04/19 09:00 03/23/19 08:53 Lexapro PO 10 mg DAILY PANCHO Administration Folic Acid 1 mg 02/13/19 09:00 03/23/19 08:52 Folvite PO 1 mg DAILY PANCHO Administration Hydralazine HCl 25 mg 02/12/19 15:00 03/23/19 08:50 Apresoline PO 25 mg TID PANCHO Administration Hydralazine HCl 10 mg 02/17/19 16:33 03/03/19 03:04 Apresoline SLOW IVP 10 mg Q4H PRN Administration BP > 220/110 Insulin Glargine 20 units/ 0.2 mls @ 0 mls/hr 02/09/19 09:00 03/23/19 08:56 Miscellaneous Medication SC 0.2 mls QAM PANCHO Administration Insulin Glargine 10 units/ 0.1 mls @ 0 mls/hr 02/27/19 21:00 03/22/19 21:33 Miscellaneous Medication SC Not Given [facility] Insulin Human Lispro 0 units 02/07/19 19:09 03/20/19 17:32 Humalog SC 2 unit .MILD SLIDING SCALE PRN Administration Mild Correctional Scale Insulin Human Lispro 0 units 02/07/19 19:09 03/08/19 22:44 Humalog SC 3 unit .BEDTIME SLIDING SC PRN Administration Bedtime Correctional Scale Iron/Minerals/Multivitamins 1 tab 03/07/19 09:00 03/23/19 08:53 Theragran M PO 1 tab DAILY PANCHO Administration Labetalol HCl 20 mg 02/17/19 16:33 02/22/19 21:25 Normodyne SLOW IVP 20 mg Q1H PRN Administration BP > 220/110 Metoclopramide HCl 5 mg 03/17/19 21:00 03/23/19 08:53 Reglan PER TUBE 5 mg ACHS PANCHO Administration Multivitamins/Iron 1 tab 02/16/19 09:00 03/23/19 08:52 Centrum Kids Complete/Iron PO 1 tab DAILY PANCHO Administration Ondansetron HCl 4 mg 02/07/19 19:05 02/15/19 14:23 Zofran IVP 4 mg Q6H PRN Administration Nausea/Vomiting Pantoprazole Sodium 40 mg 03/16/19 09:00 03/23/19 08:55 Protonix IVP 40 mg DAILY PANCHO Administration Scopolamine 1.5 mg 02/21/19 13:00 03/20/19 12:39 Transderm Scop TD 1.5 mg Q3D PANCHO Administration Sodium Chloride 10 ml 02/07/19 19:05 03/22/19 10:05 Flush - Normal Saline IVF 10 ml Q12H PRN Administration Saline Flush Sodium Chloride 10 ml 03/10/19 18:50 03/15/19 10:22 Normal Saline Pf FS 10 ml PRN PRN Administration RECONSTITUTION Sterile Water 10 ml 03/09/19 15:30 03/09/19 17:33 Water For Injection IVP 10 ml WILLCALL PANCHO Administration - Exam General Appearance: NAD Eye: PERRL, anicteric sclera ENT: normocephalic atraumatic Neck: supple, symmetric Heart: RRR, no murmur Respiratory: CTAB, normal chest expansion, no tachypnea Gastrointestinal: soft, non-tender, non-distended, normal bowel sounds Neurological: no focal deficits Hosp A/P - Plan (1) Healthcare-associated pneumonia - Completed Meropenem, continue Vancomycin, O2 support with T-collar -compl'd merum blood cx neg. (2) Acute CVA (cerebrovascular accident) Code(s): I63.9 - CEREBRAL INFARCTION, UNSPECIFIED Status: Acute (3) Acute respiratory failure with hypoxia and hypercapnia - Continue trach with T-collar, PNA resolving -bl jeremiah neg. (4) Acute blood loss anemia- (5) Acute on chronic renal insufficiency cr 2.6 at max and then down trend at 1.3 and he had baseline of 1.17 on 02/12 (6) Hypernatremia - Improved, monitor free-H2O intake RLE ulcer, POA - routine nursing care Bacitracin ointment to [facility] Neuro chair daily d/w pt's . plan to transfer to [facility]. 9th- no change in the mgmt -plan as above. 10th - prob transfer to their facility either today or in am, if bed available. 11th - no change in med mgmt -- low acuity pending placement. 12th no word yet regarding bed availability. intermittent labs for am ordered.
[2019-03-23] MEDS: Acetaminophen 650 MG/20.3 ML UDCUP PER TUBE PRN (22:01)
[2019-03-23] MEDS: Atorvastatin Calcium 40 MG TAB PO SCH (22:02)
[2019-03-23] MEDS: Insulin Glargine 10 UNITS in Pre-Filled Syringe 1 EACH SC SCH (22:19)
[2019-03-24] MEDS: Acetaminophen 650 MG/20.3 ML UDCUP PER TUBE PRN ×2 (05:35→22:39)
[2019-03-24 08:42] LABS: #Basophils 0.1 thou/uL (0.0-0.2); #Eosinphils 0.4 thou/uL (0.0-0.7); #Lymphocytes 2.3 thou/uL (1.20-3.40); #Monocytes 0.6 thou/uL (0.11-0.59); #Neutrophils 3.1 thou/uL (1.40-6.50); %Basophils 1.4 % (0.0-1.0); %Eosinophils 6.8 % (0.0-10.0); %Lymphocytes 35.5 % (21.0-51.0); %Monocytes 8.9 % (0.0-10.0); %Neutrophils 47.4 % (42.0-75.0); Hemoglobin 8.6 g/dL (14.0-18.0); Mean Corpuscular HGB CONC 30.5 g/dL (32.0-36.0); Mean Corpuscular Hemoglobin 25.4 pg (27.0-31.0); Mean Corpuscular Volume 83.1 fL (78.0-98.0); Mean Platelet Volume 8.6 fL (7.4-10.4); Platelet Count 255 thou/uL (130-400); White Blood Cell (WBC) Count 6.5 thou/uL (4.8-10.8)
[2019-03-24 08:56] LABS: Anion Gap 11 mmol/L (10-20); BUN (Urea Nitrogen) 50 mg/dL (8.4-25.7); Calc. Creatinine Clearance 57 mL/min (70-130); Calcium 9.4 mg/dL (7.8-10.44); Carbon Dioxide 35 mmol/L (22-29); Chloride 102 mmol/L (98-107); Estimated GFR-MDRD 46; Glucose 129 mg/dL (70-105); Potassium 3.9 mmol/L (3.5-5.1); Sodium 144 mmol/L (136-145)
[2019-03-24] MEDS: Aspirin Chewable 81 MG TAB PO SCH (09:56)
[2019-03-24] MEDS: Carvedilol 6.25 MG TAB PO SCH ×2 (09:56→23:31)
[2019-03-24] MEDS: Amlodipine 10 MG TAB PO SCH (09:57)
[2019-03-24] MEDS: Multivitamin W/ Minerals 1 TAB PO SCH (09:57)
[2019-03-24] MEDS: Folic Acid 1 MG TAB PO SCH (09:57)
[2019-03-24] MEDS: Escitalopram Oxalate 10 mg Tablet PO SCH (09:57)
[2019-03-24] MEDS: Multivitamins CHEW w/Iron Tablet PO SCH (09:57)
[2019-03-24] MEDS: Metoclopramide 10 MG/10 ML UDCUP PER TUBE SCH ×4 (09:58→23:32)
[2019-03-24] MEDS: Docusate Sodium 100 MG/10 ML UDCUP PO SCH ×2 (09:59→23:32)
[2019-03-24] MEDS: Insulin Glargine 20 UNITS in Pre-Filled Syringe 1 EACH SC SCH (09:59)
[2019-03-24] MEDS: Pantoprazole 40 MG VIAL IVP SCH (09:59)
[2019-03-24] MEDS: hydrALAZINE 25 MG TAB PO SCH ×3 (10:00→23:30)
--- NOTE | 2019-03-24 13:36 | PDOC.HOSPP ---
- Subjective Encounter Date: 03/24/19 Encounter Time: 10:15 Subjective: pt is doing well, nursing at bedside. afebrile; normotensive. no acute events o /n. BP and BG acceptable range. - Objective Vital Signs & Weight: Vital Signs (12 hours) Temp Pulse Resp BP BP Pulse Ox 03/24/19 11:54 99.3 F 90 18 117/75 96 03/24/19 09:57 85 126/75 03/24/19 08:00 98.8 F 86 18 132/74 96 03/24/19 04:00 100.6 F H 87 16 123/75 96 Weight Admit Weight 282 lb 11.2 oz Weight 200 lb 8 oz Most Recent Monitor Data Heart Rate from ECG 75 NIBP 154/95 NIBP BP-Mean 114 Respiration from ECG 20 SpO2 98 I&O: 03/23/19 03/24/19 03/25/19 06:59 06:59 06:59 Intake Total 1726 1007 Output Total 1650 1275 Balance 76 -268 Result Diagrams: 03/24/19 08:33 03/24/19 08:33 Additional Labs: Accuchecks 03/24/19 03/24/19 03/24/19 10:54 07:56 06:29 POC Glucose 139 H 138 H 142 H 03/23/19 03/23/19 20:29 16:43 POC Glucose 208 H 166 H Hospitalist ROS - Medication Medications: Active Medications Generic Name Dose Route Start Last Admin Trade Name Freq PRN Reason Stop Dose Admin Acetaminophen 1,000 mg 03/05/19 01:37 03/24/19 05:35 Tylenol Elixir PER TUBE 1,000 mg Q6H PRN Administration Fever/Mild Pain Albuterol/Ipratropium 3 ml 03/01/19 15:52 03/19/19 10:13 Duoneb NEB 3 ml Q6H PRN Administration SOB &/or Wheezing Alteplase, Recombinant 2 mg 03/09/19 15:30 03/14/19 06:18 Cathflo CATH 2 mg WILLCALL PANCHO Administration Amlodipine Besylate 10 mg 02/13/19 09:00 03/24/19 09:57 Norvasc PO 10 mg DAILY PANCHO Administration Aspirin 81 mg 03/05/19 09:00 03/24/19 09:56 Aspirin Chewable PO 81 mg DAILY PANCHO Administration Atorvastatin Calcium 40 mg 02/08/19 21:00 03/23/19 22:02 Lipitor PO 40 mg HS PANCHO Administration Carvedilol 12.5 mg 02/08/19 21:00 03/24/19 09:56 Coreg PO 12.5 mg BID PANCHO Administration Docusate Sodium 100 mg 02/25/19 21:00 03/24/19 09:59 Colace Liquid PO 100 mg BID PANCHO Administration Escitalopram Oxalate 10 mg 03/04/19 09:00 03/24/19 09:57 Lexapro PO 10 mg DAILY PANCHO Administration Folic Acid 1 mg 02/13/19 09:00 03/24/19 09:57 Folvite PO 1 mg DAILY PANCHO Administration Hydralazine HCl 25 mg 02/12/19 15:00 03/24/19 10:00 Apresoline PO Not Given TID PANCHO Hydralazine HCl 10 mg 02/17/19 16:33 03/03/19 03:04 Apresoline SLOW IVP 10 mg Q4H PRN Administration BP > 220/110 Insulin Glargine 20 units/ 0.2 mls @ 0 mls/hr 02/09/19 09:00 03/24/19 09:59 Miscellaneous Medication SC 0.2 mls QAM PANCHO Administration Insulin Glargine 10 units/ 0.1 mls @ 0 mls/hr 02/27/19 21:00 03/23/19 22:19 Miscellaneous Medication SC 0.1 mls HS PANCHO Administration Insulin Human Lispro 0 units 02/07/19 19:09 03/23/19 18:13 Humalog SC 2 unit .MILD SLIDING SCALE PRN Administration Mild Correctional Scale Insulin Human Lispro 0 units 02/07/19 19:09 03/08/19 22:44 Humalog SC 3 unit .BEDTIME SLIDING SC PRN Administration Bedtime Correctional Scale Iron/Minerals/Multivitamins 1 tab 03/07/19 09:00 03/24/19 09:57 Theragran M PO 1 tab DAILY PANCHO Administration Labetalol HCl 20 mg 02/17/19 16:33 02/22/19 21:25 Normodyne SLOW IVP 20 mg Q1H PRN Administration BP > 220/110 Metoclopramide HCl 5 mg 03/17/19 21:00 03/24/19 09:58 Reglan PER TUBE 5 mg ACHS PANCHO Administration Multivitamins/Iron 1 tab 02/16/19 09:00 03/24/19 09:57 Centrum Kids Complete/Iron PO 1 tab DAILY PANCHO Administration Ondansetron HCl 4 mg 02/07/19 19:05 02/15/19 14:23 Zofran IVP 4 mg Q6H PRN Administration Nausea/Vomiting Pantoprazole Sodium 40 mg 03/16/19 09:00 03/24/19 09:59 Protonix IVP 40 mg DAILY PANCHO Administration Scopolamine 1.5 mg 02/21/19 13:00 03/23/19 12:52 Transderm Scop TD 1.5 mg Q3D PANCHO Administration Sodium Chloride 10 ml 02/07/19 19:05 03/22/19 10:05 Flush - Normal Saline IVF 10 ml Q12H PRN Administration Saline Flush Sodium Chloride 10 ml 03/10/19 18:50 03/15/19 10:22 Normal Saline Pf FS 10 ml PRN PRN Administration RECONSTITUTION Sterile Water 10 ml 03/09/19 15:30 03/09/19 17:33 Water For Injection IVP 10 ml WILLCALL PANCHO Administration - Exam General Appearance: NAD, awake alert, ill appearing Eye: PERRL ENT: normocephalic atraumatic Neck: supple, symmetric Heart: RRR, normal peripheral pulses Respiratory: CTAB, no tachypnea Gastrointestinal: soft, non-tender, normal bowel sounds Neurological: no focal deficits Musculoskeletal: normal tone Psychiatric: normal affect Hosp A/P - Plan (1) Healthcare-associated pneumonia - Completed Meropenem, continue Vancomycin, O2 support with T-collar -compl'd merum blood cx neg. (2) Acute CVA (cerebrovascular accident) Code(s): I63.9 - CEREBRAL INFARCTION, UNSPECIFIED Status: Acute (3) Acute respiratory failure with hypoxia and hypercapnia - Continue trach with T-collar, PNA resolving -bl jeremiah neg. (4) Acute blood loss anemia- (5) Acute on chronic renal insufficiency cr 2.6 at max and then down trend at 1.3 and he had baseline of 1.17 on 02/12 (6) Hypernatremia - Improved, monitor free-H2O intake RLE ulcer, POA - routine nursing care Bacitracin ointment to glans Trial Neuro chair daily d/w pt's . plan to transfer to [facility]. 9th- no change in the mgmt -plan as above. 10th - prob transfer to their facility either today or in am, if bed available. 11th - no change in med mgmt -- low acuity pending placement. 12th no word yet regarding bed availability. intermittent labs for am ordered. 13th Dry skin - to be cared for w.. emoliments. Lytes panel looks good and Hgb stable around 8. -medically stable for transfer to facility.
[2019-03-24] MEDS: HumaLOG 300 UNITS/3 ML VIAL SC PRN (18:12)
--- NOTE | 2019-03-24 23:06 | PDOC.EVN ---
Event Note - Event Note Event Note: Notified by RN, patient with low BP and bradycardic (40s). Advised to hold hdyralazine and coreg. Per Dr. Walter, continue to hold coreg x 24 hrs. Temp was 99.7 at 8pm. Will give Tylenol. Continue to monitor.
[2019-03-24] MEDS: Insulin Glargine 10 UNITS in Pre-Filled Syringe 1 EACH SC SCH (23:29)
[2019-03-24] MEDS: Atorvastatin Calcium 40 MG TAB PO SCH (23:32)
[2019-03-24] MEDS ORDERED: Sodium Chloride 0.9% 500 ML IV SCH (23:45)
[2019-03-24 23:47] LABS: Anion Gap 13 mmol/L (10-20); BUN (Urea Nitrogen) 58 mg/dL (8.4-25.7); Calc. Creatinine Clearance 57 mL/min (70-130); Calcium 9.7 mg/dL (7.8-10.44); Carbon Dioxide 35 mmol/L (22-29); Chloride 102 mmol/L (98-107); Estimated GFR-MDRD 46; Glucose 146 mg/dL (70-105); Magnesium 2.2 mg/dL (1.6-2.6); Potassium 3.8 mmol/L (3.5-5.1); Sodium 146 mmol/L (136-145)
[2019-03-25] MEDS: hydrALAZINE 25 MG TAB PO SCH ×3 (07:53→21:18)
[2019-03-25] MEDS: Insulin Glargine 20 UNITS in Pre-Filled Syringe 1 EACH SC SCH (08:43)
[2019-03-25] MEDS: Metoclopramide 10 MG/10 ML UDCUP PER TUBE SCH ×4 (08:43→21:18)
[2019-03-25] MEDS: Multivitamins CHEW w/Iron Tablet PO SCH (08:44)
[2019-03-25] MEDS: Aspirin Chewable 81 MG TAB PO SCH (08:44)
[2019-03-25] MEDS: Carvedilol 6.25 MG TAB PO SCH (08:44)
[2019-03-25] MEDS: Amlodipine 10 MG TAB PO SCH (08:44)
[2019-03-25] MEDS: Docusate Sodium 100 MG/10 ML UDCUP PO SCH ×2 (08:45→21:42)
[2019-03-25] MEDS: Folic Acid 1 MG TAB PO SCH (08:45)
[2019-03-25] MEDS: Multivitamin W/ Minerals 1 TAB PO SCH (08:45)
[2019-03-25] MEDS: Pantoprazole 40 MG VIAL IVP SCH (08:45)
[2019-03-25] MEDS: Escitalopram Oxalate 10 mg Tablet PO SCH (08:45)
--- NOTE | 2019-03-25 10:35 | PDOC.HOSPP ---
- Subjective Encounter Date: 03/25/19 Encounter Time: 09:10 Subjective: pt had temp o/n; no residual in TF, will get blood jeremiah, no high wbcs. concern for aspiration, also ady o/n and pause i reviewed o/n strip and it seems < 3 sec pause? -- echo in 02/28 -- EF 65%, 2/3 DD. NO RWA. - Objective Vital Signs & Weight: Vital Signs (12 hours) Temp Pulse Resp BP BP Pulse Ox 03/25/19 08:44 120/76 03/25/19 08:43 96 03/25/19 08:00 100.7 F H 86 20 120/69 96 03/25/19 07:53 120/76 03/24/19 23:31 111/60 03/24/19 23:30 87 107/53 L 03/24/19 22:50 99.5 F 86 20 107/53 L 98 Weight Admit Weight 282 lb 11.2 oz Weight 200 lb 8 oz Most Recent Monitor Data Heart Rate from ECG 75 NIBP 154/95 NIBP BP-Mean 114 Respiration from ECG 20 SpO2 98 I&O: 03/24/19 03/25/19 03/26/19 06:59 06:59 06:59 Intake Total 1007 237 Output Total 1275 850 Balance -268 237 -850 Result Diagrams: 03/24/19 08:33 03/24/19 23:04 Additional Labs: Accuchecks 03/25/19 03/24/19 03/24/19 06:29 20:20 16:57 POC Glucose 162 H 208 H 168 H 03/24/19 10:54 POC Glucose 139 H Hospitalist ROS - Medication Medications: Active Medications Generic Name Dose Route Start Last Admin Trade Name Freq PRN Reason Stop Dose Admin Acetaminophen 1,000 mg 03/05/19 01:37 03/24/19 22:39 Tylenol Elixir PER TUBE 1,000 mg Q6H PRN Administration Fever/Mild Pain Albuterol/Ipratropium 3 ml 03/01/19 15:52 03/19/19 10:13 Duoneb NEB 3 ml Q6H PRN Administration SOB &/or Wheezing Alteplase, Recombinant 2 mg 03/09/19 15:30 03/14/19 06:18 Cathflo CATH 2 mg WILLCALL PANCHO Administration Amlodipine Besylate 10 mg 02/13/19 09:00 03/25/19 08:44 Norvasc PO 10 mg DAILY PANCHO Administration Aspirin 81 mg 03/05/19 09:00 03/25/19 08:44 Aspirin Chewable PO 81 mg DAILY PANCHO Administration Atorvastatin Calcium 40 mg 02/08/19 21:00 03/24/19 23:32 Lipitor PO 40 mg HS PANCHO Administration Carvedilol 12.5 mg 02/08/19 21:00 03/25/19 08:44 Coreg PO 12.[address] [facility] Administration Docusate Sodium 100 mg 02/25/19 21:00 03/25/19 08:45 Colace Liquid PO Not Given BID [facility] Escitalopram Oxalate 10 mg 03/04/19 09:00 03/25/19 08:45 Lexapro PO 10 mg DAILY PANCHO Administration Folic Acid 1 mg 02/13/19 09:00 03/25/19 08:45 Folvite PO 1 mg DAILY PANCHO Administration Hydralazine HCl 25 mg 02/12/19 15:00 03/25/19 07:53 Apresoline PO Not Given TID [facility] Hydralazine HCl 10 mg 02/17/19 16:33 03/03/19 03:04 Apresoline SLOW IVP 10 mg Q4H PRN Administration BP > 220/110 Insulin Glargine 20 units/ 0.2 mls @ 0 mls/hr 02/09/19 09:00 03/25/19 08:43 Miscellaneous Medication SC 0.2 mls QAM PANCHO Administration Insulin Glargine 10 units/ 0.1 mls @ 0 mls/hr 02/27/19 21:00 03/24/19 23:29 Miscellaneous Medication SC 0.1 mls HS PANCHO Administration Insulin Human Lispro 0 units 02/07/19 19:09 03/24/19 18:12 Humalog SC 2 unit .MILD SLIDING SCALE PRN Administration Mild Correctional Scale Insulin Human Lispro 0 units 02/07/19 19:09 03/08/19 22:44 Humalog SC 3 unit .BEDTIME SLIDING SC PRN Administration Bedtime Correctional Scale Iron/Minerals/Multivitamins 1 tab 03/07/19 09:00 03/25/19 08:45 Theragran M PO [address] [facility] Administration Metoclopramide HCl 5 mg 03/17/19 21:00 03/25/19 08:43 Reglan PER TUBE 5 mg ACHS PANCHO Administration Multivitamins/Iron 1 tab 02/16/19 09:00 03/25/19 08:44 Centrum Kids Complete/Iron PO 1 tab DAILY PANCHO Administration Ondansetron HCl 4 mg 02/07/19 19:05 02/15/19 14:23 Zofran IVP 4 mg Q6H PRN Administration Nausea/Vomiting Pantoprazole Sodium 40 mg 03/16/19 09:00 03/25/19 08:45 Protonix IVP 40 mg DAILY PANCHO Administration Scopolamine 1.5 mg 02/21/19 13:00 03/23/19 12:52 Transderm Scop TD 1.5 mg Q3D PANCHO Administration Sodium Chloride 10 ml 02/07/19 19:05 03/22/19 10:05 Flush - Normal Saline IVF 10 ml Q12H PRN Administration Saline Flush Sodium Chloride 10 ml 03/10/19 18:50 03/15/19 10:22 Normal Saline Pf FS 10 ml PRN PRN Administration RECONSTITUTION Sterile Water 10 ml 03/09/19 15:30 03/09/19 17:33 Water For Injection IVP 10 ml WILLCALL PANCHO Administration - Exam General Appearance: NAD, awake alert Eye: PERRL ENT: normocephalic atraumatic ENT - other findings: trach Heart: RRR Respiratory: normal chest expansion, normal percussion, rales Gastrointestinal: soft, normal bowel sounds Skin: normal turgor Neurological: no focal deficits Hosp A/P - Plan (1) Healthcare-associated pneumonia - Completed Meropenem, continue Vancomycin, O2 support with T-collar -compl'd merum blood cx neg. (2) Acute CVA (cerebrovascular accident) Code(s): I63.9 - CEREBRAL INFARCTION, UNSPECIFIED Status: Acute (3) Acute respiratory failure with hypoxia and hypercapnia - Continue trach with T-collar, PNA resolving -bl jeremiah neg. (4) Acute blood loss anemia- (5) Acute on chronic renal insufficiency cr 2.6 at max and then down trend at 1.3 and he had baseline of 1.17 on 02/12 (6) Hypernatremia - Improved, monitor free-H2O intake RLE ulcer, POA - routine nursing care Bacitracin ointment to glans Trial Neuro chair daily d/w pt's . plan to transfer to [facility]. 9th- no change in the mgmt -plan as above. 10th - prob transfer to their facility either today or in am, if bed available. 11th - no change in med mgmt -- low acuity pending placement. 12th no word yet regarding bed availability. intermittent labs for am ordered. 13 Dry skin - to be cared for w.. emoliments. Lytes panel looks good and Hgb stable around 8. -medically stable for transfer to facility. 14th Fever -- no blood jeremiah done --will get one adn start empiric CTX -concern for aspiration, no residual in TF, -stat cxr -BP better this am. sinus ady and pause o/n - hold coreg - had echo done will get blood jeremiah, no high wbcs. also ady o/n and pause -i reviewed o/n strip and it seems < 3 sec pause? mobitz type II --- echo in 02/28 -- EF 65%, 2/3 DD. NO RWA. -EP consulted - K was ok y'day -will fw w.. K, Mag, TSH levels today. - pt canot be dsicharged as above workup has to be completed.
[2019-03-25 10:57] LABS: Anion Gap 13 mmol/L (10-20); BUN (Urea Nitrogen) 64 mg/dL (8.4-25.7); Calc. Creatinine Clearance 57 mL/min (70-130); Calcium 9.7 mg/dL (7.8-10.44); Carbon Dioxide 31 mmol/L (22-29); Chloride 104 mmol/L (98-107); Estimated GFR-MDRD 46; Glucose 217 mg/dL (70-105); Magnesium 2.1 mg/dL (1.6-2.6); Potassium 3.6 mmol/L (3.5-5.1); Sodium 144 mmol/L (136-145)
--- NOTE | 2019-03-25 11:07 | RAD ---
Portable frontal chest radiograph: 03/25/2019 COMPARISON: 02/28/2019 HISTORY: Fever FINDINGS: There is a left-sided vascular catheter with distal tip overlying the region of the cavoatr ial junction. A tracheostomy tube is in stable position. There is dense opacity in the right lung base with obscuration of the right hemidiaphragm and blunting of the costophrenic angle suggesting ri ght basilar consolidation/collapse and right pleural effusion. Aeration within the right base has worsened since the prior exam. IMPRESSION: Dense opacity in the right lung base suggesting a combination of pulmonary parenchymal co nsolidation/collapse and pleural fluid. Findings may be on the basis of aspiration and/or pneumonia.
[2019-03-25] MEDS: cefTRIAXone\\ROCEPHIN 1 GM in Sodium Chloride 0.9% 100 ML IVPB SCH (11:54)
[2019-03-25] MEDS: Acetaminophen 650 MG/20.3 ML UDCUP PER TUBE PRN (12:02)
[2019-03-25] MEDS: HumaLOG 300 UNITS/3 ML VIAL SC PRN ×2 (12:08→17:35)
--- NOTE | 2019-03-25 15:08 | PRG ---
DATE OF SERVICE: 03/25/2019 Brian Silvestre is doing well today. He is status post left [id number] amputation on February 28. His nichole have been removed. His wound is well healed. Unfortunately, he has had a stroke. He has a tracheostomy and a PEG tube. Left below-knee amputation performed on 02/14/2019. Overall, the patient is stable. At this point, I will see him as needed. He can follow up in my office as needed once discharge. 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 The BKA stump can be washed every day with soap and water, and antibiotic ointment and Telfa applied. Job ID: [id number]
--- NOTE | 2019-03-25 16:03 | CON ---
DATE OF CONSULTATION: 03/25/2019 REFERRING PHYSICIAN: Raquel Monroy MD REASON FOR CONSULTATION: I am seeing Mr. 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 His problems are: 1. Bradycardia on auscultation. a. Telemetry rhythm strips reveal no bradycardia, but occasional PVCs, possibly giving rise to a pulse deficit. 2. Preserved LVEF at 60% to 65%, moderate LVH, mild MR and TR, mildly dilated left atrium, mild pulmonary pressure elevation on echo on 02/18/2019. 3. Respiratory arrest on 02/23/2019, status post trach now. 4. Lower extremity osteomyelitis. 5. History of CHF, possibly ischemic cardiomyopathy with preserved LVEF. 6. History of lower extremity ulcers. 7. Chronic kidney disease. 8. Morbid obesity. 9. Type 2 diabetes. 10. History of peripheral vascular disease. ALLERGIES: NONE NOTED. MEDICATIONS AT HOME: Included: 1. Amlodipine 5 mg daily. 2. Carvedilol 12.5 mg twice a day. 3. Furosemide. 4. Lisinopril. 5. Atorvastatin. 6. Cephalexin. 7. Insulin. 8. Glipizide. SUBJECTIVE: Mr. Silvestre is a poor historian. Also history obtained from the chart. It seems that he was admitted on 02/07 with lower extremity ulcers and osteomyelitis. He has developed respiratory arrest and eventually required tracheostomy during respiratory arrest, pulseless electrical activity, promptly converted with the epinephrine administration. Since then, vital signs and blood pressure stable. There is a concern regarding bradycardia on this quotation, but telemetry strips so far did not reveal major bradycardia. Occasional PVCs are noted, were isolated. PAST MEDICAL HISTORY: As above. SOCIAL HISTORY: No current smoking, EtOH, or drug abuse. FAMILY HISTORY: Not contributory. OBJECTIVE DATA: VITAL SIGNS: Blood pressure is 120/76, heart rate 88, respirations 23, temperature 101 to 100.1 degrees Fahrenheit. GENERAL: This is a morbidly obese man, somewhat lethargic. NECK: Supple. Jugular veins difficult to visualize. Tracheostomy in place. CHEST: Coarse, no crackles. HEART: Sounds are distant, regular. No murmur or gallop is heard. ABDOMEN: Obese. Bowel sounds are positive. EXTREMITIES: Lower extremities without edema. DATABASE: The EKG is reviewed, reveals sinus rhythm, occasional relative narrow complex PVCs. No definite evidence of bradycardia or AV block is noted. The PVCs likely prevent conduction of the atrial beats. LABORATORY DATA: White cell count 6.5, hemoglobin 8.6, platelet count is 116. Sodium 144, potassium 3.6, BUN is 64, and creatinine 1.83. ASSESSMENT AND PLAN: Mr. Silvestre is a 58-year-old man with history of morbid obesity, diabetes, possible history of ischemic cardiomyopathy, albeit his most recent echocardiogram reveals left ventricular ejection fraction of 60% to 65% with mild left ventricular hypertrophy, presented with osteomyelitis and sepsis, eventually developed respiratory failure and had a short resuscitation for pulseless electrical activity in the setting of an infectious process. Since then, his rhythm and vital signs stable. He does have occasional PVCs, which causes mild compensatory pause. At this point, I am not particularly concerned about bradycardia. Continue monitoring for bradycardia is reasonable, but so far none seen on telemetry. Beta-lorena therapy can be continued at the current level. Pacemaker is not indicated. He also has no ICD indication. Hence, the PEA likely was a respiratory/hemodynamic arrest. At this point, I would sign off. Please call me if I can be of any further help. Job ID: [id number]
[2019-03-25] MEDS: Atorvastatin Calcium 40 MG TAB PO SCH (21:18)
[2019-03-25] MEDS: Metamucil PACK PER TUBE SCH (21:42)
[2019-03-25] MEDS: Insulin Glargine 10 UNITS in Pre-Filled Syringe 1 EACH SC SCH (21:43)
[2019-03-26] MEDS: Docusate Sodium 100 MG/10 ML UDCUP PO SCH ×2 (09:38→20:22)
[2019-03-26] MEDS: Insulin Glargine 20 UNITS in Pre-Filled Syringe 1 EACH SC SCH (09:40)
[2019-03-26] MEDS: Metoclopramide 10 MG/10 ML UDCUP PER TUBE SCH ×4 (09:41→20:24)
[2019-03-26] MEDS: Metamucil PACK PER TUBE SCH ×2 (09:47→20:20)
[2019-03-26] MEDS: Amlodipine 10 MG TAB PO SCH (09:48)
[2019-03-26] MEDS: Multivitamins CHEW w/Iron Tablet PO SCH (09:48)
[2019-03-26] MEDS: Sodium Chloride 0.9% (PF) 10 ML VIAL FS PRN (09:48)
[2019-03-26] MEDS: Pantoprazole 40 MG VIAL IVP SCH (09:48)
[2019-03-26] MEDS: hydrALAZINE 25 MG TAB PO SCH ×3 (09:49→20:22)
[2019-03-26] MEDS: Escitalopram Oxalate 10 mg Tablet PO SCH (09:49)
[2019-03-26] MEDS: Folic Acid 1 MG TAB PO SCH (09:49)
[2019-03-26] MEDS: Aspirin Chewable 81 MG TAB PO SCH (09:49)
[2019-03-26] MEDS: Multivitamin W/ Minerals 1 TAB PO SCH (09:50)
[2019-03-26] MEDS: cefTRIAXone\\ROCEPHIN 1 GM in Sodium Chloride 0.9% 100 ML IVPB SCH (12:35)
[2019-03-26] MEDS: HumaLOG 300 UNITS/3 ML VIAL SC PRN (12:37)
[2019-03-26] MEDS: Scopolamine 1.5 mg/72 hour Patch TD SCH (12:38)
--- NOTE | 2019-03-26 12:41 | PDOC.HOSPP ---
- Subjective Subjective: Seen and examined. Follow up on left LE amputation/CVA/acute respiratory failure with prolonged and patient requiring tracheostomy and PEG tube. Patient has been seen by outreach specialist for bradycardia and there is no indications for pacemaker or AICD. Last fever of 101.7 on 03/24/2019. No fever and greater than 24 hours. Responding the ceftriaxone. Patient does not talk baseline. Patient's foreskin has swollen again and he has been seen by urology on this hospitalization. - Objective Vital Signs & Weight: Vital Signs (12 hours) Temp Pulse Resp BP BP Pulse Ox 03/26/19 12:00 98.6 F 81 18 121/80 94 L 03/26/19 09:49 87 03/26/19 09:48 87 03/26/19 07:58 98.0 F 88 20 136/75 97 03/26/19 04:18 98.7 F 85 14 129/70 98 Weight Admit Weight 282 lb 11.2 oz Weight 200 lb 8 oz Most Recent Monitor Data Heart Rate from ECG 75 NIBP 154/95 NIBP BP-Mean 114 Respiration from ECG 20 SpO2 98 I&O: 03/25/19 03/26/19 03/27/19 06:59 06:59 06:59 Intake Total 237 3370 Output Total 2600 Balance 237 770 Result Diagrams: 03/24/19 08:33 03/25/19 10:15 Additional Labs: Accuchecks 03/26/19 03/26/19 03/25/19 10:42 06:09 21:27 POC Glucose 205 H 183 H 138 H 03/25/19 16:50 POC Glucose 225 H Radiology Reviewed by me: Yes Hospitalist ROS - Review of Systems ROS unobtainable: due to mental status - Medication Medications: Active Medications Generic Name Dose Route Start Last Admin Trade Name Freq PRN Reason Stop Dose Admin Acetaminophen 1,000 mg 03/05/19 01:37 03/25/19 12:02 Tylenol Elixir PER TUBE 1,000 mg Q6H PRN Administration Fever/Mild Pain Albuterol/Ipratropium 3 ml 03/01/19 15:52 03/19/19 10:13 Duoneb NEB 3 ml Q6H PRN Administration SOB &/or Wheezing Alteplase, Recombinant 2 mg 03/09/19 15:30 03/14/19 06:18 Cathflo CATH 2 mg WILLCALL PANCHO Administration Amlodipine Besylate 10 mg 02/13/19 09:00 03/26/19 09:48 Norvasc PO 10 mg DAILY PANCHO Administration Aspirin 81 mg 03/05/19 09:00 03/26/19 09:49 Aspirin Chewable PO 81 mg DAILY PANCHO Administration Atorvastatin Calcium 40 mg 02/08/19 21:00 03/25/19 21:18 Lipitor PO 40 mg HS PANCHO Administration Carvedilol 12.5 mg 02/08/19 21:00 03/25/19 08:44 Coreg PO 12.5 mg BID PANCHO Administration Docusate Sodium 100 mg 02/25/19 21:00 03/26/19 09:38 Colace Liquid PO Not Given BID [facility] Escitalopram Oxalate 10 mg 03/04/19 09:00 03/26/19 09:49 Lexapro PO 10 mg DAILY PANCHO Administration Folic Acid 1 mg 02/13/19 09:00 03/26/19 09:49 Folvite PO 1 mg DAILY PANCHO Administration Hydralazine HCl 25 mg 02/12/19 15:00 03/26/19 09:49 Apresoline PO 25 mg TID PANCHO Administration Hydralazine HCl 10 mg 02/17/19 16:33 03/03/19 03:04 Apresoline SLOW IVP 10 mg Q4H PRN Administration BP > 220/110 Insulin Glargine 20 units/ 0.2 mls @ 0 mls/hr 02/09/19 09:00 03/26/19 09:40 Miscellaneous Medication SC 0.2 mls QAM PANCHO Administration Insulin Glargine 10 units/ 0.1 mls @ 0 mls/hr 02/27/19 21:00 03/25/19 21:43 Miscellaneous Medication SC 0.1 mls HS PANCHO Administration Ceftriaxone Sodium 1 gm/ 100 mls @ 200 mls/hr 03/25/19 11:00 03/25/19 11:54 Sodium Chloride IVPB 100 mls Q24HR PANCHO Administration Insulin Human Lispro 0 units 02/07/19 19:09 03/25/19 17:35 Humalog SC 3 unit .MILD SLIDING SCALE PRN Administration Mild Correctional Scale Insulin Human Lispro 0 units 02/07/19 19:09 03/08/19 22:44 Humalog SC 3 unit .BEDTIME SLIDING SC PRN Administration Bedtime Correctional Scale Iron/Minerals/Multivitamins 1 tab 03/07/19 09:00 03/26/19 09:50 Theragran M PO 1 tab DAILY PANCHO Administration Metoclopramide HCl 5 mg 03/17/19 21:00 03/26/19 09:41 Reglan PER TUBE 5 mg ACHS PANCHO Administration Multivitamins/Iron 1 tab 02/16/19 09:00 03/26/19 09:48 Centrum Kids Complete/Iron PO 1 tab DAILY PANCHO Administration Ondansetron HCl 4 mg 02/07/19 19:05 02/15/19 14:23 Zofran IVP 4 mg Q6H PRN Administration Nausea/Vomiting Pantoprazole Sodium 40 mg 03/16/19 09:00 03/26/19 09:48 Protonix IVP 40 mg DAILY PANCHO Administration Psyllium Hydrophilic Mucilloid 1 pk 03/25/19 21:00 03/26/19 09:47 Metamucil PER TUBE 1 pk BID PANCHO Administration Scopolamine 1.5 mg 02/21/19 13:00 03/23/19 12:52 Transderm Scop TD 1.5 mg Q3D PANCHO Administration Sodium Chloride 10 ml 02/07/19 19:05 03/26/19 09:48 Flush - Normal Saline IVF 10 ml Q12H PRN Administration Saline Flush Sodium Chloride 10 ml 03/09/19 15:24 03/26/19 09:48 Flush - Normal Saline IVF 10 ml PRN PRN Administration Saline Flush Sodium Chloride 10 ml 03/10/19 18:50 03/26/19 09:48 Normal Saline Pf FS 10 ml PRN PRN Administration RECONSTITUTION Sterile Water 10 ml 03/09/19 15:30 03/09/19 17:33 Water For Injection IVP 10 ml WILLCALL PANCHO Administration - Exam General Appearance: NAD Eye: PERRL, anicteric sclera ENT: normocephalic atraumatic, moist mucosa Neck: supple, symmetric, no lymphadenopathy Heart: no murmur, no gallops, no rubs Respiratory: CTAB, no wheezes, no rales, no ronchi, normal chest expansion Gastrointestinal: soft, non-tender, no guarding, no rigidity Extremities: no edema Extremities - other findings: LE amputation Left, well healing Skin: no lesions, no rashes Neurological: cranial nerve grossly intact, no new deficit Neurological - other findings: Does not follow commands. Musculoskeletal: generalized weakness Psychiatric: not oriented, flat affect Hosp A/P (1) Acute CVA (cerebrovascular accident) Code(s): I63.9 - CEREBRAL INFARCTION, UNSPECIFIED Status: Acute (2) Acute blood loss anemia Code(s): D62 - ACUTE POSTHEMORRHAGIC ANEMIA Status: Acute (3) Acute metabolic encephalopathy Code(s): G93.41 - METABOLIC ENCEPHALOPATHY Status: Acute (4) Acute on chronic renal insufficiency Code(s): N28.9 - DISORDER OF KIDNEY AND URETER, UNSPECIFIED; N18.9 - CHRONIC KIDNEY DISEASE, UNSPECIFIED Status: Acute (5) Acute respiratory failure with hypoxia and hypercapnia Code(s): J96.01 - ACUTE RESPIRATORY FAILURE WITH HYPOXIA; J96.02 - ACUTE RESPIRATORY FAILURE WITH HYPERCAPNIA Status: Acute (6) Anemia Code(s): D64.9 - ANEMIA, UNSPECIFIED Status: Acute Qualifiers: Anemia type: folate deficiency (7) Cardiopulmonary arrest with successful resuscitation Code(s): I46.9 - CARDIAC ARREST, CAUSE UNSPECIFIED Status: Acute (8) Constipation Code(s): K59.00 - CONSTIPATION, UNSPECIFIED Status: Acute (9) Healthcare-associated pneumonia Code(s): J18.9 - PNEUMONIA, UNSPECIFIED ORGANISM Status: Acute (10) Hypernatremia Code(s): E87.0 - HYPEROSMOLALITY AND HYPERNATREMIA Status: Acute (11) Status post below-knee amputation of left lower extremity Code(s): Z89.512 - ACQUIRED ABSENCE OF LEFT LEG BELOW KNEE Status: Acute (12) UTI (urinary tract infection) Status: Acute Qualifiers: Indwelling urinary catheter type: indwelling urethral catheter Encounter type: initial encounter (13) Wound of left ankle Code(s): S91.002A - UNSPECIFIED OPEN WOUND, LEFT ANKLE, INITIAL ENCOUNTER Status: Acute Qualifiers: Encounter type: subsequent encounter Qualified Code(s): S91.002D - Unspecified open wound, left ankle, subsequent encounter (14) CHF (congestive heart failure) Code(s): I50.9 - HEART FAILURE, UNSPECIFIED Status: Chronic Qualifiers: Heart failure type: diastolic Heart failure chronicity: acute on chronic Qualified Code(s): I50.33 - Acute on chronic diastolic (congestive) heart failure (15) Chronic anemia Code(s): D64.9 - ANEMIA, UNSPECIFIED Status: Chronic (16) Diabetes mellitus Code(s): E11.9 - TYPE 2 DIABETES MELLITUS WITHOUT COMPLICATIONS Status: Chronic Qualifiers: Diabetes mellitus type: type 2 Diabetes mellitus skilled nursing insulin use: with skilled nursing use Diabetes mellitus complication status: with circulatory complication (17) Hyperlipidemia Code(s): E78.5 - HYPERLIPIDEMIA, UNSPECIFIED Status: Chronic Qualifiers: Hyperlipidemia type: moderate mixed hyperlipidemia not requiring statin therapy Qualified Code(s): E78.2 - Mixed hyperlipidemia (18) Hypertension Code(s): I10 - ESSENTIAL (PRIMARY) HYPERTENSION Status: Chronic Qualifiers: Hypertension type: essential hypertension Qualified Code(s): I10 - Essential (primary) hypertension (19) Obesity (BMI 30-39.9) Code(s): E66.9 - OBESITY, UNSPECIFIED Status: Chronic (20) Anoxic brain injury Status: Resolved (21) Fever Code(s): R50.9 - FEVER, UNSPECIFIED Status: Resolved Qualifiers: Fever type: unspecified Qualified Code(s): R50.9 - Fever, unspecified (22) Osteomyelitis of ankle Code(s): M86.9 - OSTEOMYELITIS, UNSPECIFIED Status: Resolved Qualifiers: Laterality: left (23) CHF exacerbation Code(s): I50.9 - HEART FAILURE, UNSPECIFIED Status: Acute - Plan Plan: Medical unit with telemetry CM working on sub acute placement general surgery consultation, recommendations appreciated pulmonology consultation, recommendations appreciated EP consultation, recommendations appreciated urology consultation, recommendations appreciated trach management per pulmonology supplemental oxygen as needed to maintain O2 saturation greater than 88% IV antibiotics blood cultures de-escalate to culture and sensitivity as able urology to follow up on Thursday for chronic for skin irritation of the foreskin foly catheter in position per urology continue other home medications as able G.I. prophylaxis DVT prophylaxis blood pressure control blood sugar control
[2019-03-26] MEDS: Atorvastatin Calcium 40 MG TAB PO SCH (20:23)
[2019-03-26] MEDS: Triple Antibiotic Oint 1 GM Packet TOP SCH (20:23)
[2019-03-26] MEDS: Insulin Glargine 10 UNITS in Pre-Filled Syringe 1 EACH SC SCH (20:29)
[2019-03-27] MEDS: HumaLOG 300 UNITS/3 ML VIAL SC PRN ×3 (07:11→18:36)
[2019-03-27] MEDS: Metoclopramide 10 MG/10 ML UDCUP PER TUBE SCH ×4 (10:13→21:26)
[2019-03-27] MEDS: Amlodipine 10 MG TAB PO SCH (10:14)
[2019-03-27] MEDS: Aspirin Chewable 81 MG TAB PO SCH (10:16)
[2019-03-27] MEDS: Escitalopram Oxalate 10 mg Tablet PO SCH (10:16)
[2019-03-27] MEDS: Folic Acid 1 MG TAB PO SCH (10:16)
[2019-03-27] MEDS: Docusate Sodium 100 MG/10 ML UDCUP PO SCH ×2 (10:16→21:27)
[2019-03-27] MEDS: hydrALAZINE 25 MG TAB PO SCH ×3 (10:17→21:27)
[2019-03-27] MEDS: Insulin Glargine 20 UNITS in Pre-Filled Syringe 1 EACH SC SCH (10:17)
[2019-03-27] MEDS: Multivitamins CHEW w/Iron Tablet PO SCH (10:20)
[2019-03-27] MEDS: Multivitamin W/ Minerals 1 TAB PO SCH (10:20)
[2019-03-27] MEDS: Triple Antibiotic Oint 1 GM Packet TOP SCH ×2 (10:22→21:26)
[2019-03-27] MEDS: Metamucil PACK PER TUBE SCH ×2 (10:22→21:25)
[2019-03-27] MEDS: Pantoprazole 40 MG VIAL IVP SCH (10:23)
[2019-03-27] MEDS: cefTRIAXone\\ROCEPHIN 1 GM in Sodium Chloride 0.9% 100 ML IVPB SCH (11:02)
--- NOTE | 2019-03-27 14:39 | PDOC.HOSPP ---
- Subjective Encounter Date: 03/27/19 Encounter Time: 14:35 Subjective: f/u CVA, trach/PEG and L BKA with prolonged hospital stay awaiting options for placement. Nursing reports Orozco in place for over a month. - Objective Vital Signs & Weight: Vital Signs (12 hours) Temp Pulse Resp BP BP Pulse Ox 03/27/19 11:46 98.6 F 88 20 138/79 96 03/27/19 10:17 84 127/78 03/27/19 10:14 84 127/78 03/27/19 08:00 99 03/27/19 07:15 98.9 F 84 18 127/78 99 03/27/19 04:00 97.6 F 96 16 129/75 96 Weight Admit Weight 282 lb 11.2 oz Weight 200 lb 8 oz Most Recent Monitor Data Heart Rate from ECG 75 NIBP 154/95 NIBP BP-Mean 114 Respiration from ECG 20 SpO2 98 I&O: 03/26/19 03/27/19 03/28/19 06:59 06:59 06:59 Intake Total 3370 2571 674 Output Total 2600 1450 Balance 770 1121 674 Result Diagrams: 03/24/19 08:33 03/25/19 10:15 Additional Labs: Accuchecks 03/27/19 03/27/19 03/26/19 11:15 05:57 20:16 POC Glucose 246 H 212 H 214 H 03/26/19 16:46 POC Glucose 143 H Microbiology 03/09/19 17:50 Stool Stool Occult Blood (PHILIP) - Final 03/06/19 14:02 Urine orozco catheter Urine Culture - Final NO GROWTH AT 48 HOURS 03/05/19 03:58 Urine orozco catheter Urine Culture - Final NO GROWTH AT 36 HOURS 03/11/19 13:55 Urine clean catch Urine Culture - Preliminary NO GROWTH AT 24 HOURS 03/11/19 13:19 Venous blood - Right Hand Blood Culture - Preliminary Specimen has been received and culture in progress. No Growth to date. 03/11/19 13:19 Central Line - Left external jugular vein Blood Culture - Preliminary NO GROWTH AT 48 HOURS 03/05/19 02:21 Venous blood - Left Arm Blood Culture - Preliminary NO GROWTH AT 48 HOURS 03/05/19 02:04 Venous blood - Left Arm Blood Culture - Preliminary NO GROWTH AT 48 HOURS Laboratory Tests 03/01/19 03/04/19 03/04/19 04:43 10:52 10:52 Hgb 7.2 L Sodium 145 150 H Creatinine 2.19 H 1.95 H Vancomycin Trough Random Vancomycin 03/05/19 03/05/19 03/07/19 03:30 03:30 05:17 Hgb 7.3 L Sodium 150 H 149 H Creatinine 2.00 H 1.98 H Vancomycin Trough Random Vancomycin 03/09/19 03/10/19 03/11/19 04:38 05:53 08:00 Hgb Sodium 144 145 Creatinine 1.96 H 2.01 H Vancomycin Trough 30.5 H* Random Vancomycin 03/12/19 08:00 Hgb Sodium Creatinine Vancomycin Trough Random Vancomycin 18.9 EKG Reviewed by me: Yes (Tele - SR) Hospitalist ROS - Medication Medications: Active Medications Generic Name Dose Route Start Last Admin Trade Name Freq PRN Reason Stop Dose Admin Acetaminophen 1,000 mg 03/05/19 01:37 03/25/19 12:02 Tylenol Elixir PER TUBE 1,000 mg Q6H PRN Administration Fever/Mild Pain Albuterol/Ipratropium 3 ml 03/01/19 15:52 03/19/19 10:13 Duoneb NEB 3 ml Q6H PRN Administration SOB &/or Wheezing Alteplase, Recombinant 2 mg 03/09/19 15:30 03/14/19 06:18 Cathflo CATH 2 mg WILLCALL PANCHO Administration Amlodipine Besylate 10 mg 02/13/19 09:00 03/27/19 10:14 Norvasc PO 10 mg DAILY PANCHO Administration Aspirin 81 mg 03/05/19 09:00 03/27/19 10:16 Aspirin Chewable PO 81 mg DAILY PANCHO Administration Atorvastatin Calcium 40 mg 02/08/19 21:00 03/26/19 20:23 Lipitor PO 40 mg HS PANCHO Administration Carvedilol 12.5 mg 02/08/19 21:00 03/25/19 08:44 Coreg PO 12.5 mg BID PANCHO Administration Docusate Sodium 100 mg 02/25/19 21:00 03/27/19 10:16 Colace Liquid PO Not Given BID PANCHO Escitalopram Oxalate 10 mg 03/04/19 09:00 03/27/19 10:16 Lexapro PO 10 mg DAILY PANCHO Administration Folic Acid 1 mg 02/13/19 09:00 03/27/19 10:16 Folvite PO 1 mg DAILY PANCHO Administration Hydralazine HCl 25 mg 02/12/19 15:00 03/27/19 10:17 Apresoline PO 25 mg TID PANCHO Administration Hydralazine HCl 10 mg 02/17/19 16:33 03/03/19 03:04 Apresoline SLOW IVP 10 mg Q4H PRN Administration BP > 220/110 Insulin Glargine 20 units/ 0.2 mls @ 0 mls/hr 02/09/19 09:00 03/27/19 10:17 Miscellaneous Medication SC 0.2 mls QAM PANCHO Administration Insulin Glargine 10 units/ 0.1 mls @ 0 mls/hr 02/27/19 21:00 03/26/19 20:29 Miscellaneous Medication SC 0.1 mls HS PANCHO Administration Ceftriaxone Sodium 1 gm/ 100 mls @ 200 mls/hr 03/25/19 11:00 03/27/19 11:02 Sodium Chloride IVPB 100 mls Q24HR PANCHO Administration Insulin Human Lispro 0 units 02/07/19 19:09 03/27/19 11:55 Humalog SC 3 unit .MILD SLIDING SCALE PRN Administration Mild Correctional Scale Insulin Human Lispro 0 units 02/07/19 19:09 03/08/19 22:44 Humalog SC 3 unit .BEDTIME SLIDING SC PRN Administration Bedtime Correctional Scale Iron/Minerals/Multivitamins 1 tab 03/07/19 09:00 03/27/19 10:20 Theragran M PO 1 tab DAILY PANCHO Administration Metoclopramide HCl 5 mg 03/17/19 21:00 03/27/19 10:18 Reglan PER TUBE 5 mg ACHS PANCHO Administration Multivitamins/Iron 1 tab 02/16/19 09:00 03/27/19 10:20 Centrum Kids Complete/Iron PO 1 tab DAILY PANCHO Administration Neomycin/Polymyxin/Bacitracin 0 gm 03/26/19 21:00 03/27/19 10:22 Triple Antibiotic TOP 1 gm BID PANCHO Administration Ondansetron HCl 4 mg 02/07/19 19:05 02/15/19 14:23 Zofran IVP 4 mg Q6H PRN Administration Nausea/Vomiting Pantoprazole Sodium 40 mg 03/16/19 09:00 03/27/19 10:23 Protonix IVP 40 mg DAILY PANCHO Administration Psyllium Hydrophilic Mucilloid 1 pk 03/25/19 21:00 03/27/19 10:22 Metamucil PER TUBE 1 pk BID PANCHO Administration Scopolamine 1.5 mg 02/21/19 13:00 03/26/19 12:38 Transderm Scop TD 1.5 mg Q3D PANCHO Administration Sodium Chloride 10 ml 02/07/19 19:05 03/26/19 09:48 Flush - Normal Saline IVF 10 ml Q12H PRN Administration Saline Flush Sodium Chloride 10 ml 03/09/19 15:24 03/26/19 09:48 Flush - Normal Saline IVF 10 ml PRN PRN Administration Saline Flush Sodium Chloride 10 ml 03/10/19 18:50 03/26/19 09:48 Normal Saline Pf FS 10 ml PRN PRN Administration RECONSTITUTION Sterile Water 10 ml 03/09/19 15:30 03/09/19 17:33 Water For Injection IVP 10 ml WILLCALL PANCHO Administration - Exam General Appearance: NAD, awake alert General - other findings: aphasic Eye: PERRL, anicteric sclera ENT: normocephalic atraumatic, no oropharyngeal lesions ENT - other findings: Trach in place Neck: supple, symmetric, no JVD, no thyromegaly Heart: RRR, no gallops, no rubs, normal peripheral pulses Respiratory - other findings: diminished in bases, occasional rhonchi Gastrointestinal: soft, non-tender, non-distended, normal bowel sounds Gastrointestinal - other findings: PEG in place Extremities: no cyanosis Extremities - other findings: L BKA noted with intact stump Skin: normal turgor Neurological: no new deficit Neurological - other findings: aphasic, dysphagia, L hemiparesis Musculoskeletal: generalized weakness Psychiatric: oriented to person Hosp A/P (1) Acute respiratory failure with hypoxia and hypercapnia Code(s): J96.01 - ACUTE RESPIRATORY FAILURE WITH HYPOXIA; J96.02 - ACUTE RESPIRATORY FAILURE WITH HYPERCAPNIA Status: Acute Plan: Continue T-collar with tracheostomy, pulmonary supportive mgmt, suctioning of trach (2) Healthcare-associated pneumonia Code(s): J18.9 - PNEUMONIA, UNSPECIFIED ORGANISM Status: Acute Plan: RLL infiltrate, consolidation, continue Rocephin, pulmonary support (3) Acute CVA (cerebrovascular accident) Code(s): I63.9 - CEREBRAL INFARCTION, UNSPECIFIED Status: Acute Plan: Dense L hemiparesis, aphasic and dysphagia, continue ASA/Lipitor (4) Acute on chronic renal insufficiency Code(s): N28.9 - DISORDER OF KIDNEY AND URETER, UNSPECIFIED; N18.9 - CHRONIC KIDNEY DISEASE, UNSPECIFIED Status: Acute (5) Hypernatremia Code(s): E87.0 - HYPEROSMOLALITY AND HYPERNATREMIA Status: Acute Plan: Improved (6) Acute blood loss anemia Code(s): D62 - ACUTE POSTHEMORRHAGIC ANEMIA Status: Acute Plan: Stable, continue serial monitoring (7) Diabetes mellitus Code(s): E11.9 - TYPE 2 DIABETES MELLITUS WITHOUT COMPLICATIONS Status: Chronic Qualifiers: Diabetes mellitus type: type 2 Diabetes mellitus moth exterminator insulin use: with moth exterminator use Diabetes mellitus complication status: with circulatory complication Plan: ISS, continue Lantus, serial accuchecks - Plan plan discussed w/ family, continue antibiotics, PT/OT, social service technician, speech therapy, respiratory therapy Continue supportive mgmt Continue Rocephin CM for SNF options Bacitracin ointment to glans Nutritional support with TF's Beto BID
[2019-03-27] MEDS: Atorvastatin Calcium 40 MG TAB PO SCH (21:27)
[2019-03-27] MEDS: Insulin Glargine 10 UNITS in Pre-Filled Syringe 1 EACH SC SCH (21:27)
[2019-03-27] MEDS: Carvedilol 6.25 MG TAB PO SCH (21:27)
[2019-03-28] MEDS: HumaLOG 300 UNITS/3 ML VIAL SC PRN ×3 (06:04→17:49)
[2019-03-28 06:42] VITALS: BMI 38.3
[2019-03-28] MEDS: Docusate Sodium 100 MG/10 ML UDCUP PO SCH ×2 (09:12→22:28)
[2019-03-28] MEDS: hydrALAZINE 25 MG TAB PO SCH ×3 (09:12→21:55)
[2019-03-28] MEDS: Multivitamins CHEW w/Iron Tablet PO SCH (09:24)
[2019-03-28] MEDS: Metamucil PACK PER TUBE SCH ×2 (09:24→22:28)
[2019-03-28] MEDS: Pantoprazole 40 MG VIAL IVP SCH (09:24)
[2019-03-28] MEDS: Multivitamin W/ Minerals 1 TAB PO SCH (09:24)
[2019-03-28] MEDS: Carvedilol 6.25 MG TAB PO SCH ×2 (09:26→21:54)
[2019-03-28] MEDS: Aspirin Chewable 81 MG TAB PO SCH (09:26)
[2019-03-28] MEDS: Escitalopram Oxalate 10 mg Tablet PO SCH (09:26)
[2019-03-28] MEDS: Metoclopramide 10 MG/10 ML UDCUP PER TUBE SCH ×4 (09:27→21:54)
[2019-03-28] MEDS: Amlodipine 10 MG TAB PO SCH (09:27)
[2019-03-28] MEDS: Folic Acid 1 MG TAB PO SCH (09:27)
[2019-03-28] MEDS: Insulin Glargine 20 UNITS in Pre-Filled Syringe 1 EACH SC SCH (09:28)
[2019-03-28] MEDS: cefTRIAXone\\ROCEPHIN 1 GM in Sodium Chloride 0.9% 100 ML IVPB SCH (11:47)
[2019-03-28] MEDS: Triple Antibiotic Oint 1 GM Packet TOP SCH ×2 (11:47→21:54)
--- NOTE | 2019-03-28 19:01 | PDOC.HOSPP ---
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 Prolonged hospital stay awaiting placment options. - Objective Vital Signs & Weight: Vital Signs (12 hours) Temp Pulse Pulse Resp BP BP BP 03/28/19 16:22 83 108/66 03/28/19 15:51 99 F 82 20 03/28/19 15:29 84 101/49 L 03/28/19 11:46 98.7 F 84 20 121/60 03/28/19 09:27 83 125/68 03/28/19 09:26 125/68 03/28/19 08:00 97.9 F 86 20 121/73 BP Pulse Ox 03/28/19 16:22 03/28/19 15:51 114/57 L 97 03/28/19 15:29 03/28/19 11:46 96 03/28/19 09:27 03/28/19 09:26 03/28/19 08:00 97 Weight Admit Weight 282 lb 11.2 oz Weight 275 lb 3.2 oz Most Recent Monitor Data Heart Rate from ECG 75 NIBP 154/95 NIBP BP-Mean 114 Respiration from ECG 20 SpO2 98 I&O: 03/27/19 03/28/19 03/29/19 06:59 06:59 06:59 Intake Total 2571 2171 3726 Output Total 1450 1700 650 Balance 8574 149 2889 Result Diagrams: 03/24/19 08:33 03/25/19 10:15 Additional Labs: Accuchecks 03/28/19 03/28/19 03/28/19 17:03 10:51 06:00 POC Glucose 184 H 211 H 179 H 03/27/19 20:29 POC Glucose 159 H EKG Reviewed by me: Yes (Tele - SR) Hospitalist ROS - Medication Medications: Active Medications Generic Name Dose Route Start Last Admin Trade Name Freq PRN Reason Stop Dose Admin Acetaminophen 1,000 mg 03/05/19 01:37 03/25/19 12:02 Tylenol Elixir PER TUBE 1,000 mg Q6H PRN Administration Fever/Mild Pain Albuterol/Ipratropium 3 ml 03/01/19 15:52 03/19/19 10:13 Duoneb NEB 3 ml Q6H PRN Administration SOB &/or Wheezing Alteplase, Recombinant 2 mg 03/09/19 15:30 03/14/19 06:18 Cathflo CATH 2 mg WILLCALL PANCHO Administration Amlodipine Besylate 10 mg 02/13/19 09:00 03/28/19 09:27 Norvasc PO 10 mg DAILY PANCHO Administration Aspirin 81 mg 03/05/19 09:00 03/28/19 09:26 Aspirin Chewable PO 81 mg DAILY PANCHO Administration Atorvastatin Calcium 40 mg 02/08/19 21:00 03/27/19 21:27 Lipitor PO 40 mg HS PANCHO Administration Carvedilol 12.5 mg 02/08/19 21:00 03/28/19 09:26 Coreg PO 12.5 mg BID PANCHO Administration Docusate Sodium 100 mg 02/25/19 21:00 03/28/19 09:12 Colace Liquid PO Not Given BID PANCHO Escitalopram Oxalate 10 mg 03/04/19 09:00 03/28/19 09:26 Lexapro PO 10 mg DAILY PANCHO Administration Folic Acid 1 mg 02/13/19 09:00 03/28/19 09:27 Folvite PO 1 mg DAILY PANCHO Administration Hydralazine HCl 25 mg 02/12/19 15:00 03/28/19 15:29 Apresoline PO Not Given TID PANCHO Hydralazine HCl 10 mg 02/17/19 16:33 03/03/19 03:04 Apresoline SLOW IVP 10 mg Q4H PRN Administration BP > 220/110 Insulin Glargine 20 units/ 0.2 mls @ 0 mls/hr 02/09/19 09:00 03/28/19 09:28 Miscellaneous Medication SC 0.2 mls QAM PANCHO Administration Insulin Glargine 10 units/ 0.1 mls @ 0 mls/hr 02/27/19 21:00 03/27/19 21:27 Miscellaneous Medication SC 0.1 mls HS PANCHO Administration Ceftriaxone Sodium 1 gm/ 100 mls @ 200 mls/hr 03/25/19 11:00 03/28/19 11:47 Sodium Chloride IVPB 100 mls Q24HR PANCHO Administration Insulin Human Lispro 0 units 02/07/19 19:09 03/28/19 17:49 Humalog SC 2 unit .MILD SLIDING SCALE PRN Administration Mild Correctional Scale Insulin Human Lispro 0 units 02/07/19 19:09 03/08/19 22:44 Humalog SC 3 unit .BEDTIME SLIDING SC PRN Administration Bedtime Correctional Scale Iron/Minerals/Multivitamins 1 tab 03/07/19 09:00 03/28/19 09:24 Theragran M PO 1 tab DAILY PANCHO Administration Metoclopramide HCl 5 mg 03/17/19 21:00 03/28/19 17:49 Reglan PER TUBE 5 mg ACHS PANCHO Administration Multivitamins/Iron 1 tab 02/16/19 09:00 03/28/19 09:24 Centrum Kids Complete/Iron PO 1 tab DAILY PANCHO Administration Neomycin/Polymyxin/Bacitracin 0 gm 03/26/19 21:00 03/28/19 11:47 Triple Antibiotic TOP 1 gm BID PANCHO Administration Ondansetron HCl 4 mg 02/07/19 19:05 02/15/19 14:23 Zofran IVP 4 mg Q6H PRN Administration Nausea/Vomiting Pantoprazole Sodium 40 mg 03/16/19 09:00 03/28/19 09:24 Protonix IVP 40 mg DAILY PANCHO Administration Psyllium Hydrophilic Mucilloid 1 pk 03/25/19 21:00 03/28/19 09:24 Metamucil PER TUBE 1 pk BID PANCHO Administration Scopolamine 1.5 mg 02/21/19 13:00 03/26/19 12:38 Transderm Scop TD 1.5 mg Q3D PANCHO Administration Sodium Chloride 10 ml 02/07/19 19:05 03/28/19 09:29 Flush - Normal Saline IVF 10 ml Q12H PRN Administration Saline Flush Sodium Chloride 10 ml 03/09/19 15:24 03/26/19 09:48 Flush - Normal Saline IVF 10 ml PRN PRN Administration Saline Flush Sodium Chloride 10 ml 03/10/19 18:50 03/26/19 09:48 Normal Saline Pf FS 10 ml PRN PRN Administration RECONSTITUTION Sterile Water 10 ml 03/09/19 15:30 03/09/19 17:33 Water For Injection IVP 10 ml WILLCALL PANCHO Administration - Exam General Appearance: NAD, awake alert General - other findings: aphasic Eye: PERRL, anicteric sclera ENT: normocephalic atraumatic, no oropharyngeal lesions Neck: supple, symmetric, no JVD Neck - other findings: trach in place Heart: RRR, no gallops, no rubs, normal peripheral pulses Respiratory: no rales Respiratory - other findings: diminished in bases Gastrointestinal: soft, non-tender, non-distended, normal bowel sounds Gastrointestinal - other findings: PEG intact Extremities: no cyanosis Neurological: no new deficit Neurological - other findings: L hemiplegia, aphasic, dysphagia Musculoskeletal: generalized weakness Psychiatric: oriented to person Hosp A/P (1) Acute respiratory failure with hypoxia and hypercapnia Code(s): J96.01 - ACUTE RESPIRATORY FAILURE WITH HYPOXIA; J96.02 - ACUTE RESPIRATORY FAILURE WITH HYPERCAPNIA Status: Acute (2) Healthcare-associated pneumonia Code(s): J18.9 - PNEUMONIA, UNSPECIFIED ORGANISM Status: Acute (3) Acute CVA (cerebrovascular accident) Code(s): I63.9 - CEREBRAL INFARCTION, UNSPECIFIED Status: Acute (4) Acute on chronic renal insufficiency Code(s): N28.9 - DISORDER OF KIDNEY AND URETER, UNSPECIFIED; N18.9 - CHRONIC KIDNEY DISEASE, UNSPECIFIED Status: Acute (5) Hypernatremia Code(s): E87.0 - HYPEROSMOLALITY AND HYPERNATREMIA Status: Acute (6) Acute blood loss anemia Code(s): D62 - ACUTE POSTHEMORRHAGIC ANEMIA Status: Acute (7) Diabetes mellitus Code(s): E11.9 - TYPE 2 DIABETES MELLITUS WITHOUT COMPLICATIONS Status: Chronic Qualifiers: Diabetes mellitus type: type 2 Diabetes mellitus correction insulin use: with field attendant use Diabetes mellitus complication status: with circulatory complication - Plan continue antibiotics, PT/OT, public health social worker, speech therapy, respiratory therapy, DVT proph w/SCDs Continue supportive mgmt Continue Rocephin another 24-48h CM for SNF options Bacitracin ointment to glans prn Nutritional support with TF's Beto BID
[2019-03-28] MEDS: Atorvastatin Calcium 40 MG TAB PO SCH (21:54)
[2019-03-28] MEDS: Insulin Glargine 10 UNITS in Pre-Filled Syringe 1 EACH SC SCH (22:18)
[2019-03-29] MEDS: Triple Antibiotic Oint 1 GM Packet TOP SCH ×2 (09:31→21:42)
[2019-03-29] MEDS: Metoclopramide 10 MG/10 ML UDCUP PER TUBE SCH ×4 (09:31→21:42)
[2019-03-29] MEDS: Multivitamin W/ Minerals 1 TAB PO SCH (09:31)
[2019-03-29] MEDS: Amlodipine 10 MG TAB PO SCH (09:32)
[2019-03-29] MEDS: Pantoprazole 40 MG VIAL IVP SCH (09:32)
[2019-03-29] MEDS: Multivitamins CHEW w/Iron Tablet PO SCH (09:32)
[2019-03-29] MEDS: Escitalopram Oxalate 10 mg Tablet PO SCH (09:32)
[2019-03-29] MEDS: hydrALAZINE 25 MG TAB PO SCH ×3 (09:32→21:46)
[2019-03-29] MEDS: Carvedilol 6.25 MG TAB PO SCH ×2 (09:32→21:43)
[2019-03-29] MEDS: Folic Acid 1 MG TAB PO SCH (09:32)
[2019-03-29] MEDS: Aspirin Chewable 81 MG TAB PO SCH (09:32)
[2019-03-29] MEDS: Insulin Glargine 20 UNITS in Pre-Filled Syringe 1 EACH SC SCH (09:33)
[2019-03-29] MEDS: Docusate Sodium 100 MG/10 ML UDCUP PO SCH (09:34)
[2019-03-29] MEDS: Metamucil PACK PER TUBE SCH (10:12)
[2019-03-29] MEDS: cefTRIAXone\\ROCEPHIN 1 GM in Sodium Chloride 0.9% 100 ML IVPB SCH (12:48)
[2019-03-29] MEDS: Scopolamine 1.5 mg/72 hour Patch TD SCH (12:50)
[2019-03-29] MEDS: HumaLOG 300 UNITS/3 ML VIAL SC PRN (17:21)
--- NOTE | 2019-03-29 17:46 | PDOC.HOSPP ---
- Subjective Encounter Date: 03/29/19 Encounter Time: 16:20 Subjective: f/u for CVA, aphasic, chronic trach/PEG and awaiting SNF placement. No new events per nursing. - Objective Vital Signs & Weight: Vital Signs (12 hours) Temp Pulse Resp BP Pulse Ox 03/29/19 15:55 99.4 F 90 20 121/68 100 03/29/19 12:00 98.3 F 101 H 20 124/81 95 03/29/19 08:00 98.5 F 91 20 99/54 L 92 L Weight Admit Weight 282 lb 11.2 oz Weight 275 lb 3.2 oz Most Recent Monitor Data Heart Rate from ECG 75 NIBP 154/95 NIBP BP-Mean 114 Respiration from ECG 20 SpO2 98 I&O: 03/28/19 03/29/19 03/30/19 06:59 06:59 06:59 Intake Total 2171 4956 1011 Output Total 1700 1300 Balance 471 3656 1011 Result Diagrams: 03/24/19 08:33 03/25/19 10:15 Additional Labs: Accuchecks 03/29/19 03/29/19 03/29/19 16:52 10:41 06:18 POC Glucose 191 H 191 H 138 H 03/28/19 20:08 POC Glucose 176 H Microbiology 03/09/19 17:50 Stool Stool Occult Blood (PHILIP) - Final 03/06/19 14:02 Urine orozco catheter Urine Culture - Final NO GROWTH AT 48 HOURS 03/05/19 03:58 Urine orozco catheter Urine Culture - Final NO GROWTH AT 36 HOURS 03/11/19 13:55 Urine clean catch Urine Culture - Preliminary NO GROWTH AT 24 HOURS 03/11/19 13:19 Venous blood - Right Hand Blood Culture - Preliminary Specimen has been received and culture in progress. No Growth to date. 03/11/19 13:19 Central Line - Left external jugular vein Blood Culture - Preliminary NO GROWTH AT 48 HOURS 03/05/19 02:21 Venous blood - Left Arm Blood Culture - Preliminary NO GROWTH AT 48 HOURS 03/05/19 02:04 Venous blood - Left Arm Blood Culture - Preliminary NO GROWTH AT 48 HOURS Laboratory Tests 03/01/19 03/04/19 03/04/19 04:43 10:52 10:52 Hgb 7.2 L Sodium 145 150 H Creatinine 2.19 H 1.95 H Vancomycin Trough Random Vancomycin 03/05/19 03/05/19 03/07/19 03:30 03:30 05:17 Hgb 7.3 L Sodium 150 H 149 H Creatinine 2.00 H 1.98 H Vancomycin Trough Random Vancomycin 03/09/19 03/10/19 03/11/19 04:38 05:53 08:00 Hgb Sodium 144 145 Creatinine 1.96 H 2.01 H Vancomycin Trough 30.5 H* Random Vancomycin 03/12/19 08:00 Hgb Sodium Creatinine Vancomycin Trough Random Vancomycin 18.9 EKG Reviewed by me: Yes (Tele - SR) Hospitalist ROS - Medication Medications: Active Medications Generic Name Dose Route Start Last Admin Trade Name Freq PRN Reason Stop Dose Admin Acetaminophen 1,000 mg 03/05/19 01:37 03/25/19 12:02 Tylenol Elixir PER TUBE 1,000 mg Q6H PRN Administration Fever/Mild Pain Albuterol/Ipratropium 3 ml 03/01/19 15:52 03/19/19 10:13 Duoneb NEB 3 ml Q6H PRN Administration SOB &/or Wheezing Alteplase, Recombinant 2 mg 03/09/19 15:30 03/14/19 06:18 Cathflo CATH 2 mg WILLCALL PANCHO Administration Amlodipine Besylate 10 mg 02/13/19 09:00 03/29/19 09:32 Norvasc PO 10 mg DAILY PANCHO Administration Aspirin 81 mg 03/05/19 09:00 03/29/19 09:32 Aspirin Chewable PO 81 mg DAILY PANCHO Administration Atorvastatin Calcium 40 mg 02/08/19 21:00 03/28/19 21:54 Lipitor PO 40 mg HS PANCHO Administration Carvedilol 12.5 mg 02/08/19 21:00 03/29/19 09:32 Coreg PO 12.5 mg BID PANCHO Administration Docusate Sodium 100 mg 02/25/19 21:00 03/29/19 09:34 Colace Liquid PO Not Given BID [facility] Escitalopram Oxalate 10 mg 03/04/19 09:00 03/29/19 09:32 Lexapro PO 10 mg DAILY PANCHO Administration Folic Acid 1 mg 02/13/19 09:00 03/29/19 09:32 Folvite PO 1 mg DAILY PANCHO Administration Hydralazine HCl 25 mg 02/12/19 15:00 03/29/19 16:41 Apresoline PO Not Given TID PANCHO Hydralazine HCl 10 mg 02/17/19 16:33 03/03/19 03:04 Apresoline SLOW IVP 10 mg Q4H PRN Administration BP > 220/110 Insulin Glargine 20 units/ 0.2 mls @ 0 mls/hr 02/09/19 09:00 03/29/19 09:33 Miscellaneous Medication SC 0.2 mls QAM PANCHO Administration Insulin Glargine 10 units/ 0.1 mls @ 0 mls/hr 02/27/19 21:00 03/28/19 22:18 Miscellaneous Medication SC 0.1 mls HS PANCHO Administration Ceftriaxone Sodium 1 gm/ 100 mls @ 200 mls/hr 03/25/19 11:00 03/29/19 12:48 Sodium Chloride IVPB 100 mls Q24HR PANCHO Administration Insulin Human Lispro 0 units 02/07/19 19:09 03/29/19 17:21 Humalog SC 2 unit .MILD SLIDING SCALE PRN Administration Mild Correctional Scale Insulin Human Lispro 0 units 02/07/19 19:09 03/08/19 22:44 Humalog SC 3 unit .BEDTIME SLIDING SC PRN Administration Bedtime Correctional Scale Iron/Minerals/Multivitamins 1 tab 03/07/19 09:00 03/29/19 09:31 Theragran M PO 1 tab DAILY PANCHO Administration Metoclopramide HCl 5 mg 03/17/19 21:00 03/29/19 16:41 Reglan PER TUBE 5 mg ACHS PANCHO Administration Multivitamins/Iron 1 tab 02/16/19 09:00 03/29/19 09:32 Centrum Kids Complete/Iron PO 1 tab DAILY PANCHO Administration Neomycin/Polymyxin/Bacitracin 0 gm 03/26/19 21:00 03/29/19 09:31 Triple Antibiotic TOP 1 gm BID PANCHO Administration Ondansetron HCl 4 mg 02/07/19 19:05 02/15/19 14:23 Zofran IVP 4 mg Q6H PRN Administration Nausea/Vomiting Pantoprazole Sodium 40 mg 03/16/19 09:00 03/29/19 09:32 Protonix IVP 40 mg DAILY PANCHO Administration Psyllium Hydrophilic Mucilloid 1 pk 03/25/19 21:00 03/29/19 10:12 Metamucil PER TUBE Not Given BID PANCHO Scopolamine 1.5 mg 02/21/19 13:00 03/29/19 12:50 Transderm Scop TD 1.5 mg Q3D PANCHO Administration Sodium Chloride 10 ml 02/07/19 19:05 03/28/19 09:29 Flush - Normal Saline IVF 10 ml Q12H PRN Administration Saline Flush Sodium Chloride 10 ml 03/09/19 15:24 03/26/19 09:48 Flush - Normal Saline IVF 10 ml PRN PRN Administration Saline Flush Sodium Chloride 10 ml 03/10/19 18:50 03/26/19 09:48 Normal Saline Pf FS 10 ml PRN PRN Administration RECONSTITUTION Sterile Water 10 ml 03/09/19 15:30 03/09/19 17:33 Water For Injection IVP 10 ml WILLCALL PANCHO Administration - Exam General Appearance: NAD, awake alert Eye: PERRL, anicteric sclera ENT: normocephalic atraumatic, no oropharyngeal lesions Neck: supple, symmetric, no JVD, no thyromegaly Heart: RRR, no murmur, no gallops, no rubs, normal peripheral pulses Respiratory - other findings: diminished in bases Gastrointestinal: soft, non-distended, normal bowel sounds Gastrointestinal - other findings: PEG intact Extremities: no cyanosis, no clubbing Extremities - other findings: L BKA Neurological: no new deficit Neurological - other findings: L hemiparesis, aphasia, dysphagia Musculoskeletal: generalized weakness Hosp A/P (1) Acute respiratory failure with hypoxia and hypercapnia Code(s): J96.01 - ACUTE RESPIRATORY FAILURE WITH HYPOXIA; J96.02 - ACUTE RESPIRATORY FAILURE WITH HYPERCAPNIA Status: Acute Plan: Continue routine trach care and suctioning, T-collar (2) Healthcare-associated pneumonia Code(s): J18.9 - PNEUMONIA, UNSPECIFIED ORGANISM Status: Acute (3) Acute CVA (cerebrovascular accident) Code(s): I63.9 - CEREBRAL INFARCTION, UNSPECIFIED Status: Acute (4) Acute on chronic renal insufficiency Code(s): N28.9 - DISORDER OF KIDNEY AND URETER, UNSPECIFIED; N18.9 - CHRONIC KIDNEY DISEASE, UNSPECIFIED Status: Acute (5) Hypernatremia Code(s): E87.0 - HYPEROSMOLALITY AND HYPERNATREMIA Status: Acute (6) Acute blood loss anemia Code(s): D62 - ACUTE POSTHEMORRHAGIC ANEMIA Status: Acute (7) Diabetes mellitus Code(s): E11.9 - TYPE 2 DIABETES MELLITUS WITHOUT COMPLICATIONS Status: Chronic Qualifiers: Diabetes mellitus type: type 2 Diabetes mellitus alf insulin use: with terminal operations supervisor use Diabetes mellitus complication status: with circulatory complication - Plan continue antibiotics, PT/OT, social work manager, speech therapy, respiratory therapy, DVT proph w/SCDs Continue supportive mgmt Continue Rocephin another 24-48h SNF placement pending Bacitracin ointment to glans prn Nutritional support with TF's Beto BID
[2019-03-29] MEDS: Atorvastatin Calcium 40 MG TAB PO SCH (21:46)
[2019-03-29] MEDS: Insulin Glargine 10 UNITS in Pre-Filled Syringe 1 EACH SC SCH (22:02)
--- NOTE | 2019-03-30 00:23 | PDOC.EVN ---
Event Note - Event Note Event Note: Notified by RN jaiden, patient with low sats of 78, improved to 95 after suction. patient reportedly with crackles, worse today than previous days. Has had multiple chest xrays, last one on 03/25 which showed ?pleural fluid. Patient on IV Abx. Awaiting placement. Will obtain labs and repeat CXR to assess for worsening.
[2019-03-30 00:50] LABS: #Eosinphils 0.4 thou/uL (0.0-0.7); #Monocytes 0.8 thou/uL (0.11-0.59); #Neutrophils 4.7 thou/uL (1.40-6.50); %Basophils 0.3 % (0.0-1.0); %Eosinophils 4.6 % (0.0-10.0); %Lymphocytes 25.3 % (21.0-51.0); %Monocytes 10.4 % (0.0-10.0); %Neutrophils 59.5 % (42.0-75.0); Hemoglobin 8.2 g/dL (14.0-18.0); Mean Corpuscular HGB CONC 31.6 g/dL (32.0-36.0); Mean Corpuscular Hemoglobin 25.5 pg (27.0-31.0); Mean Corpuscular Volume 80.7 fL (78.0-98.0); Mean Platelet Volume 9.7 fL (7.4-10.4); Platelet Count 207 thou/uL (130-400); RBC Distribution Width 15.7 % (11.5-14.5); White Blood Cell (WBC) Count 7.9 thou/uL (4.8-10.8)
[2019-03-30] MEDS: Metamucil PACK PER TUBE SCH ×3 (00:59→21:58)
[2019-03-30 01:01] LABS: Lactic Acid 0.7 mmol/L (0.5-2.2)
[2019-03-30 01:03] LABS: Anion Gap 14 mmol/L (10-20); BUN (Urea Nitrogen) 56 mg/dL (8.4-25.7); Calc. Creatinine Clearance 78 mL/min (70-130); Calcium 9.5 mg/dL (7.8-10.44); Carbon Dioxide 28 mmol/L (22-29); Chloride 108 mmol/L (98-107); Estimated GFR-MDRD 46; Glucose 176 mg/dL (70-105); Sodium 147 mmol/L (136-145)
[2019-03-30 01:07] LABS: Potassium 2.9 mmol/L (3.5-5.1)
[2019-03-30] MEDS ORDERED: Potassium Chloride 20 MEQ in Premix Bag 1 BAG IVPB SCH (01:45)
[2019-03-30] MEDS ORDERED: Potassium Chloride 40 MEQ in Sodium Chloride 0.9% 500 ML IVPB SCH (02:30)
[2019-03-30] MEDS: Docusate Sodium 100 MG/10 ML UDCUP PO SCH ×2 (04:44→09:23)
--- NOTE | 2019-03-30 07:39 | RAD ---
Portable frontal chest radiograph: 03/30/2019 COMPARISON: 03/25/2019 HISTORY: Low oxygen saturation, abnormal breath sounds FINDINGS: Stable tracheostomy tube and left vascular catheter. Heart and mediastinal contours are sta ble. There is hazy increased density within the right upper lobe, new. There is dense pleural and parenchymal opacity in the lung bases, right greater than left, worsened on the left when compared to the prior exam. IMPRESSION: Worsening aeration in the left lung base and developing airspace disease in the right upp er lobe region. Findings suggest worsening pulmonary edema. Infection or aspiration cannot be excluded. Follow-up to resolution advised.
[2019-03-30] MEDS: Amlodipine 10 MG TAB PO SCH (09:22)
[2019-03-30] MEDS: Metoclopramide 10 MG/10 ML UDCUP PER TUBE SCH ×3 (09:22→17:19)
[2019-03-30] MEDS: Carvedilol 6.25 MG TAB PO SCH ×2 (09:23→21:59)
[2019-03-30] MEDS: Aspirin Chewable 81 MG TAB PO SCH (09:23)
[2019-03-30] MEDS: Folic Acid 1 MG TAB PO SCH (09:23)
[2019-03-30] MEDS: hydrALAZINE 25 MG TAB PO SCH ×3 (09:23→21:59)
[2019-03-30] MEDS: Escitalopram Oxalate 10 mg Tablet PO SCH (09:23)
[2019-03-30] MEDS: Pantoprazole 40 MG VIAL IVP SCH (09:24)
[2019-03-30] MEDS: Triple Antibiotic Oint 1 GM Packet TOP SCH ×2 (09:24→21:58)
[2019-03-30] MEDS: Multivitamin W/ Minerals 1 TAB PO SCH (09:24)
[2019-03-30] MEDS: Multivitamins CHEW w/Iron Tablet PO SCH (09:24)
[2019-03-30] MEDS: Insulin Glargine 20 UNITS in Pre-Filled Syringe 1 EACH SC SCH (09:24)
[2019-03-30] MEDS: cefTRIAXone\\ROCEPHIN 1 GM in Sodium Chloride 0.9% 100 ML IVPB SCH (11:35)
[2019-03-30] MEDS: HumaLOG 300 UNITS/3 ML VIAL SC PRN ×2 (11:36→17:19)
--- NOTE | 2019-03-30 16:55 | PDOC.HOSPP ---
- Subjective Encounter Date: 03/30/19 Encounter Time: 16:45 Subjective: f/u for CVA, resp failure with trach, PEG tube feeds and total care. Low K+ noted today and some hypoxia requiring suctioning of trach. - Objective Vital Signs & Weight: Vital Signs (12 hours) Temp Pulse Resp BP BP Pulse Ox 03/30/19 16:25 94 L 03/30/19 15:51 98.8 F 94 18 121/67 83 L 03/30/19 14:50 91 123/73 03/30/19 12:00 96 03/30/19 11:36 97.8 F 86 18 132/84 96 03/30/19 09:23 89 136/80 03/30/19 09:22 89 136/80 03/30/19 08:45 97 03/30/19 08:00 98.5 F 89 20 136/80 97 03/30/19 06:15 96 Weight Admit Weight 282 lb 11.2 oz Weight 275 lb 3.2 oz Most Recent Monitor Data Heart Rate from ECG 75 NIBP 154/95 NIBP BP-Mean 114 Respiration from ECG 20 SpO2 98 I&O: 03/29/19 03/30/19 03/31/19 06:59 06:59 06:59 Intake Total 4956 2796 474 Output Total 1300 1025 Balance 3656 1771 474 Result Diagrams: 03/30/19 00:22 03/30/19 00:22 Additional Labs: Accuchecks 03/30/19 03/30/19 03/29/19 10:52 05:14 23:25 POC Glucose 177 H 164 H 210 H 03/29/19 03/29/19 20:29 16:52 POC Glucose 176 H 191 H Microbiology 03/09/19 17:50 Stool Stool Occult Blood (PHILIP) - Final 03/06/19 14:02 Urine orozco catheter Urine Culture - Final NO GROWTH AT 48 HOURS 03/05/19 03:58 Urine orozco catheter Urine Culture - Final NO GROWTH AT 36 HOURS 03/11/19 13:55 Urine clean catch Urine Culture - Preliminary NO GROWTH AT 24 HOURS 03/11/19 13:19 Venous blood - Right Hand Blood Culture - Preliminary Specimen has been received and culture in progress. No Growth to date. 03/11/19 13:19 Central Line - Left external jugular vein Blood Culture - Preliminary NO GROWTH AT 48 HOURS 03/05/19 02:21 Venous blood - Left Arm Blood Culture - Preliminary NO GROWTH AT 48 HOURS 03/05/19 02:04 Venous blood - Left Arm Blood Culture - Preliminary NO GROWTH AT 48 HOURS Laboratory Tests 03/01/19 03/04/19 03/04/19 04:43 10:52 10:52 Hgb 7.2 L Sodium 145 150 H Creatinine 2.19 H 1.95 H Vancomycin Trough Random Vancomycin 03/05/19 03/05/19 03/07/19 03:30 03:30 05:17 Hgb 7.3 L Sodium 150 H 149 H Creatinine 2.00 H 1.98 H Vancomycin Trough Random Vancomycin 03/09/19 03/10/19 03/11/19 04:38 05:53 08:00 Hgb Sodium 144 145 Creatinine 1.96 H 2.01 H Vancomycin Trough 30.5 H* Random Vancomycin 03/12/19 08:00 Hgb Sodium Creatinine Vancomycin Trough Random Vancomycin 18.9 Radiology Reviewed by me: Yes (PCXR - chronic changes, atelectasis, parechymal changes) EKG Reviewed by me: Yes (Tele - SR) Hospitalist ROS - Medication Medications: Active Medications Generic Name Dose Route Start Last Admin Trade Name Freq PRN Reason Stop Dose Admin Acetaminophen 1,000 mg 03/05/19 01:37 03/25/19 12:02 Tylenol Elixir PER TUBE 1,000 mg Q6H PRN Administration Fever/Mild Pain Albuterol/Ipratropium 3 ml 03/01/19 15:52 03/19/19 10:13 Duoneb NEB 3 ml Q6H PRN Administration SOB &/or Wheezing Alteplase, Recombinant 2 mg 03/09/19 15:30 03/14/19 06:18 Cathflo CATH 2 mg WILLCALL PANCHO Administration Amlodipine Besylate 10 mg 02/13/19 09:00 03/30/19 09:22 Norvasc PO 10 mg DAILY PANCHO Administration Aspirin 81 mg 03/05/19 09:00 03/30/19 09:23 Aspirin Chewable PO 81 mg DAILY PANCHO Administration Atorvastatin Calcium 40 mg 02/08/19 21:00 03/29/19 21:46 Lipitor PO 40 mg HS PANCHO Administration Carvedilol 12.5 mg 02/08/19 21:00 02/19/20 09:23 Coreg PO 12.5 mg BID PANCHO Administration Docusate Sodium 100 mg 02/25/19 21:00 03/30/19 09:23 Colace Liquid PO 100 mg BID PANCHO Administration Escitalopram Oxalate 10 mg 03/04/19 09:00 03/30/19 09:23 Lexapro PO 10 mg DAILY PANCHO Administration Folic Acid 1 mg 02/13/19 09:00 03/30/19 09:23 Folvite PO 1 mg DAILY PANCHO Administration Hydralazine HCl 25 mg 02/12/19 15:00 03/30/19 14:50 Apresoline PO 25 mg TID PANCHO Administration Hydralazine HCl 10 mg 02/17/19 16:33 03/03/19 03:04 Apresoline SLOW IVP 10 mg Q4H PRN Administration BP > 220/110 Insulin Glargine 20 units/ 0.2 mls @ 0 mls/hr 02/09/19 09:00 03/30/19 09:24 Miscellaneous Medication SC 0.2 mls QAM PANCHO Administration Insulin Glargine 10 units/ 0.1 mls @ 0 mls/hr 02/27/19 21:00 03/29/19 22:02 Miscellaneous Medication SC 0.1 mls HS PANCHO Administration Ceftriaxone Sodium 1 gm/ 100 mls @ 200 mls/hr 03/25/19 11:00 03/30/19 11:35 Sodium Chloride IVPB 100 mls Q24HR PANCHO Administration Insulin Human Lispro 0 units 02/07/19 19:09 03/30/19 11:36 Humalog SC 2 unit .MILD SLIDING SCALE PRN Administration Mild Correctional Scale Insulin Human Lispro 0 units 02/07/19 19:09 03/08/19 22:44 Humalog SC 3 unit .BEDTIME SLIDING SC PRN Administration Bedtime Correctional Scale Iron/Minerals/Multivitamins 1 tab 03/07/19 09:00 03/30/19 09:24 Theragran M PO 1 tab DAILY PANCHO Administration Metoclopramide HCl 5 mg 03/17/19 21:00 03/30/19 11:35 Reglan PER TUBE 5 mg ACHS PANCHO Administration Multivitamins/Iron 1 tab 02/16/19 09:00 03/30/19 09:24 Centrum Kids Complete/Iron PO 1 tab DAILY PANCHO Administration Neomycin/Polymyxin/Bacitracin 0 gm 02/15/20 21:00 03/30/19 09:24 Triple Antibiotic TOP 1 gm BID PANCHO Administration Ondansetron HCl 4 mg 02/07/19 19:05 02/15/19 14:23 Zofran IVP 4 mg Q6H PRN Administration Nausea/Vomiting Pantoprazole Sodium 40 mg 03/16/19 09:00 03/30/19 09:24 Protonix IVP 40 mg DAILY PANCHO Administration Psyllium Hydrophilic Mucilloid 1 pk 03/25/19 21:00 03/30/19 09:25 Metamucil PER TUBE 1 pk BID PANCHO Administration Scopolamine 1.5 mg 02/21/19 13:00 03/29/19 12:50 Transderm Scop TD 1.5 mg Q3D PANCHO Administration Sodium Chloride 10 ml 02/07/19 19:05 03/29/19 22:07 Flush - Normal Saline IVF 10 ml Q12H PRN Administration Saline Flush Sodium Chloride 10 ml 03/09/19 15:24 03/26/19 09:48 Flush - Normal Saline IVF 10 ml PRN PRN Administration Saline Flush Sodium Chloride 10 ml 03/10/19 18:50 03/26/19 09:48 Normal Saline Pf FS 10 ml PRN PRN Administration RECONSTITUTION Sterile Water 10 ml 03/09/19 15:30 03/09/19 17:33 Water For Injection IVP 10 ml WILLCALL PANCHO Administration - Exam General Appearance: NAD, awake alert Eye: PERRL, anicteric sclera ENT: normocephalic atraumatic, no oropharyngeal lesions Neck: supple, symmetric, no JVD, no thyromegaly Neck - other findings: trach in place Heart: irregular Respiratory - other findings: scattered rhonchi, diminished in bases Gastrointestinal: soft, non-tender, non-distended, normal bowel sounds Gastrointestinal - other findings: PEG in place Extremities: no cyanosis, no clubbing, no edema Skin: normal turgor Neurological: no new deficit Neurological - other findings: L hemiparesis, aphasic Musculoskeletal: generalized weakness Psychiatric: oriented to person Hosp A/P (1) Acute respiratory failure with hypoxia and hypercapnia Code(s): J96.01 - ACUTE RESPIRATORY FAILURE WITH HYPOXIA; J96.02 - ACUTE RESPIRATORY FAILURE WITH HYPERCAPNIA Status: Acute Plan: Continue suctioning of trach tube, sit upright, Duonebs prn (2) Healthcare-associated pneumonia Code(s): J18.9 - PNEUMONIA, UNSPECIFIED ORGANISM Status: Acute Plan: Continue Rocephin, suctioning of airway (3) Acute CVA (cerebrovascular accident) Code(s): I63.9 - CEREBRAL INFARCTION, UNSPECIFIED Status: Acute (4) Acute on chronic renal insufficiency Code(s): N28.9 - DISORDER OF KIDNEY AND URETER, UNSPECIFIED; N18.9 - CHRONIC KIDNEY DISEASE, UNSPECIFIED Status: Acute (5) Hypernatremia Code(s): E87.0 - HYPEROSMOLALITY AND HYPERNATREMIA Status: Acute Plan: Increase free-H2O intake (6) Acute blood loss anemia Code(s): D62 - ACUTE POSTHEMORRHAGIC ANEMIA Status: Acute (7) Diabetes mellitus Code(s): E11.9 - TYPE 2 DIABETES MELLITUS WITHOUT COMPLICATIONS Status: Chronic Qualifiers: Diabetes mellitus type: type 2 Diabetes mellitus assisted insulin use: with assisted use Diabetes mellitus complication status: with circulatory complication - Plan continue antibiotics, PT/OT, social research assistant, speech therapy, respiratory therapy, out of bed/ambulate, DVT proph w/SCDs Continue supportive mgmt Continue Rocephin another 24-48h SNF placement pending Bacitracin ointment to glans prn Nutritional support with TF's Beto BID KCL supplementation AM lab: BMP
[2019-03-30] MEDS: Insulin Glargine 10 UNITS in Pre-Filled Syringe 1 EACH SC SCH (21:57)
[2019-03-30] MEDS: Acetaminophen 650 MG/20.3 ML UDCUP PER TUBE PRN (21:58)
[2019-03-30] MEDS: Atorvastatin Calcium 40 MG TAB PO SCH (21:59)
[2019-03-31] MEDS: Metoclopramide 10 MG/10 ML UDCUP PER TUBE SCH ×5 (00:37→22:48)
[2019-03-31 01:12] LABS: Anion Gap 13 mmol/L (10-20); BUN (Urea Nitrogen) 64 mg/dL (8.4-25.7); Calc. Creatinine Clearance 71 mL/min (70-130); Calcium 9.6 mg/dL (7.8-10.44); Carbon Dioxide 28 mmol/L (22-29); Chloride 109 mmol/L (98-107); Estimated GFR-MDRD 41; Glucose 190 mg/dL (70-105); Magnesium 2.3 mg/dL (1.6-2.6); Potassium 3.5 mmol/L (3.5-5.1); Sodium 146 mmol/L (136-145)
[2019-03-31 05:30] LABS: Anion Gap 13 mmol/L (10-20); BUN (Urea Nitrogen) 65 mg/dL (8.4-25.7); Calc. Creatinine Clearance 72 mL/min (70-130); Calcium 9.7 mg/dL (7.8-10.44); Carbon Dioxide 26 mmol/L (22-29); Chloride 109 mmol/L (98-107); Estimated GFR-MDRD 42; Glucose 229 mg/dL (70-105); Potassium 3.4 mmol/L (3.5-5.1); Sodium 145 mmol/L (136-145)
[2019-03-31] MEDS: Docusate Sodium 100 MG/10 ML UDCUP PO SCH ×3 (07:47→22:49)
[2019-03-31] MEDS: HumaLOG 300 UNITS/3 ML VIAL SC PRN ×3 (07:49→17:33)
[2019-03-31] MEDS: hydrALAZINE 25 MG TAB PO SCH ×3 (10:11→22:47)
[2019-03-31] MEDS: Multivitamins CHEW w/Iron Tablet PO SCH (10:11)
[2019-03-31] MEDS: Aspirin Chewable 81 MG TAB PO SCH (10:11)
[2019-03-31] MEDS: Multivitamin W/ Minerals 1 TAB PO SCH (10:11)
[2019-03-31] MEDS: Amlodipine 10 MG TAB PO SCH (10:12)
[2019-03-31] MEDS: Metamucil PACK PER TUBE SCH ×2 (10:12→22:49)
[2019-03-31] MEDS: Pantoprazole 40 MG VIAL IVP SCH (10:12)
[2019-03-31] MEDS: Sodium Chloride 0.9% (PF) 10 ML VIAL FS PRN (10:12)
[2019-03-31] MEDS: Escitalopram Oxalate 10 mg Tablet PO SCH (10:12)
[2019-03-31] MEDS: Folic Acid 1 MG TAB PO SCH (10:12)
[2019-03-31] MEDS: Carvedilol 6.25 MG TAB PO SCH ×2 (10:12→22:42)
[2019-03-31] MEDS: Insulin Glargine 20 UNITS in Pre-Filled Syringe 1 EACH SC SCH (10:13)
[2019-03-31] MEDS: Acetaminophen 650 MG/20.3 ML UDCUP PER TUBE PRN ×2 (10:22→16:10)
--- NOTE | 2019-03-31 10:27 | PDOC.HOSPP ---
- Subjective Encounter Date: 03/31/19 Encounter Time: 10:15 Subjective: f/u for PNA, resp failure with trach and recurrent fever in the last 24-48h. Less interactive per . Receiving Rocephin currently. Gastric residuals minimal. - Objective Vital Signs & Weight: Vital Signs (12 hours) Temp Pulse Resp BP Pulse Ox 03/31/19 07:59 100.9 F H 92 24 H 127/78 100 03/31/19 02:14 99.6 F 03/31/19 00:00 100.2 F H 96 16 124/76 92 L Weight Admit Weight 282 lb 11.2 oz Weight 275 lb 3.2 oz Most Recent Monitor Data Heart Rate from ECG 75 NIBP 154/95 NIBP BP-Mean 114 Respiration from ECG 20 SpO2 98 I&O: 03/30/19 03/31/19 04/01/19 06:59 06:59 06:59 Intake Total 2796 2802 Output Total 1025 1300 Balance 1771 1502 Result Diagrams: 03/30/19 00:22 03/31/19 04:38 Additional Labs: Accuchecks 03/31/19 03/30/19 03/30/19 06:19 20:18 17:05 POC Glucose 245 H 266 H 231 H 03/30/19 10:52 POC Glucose 177 H Radiology Reviewed by me: Yes (PCXR - LLL opacities, scattered infiltrates) EKG Reviewed by me: Yes (Tele - SR) Hospitalist ROS - Medication Medications: Active Medications Generic Name Dose Route Start Last Admin Trade Name Freq PRN Reason Stop Dose Admin Acetaminophen 1,000 mg 03/05/19 01:37 03/30/19 21:58 Tylenol Elixir PER TUBE 1,000 mg Q6H PRN Administration Fever/Mild Pain Alteplase, Recombinant 2 mg 03/09/19 15:30 03/14/19 06:18 Cathflo CATH 2 mg WILLCALL PANCHO Administration Amlodipine Besylate 10 mg 02/13/19 09:00 03/30/19 09:22 Norvasc PO 10 mg DAILY PANCHO Administration Aspirin 81 mg 03/05/19 09:00 03/30/19 09:23 Aspirin Chewable PO 81 mg DAILY PANCHO Administration Atorvastatin Calcium 40 mg 02/08/19 21:00 03/30/19 21:59 Lipitor PO 40 mg HS PANCHO Administration Carvedilol 12.5 mg 02/08/19 21:00 03/30/19 21:59 Coreg PO 12.5 mg BID PANCHO Administration Docusate Sodium 100 mg 02/25/19 21:00 03/31/19 07:47 Colace Liquid PO Not Given BID [facility] Escitalopram Oxalate 10 mg 03/04/19 09:00 03/30/19 09:23 Lexapro PO 10 mg DAILY PANCHO Administration Folic Acid 1 mg 02/13/19 09:00 03/30/19 09:23 Folvite PO 1 mg DAILY PANCHO Administration Hydralazine HCl 25 mg 02/12/19 15:00 03/30/19 21:59 Apresoline PO 25 mg TID PANCHO Administration Hydralazine HCl 10 mg 02/17/19 16:33 03/03/19 03:04 Apresoline SLOW IVP 10 mg Q4H PRN Administration BP > 220/110 Insulin Glargine 20 units/ 0.2 mls @ 0 mls/hr 02/09/19 09:00 03/30/19 09:24 Miscellaneous Medication SC 0.2 mls QAM PANCHO Administration Insulin Glargine 10 units/ 0.1 mls @ 0 mls/hr 02/27/19 21:00 03/30/19 21:57 Miscellaneous Medication SC 0.1 mls HS PANCHO Administration Insulin Human Lispro 0 units 02/07/19 19:09 03/31/19 07:49 Humalog SC 3 unit .MILD SLIDING SCALE PRN Administration Mild Correctional Scale Insulin Human Lispro 0 units 02/07/19 19:09 03/08/19 22:44 Humalog SC 3 unit .BEDTIME SLIDING SC PRN Administration Bedtime Correctional Scale Iron/Minerals/Multivitamins 1 tab 03/07/19 09:00 03/30/19 09:24 Theragran M PO 1 tab DAILY PANCHO Administration Metoclopramide HCl 5 mg 03/17/19 21:00 03/31/19 00:37 Reglan PER TUBE 5 mg ACHS PANCHO Administration Multivitamins/Iron 1 tab 02/16/19 09:00 03/30/19 09:24 Centrum Kids Complete/Iron PO 1 tab DAILY PANCHO Administration Neomycin/Polymyxin/Bacitracin 0 gm 03/26/19 21:00 03/30/19 21:58 Triple Antibiotic TOP 1 gm BID PANCHO Administration Ondansetron HCl 4 mg 02/07/19 19:05 02/15/19 14:23 Zofran IVP 4 mg Q6H PRN Administration Nausea/Vomiting Pantoprazole Sodium 40 mg 03/16/19 09:00 03/30/19 09:24 Protonix IVP 40 mg DAILY PANCHO Administration Psyllium Hydrophilic Mucilloid 1 pk 03/25/19 21:00 03/30/19 21:58 Metamucil PER TUBE 1 pk BID PANCHO Administration Scopolamine 1.5 mg 02/21/19 13:00 03/29/19 12:50 Transderm Scop TD 1.5 mg Q3D PANCHO Administration Sodium Chloride 10 ml 02/07/19 19:05 03/29/19 22:07 Flush - Normal Saline IVF 10 ml Q12H PRN Administration Saline Flush Sodium Chloride 10 ml 03/09/19 15:24 03/26/19 09:48 Flush - Normal Saline IVF 10 ml PRN PRN Administration Saline Flush Sodium Chloride 10 ml 03/10/19 18:50 03/26/19 09:48 Normal Saline Pf FS 10 ml PRN PRN Administration RECONSTITUTION Sterile Water 10 ml 03/09/19 15:30 03/09/19 17:33 Water For Injection IVP 10 ml WILLCALL PANCHO Administration - Exam General - other findings: somnolent, minimal response ENT: normocephalic atraumatic, no oropharyngeal lesions Neck: supple, symmetric, no JVD, no thyromegaly Neck - other findings: trach in place Respiratory: tachypneic Respiratory - other findings: coarse sounds bilat, diminished bilat Gastrointestinal: soft, non-tender, non-distended, normal bowel sounds Gastrointestinal - other findings: PEG in place Extremities: no cyanosis, no clubbing, no edema Skin - other findings: warm to touch Neurological - other findings: L hemiparesis, aphasic, dysphagia Musculoskeletal: generalized weakness Hosp A/P (1) Acute respiratory failure with hypoxia and hypercapnia Code(s): J96.01 - ACUTE RESPIRATORY FAILURE WITH HYPOXIA; J96.02 - ACUTE RESPIRATORY FAILURE WITH HYPERCAPNIA Status: Acute Plan: Continue T-collar with O2 6L/min, see below for mgmt (2) Healthcare-associated pneumonia Code(s): J18.9 - PNEUMONIA, UNSPECIFIED ORGANISM Status: Acute Plan: Start Cefepime 1gm IV BID, add Vancomycin 1gm x 1 now, Duonebs scheduled, repeat PCXR (3) Acute CVA (cerebrovascular accident) Code(s): I63.9 - CEREBRAL INFARCTION, UNSPECIFIED Status: Acute Plan: L hemiparesis and aphasic, stroke protocol, ROM exercises, ASA (4) Acute on chronic renal insufficiency Code(s): N28.9 - DISORDER OF KIDNEY AND URETER, UNSPECIFIED; N18.9 - CHRONIC KIDNEY DISEASE, UNSPECIFIED Status: Acute Plan: Worsening, add IV NS @ 100ml/h, avoid nephrotoxic meds and limit contrast (5) Hypernatremia Code(s): E87.0 - HYPEROSMOLALITY AND HYPERNATREMIA Status: Acute Plan: Continue IVF's, serial Na+ (6) Diabetes mellitus Code(s): E11.9 - TYPE 2 DIABETES MELLITUS WITHOUT COMPLICATIONS Status: Chronic Qualifiers: Diabetes mellitus type: type 2 Diabetes mellitus exterminator helper insulin use: with exterminator helper use Diabetes mellitus complication status: with circulatory complication - Plan plan discussed w/ family, continue antibiotics, PT/OT, social work program coordinator, speech therapy, respiratory therapy, DVT proph w/SCDs Continue supportive mgmt Start Cefepime/Vancomycin SNF placement pending IVF NS @ 100ml/h Nutritional support with TF's, low gastric residuals Beto BID KCL supplementation Repeat PCXR today AM lab: BMP, CBC
[2019-03-31] MEDS ORDERED: Vancomycin HCl 1 GM in Premix Bag 1 BAG IVPB SCH (10:30)
[2019-03-31] MEDS: Sodium Chloride 0.9% 1,000 ML IV SCH ×2 (12:48→23:06)
[2019-03-31] MEDS: Cefepime 1 GM in Sodium Chloride 0.9% 100 ML IVPB SCH ×2 (14:32→23:26)
--- NOTE | 2019-03-31 14:56 | RAD ---
PORTABLE CHEST: 03/31/19 COMPARISON: Prior day's exam. HISTORY: Pneumonia and respiratory failure. Heart size is enlarged. Left sided central line is unchanged in position. The right upper lobe parenc hymal changes appear improved as compared to the prior examination. Bibasilar pleural and parenchymal lung changes are still present. Perhaps some slight improvement to some of the right basilar lung ch sarah. Pulmonary vessels are less engorged. IMPRESSION: Improving pulmonary edema change. POS: TPC
[2019-03-31] MEDS: Ketorolac Tromethamine 30 MG/ML VIAL IVP PRN (17:32)
[2019-03-31] MEDS: Triple Antibiotic Oint 1 GM Packet TOP SCH ×2 (18:41→22:50)
[2019-03-31] MEDS: Atorvastatin Calcium 40 MG TAB PO SCH (22:42)
[2019-03-31] MEDS: Insulin Glargine 10 UNITS in Pre-Filled Syringe 1 EACH SC SCH (22:47)
[2019-04-01 06:14] LABS: Eosinophils 10 % (0-10); Hemoglobin 7.6 g/dL (14.0-18.0); Lymphocytes 31 % (21-51); MDiff Complete? YES; Mean Corpuscular HGB CONC 31.1 g/dL (32.0-36.0); Mean Corpuscular Hemoglobin 24.9 pg (27.0-31.0); Mean Corpuscular Volume 79.8 fL (78.0-98.0); Mean Platelet Volume 9.1 fL (7.4-10.4); Monocytes 9 % (0-10); Neutrophil 50 % (42-75); Platelet Count 209 thou/uL (130-400); Platelet Morphology Comment Appears Adequate; RBC Distribution Width 16.1 % (11.5-14.5); Red Blood Cell (RBC) Count 3.05 mill/uL (4.70-6.10); White Blood Cell (WBC) Count 7.4 thou/uL (4.8-10.8)
[2019-04-01] MEDS: HumaLOG 300 UNITS/3 ML VIAL SC PRN ×3 (06:21→17:17)
[2019-04-01 06:28] LABS: Anion Gap 12 mmol/L (10-20); BUN (Urea Nitrogen) 66 mg/dL (8.4-25.7); Calc. Creatinine Clearance 81 mL/min (70-130); Calcium 9.3 mg/dL (7.8-10.44); Carbon Dioxide 26 mmol/L (22-29); Chloride 110 mmol/L (98-107); Estimated GFR-MDRD 48; Glucose 191 mg/dL (70-105); Potassium 3.4 mmol/L (3.5-5.1); Sodium 145 mmol/L (136-145)
[2019-04-01] MEDS: Metamucil PACK PER TUBE SCH ×2 (10:13→21:50)
[2019-04-01] MEDS: hydrALAZINE 25 MG TAB PO SCH ×3 (10:13→21:45)
[2019-04-01] MEDS: Sodium Chloride 0.9% (PF) 10 ML VIAL FS PRN (10:13)
[2019-04-01] MEDS: Triple Antibiotic Oint 1 GM Packet TOP SCH ×2 (10:13→21:50)
[2019-04-01] MEDS: Metoclopramide 10 MG/10 ML UDCUP PER TUBE SCH ×4 (10:13→21:50)
[2019-04-01] MEDS: Pantoprazole 40 MG VIAL IVP SCH (10:13)
[2019-04-01] MEDS: Docusate Sodium 100 MG/10 ML UDCUP PO SCH ×2 (10:13→21:48)
[2019-04-01] MEDS: Multivitamins CHEW w/Iron Tablet PO SCH (10:13)
[2019-04-01] MEDS: Folic Acid 1 MG TAB PO SCH (10:14)
[2019-04-01] MEDS: Aspirin Chewable 81 MG TAB PO SCH (10:14)
[2019-04-01] MEDS: Multivitamin W/ Minerals 1 TAB PO SCH (10:14)
[2019-04-01] MEDS: Amlodipine 10 MG TAB PO SCH (10:14)
[2019-04-01] MEDS: Escitalopram Oxalate 10 mg Tablet PO SCH (10:14)
[2019-04-01] MEDS: Carvedilol 6.25 MG TAB PO SCH ×2 (10:14→21:42)
[2019-04-01] MEDS: Insulin Glargine 20 UNITS in Pre-Filled Syringe 1 EACH SC SCH (10:30)
[2019-04-01] MEDS: Sodium Chloride 0.9% 1,000 ML IV SCH ×2 (10:30→22:35)
[2019-04-01] MEDS: Cefepime 1 GM in Sodium Chloride 0.9% 100 ML IVPB SCH ×2 (11:19→23:06)
--- NOTE | 2019-04-01 12:43 | PDOC.HOSPP ---
- Subjective Encounter Date: 04/01/19 Encounter Time: 12:35 Subjective: f/u for fever, PNA and lethargy initiated on Cefepime/Vancomycin. reports much improved today, alert, responsive and moving both hands/arms. - Objective Vital Signs & Weight: Vital Signs (12 hours) Temp Pulse Resp BP Pulse Ox 04/01/19 11:49 98.1 F 80 20 132/85 100 04/01/19 10:28 85 16 97 04/01/19 10:14 81 04/01/19 10:13 81 04/01/19 08:00 100 04/01/19 07:49 98.5 F 81 19 134/80 100 04/01/19 06:51 97 04/01/19 06:50 71 18 97 04/01/19 03:54 97.6 F 83 16 139/79 04/01/19 02:05 95 16 96 Weight Admit Weight 282 lb 11.2 oz Weight 275 lb 3.2 oz Most Recent Monitor Data Heart Rate from ECG 75 NIBP 154/95 NIBP BP-Mean 114 Respiration from ECG 20 SpO2 98 I&O: 03/31/19 04/01/19 04/02/19 06:59 06:59 06:59 Intake Total 2802 3509 2329 Output Total 1300 850 750 Balance 1502 2659 1579 Result Diagrams: 04/01/19 05:45 04/01/19 05:45 Additional Labs: Accuchecks 04/01/19 04/01/19 03/31/19 10:32 06:00 20:21 POC Glucose 231 H 193 H 171 H 03/31/19 16:55 POC Glucose 236 H Radiology Reviewed by me: Yes (PCXR - bilat parenchymal changes, central line in place) EKG Reviewed by me: Yes (Tele - SR) Hospitalist ROS - Medication Medications: Active Medications Generic Name Dose Route Start Last Admin Trade Name Freq PRN Reason Stop Dose Admin Acetaminophen 1,000 mg 03/05/19 01:37 03/31/19 16:10 Tylenol Elixir PER TUBE 1,000 mg Q6H PRN Administration Fever/Mild Pain Albuterol/Ipratropium 3 ml 03/31/19 10:30 04/01/19 10:28 Duoneb NEB 3 ml [id number] PANCHO Administration Alteplase, Recombinant 2 mg 03/09/19 15:30 03/14/19 06:18 Cathflo CATH 2 mg WILLCALL PANCHO Administration Amlodipine Besylate 10 mg 02/13/19 09:00 04/01/19 10:14 Norvasc PO 10 mg DAILY PANCHO Administration Aspirin 81 mg 03/05/19 09:00 04/01/19 10:14 Aspirin Chewable PO 81 mg DAILY PANCHO Administration Atorvastatin Calcium 40 mg 02/08/19 21:00 03/31/19 22:42 Lipitor PO 40 mg HS PANCHO Administration Carvedilol 12.5 mg 02/08/19 21:00 04/01/19 10:14 Coreg PO 12.5 mg BID PANCHO Administration Docusate Sodium 100 mg 02/25/19 21:00 04/01/19 10:13 Colace Liquid PO 100 mg BID PANCHO Administration Escitalopram Oxalate 10 mg 03/04/19 09:00 04/01/19 10:14 Lexapro PO 10 mg DAILY PANCHO Administration Folic Acid 1 mg 02/13/19 09:00 04/01/19 10:14 Folvite PO 1 mg DAILY PANCHO Administration Hydralazine HCl 25 mg 02/12/19 15:00 04/01/19 10:13 Apresoline PO 25 mg TID PANCHO Administration Hydralazine HCl 10 mg 02/17/19 16:33 03/03/19 03:04 Apresoline SLOW IVP 10 mg Q4H PRN Administration BP > 220/110 Insulin Glargine 20 units/ 0.2 mls @ 0 mls/hr 02/09/19 09:00 04/01/19 10:30 Miscellaneous Medication SC 0.2 mls QAM PANCHO Administration Insulin Glargine 10 units/ 0.1 mls @ 0 mls/hr 02/27/19 21:00 03/31/19 22:47 Miscellaneous Medication SC 0.1 mls HS PANCHO Administration Sodium Chloride 1,000 mls @ 100 mls/hr 03/31/19 10:30 04/01/19 10:30 Normal Saline 0.9% IV 1,000 mls .Q10H PANCHO Administration Cefepime HCl 1 gm/ Sodium 100 mls @ 200 mls/hr 03/31/19 12:00 04/01/19 11:19 Chloride IVPB 100 mls Q12H PANCHO Administration Insulin Human Lispro 0 units 12/30/19 19:09 04/01/19 10:50 Humalog SC 3 unit .MILD SLIDING SCALE PRN Administration Mild Correctional Scale Insulin Human Lispro 0 units 02/07/19 19:09 03/08/19 22:44 Humalog SC 3 unit .BEDTIME SLIDING SC PRN Administration Bedtime Correctional Scale Iron/Minerals/Multivitamins 1 tab 03/07/19 09:00 04/01/19 10:14 Theragran M PO 1 tab DAILY PANCHO Administration Ketorolac Tromethamine 15 mg 03/31/19 17:06 03/31/19 17:32 Toradol IVP 04/05/19 17:07 15 mg Q6H PRN Administration Fever > 101 Metoclopramide HCl 5 mg 03/17/19 21:00 04/01/19 10:13 Reglan PER TUBE 5 mg ACHS PANCHO Administration Multivitamins/Iron 1 tab 02/16/19 09:00 04/01/19 10:13 Centrum Kids Complete/Iron PO 1 tab DAILY PANCHO Administration Neomycin/Polymyxin/Bacitracin 0 gm 03/26/19 21:00 04/01/19 10:13 Triple Antibiotic TOP 1 gm BID PANCHO Administration Ondansetron HCl 4 mg 02/07/19 19:05 02/15/19 14:23 Zofran IVP 4 mg Q6H PRN Administration Nausea/Vomiting Pantoprazole Sodium 40 mg 03/16/19 09:00 04/01/19 10:13 Protonix IVP 40 mg DAILY PANCHO Administration Psyllium Hydrophilic Mucilloid 1 pk 03/25/19 21:00 04/01/19 10:13 Metamucil PER TUBE 1 pk BID PANCHO Administration Scopolamine 1.5 mg 02/21/19 13:00 03/29/19 12:50 Transderm Scop TD 1.5 mg Q3D PANCHO Administration Sodium Chloride 10 ml 02/07/19 19:05 03/29/19 22:07 Flush - Normal Saline IVF 10 ml Q12H PRN Administration Saline Flush Sodium Chloride 10 ml 03/09/19 15:24 03/26/19 09:48 Flush - Normal Saline IVF 10 ml PRN PRN Administration Saline Flush Sodium Chloride 10 ml 03/10/19 18:50 04/01/19 10:13 Normal Saline Pf FS 10 ml PRN PRN Administration RECONSTITUTION Sterile Water 10 ml 03/09/19 15:30 03/09/19 17:33 Water For Injection IVP 10 ml WILLCALL PANCHO Administration - Exam General Appearance: NAD, awake alert Eye: PERRL, anicteric sclera ENT: normocephalic atraumatic, no oropharyngeal lesions Neck: supple, symmetric, no JVD, no thyromegaly, no lymphadenopathy Neck - other findings: trach in place Heart: RRR, no murmur, no gallops, no rubs, normal peripheral pulses Heart - other findings: S1, S2 Respiratory: CTAB, no rales, no ronchi, normal chest expansion, no tachypnea Gastrointestinal: soft, non-tender, non-distended, normal bowel sounds Gastrointestinal - other findings: PEG in place Extremities: no cyanosis, no clubbing, no edema Skin: normal turgor Neurological - other findings: moves bilat UE's with R>L electric blasting cap assembler strength, L BKA Musculoskeletal: generalized weakness Psychiatric: oriented to person Hosp A/P (1) Acute respiratory failure with hypoxia and hypercapnia Code(s): J96.01 - ACUTE RESPIRATORY FAILURE WITH HYPOXIA; J96.02 - ACUTE RESPIRATORY FAILURE WITH HYPERCAPNIA Status: Acute Plan: Continue trach care, O2 via T-collar, suture removal from trach site (2) Healthcare-associated pneumonia Code(s): J18.9 - PNEUMONIA, UNSPECIFIED ORGANISM Status: Acute Plan: Suspected, continue Cefepime/Vancomycin, trach care/suctioning, elevate HOB (3) Acute CVA (cerebrovascular accident) Code(s): I63.9 - CEREBRAL INFARCTION, UNSPECIFIED Status: Acute Plan: Slow clinical improvement, plan for continuous churn buttermaker PT/OT/MULE TENDER (4) Acute on chronic renal insufficiency Code(s): N28.9 - DISORDER OF KIDNEY AND URETER, UNSPECIFIED; N18.9 - CHRONIC KIDNEY DISEASE, UNSPECIFIED Status: Acute (5) Hypernatremia Code(s): E87.0 - HYPEROSMOLALITY AND HYPERNATREMIA Status: Acute (6) Diabetes mellitus Code(s): E11.9 - TYPE 2 DIABETES MELLITUS WITHOUT COMPLICATIONS Status: Chronic Qualifiers: Diabetes mellitus type: type 2 Diabetes mellitus continuous churn buttermaker insulin use: with half-way use Diabetes mellitus complication status: with circulatory complication - Plan plan discussed w/ family, continue antibiotics, PT/OT, social media senior associate, speech therapy, respiratory therapy Continue supportive mgmt Continue Cefepime/Vancomycin SNF placement pending IVF NS @ 100ml/h another 24-48h Nutritional support with TF's, low gastric residuals Beto BID KCL supplementation AM lab: BMP, H/H Remove central line and culture catheter tip after establishing peripheral line
[2019-04-01] MEDS: Scopolamine 1.5 mg/72 hour Patch TD SCH (13:23)
[2019-04-01] MEDS: Atorvastatin Calcium 40 MG TAB PO SCH (21:42)
[2019-04-01] MEDS: Insulin Glargine 10 UNITS in Pre-Filled Syringe 1 EACH SC SCH (21:49)
[2019-04-02 05:13] LABS: Hemoglobin 8.2 g/dL (14.0-18.0); Platelet Count 222 thou/uL (130-400)
[2019-04-02 05:30] LABS: Anion Gap 13 mmol/L (10-20); BUN (Urea Nitrogen) 53 mg/dL (8.4-25.7); Calc. Creatinine Clearance 101 mL/min (70-130); Calcium 9.3 mg/dL (7.8-10.44); Carbon Dioxide 26 mmol/L (22-29); Chloride 113 mmol/L (98-107); Estimated GFR-MDRD 62; Glucose 139 mg/dL (70-105); Potassium 3.6 mmol/L (3.5-5.1); Sodium 148 mmol/L (136-145)
[2019-04-02] MEDS: Ketorolac Tromethamine 30 MG/ML VIAL IVP PRN (06:13)
[2019-04-02] MEDS: HumaLOG 300 UNITS/3 ML VIAL SC PRN ×2 (06:14→18:12)
[2019-04-02] MEDS: Sodium Chloride 0.9% 1,000 ML IV SCH (09:57)
[2019-04-02] MEDS: Multivitamin W/ Minerals 1 TAB PO SCH (09:58)
[2019-04-02] MEDS: Multivitamins CHEW w/Iron Tablet PO SCH (09:58)
[2019-04-02] MEDS: Carvedilol 6.25 MG TAB PO SCH ×2 (09:58→21:01)
[2019-04-02] MEDS: Aspirin Chewable 81 MG TAB PO SCH (09:58)
[2019-04-02] MEDS: Folic Acid 1 MG TAB PO SCH (09:58)
[2019-04-02] MEDS: Amlodipine 10 MG TAB PO SCH (09:59)
[2019-04-02] MEDS: Docusate Sodium 100 MG/10 ML UDCUP PO SCH (09:59)
[2019-04-02] MEDS: Metoclopramide 10 MG/10 ML UDCUP PER TUBE SCH ×4 (10:00→21:00)
[2019-04-02] MEDS: Metamucil PACK PER TUBE SCH ×2 (10:01→21:01)
[2019-04-02] MEDS: Insulin Glargine 20 UNITS in Pre-Filled Syringe 1 EACH SC SCH (10:01)
[2019-04-02] MEDS: Triple Antibiotic Oint 1 GM Packet TOP SCH ×2 (10:01→21:01)
[2019-04-02] MEDS: Pantoprazole 40 MG VIAL IVP SCH (10:02)
[2019-04-02] MEDS: hydrALAZINE 25 MG TAB PO SCH ×3 (10:03→21:00)
[2019-04-02] MEDS: Escitalopram Oxalate 10 mg Tablet PO SCH (10:06)
--- NOTE | 2019-04-02 13:57 | PDOC.HOSPP ---
- Subjective Encounter Date: 04/02/19 Encounter Time: 10:00 Subjective: nursing at bedside. pt is Awake and alert. good urine output. tolerating TF, will stop IVF and give him as free water. - Objective Vital Signs & Weight: Vital Signs (12 hours) Temp Pulse Resp BP BP BP Pulse Ox 04/02/19 13:49 90 16 100 04/02/19 11:46 99.1 F 72 24 H 123/77 97 04/02/19 10:09 76 16 100 04/02/19 09:59 80 119/70 04/02/19 08:00 98.1 F 82 24 H 126/83 97 04/02/19 07:09 100 04/02/19 06:20 81 16 100 04/02/19 03:46 100 04/02/19 03:40 98.5 F 85 20 132/79 100 04/02/19 02:01 77 16 100 Weight Admit Weight 282 lb 11.2 oz Weight 275 lb 3.2 oz Most Recent Monitor Data Heart Rate from ECG 75 NIBP 154/95 NIBP BP-Mean 114 Respiration from ECG 20 SpO2 98 I&O: 04/01/19 04/02/19 04/03/19 06:59 06:59 06:59 Intake Total 3509 5280 1481 Output Total 850 3350 225 Balance 2659 1930 1256 Result Diagrams: 04/02/19 04:51 04/02/19 04:51 Additional Labs: Accuchecks 04/02/19 04/02/19 04/01/19 11:21 06:00 20:13 POC Glucose 148 H 171 H 184 H 04/01/19 16:55 POC Glucose 197 H Hospitalist ROS - Medication Medications: Active Medications Generic Name Dose Route Start Last Admin Trade Name Freq PRN Reason Stop Dose Admin Acetaminophen 1,000 mg 03/05/19 01:37 03/31/19 16:10 Tylenol Elixir PER TUBE 1,000 mg Q6H PRN Administration Fever/Mild Pain Albuterol/Ipratropium 3 ml 03/31/19 10:30 04/02/19 13:49 Duoneb NEB 3 ml [id number] PANCHO Administration Alteplase, Recombinant 2 mg 03/09/19 15:30 03/14/19 06:18 Cathflo CATH 2 mg WILLCALL PANCHO Administration Amlodipine Besylate 10 mg 02/13/19 09:00 04/02/19 09:59 Norvasc PO 10 mg DAILY PANCHO Administration Aspirin 81 mg 03/05/19 09:00 04/02/19 09:58 Aspirin Chewable PO 81 mg DAILY PANCHO Administration Atorvastatin Calcium 40 mg 02/08/19 21:00 04/01/19 21:42 Lipitor PO 40 mg HS PANCHO Administration Carvedilol 12.5 mg 02/08/19 21:00 04/02/19 09:58 Coreg PO 12.5 mg BID PANCHO Administration Docusate Sodium 100 mg 02/25/19 21:00 04/02/19 09:59 Colace Liquid PO 100 mg BID PANCHO Administration Escitalopram Oxalate 10 mg 03/04/19 09:00 04/02/19 10:06 Lexapro PO 10 mg DAILY PANCHO Administration Folic Acid 1 mg 02/13/19 09:00 04/02/19 09:58 Folvite PO 1 mg DAILY PANCHO Administration Hydralazine HCl 25 mg 02/12/19 15:00 04/02/19 10:03 Apresoline PO Not Given TID [facility] Hydralazine HCl 10 mg 02/17/19 16:33 03/03/19 03:04 Apresoline SLOW IVP 10 mg Q4H PRN Administration BP > 220/110 Insulin Glargine 20 units/ 0.2 mls @ 0 mls/hr 02/09/19 09:00 04/02/19 10:01 Miscellaneous Medication SC 0.2 mls QAM PANCHO Administration Insulin Glargine 10 units/ 0.1 mls @ 0 mls/hr 02/27/19 21:00 04/01/19 21:49 Miscellaneous Medication SC 0.1 mls HS PANCHO Administration Cefepime HCl 1 gm/ Sodium 100 mls @ 200 mls/hr 03/31/19 12:00 04/01/19 23:06 Chloride IVPB 100 mls Q12H PANCHO Administration Insulin Human Lispro 0 units 02/07/19 19:09 04/02/19 06:14 Humalog SC 2 unit .MILD SLIDING SCALE PRN Administration Mild Correctional Scale Insulin Human Lispro 0 units 02/07/19 19:09 03/08/19 22:44 Humalog SC 3 unit .BEDTIME SLIDING SC PRN Administration Bedtime Correctional Scale Iron/Minerals/Multivitamins 1 tab 03/07/19 09:00 04/02/19 09:58 Theragran M PO 1 tab DAILY PANCHO Administration Ketorolac Tromethamine 15 mg 03/31/19 17:06 04/02/19 06:13 Toradol IVP 04/05/19 17:07 15 mg Q6H PRN Administration Fever > 101 Metoclopramide HCl 5 mg 03/17/19 21:00 04/02/19 10:00 Reglan PER TUBE 5 mg ACHS PANCHO Administration Multivitamins/Iron 1 tab 02/16/19 09:00 04/02/19 09:58 Centrum Kids Complete/Iron PO 1 tab DAILY PANCHO Administration Neomycin/Polymyxin/Bacitracin 0 gm 03/26/19 21:00 04/02/19 10:01 Triple Antibiotic TOP 1 gm BID PANCHO Administration Ondansetron HCl 4 mg 02/07/19 19:05 02/15/19 14:23 Zofran IVP 4 mg Q6H PRN Administration Nausea/Vomiting Pantoprazole Sodium 40 mg 03/16/19 09:00 04/02/19 10:02 Protonix IVP 40 mg DAILY PANCHO Administration Polyethylene Glycol 17 gm 02/13/19 12:40 04/01/19 16:04 Miralax PO 17 gm DAILYPRN PRN Administration Constipation Psyllium Hydrophilic Mucilloid 1 pk 03/25/19 21:00 04/02/19 10:01 Metamucil PER TUBE 1 pk BID PANCHO Administration Scopolamine 1.5 mg 02/21/19 13:00 04/01/19 13:23 Transderm Scop TD 1.5 mg Q3D PANCHO Administration Sodium Chloride 10 ml 02/07/19 19:05 03/29/19 22:07 Flush - Normal Saline IVF 10 ml Q12H PRN Administration Saline Flush Sodium Chloride 10 ml 03/09/19 15:24 03/26/19 09:48 Flush - Normal Saline IVF 10 ml PRN PRN Administration Saline Flush Sodium Chloride 10 ml 03/10/19 18:50 04/01/19 10:13 Normal Saline Pf FS 10 ml PRN PRN Administration RECONSTITUTION Sterile Water 10 ml 03/09/19 15:30 03/09/19 17:33 Water For Injection IVP 10 ml WILLCALL PANCHO Administration - Exam General Appearance: NAD, awake alert Eye: PERRL ENT: normocephalic atraumatic Neck: supple, symmetric, no JVD Heart: RRR Respiratory: CTAB Gastrointestinal: soft, normal bowel sounds Extremities - other findings: ulcers on the r. leg, L BKA Neurological: cranial nerve grossly intact Hosp A/P - Plan (1) Acute respiratory failure with hypoxia and hypercapnia Code(s): J96.01 - ACUTE RESPIRATORY FAILURE WITH HYPOXIA; J96.02 - ACUTE RESPIRATORY FAILURE WITH HYPERCAPNIA Status: Acute Plan: Continue trach care, O2 via T-collar, suture removal from trach site (2) Healthcare-associated pneumonia Code(s): J18.9 - PNEUMONIA, UNSPECIFIED ORGANISM Status: Acute Plan: Suspected, continue Cefepime/Vancomycin, trach care/suctioning, elevate HOB (3) Acute CVA (cerebrovascular accident) Code(s): I63.9 - CEREBRAL INFARCTION, UNSPECIFIED Status: Acute Plan: Slow clinical improvement, plan for terminal operations supervisor PT/OT/FIELD SALES AGENT (4) Acute on chronic renal insufficiency Code(s): N28.9 - DISORDER OF KIDNEY AND URETER, UNSPECIFIED; N18.9 - CHRONIC KIDNEY DISEASE, UNSPECIFIED Status: Acute (5) Hypernatremia Code(s): E87.0 - HYPEROSMOLALITY AND HYPERNATREMIA Status: Acute (6) Diabetes mellitus Code(s): E11.9 - TYPE 2 DIABETES MELLITUS WITHOUT COMPLICATIONS Status: Chronic Qualifiers: Diabetes mellitus type: type 2 Diabetes mellitus terminal operations supervisor insulin use: with senior living use Diabetes mellitus complication status: with circulatory complication - Plan plan discussed w/ family, continue antibiotics, PT/OT, mental health social worker, speech therapy, respiratory therapy Continue supportive mgmt Continue Cefepime/Vancomycin SNF placement pending IVF NS @ 100ml/h another 24-48h---------->will stop as Na up!!! Nutritional support with TF's, low gastric residuals Beto BID KCL supplementation Remove central line and culture catheter tip after establishing peripheral line -on cefepime --no fever, wbcs, catheter tip, done on 21swt -- no gorwht --bl jeremiah of 14th - no growth --one more day-- if no growth w.. the tip -- stop the abx. Hypernatremia -stop NS -free water w.. TF 200ml q4. -am bmp.
[2019-04-02] MEDS: Cefepime 1 GM in Sodium Chloride 0.9% 100 ML IVPB SCH (14:26)
[2019-04-02] MEDS: Insulin Glargine 10 UNITS in Pre-Filled Syringe 1 EACH SC SCH (21:01)
[2019-04-02] MEDS: Atorvastatin Calcium 40 MG TAB PO SCH (21:01)
[2019-04-02] MEDS: Vancomycin HCl 1 GM in Premix Bag 1 BAG IVPB SCH (21:02)
[2019-04-03] MEDS: Cefepime 1 GM in Sodium Chloride 0.9% 100 ML IVPB SCH ×3 (01:12→23:32)
[2019-04-03] MEDS: Docusate Sodium 100 MG/10 ML UDCUP PO SCH ×3 (03:31→23:00)
[2019-04-03] MEDS: Metoclopramide 10 MG/10 ML UDCUP PER TUBE SCH ×4 (09:24→23:01)
[2019-04-03] MEDS: Escitalopram Oxalate 10 mg Tablet PO SCH (09:37)
[2019-04-03] MEDS: Multivitamins CHEW w/Iron Tablet PO SCH (09:37)
[2019-04-03] MEDS: Aspirin Chewable 81 MG TAB PO SCH (09:37)
[2019-04-03] MEDS: Folic Acid 1 MG TAB PO SCH (09:37)
[2019-04-03] MEDS: Metamucil PACK PER TUBE SCH ×2 (09:39→23:02)
[2019-04-03] MEDS: Pantoprazole 40 MG VIAL IVP SCH (09:46)
[2019-04-03] MEDS: Triple Antibiotic Oint 1 GM Packet TOP SCH ×2 (09:47→22:58)
[2019-04-03] MEDS: Multivitamin W/ Minerals 1 TAB PO SCH (09:47)
[2019-04-03] MEDS: Insulin Glargine 20 UNITS in Pre-Filled Syringe 1 EACH SC SCH (09:54)
[2019-04-03] MEDS: hydrALAZINE 25 MG TAB PO SCH ×3 (10:45→22:59)
[2019-04-03] MEDS: HumaLOG 300 UNITS/3 ML VIAL SC PRN ×2 (10:52→17:24)
[2019-04-03] MEDS: Amlodipine 10 MG TAB PO SCH (10:53)
[2019-04-03] MEDS: Carvedilol 6.25 MG TAB PO SCH ×2 (10:53→23:00)
[2019-04-03] MEDS: Acetaminophen 650 MG/20.3 ML UDCUP PER TUBE PRN (14:52)
--- NOTE | 2019-04-03 15:26 | PDOC.HOSPP ---
- Subjective Encounter Date: 04/03/19 Encounter Time: 09:30 Subjective: no acute events noted over night. pt resting, loud breathing sounds through the trach. lungs crackles b/l. - Objective Vital Signs & Weight: Vital Signs (12 hours) Temp Pulse Resp BP BP BP Pulse Ox 04/03/19 14:52 80 127/78 04/03/19 12:00 98.3 F 85 20 127/78 95 04/03/19 11:57 84 16 04/03/19 10:53 84 116/72 04/03/19 10:45 84 116/72 04/03/19 09:20 95 04/03/19 08:59 100 04/03/19 08:56 79 20 04/03/19 07:44 98.8 F 82 20 122/71 100 04/03/19 03:34 99.2 F 74 20 132/83 98 Weight Admit Weight 282 lb 11.2 oz Weight 275 lb 3.2 oz Most Recent Monitor Data Heart Rate from ECG 75 NIBP 154/95 NIBP BP-Mean 114 Respiration from ECG 20 SpO2 98 I&O: 04/02/19 04/03/19 04/04/19 06:59 06:59 06:59 Intake Total 5280 3666 240 Output Total 3350 2169 Balance 1930 1497 240 Result Diagrams: 04/02/19 04:51 04/02/19 04:51 Additional Labs: Accuchecks 04/03/19 04/03/19 04/02/19 10:45 05:42 19:53 POC Glucose 259 H 198 H 235 H 04/02/19 17:00 POC Glucose 247 H Hospitalist ROS - Medication Medications: Active Medications Generic Name Dose Route Start Last Admin Trade Name Freq PRN Reason Stop Dose Admin Acetaminophen 1,000 mg 03/05/19 01:37 04/03/19 14:52 Tylenol Elixir PER TUBE 1,000 mg Q6H PRN Administration Fever/Mild Pain Albuterol/Ipratropium 3 ml 03/31/19 10:30 04/03/19 11:57 Duoneb NEB 3 ml [id number] PANCHO Administration Alteplase, Recombinant 2 mg 03/09/19 15:30 03/14/19 06:18 Cathflo CATH 2 mg WILLCALL PANCHO Administration Amlodipine Besylate 10 mg 02/13/19 09:00 04/03/19 10:53 Norvasc PO Not Given DAILY [facility] Aspirin 81 mg 03/05/19 09:00 04/03/19 09:37 Aspirin Chewable PO 81 mg DAILY PANCHO Administration Atorvastatin Calcium 40 mg 02/08/19 21:00 04/02/19 21:01 Lipitor PO 40 mg HS PANCHO Administration Carvedilol 12.5 mg 02/08/19 21:00 04/03/19 10:53 Coreg PO Not Given BID [facility] Docusate Sodium 100 mg 02/25/19 21:00 04/03/19 09:39 Colace Liquid PO 100 mg BID PANCHO Administration Escitalopram Oxalate 10 mg 03/04/19 09:00 04/03/19 09:37 Lexapro PO 10 mg DAILY PANCHO Administration Folic Acid 1 mg 02/13/19 09:00 04/03/19 09:37 Folvite PO 1 mg DAILY PANCHO Administration Hydralazine HCl 25 mg 02/12/19 15:00 04/03/19 14:52 Apresoline PO Not Given TID [facility] Hydralazine HCl 10 mg 02/17/19 16:33 03/03/19 03:04 Apresoline SLOW IVP 10 mg Q4H PRN Administration BP > 220/110 Insulin Glargine 20 units/ 0.2 mls @ 0 mls/hr 02/09/19 09:00 04/03/19 09:54 Miscellaneous Medication SC 0.2 mls QAM PANCHO Administration Insulin Glargine 10 units/ 0.1 mls @ 0 mls/hr 02/27/19 21:00 04/02/19 21:01 Miscellaneous Medication SC 0.1 mls HS PANCHO Administration Cefepime HCl 1 gm/ Sodium 100 mls @ 200 mls/hr 03/31/19 12:00 04/03/19 11:49 Chloride IVPB 100 mls Q12H PANCHO Administration Vancomycin HCl 1 gm/ Device 200 mls @ 200 mls/hr 04/02/19 21:00 04/02/19 21: 02 IVPB 200 mls 2100 PANCHO Administration Insulin Human Lispro 0 units 02/07/19 19:09 04/03/19 10:52 Humalog SC 4 unit .MILD SLIDING SCALE PRN Administration Mild Correctional Scale Insulin Human Lispro 0 units 02/07/19 19:09 03/08/19 22:44 Humalog SC 3 unit .BEDTIME SLIDING SC PRN Administration Bedtime Correctional Scale Iron/Minerals/Multivitamins 1 tab 03/07/19 09:00 04/03/19 09:47 Theragran M PO 1 tab DAILY PANCHO Administration Ketorolac Tromethamine 15 mg 03/31/19 17:06 04/02/19 06:13 Toradol IVP 04/05/19 17:07 15 mg Q6H PRN Administration Fever > 101 Metoclopramide HCl 5 mg 03/17/19 21:00 04/03/19 11:48 Reglan PER TUBE 5 mg ACHS PANCHO Administration Multivitamins/Iron 1 tab 02/16/19 09:00 04/03/19 09:37 Centrum Kids Complete/Iron PO 1 tab DAILY PANCHO Administration Neomycin/Polymyxin/Bacitracin 0 gm 03/26/19 21:00 04/03/19 09:47 Triple Antibiotic TOP 1 gm BID PANCHO Administration Ondansetron HCl 4 mg 02/07/19 19:05 02/15/19 14:23 Zofran IVP 4 mg Q6H PRN Administration Nausea/Vomiting Pantoprazole Sodium 40 mg 03/16/19 09:00 04/03/19 09:46 Protonix IVP 40 mg DAILY PANCHO Administration Polyethylene Glycol 17 gm 02/13/19 12:40 04/01/19 16:04 Miralax PO 17 gm DAILYPRN PRN Administration Constipation Psyllium Hydrophilic Mucilloid 1 pk 03/25/19 21:00 04/03/19 09:39 Metamucil PER TUBE 1 pk BID PANCHO Administration Scopolamine 1.5 mg 02/21/19 13:00 04/01/19 13:23 Transderm Scop TD 1.5 mg Q3D PANCHO Administration Sodium Chloride 10 ml 02/07/19 19:05 04/03/19 09:47 Flush - Normal Saline IVF 10 ml Q12H PRN Administration Saline Flush Sodium Chloride 10 ml 03/09/19 15:24 03/26/19 09:48 Flush - Normal Saline IVF 10 ml PRN PRN Administration Saline Flush Sodium Chloride 10 ml 03/10/19 18:50 04/01/19 10:13 Normal Saline Pf FS 10 ml PRN PRN Administration RECONSTITUTION Sterile Water 10 ml 03/09/19 15:30 03/09/19 17:33 Water For Injection IVP 10 ml WILLCALL PANCHO Administration - Exam General Appearance: NAD, awake alert Eye: PERRL, anicteric sclera ENT: normocephalic atraumatic Neck: supple, symmetric Heart: RRR Respiratory: CTAB Respiratory - other findings: trach Gastrointestinal: non-distended, normal bowel sounds Gastrointestinal - other findings: peg Hosp A/P - Plan (1) Acute respiratory failure with hypoxia and hypercapnia Code(s): J96.01 - ACUTE RESPIRATORY FAILURE WITH HYPOXIA; J96.02 - ACUTE RESPIRATORY FAILURE WITH HYPERCAPNIA Status: Acute Plan: Continue trach care, O2 via T-collar, suture removal from trach site (2) Healthcare-associated pneumonia Code(s): J18.9 - PNEUMONIA, UNSPECIFIED ORGANISM Status: Acute Plan: Suspected, continue Cefepime/Vancomycin, trach care/suctioning, elevate HOB (3) Acute CVA (cerebrovascular accident) Code(s): I63.9 - CEREBRAL INFARCTION, UNSPECIFIED Status: Acute Plan: Slow clinical improvement, plan for usp PT/OT/HYDRAULIC PLUMBER (4) Acute on chronic renal insufficiency Code(s): N28.9 - DISORDER OF KIDNEY AND URETER, UNSPECIFIED; N18.9 - CHRONIC KIDNEY DISEASE, UNSPECIFIED Status: Acute (5) Hypernatremia Code(s): E87.0 - HYPEROSMOLALITY AND HYPERNATREMIA Status: Acute (6) Diabetes mellitus Code(s): E11.9 - TYPE 2 DIABETES MELLITUS WITHOUT COMPLICATIONS Status: Chronic Qualifiers: Diabetes mellitus type: type 2 Diabetes mellitus usp insulin use: with usp use Diabetes mellitus complication status: with circulatory complication - Plan plan discussed w/ family, continue antibiotics, PT/OT, psychosocial rehabilitation counselor, speech therapy, respiratory therapy Continue supportive mgmt Continue Cefepime/Vancomycin SNF placement pending IVF NS @ 100ml/h another 24-48h---------->will stop as Na up!!! Nutritional support with TF's, low gastric residuals Beto BID KCL supplementation Remove central line and culture catheter tip after establishing peripheral line -on cefepime --no fever, wbcs, catheter tip, done on 21swt -- no gorwht --bl jeremiah of 14th - no growth --one more day-- if no growth w.. the tip -- stop the abx. Hypernatremia -stop NS -free water w.. TF 200ml q4. -am bmp. -Hyeprglycemia -- will adjust the scheduled insulin - a1c in am Hypernatremia - will follow through with BMP periodic labs inc.. vanc trough in am.
[2019-04-03 16:15] LABS: Vancomycin, Trough 11.2 ug/mL
[2019-04-03 16:16] LABS: Anion Gap 14 mmol/L (10-20); BUN (Urea Nitrogen) 54 mg/dL (8.4-25.7); Calc. Creatinine Clearance 117 mL/min (70-130); Calcium 9.4 mg/dL (7.8-10.44); Carbon Dioxide 23 mmol/L (22-29); Chloride 112 mmol/L (98-107); Estimated GFR-MDRD 74; Glucose 179 mg/dL (70-105); Potassium 3.3 mmol/L (3.5-5.1); Sodium 146 mmol/L (136-145)
[2019-04-03] MEDS: Vancomycin HCl 1 GM in Premix Bag 1 BAG IVPB SCH (20:46)
[2019-04-03] MEDS: Atorvastatin Calcium 40 MG TAB PO SCH (22:58)
[2019-04-03] MEDS: Insulin Glargine 14 UNITS in Pre-Filled Syringe 1 EACH SC SCH (23:02)
[2019-04-04 05:01] LABS: #Eosinphils 0.6 thou/uL (0.0-0.7); #Monocytes 0.5 thou/uL (0.11-0.59); #Neutrophils 3.7 thou/uL (1.40-6.50); %Basophils 0.2 % (0.0-1.0); %Eosinophils 9.1 % (0.0-10.0); %Lymphocytes 29.5 % (21.0-51.0); %Monocytes 6.7 % (0.0-10.0); %Neutrophils 54.5 % (42.0-75.0); Hemoglobin 8.7 g/dL (14.0-18.0); Mean Corpuscular HGB CONC 30.7 g/dL (32.0-36.0); Mean Corpuscular Volume 81.4 fL (78.0-98.0); Mean Platelet Volume 9.1 fL (7.4-10.4); Platelet Count 244 thou/uL (130-400); RBC Distribution Width 16.2 % (11.5-14.5); Red Blood Cell (RBC) Count 3.47 mill/uL (4.70-6.10); White Blood Cell (WBC) Count 6.7 thou/uL (4.8-10.8)
[2019-04-04 05:10] LABS: Hemoglobin A1c 7.1 % (4.0-6.0)
[2019-04-04 05:24] LABS: Anion Gap 15 mmol/L (10-20); BUN (Urea Nitrogen) 47 mg/dL (8.4-25.7); Calc. Creatinine Clearance 125 mL/min (70-130); Calcium 9.8 mg/dL (7.8-10.44); Carbon Dioxide 21 mmol/L (22-29); Chloride 113 mmol/L (98-107); Estimated GFR-MDRD 79; Glucose 145 mg/dL (70-105); Potassium 3.3 mmol/L (3.5-5.1); Sodium 146 mmol/L (136-145)
[2019-04-04 09:28] LABS: Anion Gap 15 mmol/L (10-20); BUN (Urea Nitrogen) 46 mg/dL (8.4-25.7); Calc. Creatinine Clearance 122 mL/min (70-130); Calcium 9.3 mg/dL (7.8-10.44); Carbon Dioxide 22 mmol/L (22-29); Chloride 111 mmol/L (98-107); Estimated GFR-MDRD 77; Glucose 210 mg/dL (70-105); Potassium 3.8 mmol/L (3.5-5.1); Sodium 144 mmol/L (136-145)
[2019-04-04] MEDS: Amlodipine 10 MG TAB PO SCH (09:54)
[2019-04-04] MEDS: hydrALAZINE 25 MG TAB PO SCH ×3 (09:55→22:33)
[2019-04-04] MEDS: Carvedilol 6.25 MG TAB PO SCH ×2 (09:56→22:30)
[2019-04-04] MEDS: Aspirin Chewable 81 MG TAB PO SCH (09:57)
[2019-04-04] MEDS: Multivitamins CHEW w/Iron Tablet PO SCH (09:58)
[2019-04-04] MEDS: Multivitamin W/ Minerals 1 TAB PO SCH (10:00)
[2019-04-04] MEDS: Metoclopramide 10 MG/10 ML UDCUP PER TUBE SCH ×4 (10:01→22:30)
[2019-04-04] MEDS: Docusate Sodium 100 MG/10 ML UDCUP PO SCH ×2 (10:02→22:31)
[2019-04-04] MEDS: Triple Antibiotic Oint 1 GM Packet TOP SCH ×2 (10:04→22:31)
[2019-04-04] MEDS: Metamucil PACK PER TUBE SCH ×2 (10:04→22:31)
[2019-04-04] MEDS: Pantoprazole 40 MG VIAL IVP SCH (10:04)
[2019-04-04] MEDS: Insulin Glargine 23 UNITS in Pre-Filled Syringe 1 EACH SC SCH (10:16)
[2019-04-04] MEDS: Folic Acid 1 MG TAB PO SCH (10:28)
[2019-04-04] MEDS: Potassium Chloride 40 MEQ in Dextrose 5% in Water 1,000 ML IV SCH (11:00)
[2019-04-04] MEDS: Cefepime 1 GM in Sodium Chloride 0.9% 100 ML IVPB SCH (11:40)
[2019-04-04] MEDS: HumaLOG 300 UNITS/3 ML VIAL SC PRN ×3 (11:40→23:03)
--- NOTE | 2019-04-04 12:34 | PDOC.HOSPP ---
- Subjective Encounter Date: 04/04/19 Encounter Time: 09:00 Subjective: No acute events o/n; nursing staff nearby. his Na still at 146. minimize NS use and give D5 short course. - Objective Vital Signs & Weight: Vital Signs (12 hours) Temp Pulse Pulse Pulse Resp BP BP 04/04/19 12:00 97.0 F L 90 22 H 04/04/19 11:03 90 16 04/04/19 10:22 82 81 113/72 04/04/19 09:56 130/80 04/04/19 09:55 80 133/80 04/04/19 09:54 80 133/82 04/04/19 08:00 98.1 F 83 21 H 04/04/19 06:32 76 18 04/04/19 04:00 99.3 F 78 20 04/04/19 02:44 73 16 BP BP BP Pulse Ox 04/04/19 12:00 137/87 98 04/04/19 11:03 100 04/04/19 10:22 136/92 H 04/04/19 09:56 04/04/19 09:55 04/04/19 09:54 04/04/19 08:00 137/83 99 04/04/19 06:32 100 04/04/19 04:00 122/71 100 04/04/19 02:44 96 Weight Admit Weight 282 lb 11.2 oz Weight 275 lb 3.2 oz Most Recent Monitor Data Heart Rate from ECG 75 NIBP 154/95 NIBP BP-Mean 114 Respiration from ECG 20 SpO2 98 I&O: 04/03/19 04/04/19 04/05/19 06:59 06:59 06:59 Intake Total 3666 2478 237 Output Total 2169 2425 Balance 1497 53 237 Result Diagrams: 04/04/19 04:28 04/04/19 08:51 Additional Labs: Accuchecks 04/04/19 04/04/19 04/03/19 10:53 05:28 21:02 POC Glucose 228 H 132 H 165 H 04/03/19 16:36 POC Glucose 235 H Hospitalist ROS - Medication Medications: Active Medications Generic Name Dose Route Start Last Admin Trade Name Freq PRN Reason Stop Dose Admin Acetaminophen 1,000 mg 03/05/19 01:37 04/03/19 14:52 Tylenol Elixir PER TUBE 1,000 mg Q6H PRN Administration Fever/Mild Pain Albuterol/Ipratropium 3 ml 03/31/19 10:30 04/04/19 11:03 Duoneb NEB 3 ml [id number] PANCHO Administration Alteplase, Recombinant 2 mg 03/09/19 15:30 03/14/19 06:18 Cathflo CATH 2 mg WILLCALL PANCHO Administration Amlodipine Besylate 10 mg 02/13/19 09:00 04/04/19 09:54 Norvasc PO 10 mg DAILY PANCHO Administration Aspirin 81 mg 03/05/19 09:00 04/04/19 09:57 Aspirin Chewable PO 81 mg DAILY PANCHO Administration Atorvastatin Calcium 40 mg 02/08/19 21:00 04/03/19 22:58 Lipitor PO 40 mg HS PANCHO Administration Carvedilol 12.5 mg 02/08/19 21:00 04/04/19 09:56 Coreg PO 12.5 mg BID PANCHO Administration Docusate Sodium 100 mg 02/25/19 21:00 04/04/19 10:02 Colace Liquid PO 100 mg BID PANCHO Administration Escitalopram Oxalate 10 mg 03/04/19 09:00 04/03/19 09:37 Lexapro PO 10 mg DAILY PANCHO Administration Folic Acid 1 mg 02/13/19 09:00 04/04/19 10:28 Folvite PO 1 mg DAILY PANCHO Administration Hydralazine HCl 25 mg 02/12/19 15:00 04/04/19 09:55 Apresoline PO 25 mg TID PANCHO Administration Hydralazine HCl 10 mg 02/17/19 16:33 03/03/19 03:04 Apresoline SLOW IVP 10 mg Q4H PRN Administration BP > 220/110 Cefepime HCl 1 gm/ Sodium 100 mls @ 200 mls/hr 03/31/19 12:00 04/04/19 11:40 Chloride IVPB 100 mls Q12H PANCHO Administration Vancomycin HCl 1 gm/ Device 200 mls @ 200 mls/hr 04/02/19 21:00 04/03/19 20: 46 IVPB 200 mls 2100 PANCHO Administration Insulin Glargine 14 units/ 0.14 mls @ 0 mls/hr 04/03/19 21:00 04/03/19 23:02 Miscellaneous Medication SC 0.14 mls HS PANCHO Administration Insulin Glargine 23 units/ 0.23 mls @ 0 mls/hr 04/04/19 09:00 04/04/19 10:16 Miscellaneous Medication SC 0.23 mls QAM PANCHO Administration Potassium Chloride 40 meq/ 1,020 mls @ 50 mls/hr 04/04/19 09:30 04/04/19 11: 00 Dextrose/Water IV 1,020 mls .[id number] PANCHO Administration Insulin Human Lispro 0 units 02/07/19 19:09 04/04/19 11:40 Humalog SC 3 unit .MILD SLIDING SCALE PRN Administration Mild Correctional Scale Insulin Human Lispro 0 units 02/07/19 19:09 03/08/19 22:44 Humalog SC 3 unit .BEDTIME SLIDING SC PRN Administration Bedtime Correctional Scale Iron/Minerals/Multivitamins 1 tab 03/07/19 09:00 04/04/19 10:00 Theragran M PO 1 tab DAILY PANCHO Administration Ketorolac Tromethamine 15 mg 03/31/19 17:06 04/02/19 06:13 Toradol IVP 04/05/19 17:07 15 mg Q6H PRN Administration Fever > 101 Metoclopramide HCl 5 mg 03/17/19 21:00 04/04/19 10:01 Reglan PER TUBE 5 mg ACHS PANCHO Administration Multivitamins/Iron 1 tab 02/16/19 09:00 04/04/19 09:58 Centrum Kids Complete/Iron PO 1 tab DAILY PANCHO Administration Neomycin/Polymyxin/Bacitracin 0 gm 03/26/19 21:00 04/04/19 10:04 Triple Antibiotic TOP 1 gm BID PANCHO Administration Ondansetron HCl 4 mg 02/07/19 19:05 02/15/19 14:23 Zofran IVP 4 mg Q6H PRN Administration Nausea/Vomiting Pantoprazole Sodium 40 mg 03/16/19 09:00 04/04/19 10:04 Protonix IVP 40 mg DAILY PANCHO Administration Polyethylene Glycol 17 gm 02/13/19 12:40 04/01/19 16:04 Miralax PO 17 gm DAILYPRN PRN Administration Constipation Psyllium Hydrophilic Mucilloid 1 pk 03/25/19 21:00 04/04/19 10:04 Metamucil PER TUBE 1 pk BID PANCHO Administration Scopolamine 1.5 mg 02/21/19 13:00 04/01/19 13:23 Transderm Scop TD 1.5 mg Q3D PANCHO Administration Sodium Chloride 10 ml 02/07/19 19:05 04/04/19 10:05 Flush - Normal Saline IVF 10 ml Q12H PRN Administration Saline Flush Sodium Chloride 10 ml 03/09/19 15:24 03/26/19 09:48 Flush - Normal Saline IVF 10 ml PRN PRN Administration Saline Flush Sodium Chloride 10 ml 03/10/19 18:50 04/01/19 10:13 Normal Saline Pf FS 10 ml PRN PRN Administration RECONSTITUTION Sterile Water 10 ml 03/09/19 15:30 03/09/19 17:33 Water For Injection IVP 10 ml WILLCALL PANCHO Administration - Exam General Appearance: ill appearing Eye: PERRL ENT: normocephalic atraumatic Neck: supple Heart: RRR Respiratory: CTAB Respiratory - other findings: trach Gastrointestinal: normal bowel sounds Gastrointestinal - other findings: peg Skin - other findings: stage 2 but also seems some necrotic area. sacral area - wound care Hosp A/P - Plan (1) Acute respiratory failure with hypoxia and hypercapnia Code(s): J96.01 - ACUTE RESPIRATORY FAILURE WITH HYPOXIA; J96.02 - ACUTE RESPIRATORY FAILURE WITH HYPERCAPNIA Status: Acute Plan: Continue trach care, O2 via T-collar, suture removal from trach site (2) Healthcare-associated pneumonia Code(s): J18.9 - PNEUMONIA, UNSPECIFIED ORGANISM Status: Acute Plan: Suspected, continue Cefepime/Vancomycin, trach care/suctioning, elevate HOB (3) Acute CVA (cerebrovascular accident) Code(s): I63.9 - CEREBRAL INFARCTION, UNSPECIFIED Status: Acute Plan: Slow clinical improvement, plan for terminal makeup operator PT/OT/WEATHER TEACHER (4) Acute on chronic renal insufficiency Code(s): N28.9 - DISORDER OF KIDNEY AND URETER, UNSPECIFIED; N18.9 - CHRONIC KIDNEY DISEASE, UNSPECIFIED Status: Acute (5) Hypernatremia Code(s): E87.0 - HYPEROSMOLALITY AND HYPERNATREMIA Status: Acute (6) Diabetes mellitus Code(s): E11.9 - TYPE 2 DIABETES MELLITUS WITHOUT COMPLICATIONS Status: Chronic Qualifiers: Diabetes mellitus type: type 2 Diabetes mellitus terminal makeup operator insulin use: with fpc use Diabetes mellitus complication status: with circulatory complication - Plan plan discussed w/ family, continue antibiotics, PT/OT, secondary social studies teacher, speech therapy, respiratory therapy Continue supportive mgmt Continue Cefepime/Vancomycin SNF placement pending IVF NS @ 100ml/h another 24-48h---------->will stop as Na up!!! Nutritional support with TF's, low gastric residuals Beto BID KCL supplementation Remove central line and culture catheter tip after establishing peripheral line -on cefepime --no fever, wbcs, catheter tip, done on 21swt -- no gorwht --bl jeremiah of 14 - no growth --one more day-- if no growth w.. the tip -- stop the abx. Hypernatremia -stop NS -free water w.. TF 200ml q4. -am bmp. 23 -Hyeprglycemia DM and a1c of 7.1 -- will adjust the scheduled insulin Hypernatremia - NS given w..abx mix - D5 short course. sacral ulcer POA -wound care -if non-stageable, may need debridement.
[2019-04-04] MEDS: Scopolamine 1.5 mg/72 hour Patch TD SCH (13:05)
--- NOTE | 2019-04-04 17:45 | PRG ---
DATE OF SERVICE: 04/04/2019 Brian Silvestre is status post below-knee amputation. Postoperatively, suffered a stroke requiring tracheostomy and gastrostomy tube. Overall performance is poor. He has developed a sacral decubitus. I have been consulted to see him regarding that. Evaluation revealed the sacrum reveals a large eschar without evident infection. This measures 8 to 10 cm in diameter. Plan is to debride at the bedside. Job ID: [id number]
[2019-04-04] MEDS: Vancomycin HCl 1 GM in Premix Bag 1 BAG IVPB SCH (22:26)
[2019-04-04] MEDS: Atorvastatin Calcium 40 MG TAB PO SCH (22:30)
[2019-04-04] MEDS: Insulin Glargine 14 UNITS in Pre-Filled Syringe 1 EACH SC SCH (22:32)
[2019-04-05] MEDS: Cefepime 1 GM in Sodium Chloride 0.9% 100 ML IVPB SCH ×2 (00:35→12:28)
--- NOTE | 2019-04-05 08:28 | OP ---
DATE OF PROCEDURE: 04/04/2019 PREOPERATIVE DIAGNOSES: Morbid obesity, sacral decubitus, [id number] amputation status this hospitalization, and tracheostomy and percutaneous endoscopic gastrostomy tube after a stroke this hospitalization. POSTOPERATIVE DIAGNOSES: Morbid obesity, sacral decubitus, [id number] amputation status this hospitalization, and tracheostomy and percutaneous endoscopic gastrostomy tube after a stroke this hospitalization. PROCEDURE PERFORMED: Debridement, excisional, sharp 10 blade resection of skin and subcutaneous tissue, sacral decubitus. There was some bleeding inferiorly and sutures applied. ANESTHESIA: None. DESCRIPTION OF PROCEDURE: With the patient at the bedside, he was rolled into the decubitus position. Alcohol prep was used. Using a 10 blade scalpel, excisional/resectional debridement of eschar, skin, and subcutaneous tissue of this large decubitus dimensions as noted above, 8 to 10 cm in diameter, debrided. There was some bleeding inferiorly controlled with 3-0 Monocryl suture. Wound Care Team placed a dressing. Job ID: [id number]
[2019-04-05] MEDS: Metoclopramide 10 MG/10 ML UDCUP PER TUBE SCH ×4 (09:10→21:16)
[2019-04-05] MEDS: Docusate Sodium 100 MG/10 ML UDCUP PO SCH ×2 (09:10→21:16)
[2019-04-05] MEDS: Insulin Glargine 23 UNITS in Pre-Filled Syringe 1 EACH SC SCH (09:11)
[2019-04-05] MEDS: Multivitamins CHEW w/Iron Tablet PO SCH (09:12)
[2019-04-05] MEDS: Metamucil PACK PER TUBE SCH ×2 (09:12→21:16)
[2019-04-05] MEDS: Carvedilol 6.25 MG TAB PO SCH ×2 (09:13→21:17)
[2019-04-05] MEDS: Escitalopram Oxalate 10 mg Tablet PO SCH (09:13)
[2019-04-05] MEDS: Aspirin Chewable 81 MG TAB PO SCH (09:13)
[2019-04-05] MEDS: Folic Acid 1 MG TAB PO SCH (09:13)
[2019-04-05] MEDS: Multivitamin W/ Minerals 1 TAB PO SCH (09:13)
[2019-04-05] MEDS: Pantoprazole 40 MG VIAL IVP SCH (09:14)
[2019-04-05] MEDS: Amlodipine 10 MG TAB PO SCH (09:14)
[2019-04-05] MEDS: Triple Antibiotic Oint 1 GM Packet TOP SCH ×2 (09:14→21:17)
[2019-04-05] MEDS: hydrALAZINE 25 MG TAB PO SCH ×3 (09:17→21:22)
[2019-04-05 09:29] LABS: Anion Gap 12 mmol/L (10-20); BUN (Urea Nitrogen) 41 mg/dL (8.4-25.7); Calc. Creatinine Clearance 126 mL/min (70-130); Calcium 9.5 mg/dL (7.8-10.44); Carbon Dioxide 26 mmol/L (22-29); Chloride 110 mmol/L (98-107); Estimated GFR-MDRD 80; Glucose 159 mg/dL (70-105); Potassium 3.3 mmol/L (3.5-5.1); Sodium 145 mmol/L (136-145)
[2019-04-05] MEDS: Potassium Chloride 40 MEQ in Dextrose 5% in Water 1,000 ML IV SCH (11:45)
[2019-04-05] MEDS: HumaLOG 300 UNITS/3 ML VIAL SC PRN ×2 (12:27→17:52)
--- NOTE | 2019-04-05 12:57 | PDOC.HOSPP ---
- Subjective Encounter Date: 04/05/19 Encounter Time: 10:00 Subjective: family nearby. no acue eents o/n; BG ok. afebrile. - Objective Vital Signs & Weight: Vital Signs (12 hours) Temp Pulse Resp BP BP Pulse Ox 04/05/19 12:00 98.5 F 81 20 104/61 100 04/05/19 10:23 78 16 100 04/05/19 09:17 78 122/76 04/05/19 09:14 79 122/76 04/05/19 09:13 122/76 04/05/19 08:00 100 04/05/19 07:45 98.1 F 79 17 122/76 100 04/05/19 06:33 99 04/05/19 06:31 78 16 99 04/05/19 04:00 97.2 F L 77 18 123/76 100 04/05/19 03:00 80 16 94 L Weight Admit Weight 282 lb 11.2 oz Weight 275 lb 3.2 oz Most Recent Monitor Data Heart Rate from ECG 75 NIBP 154/95 NIBP BP-Mean 114 Respiration from ECG 20 SpO2 98 I&O: 04/04/19 04/05/19 04/06/19 06:59 06:59 06:59 Intake Total 2478 2410 237 Output Total 2425 335 Balance 53 2075 237 Result Diagrams: 04/04/19 04:28 04/05/19 08:52 Additional Labs: Accuchecks 04/05/19 04/05/19 04/04/19 11:07 06:33 21:13 POC Glucose 166 H 148 H 197 H 04/04/19 16:46 POC Glucose 173 H Hospitalist ROS - Medication Medications: Active Medications Generic Name Dose Route Start Last Admin Trade Name Freq PRN Reason Stop Dose Admin Acetaminophen 1,000 mg 03/05/19 01:37 04/03/19 14:52 Tylenol Elixir PER TUBE 1,000 mg Q6H PRN Administration Fever/Mild Pain Albuterol/Ipratropium 3 ml 03/31/19 10:30 04/05/19 10:23 Duoneb NEB 3 ml [id number] PANCHO Administration Alteplase, Recombinant 2 mg 03/09/19 15:30 03/14/19 06:18 Cathflo CATH 2 mg WILLCALL PANCHO Administration Amlodipine Besylate 10 mg 02/13/19 09:00 04/05/19 09:14 Norvasc PO 10 mg DAILY PANCHO Administration Aspirin 81 mg 03/05/19 09:00 04/05/19 09:13 Aspirin Chewable PO 81 mg DAILY PANCHO Administration Atorvastatin Calcium 40 mg 02/08/19 21:00 04/04/19 22:30 Lipitor PO 40 mg HS PANCHO Administration Carvedilol 12.5 mg 02/08/19 21:00 04/05/19 09:13 Coreg PO 12.5 mg BID PANCHO Administration Docusate Sodium 100 mg 02/25/19 21:00 04/05/19 09:10 Colace Liquid PO 100 mg BID PANCHO Administration Escitalopram Oxalate 10 mg 03/04/19 09:00 04/05/19 09:13 Lexapro PO 10 mg DAILY PANCHO Administration Folic Acid 1 mg 02/13/19 09:00 04/05/19 09:13 Folvite PO 1 mg DAILY PANCHO Administration Hydralazine HCl 25 mg 02/12/19 15:00 04/05/19 09:17 Apresoline PO Not Given TID PANCHO Hydralazine HCl 10 mg 02/17/19 16:33 03/03/19 03:04 Apresoline SLOW IVP 10 mg Q4H PRN Administration BP > 220/110 Cefepime HCl 1 gm/ Sodium 100 mls @ 200 mls/hr 03/31/19 12:00 04/05/19 12:28 Chloride IVPB 100 mls Q12H PANCHO Administration Vancomycin HCl 1 gm/ Device 200 mls @ 200 mls/hr 04/02/19 21:00 04/04/19 22: 26 IVPB 200 mls 2100 PANCHO Administration Insulin Glargine 14 units/ 0.14 mls @ 0 mls/hr 04/03/19 21:00 04/04/19 22:32 Miscellaneous Medication SC 0.14 mls HS PANCHO Administration Insulin Glargine 23 units/ 0.23 mls @ 0 mls/hr 04/04/19 09:00 04/05/19 09:11 Miscellaneous Medication SC 0.23 mls QAM PANCHO Administration Potassium Chloride 40 meq/ 1,020 mls @ 50 mls/hr 04/04/19 09:30 04/05/19 11: 45 Dextrose/Water IV Not Given .[id number] PANCHO Insulin Human Lispro 0 units 02/07/19 19:09 04/05/19 12:27 Humalog SC 2 unit .MILD SLIDING SCALE PRN Administration Mild Correctional Scale Insulin Human Lispro 0 units 02/07/19 19:09 03/08/19 22:44 Humalog SC 3 unit .BEDTIME SLIDING SC PRN Administration Bedtime Correctional Scale Iron/Minerals/Multivitamins 1 tab 03/07/19 09:00 04/05/19 09:13 Theragran M PO 1 tab DAILY PANCHO Administration Ketorolac Tromethamine 15 mg 03/31/19 17:06 04/02/19 06:13 Toradol IVP 04/05/19 17:07 15 mg Q6H PRN Administration Fever > 101 Metoclopramide HCl 5 mg 03/17/19 21:00 04/05/19 12:27 Reglan PER TUBE 5 mg ACHS PANCHO Administration Multivitamins/Iron 1 tab 02/16/19 09:00 04/05/19 09:12 Centrum Kids Complete/Iron PO 1 tab DAILY PANCHO Administration Neomycin/Polymyxin/Bacitracin 0 gm 03/26/19 21:00 04/05/19 09:14 Triple Antibiotic TOP 1 gm BID PANCHO Administration Ondansetron HCl 4 mg 02/07/19 19:05 02/15/19 14:23 Zofran IVP 4 mg Q6H PRN Administration Nausea/Vomiting Pantoprazole Sodium 40 mg 03/16/19 09:00 04/05/19 09:14 Protonix IVP 40 mg DAILY PANCHO Administration Polyethylene Glycol 17 gm 02/13/19 12:40 04/01/19 16:04 Miralax PO 17 gm DAILYPRN PRN Administration Constipation Psyllium Hydrophilic Mucilloid 1 pk 03/25/19 21:00 04/05/19 09:12 Metamucil PER TUBE 1 pk BID PANCHO Administration Scopolamine 1.5 mg 02/21/19 13:00 04/04/19 13:05 Transderm Scop TD 1.5 mg Q3D PANCHO Administration Sodium Chloride 10 ml 02/07/19 19:05 04/05/19 09:16 Flush - Normal Saline IVF 10 ml Q12H PRN Administration Saline Flush Sodium Chloride 10 ml 03/09/19 15:24 02/24/20 13:06 Flush - Normal Saline IVF 10 ml PRN PRN Administration Saline Flush Sodium Chloride 10 ml 03/10/19 18:50 04/01/19 10:13 Normal Saline Pf FS 10 ml PRN PRN Administration RECONSTITUTION Sterile Water 10 ml 03/09/19 15:30 03/09/19 17:33 Water For Injection IVP 10 ml WILLCALL PANCHO Administration - Exam General Appearance: ill appearing Eye: PERRL ENT: normocephalic atraumatic Neck: supple Heart: RRR Respiratory: CTAB Respiratory - other findings: trach Gastrointestinal: soft, normal bowel sounds Skin - other findings: several skin abnormalities, keloids in chest and arms Hosp A/P - Plan (1) Acute respiratory failure with hypoxia and hypercapnia Code(s): J96.01 - ACUTE RESPIRATORY FAILURE WITH HYPOXIA; J96.02 - ACUTE RESPIRATORY FAILURE WITH HYPERCAPNIA Status: Acute Plan: Continue trach care, O2 via T-collar, suture removal from trach site (2) Healthcare-associated pneumonia Code(s): J18.9 - PNEUMONIA, UNSPECIFIED ORGANISM Status: Acute Plan: Suspected, continue Cefepime/Vancomycin, trach care/suctioning, elevate HOB (3) Acute CVA (cerebrovascular accident) Code(s): I63.9 - CEREBRAL INFARCTION, UNSPECIFIED Status: Acute Plan: Slow clinical improvement, plan for jail PT/OT/NURSE RECEPTIONIST (4) Acute on chronic renal insufficiency Code(s): N28.9 - DISORDER OF KIDNEY AND URETER, UNSPECIFIED; N18.9 - CHRONIC KIDNEY DISEASE, UNSPECIFIED Status: Acute (5) Hypernatremia Code(s): E87.0 - HYPEROSMOLALITY AND HYPERNATREMIA Status: Acute (6) Diabetes mellitus Code(s): E11.9 - TYPE 2 DIABETES MELLITUS WITHOUT COMPLICATIONS Status: Chronic Qualifiers: Diabetes mellitus type: type 2 Diabetes mellitus jail insulin use: with watermelon inspector use Diabetes mellitus complication status: with circulatory complication - Plan plan discussed w/ family, continue antibiotics, PT/OT, social insurance adviser, speech therapy, respiratory therapy Continue supportive mgmt Continue Cefepime/Vancomycin SNF placement pending IVF NS @ 100ml/h another 24-48h---------->will stop as Na up!!! Nutritional support with TF's, low gastric residuals Beto BID KCL supplementation Remove central line and culture catheter tip after establishing peripheral line -on cefepime --no fever, wbcs, catheter tip, done on 21swt -- no gorwht --bl jeremiah of 14 - no growth --one more day-- if no growth w.. the tip -- stop the abx. Hypernatremia---------->resolved on -stop NS -free water w.. TF 200ml q4. -am bmp. -Hyeprglycemia DM and a1c of 7.1 -- will adjust the scheduled insulin----getting better. Hypernatremia - NS given w..abx mix - D5 short course. sacral ulcer POA -wound care -if non-stageable, may need debridement.
[2019-04-05] MEDS: Vancomycin HCl 1 GM in Premix Bag 1 BAG IVPB SCH (21:16)
[2019-04-05] MEDS: Atorvastatin Calcium 40 MG TAB PO SCH (21:17)
[2019-04-05] MEDS: Insulin Glargine 14 UNITS in Pre-Filled Syringe 1 EACH SC SCH (21:17)
[2019-04-06] MEDS: Cefepime 1 GM in Sodium Chloride 0.9% 100 ML IVPB SCH ×2 (01:19→14:43)
[2019-04-06] MEDS: Potassium Chloride 40 MEQ in Dextrose 5% in Water 1,000 ML IV SCH (03:45)
[2019-04-06] MEDS: HumaLOG 300 UNITS/3 ML VIAL SC PRN ×3 (06:43→17:32)
[2019-04-06] MEDS ORDERED: Potassium Chloride 20 MEQ TAB PO SCH (07:45)
[2019-04-06] MEDS: Metoclopramide 10 MG/10 ML UDCUP PER TUBE SCH ×4 (08:52→22:25)
[2019-04-06 09:30] LABS: Anion Gap 16 mmol/L (10-20); BUN (Urea Nitrogen) 40 mg/dL (8.4-25.7); Calc. Creatinine Clearance 134 mL/min (70-130); Calcium 9.5 mg/dL (7.8-10.44); Carbon Dioxide 23 mmol/L (22-29); Chloride 109 mmol/L (98-107); Estimated GFR-MDRD 86; Glucose 184 mg/dL (70-105); Potassium 3.5 mmol/L (3.5-5.1); Sodium 144 mmol/L (136-145)
[2019-04-06] MEDS: Multivitamins CHEW w/Iron Tablet PO SCH (10:18)
[2019-04-06] MEDS: Docusate Sodium 100 MG/10 ML UDCUP PO SCH ×2 (10:18→22:24)
[2019-04-06] MEDS: hydrALAZINE 25 MG TAB PO SCH ×3 (10:26→22:28)
[2019-04-06] MEDS: Metamucil PACK PER TUBE SCH ×2 (10:27→22:31)
[2019-04-06] MEDS: Multivitamin W/ Minerals 1 TAB PO SCH (10:27)
[2019-04-06] MEDS: Aspirin Chewable 81 MG TAB PO SCH (10:28)
[2019-04-06] MEDS: Escitalopram Oxalate 10 mg Tablet PO SCH (10:28)
[2019-04-06] MEDS: Folic Acid 1 MG TAB PO SCH (10:28)
[2019-04-06] MEDS: Pantoprazole 40 MG VIAL IVP SCH (10:30)
[2019-04-06] MEDS: Insulin Glargine 23 UNITS in Pre-Filled Syringe 1 EACH SC SCH (10:36)
[2019-04-06] MEDS: Carvedilol 6.25 MG TAB PO SCH ×2 (10:42→22:25)
[2019-04-06] MEDS: Amlodipine 10 MG TAB PO SCH (10:42)
--- NOTE | 2019-04-06 14:06 | PDOC.HOSPP ---
- Subjective Encounter Date: 04/06/19 Encounter Time: 11:40 Subjective: no acuity, earlier, no iv access, tying midline. as unsure when he is going to get definite ans and bed availability - Objective Vital Signs & Weight: Vital Signs (12 hours) Temp Pulse Resp BP BP BP Pulse Ox 04/06/19 11:44 98 F 91 20 124/69 100 04/06/19 10:53 83 14 100 04/06/19 10:42 80 110/73 04/06/19 10:26 80 110/72 04/06/19 08:36 100 04/06/19 07:38 98 F 84 18 141/86 H 100 04/06/19 06:53 84 18 100 04/06/19 04:00 97.9 F 80 18 107/61 98 Weight Admit Weight 282 lb 11.2 oz Weight 275 lb 3.2 oz Most Recent Monitor Data Heart Rate from ECG 75 NIBP 154/95 NIBP BP-Mean 114 Respiration from ECG 20 SpO2 98 I&O: 04/05/19 04/06/19 04/07/19 06:59 06:59 06:59 Intake Total 2410 1038 240 Output Total 335 2975 Balance 2075 -1937 240 Result Diagrams: 04/04/19 04:28 04/06/19 09:09 Additional Labs: Accuchecks 04/06/19 04/06/19 04/05/19 10:55 05:22 20:32 POC Glucose 177 H 169 H 171 H 04/05/19 17:05 POC Glucose 159 H Hospitalist ROS - Medication Medications: Active Medications Generic Name Dose Route Start Last Admin Trade Name Blu PRN Reason Stop Dose Admin Acetaminophen 1,000 mg 03/05/19 01:37 04/03/19 14:52 Tylenol Elixir PER TUBE 1,000 mg Q6H PRN Administration Fever/Mild Pain Albuterol/Ipratropium 3 ml 03/31/19 10:30 04/06/19 10:53 Duoneb NEB 3 ml [id number] PANCHO Administration Alteplase, Recombinant 2 mg 03/09/19 15:30 03/14/19 06:18 Cathflo CATH 2 mg WILLCALL PANCHO Administration Amlodipine Besylate 10 mg 02/13/19 09:00 04/06/19 10:42 Norvasc PO Not Given DAILY PANCHO Aspirin 81 mg 03/05/19 09:00 04/06/19 10:28 Aspirin Chewable PO 81 mg DAILY PANCHO Administration Atorvastatin Calcium 40 mg 02/08/19 21:00 04/05/19 21:17 Lipitor PO 40 mg HS PANCHO Administration Carvedilol 12.5 mg 02/08/19 21:00 04/06/19 10:42 Coreg PO Not Given BID [facility] Docusate Sodium 100 mg 02/25/19 21:00 04/06/19 10:18 Colace Liquid PO Not Given BID [facility] Escitalopram Oxalate 10 mg 03/04/19 09:00 04/06/19 10:28 Lexapro PO 10 mg DAILY [facility] Administration Folic Acid 1 mg 02/13/19 09:00 04/06/19 10:28 Folvite PO 1 mg DAILY [facility] Administration Hydralazine HCl 25 mg 02/12/19 15:00 04/06/19 10:26 Apresoline PO Not Given TID PANCHO Hydralazine HCl 10 mg 02/17/19 16:33 03/03/19 03:04 Apresoline SLOW IVP 10 mg Q4H PRN Administration BP > 220/110 Cefepime HCl 1 gm/ Sodium 100 mls @ 200 mls/hr 03/31/19 12:00 04/06/19 01:19 Chloride IVPB 100 mls Q12H [facility] Administration Vancomycin HCl 1 gm/ Device 200 mls @ 200 mls/hr 04/02/19 21:00 04/05/19 21: 16 IVPB 200 mls 2100 PANCHO Administration Insulin Glargine 14 units/ 0.14 mls @ 0 mls/hr 04/03/19 21:00 04/05/19 21:17 Miscellaneous Medication SC 0.14 mls HS PANCHO Administration Insulin Glargine 23 units/ 0.23 mls @ 0 mls/hr 04/04/19 09:00 04/06/19 10:36 Miscellaneous Medication SC 0.23 mls QAM [facility] Administration Potassium Chloride 40 meq/ 1,020 mls @ 50 mls/hr 04/04/19 09:30 04/06/19 03: 45 Dextrose/Water IV Not Given .[id number] [facility] Insulin Human Lispro 0 units 02/07/19 19:09 04/06/19 11:55 Humalog SC 2 unit .MILD SLIDING SCALE PRN Administration Mild Correctional Scale Insulin Human Lispro 0 units 02/07/19 19:09 03/08/19 22:44 Humalog SC 3 unit .BEDTIME SLIDING SC PRN Administration Bedtime Correctional Scale Iron/Minerals/Multivitamins 1 tab 03/07/19 09:00 04/06/19 10:27 Theragran M PO 1 tab DAILY PANCHO Administration Metoclopramide HCl 5 mg 03/17/19 21:00 04/06/19 08:52 Reglan PER TUBE 5 mg ACHS PANCHO Administration Ondansetron HCl 4 mg 02/07/19 19:05 02/15/19 14:23 Zofran IVP 4 mg Q6H PRN Administration Nausea/Vomiting Pantoprazole Sodium 40 mg 03/16/19 09:00 04/06/19 10:30 Protonix IVP 40 mg DAILY PANCHO Administration Polyethylene Glycol 17 gm 02/13/19 12:40 04/01/19 16:04 Miralax PO 17 gm DAILYPRN PRN Administration Constipation Psyllium Hydrophilic Mucilloid 1 pk 03/25/19 21:00 04/06/19 10:27 Metamucil PER TUBE 1 pk BID PANCHO Administration Scopolamine 1.5 mg 02/21/19 13:00 04/04/19 13:05 Transderm Scop TD 1.5 mg Q3D PANCHO Administration Sodium Chloride 10 ml 02/07/19 19:05 04/05/19 09:16 Flush - Normal Saline IVF 10 ml Q12H PRN Administration Saline Flush Sodium Chloride 10 ml 03/09/19 15:24 04/04/19 13:06 Flush - Normal Saline IVF 10 ml PRN PRN Administration Saline Flush Sodium Chloride 10 ml 03/10/19 18:50 04/01/19 10:13 Normal Saline Pf FS 10 ml PRN PRN Administration RECONSTITUTION Sterile Water 10 ml 03/09/19 15:30 03/09/19 17:33 Water For Injection IVP 10 ml WILLCALL PANCHO Administration - Exam General Appearance: NAD, awake alert Eye: PERRL ENT: normocephalic atraumatic Neck: supple Heart: RRR Respiratory: CTAB Gastrointestinal: soft, normal bowel sounds Neurological: cranial nerve grossly intact, no focal deficits Hosp A/P - Plan (1) Acute respiratory failure with hypoxia and hypercapnia Code(s): J96.01 - ACUTE RESPIRATORY FAILURE WITH HYPOXIA; J96.02 - ACUTE RESPIRATORY FAILURE WITH HYPERCAPNIA Status: Acute Plan: Continue trach care, O2 via T-collar, suture removal from trach site (2) Healthcare-associated pneumonia Code(s): J18.9 - PNEUMONIA, UNSPECIFIED ORGANISM Status: Acute Plan: Suspected, continue Cefepime/Vancomycin, trach care/suctioning, elevate HOB (3) Acute CVA (cerebrovascular accident) Code(s): I63.9 - CEREBRAL INFARCTION, UNSPECIFIED Status: Acute Plan: Slow clinical improvement, plan for [facility]cc PT/OT/PARK LANDSCAPE ARCHITECT (4) Acute on chronic renal insufficiency Code(s): N28.9 - DISORDER OF KIDNEY AND URETER, UNSPECIFIED; N18.9 - CHRONIC KIDNEY DISEASE, UNSPECIFIED Status: Acute (5) Hypernatremia Code(s): E87.0 - HYPEROSMOLALITY AND HYPERNATREMIA Status: Acute (6) Diabetes mellitus Code(s): E11.9 - TYPE 2 DIABETES MELLITUS WITHOUT COMPLICATIONS Status: Chronic Qualifiers: Diabetes mellitus type: type 2 Diabetes mellitus watermelon harvesting supervisor insulin use: with mcc use Diabetes mellitus complication status: with circulatory complication - Plan plan discussed w/ family, continue antibiotics, PT/OT, clinical social work aide, speech therapy, respiratory therapy Continue supportive mgmt Continue Cefepime/Vancomycin SNF placement pending IVF NS @ 100ml/h another 24-48h---------->will stop as Na up!!! Nutritional support with TF's, low gastric residuals Beto BID KCL supplementation Remove central line and culture catheter tip after establishing peripheral line -on cefepime --no fever, wbcs, catheter tip, done on 21swt -- no gorwht --bl jeremiah of 14 - no growth --one more day-- if no growth w.. the tip -- stop the abx. Hypernatremia---------->resolved on -stop NS -free water w.. TF 200ml q4. -am bmp. -Hyeprglycemia DM and a1c of 7.1 -- will adjust the scheduled insulin----getting better. Hypernatremia - NS given w..abx mix - D5 short course. sacral ulcer POA -wound care -s/p debridement. talk to ID doc and ok w.. stopping IV abx. -po bactrim given sacral ulcer and prevent any further worsening of the ulcer. -pending placement
[2019-04-06] MEDS: Insulin Glargine 14 UNITS in Pre-Filled Syringe 1 EACH SC SCH (22:24)
[2019-04-06] MEDS: Atorvastatin Calcium 40 MG TAB PO SCH (22:24)
[2019-04-06] MEDS: Sulfameth/Trimethoprim DS 800-160mg TAB PO SCH (22:25)
[2019-04-07] MEDS: Potassium Chloride 40 MEQ in Dextrose 5% in Water 1,000 ML IV SCH ×2 (01:41→17:55)
[2019-04-07] MEDS: HumaLOG 300 UNITS/3 ML VIAL SC PRN ×3 (06:28→17:46)
[2019-04-07] MEDS: Metoclopramide 10 MG/10 ML UDCUP PER TUBE SCH ×4 (09:28→21:31)
[2019-04-07] MEDS: Sulfameth/Trimethoprim DS 800-160mg TAB PO SCH ×2 (09:30→21:30)
[2019-04-07] MEDS: Folic Acid 1 MG TAB PO SCH (09:31)
[2019-04-07] MEDS: Multivitamin W/ Minerals 1 TAB PO SCH (09:31)
[2019-04-07] MEDS: Aspirin Chewable 81 MG TAB PO SCH (09:32)
[2019-04-07] MEDS: Docusate Sodium 100 MG/10 ML UDCUP PO SCH ×2 (09:32→21:13)
[2019-04-07] MEDS: Escitalopram Oxalate 10 mg Tablet PO SCH (09:32)
[2019-04-07] MEDS: Insulin Glargine 23 UNITS in Pre-Filled Syringe 1 EACH SC SCH (09:33)
[2019-04-07] MEDS: hydrALAZINE 25 MG TAB PO SCH ×3 (09:42→21:31)
[2019-04-07] MEDS: Amlodipine 10 MG TAB PO SCH (09:43)
[2019-04-07] MEDS: Carvedilol 6.25 MG TAB PO SCH ×2 (09:43→21:30)
[2019-04-07] MEDS: Pantoprazole 40 MG VIAL IVP SCH (09:56)
[2019-04-07] MEDS: Metamucil PACK PER TUBE SCH ×2 (10:13→21:31)
--- NOTE | 2019-04-07 12:32 | PDOC.HOSPP ---
- Subjective Encounter Date: 04/07/19 Encounter Time: 11:30 Subjective: doing well, BP good, no residues in his tube feed. talk to , possibly dc today? for SNF. - Objective Vital Signs & Weight: Vital Signs (12 hours) Temp Pulse Resp BP BP Pulse Ox 04/07/19 11:46 99.1 F 91 20 119/71 99 04/07/19 10:45 95 16 95 04/07/19 09:43 85 121/81 04/07/19 09:42 85 121/81 04/07/19 09:23 97 04/07/19 07:47 99.8 F H 86 20 113/72 97 04/07/19 06:44 71 14 99 04/07/19 04:36 98.6 F 94 16 103/61 94 L 04/07/19 01:50 89 16 96 Weight Admit Weight 282 lb 11.2 oz Weight 275 lb 3.2 oz Most Recent Monitor Data Heart Rate from ECG 75 NIBP 154/95 NIBP BP-Mean 114 Respiration from ECG 20 SpO2 98 I&O: 04/06/19 04/07/19 04/08/19 06:59 06:59 06:59 Intake Total 1038 3370 240 Output Total 2975 2670 Balance -1937 700 240 Result Diagrams: 04/04/19 04:28 04/06/19 09:09 Additional Labs: Accuchecks 04/07/19 04/06/19 04/06/19 06:09 20:31 17:04 POC Glucose 155 H 167 H 192 H Hospitalist ROS - Medication Medications: Active Medications Generic Name Dose Route Start Last Admin Trade Name Blu PRN Reason Stop Dose Admin Acetaminophen 1,000 mg 03/05/19 01:37 04/03/19 14:52 Tylenol Elixir PER TUBE 1,000 mg Q6H PRN Administration Fever/Mild Pain Albuterol/Ipratropium 3 ml 03/31/19 10:30 04/07/19 10:45 Duoneb NEB 3 ml [id number] PANCHO Administration Alteplase, Recombinant 2 mg 03/09/19 15:30 03/14/19 06:18 Cathflo CATH 2 mg WILLCALL PANCHO Administration Amlodipine Besylate 10 mg 02/13/19 09:00 04/07/19 09:43 Norvasc PO 10 mg DAILY PANCHO Administration Aspirin 81 mg 03/05/19 09:00 04/07/19 09:32 Aspirin Chewable PO 81 mg DAILY PANCHO Administration Atorvastatin Calcium 40 mg 02/08/19 21:00 04/06/19 22:24 Lipitor PO 40 mg HS [facility] Administration Carvedilol 12.5 mg 02/08/19 21:00 04/07/19 09:43 Coreg PO 12.5 mg BID PANCHO Administration Docusate Sodium 100 mg 02/25/19 21:00 04/07/19 09:32 Colace Liquid PO Not Given BID [facility] Escitalopram Oxalate 10 mg 03/04/19 09:00 04/07/19 09:32 Lexapro PO 10 mg DAILY [facility] Administration Folic Acid 1 mg 02/13/19 09:00 04/07/19 09:31 Folvite PO 1 mg DAILY [facility] Administration Hydralazine HCl 25 mg 02/12/19 15:00 04/07/19 09:42 Apresoline PO Not Given TID PANCHO Hydralazine HCl 10 mg 02/17/19 16:33 03/03/19 03:04 Apresoline SLOW IVP 10 mg Q4H PRN Administration BP > 220/110 Insulin Glargine 14 units/ 0.14 mls @ 0 mls/hr 04/03/19 21:00 04/06/19 22:24 Miscellaneous Medication SC 0.14 mls HS PANCHO Administration Insulin Glargine 23 units/ 0.23 mls @ 0 mls/hr 04/04/19 09:00 04/07/19 09:33 Miscellaneous Medication SC 0.23 mls QAM [facility] Administration Potassium Chloride 40 meq/ 1,020 mls @ 50 mls/hr 04/04/19 09:30 04/07/19 01: 41 Dextrose/Water IV Not Given .[id number] [facility] Insulin Human Lispro 0 units 02/07/19 19:09 04/07/19 11:36 Humalog SC 2 unit .MILD SLIDING SCALE PRN Administration Mild Correctional Scale Insulin Human Lispro 0 units 02/07/19 19:09 03/08/19 22:44 Humalog SC 3 unit .BEDTIME SLIDING SC PRN Administration Bedtime Correctional Scale Iron/Minerals/Multivitamins 1 tab 03/07/19 09:00 04/07/19 09:31 Theragran M PO 1 tab DAILY PANCHO Administration Metoclopramide HCl 5 mg 03/17/19 21:00 04/07/19 09:28 Reglan PER TUBE 5 mg ACHS PANCHO Administration Ondansetron HCl 4 mg 02/07/19 19:05 02/15/19 14:23 Zofran IVP 4 mg Q6H PRN Administration Nausea/Vomiting Pantoprazole Sodium 40 mg 03/16/19 09:00 04/07/19 09:56 Protonix IVP 40 mg DAILY PANCHO Administration Polyethylene Glycol 17 gm 02/13/19 12:40 04/01/19 16:04 Miralax PO 17 gm DAILYPRN PRN Administration Constipation Psyllium Hydrophilic Mucilloid 1 pk 03/25/19 21:00 04/07/19 10:13 Metamucil PER TUBE Not Given BID PANCHO Scopolamine 1.5 mg 02/21/19 13:00 04/04/19 13:05 Transderm Scop TD 1.5 mg Q3D PANCHO Administration Sodium Chloride 10 ml 02/07/19 19:05 04/05/19 09:16 Flush - Normal Saline IVF 10 ml Q12H PRN Administration Saline Flush Sodium Chloride 10 ml 03/09/19 15:24 04/04/19 13:06 Flush - Normal Saline IVF 10 ml PRN PRN Administration Saline Flush Sodium Chloride 10 ml 03/10/19 18:50 04/01/19 10:13 Normal Saline Pf FS 10 ml PRN PRN Administration RECONSTITUTION Sterile Water 10 ml 03/09/19 15:30 03/09/19 17:33 Water For Injection IVP 10 ml WILLCALL PANCHO Administration Trimethoprim/Sulfamethoxazole 1 tab 04/06/19 21:00 04/07/19 09:30 Bactrim Ds PO 1 tab BID PANCHO Administration - Exam General Appearance: NAD, awake alert ENT: normocephalic atraumatic Neck: supple Heart: RRR Respiratory: CTAB Gastrointestinal: normal bowel sounds Hosp A/P - Plan (1) Acute respiratory failure with hypoxia and hypercapnia Code(s): J96.01 - ACUTE RESPIRATORY FAILURE WITH HYPOXIA; J96.02 - ACUTE RESPIRATORY FAILURE WITH HYPERCAPNIA Status: Acute Plan: Continue trach care, O2 via T-collar, suture removal from trach site (2) Healthcare-associated pneumonia Code(s): J18.9 - PNEUMONIA, UNSPECIFIED ORGANISM Status: Acute Plan: Suspected, continue Cefepime/Vancomycin, trach care/suctioning, elevate HOB (3) Acute CVA (cerebrovascular accident) Code(s): I63.9 - CEREBRAL INFARCTION, UNSPECIFIED Status: Acute Plan: Slow clinical improvement, 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 (4) Acute on chronic renal insufficiency Code(s): N28.9 - DISORDER OF KIDNEY AND URETER, UNSPECIFIED; N18.9 - CHRONIC KIDNEY DISEASE, UNSPECIFIED Status: Acute (5) Hypernatremia Code(s): E87.0 - HYPEROSMOLALITY AND HYPERNATREMIA Status: Acute (6) Diabetes mellitus Code(s): E11.9 - TYPE 2 DIABETES MELLITUS WITHOUT COMPLICATIONS Status: Chronic Qualifiers: Diabetes mellitus type: type 2 Diabetes mellitus buttermaker helper insulin use: with fpc use Diabetes mellitus complication status: with circulatory complication - Plan plan discussed w/ family, continue antibiotics, PT/OT, security services specialist, speech therapy, respiratory therapy Continue supportive mgmt Continue Cefepime/Vancomycin SNF placement pending IVF NS @ 100ml/h another 24-48h---------->will stop as Na up!!! Nutritional support with TF's, low gastric residuals Beto BID KCL supplementation Remove central line and culture catheter tip after establishing peripheral line -on cefepime --no fever, wbcs, catheter tip, done on 21swt -- no gorwht --bl jeremiah of 14th - no growth --one more day-- if no growth w.. the tip -- stop the abx. Hypernatremia---------->resolved on -stop NS -free water w.. TF 200ml q4. -am bmp. -Hyeprglycemia DM and a1c of 7.1 -- will adjust the scheduled insulin----getting better. Hypernatremia - NS given w..abx mix - D5 short course. sacral ulcer POA -wound care -s/p debridement. talk to ID doc and ok w.. stopping IV abx. -po bactrim given sacral ulcer and prevent any further worsening of the ulcer. -pending placement. no acuity pending placement, may be today? nutirition recommendations noted.
[2019-04-07] MEDS: Scopolamine 1.5 mg/72 hour Patch TD SCH (13:39)
[2019-04-07] MEDS: Atorvastatin Calcium 40 MG TAB PO SCH (21:30)
[2019-04-07] MEDS: Insulin Glargine 14 UNITS in Pre-Filled Syringe 1 EACH SC SCH (23:10)
[2019-04-08] MEDS: Acetaminophen 650 MG/20.3 ML UDCUP PER TUBE PRN (04:39)
[2019-04-08] MEDS: HumaLOG 300 UNITS/3 ML VIAL SC PRN ×2 (06:25→12:13)
[2019-04-08] MEDS ORDERED: Pantoprazole 40 MG GRANULES PACKET PO SCH (09:00)
[2019-04-08] MEDS: Insulin Glargine 23 UNITS in Pre-Filled Syringe 1 EACH SC SCH (09:29)
[2019-04-08] MEDS: Metoclopramide 10 MG/10 ML UDCUP PER TUBE SCH ×2 (09:29→12:13)
[2019-04-08] MEDS: Escitalopram Oxalate 10 mg Tablet PO SCH (09:30)
[2019-04-08] MEDS: Sulfameth/Trimethoprim DS 800-160mg TAB PO SCH (09:30)
[2019-04-08] MEDS: Carvedilol 6.25 MG TAB PO SCH (09:30)
[2019-04-08] MEDS: Multivitamin W/ Minerals 1 TAB PO SCH (09:30)
[2019-04-08] MEDS: Aspirin Chewable 81 MG TAB PO SCH (09:30)
[2019-04-08] MEDS: Docusate Sodium 100 MG/10 ML UDCUP PO SCH (09:30)
[2019-04-08] MEDS: Folic Acid 1 MG TAB PO SCH (09:31)
[2019-04-08] MEDS: Amlodipine 10 MG TAB PO SCH (09:31)
[2019-04-08] MEDS: hydrALAZINE 25 MG TAB PO SCH (09:31)
[2019-04-08] MEDS: Metamucil PACK PER TUBE SCH (09:33)
[2019-04-08 12:07] VITALS: TEMP 99.3
[2019-04-08 15:17] VITALS: BP 123/77
--- NOTE | 2019-04-08 23:54 | DIS ---
DATE OF ADMISSION: 02/07/2019 DATE OF DISCHARGE: 04/08/2019 DISCHARGE DIAGNOSES: 1. Acute respiratory failure with hypoxia and hypercapnia. 2. Healthcare-associated pneumonia. 3. Acute cerebrovascular accident with slow clinical improvement. 4. Acute on chronic renal insufficiency. 5. Hypernatremia, that is resolved. 6. Type 2 diabetes mellitus. DISCHARGE MEDICATIONS: 1. Lisinopril 10 mg twice a day. 2. Levemir 40 units subcu daily. 3. Glipizide 5 mg daily. 4. Lasix 40 mg daily. 5. Lipitor 40 mg daily. 6. Amlodipine 5 mg daily. PHYSICAL EXAMINATION: VITAL SIGNS: On the day of discharge, he is afebrile, blood pressure 131/83, saturating 98% on room air. GENERAL: He has a trach collar. He looks comfortable. No acuity noted overnight or this morning. Discussed with the . CARDIOVASCULAR: Regular rate and rhythm without murmurs, rubs, or gallops. LUNGS: Clear to auscultation bilaterally without wheezing, rales, or rhonchi. PEG tube in place. ABDOMEN: Good bowel sounds. HOSPITAL COURSE: This is a 58-year-old male with a left below- knee amputation and other medical comorbidities including type 2 diabetes mellitus, admitted with acute respiratory failure with hypoxia and hypercapnia. He has treated appropriately with broad-spectrum antibiotics. His hospital stay is very lengthy one, please read H and P and daily progress note for more details. Also , his placement is delayed due to the [facility] associated service. The patient had some occult blood positive and GI did follow briefly. The patient had some episodes of bradycardia, but that was resolved as well. He has a history of morbid obesity and ischemic cardiomyopathy. Current echo showed EF of 65% with left ventricular hypertrophy. The patient also presented with osteomyelitis and sepsis and developed respiratory failure leading to PEA in the setting of infectious process. Home Administrator did evaluate him. Not very concerned about his bradycardia, which seems to be reasonable given ongoing several acuities. The pacemaker and ICD not indicated. Again, he has likely respiratory hemodynamic arrest. No further workup required. He was continued with the beta lorena. Again, his hospital course is delayed due to placement and insurance issues. The patient will be transferred today hemodynamically in a stable condition to the [facility] facility. DISCHARGE INSTRUCTIONS: Activity with supervision. Healthy heart diet. Follow up with the primary care physician in one week. TIME SPENT: Discharge time took over 30 minutes. Job ID: [id number] MTDD
--- NOTE | 2019-04-11 00:32 | PQF ---
Brian Silvestre SOUNDARI [id number] CLINICAL DOCUMENTATION CLARIFICATION FORM: POST DISCHARGE Addendum to original discharge summary date: ____ Late entry note date: __ DATE:04/11/2019 ATTN: Raquel Alves Please exercise your independent, professional judgment in responding to the clarification form. Clinical indicators are provided on the bottom of this form for your review Diagnosis: Sepsis Present on Admission (POA): [ ] Yes [ ] No [ ] Unable to determine Coding guidelines require hospitals to identify whether a diagnosis was present on admission (POA) or not. To accurately assign the appropriate POA indicator, this information must be clearly documented within the medical record. CLINICAL INDICATORS - SIGNS / SYMPTOMS / LABS Laboratory 02/07 WBC 6.5, Neutrophils 58.4, Platelet count 271, Lactic Acid 1.7, Microbiology 02/07 Wound culture postive with Proteus penneri, E coli, Strep Group B, Enterococcus Faecalis Vital signs 02/07 BP 98/60, pulse 88, Resp 18, Temp 99.1 ED notes p2 02/07 SIRS scoring: Yes, pt did meet at least 1 criteria H&P p1 02/07 Ronan MACK States he has been feeling unwell with chills and feeling feverish for the last two days despite being seen at [facility] and placed on abx for an infection involing the left foot Pathology report p1 02/14 Ischemic ulceration (gangrene), Osteomyelitis Discharge summary p1 04/08 Dr Monroy The pt also presented with osteomyelitis and sepsis and eventually developed respiratory failure and short resuscitation for PEA in the setting of infectious process RISK FACTORS: H&P p2 02/07 DM H&P p2 02/07 HTN H&P p2 02/07 HLD H&P p2 02/07 chewing tobacco H&P p4 02/07 Left leg wound Consult p1 02/08 Acute kidney injury Operative report p1 02/09 Obesity Operative report p1 02/09 Be medial necrotizing skin and soft tissue Operative report p1 02/09 Osteomyelitis TREATMENT: APR 20 IV Vancomycin 2gm APR 20 IV Cefepime 2gm APR 20 IV Zosyn 4.5 APR 20 IV triple antibiotics 1gm APR 20 IVF NS 1L MAR Augmentin 875 mg po APR Augmentin 875 mg po APR - Ciprofloxacin 500mg po APR 09 IV Levofloxacin 750mg APR 09 Epinephrin 3mg Blood culture ordered 02/07 Surgery consult 02/07 Dr Moreno, Antoine Excisional Debridement 02/07 Dr Moreno BKA 02/14 Dr Moreno (This form is maintained as a part of the permanent medical record) 2014 [employer]. All Rights Reserved [email or web address]
== END 2019-04-08 16:03 | DRG 3 ==
LOC: ERS 11:37 → T4-A 18:05 → IMCU/EMU 02-16 20:18 → CCU 02-23 08:06 → 2SE 03-03 13:59
PROVIDERS: ADMIT Internal Medicine; ATTEND Internal Medicine
PROC: 0KBW0ZZ Excision of Left Foot Muscle, Open Approach (ICD-10-PCS; 2019-02-07)
PROC: 0QBH0ZZ Excision of Left Tibia, Open Approach (ICD-10-PCS; principal; 2019-02-09)
PROC: 0JBR0ZZ Excision of Left Foot Subcutaneous Tissue and Fascia, Open Approach (ICD-10-PCS; 2019-02-09)
PROC: 02HV33Z Insertion of Infusion Device into Superior Vena Cava, Percutaneous Approach (ICD-10-PCS; 2019-02-09)
PROC: 0Y6J0Z3 Detachment at Left Lower Leg, Low, Open Approach (ICD-10-PCS; 2019-02-14)
PROC: 30243N1 Transfusion of Nonautologous Red Blood Cells into Central Vein, Percutaneous Approach (ICD-10-PCS; 2019-02-14)
PROC: 0T9B70Z Drainage of Bladder with Drainage Device, Via Natural or Artificial Opening (ICD-10-PCS; 2019-02-18)
PROC: 5A12012 Performance of Cardiac Output, Single, Manual (ICD-10-PCS; 2019-02-23)
PROC: 3E043XZ Introduction of Vasopressor into Central Vein, Percutaneous Approach (ICD-10-PCS; 2019-02-23)
PROC: 0B110F4 Bypass Trachea to Cutaneous with Tracheostomy Device, Open Approach (ICD-10-PCS; 2019-02-28)
PROC: 0BH17EZ Insertion of Endotracheal Airway into Trachea, Via Natural or Artificial Opening (ICD-10-PCS; 2019-02-28)
PROC: 0DH63UZ Insertion of Feeding Device into Stomach, Percutaneous Approach (ICD-10-PCS; 2019-02-28)
PROC: 5A1955Z Respiratory Ventilation, Greater than 96 Consecutive Hours (ICD-10-PCS; 2019-02-28)
PROC: 5A1955Z Respiratory Ventilation, Greater than 96 Consecutive Hours (ICD-10-PCS; 2019-02-28)
PROC: 05HN33Z Insertion of Infusion Device into Left Internal Jugular Vein, Percutaneous Approach (ICD-10-PCS; 2019-02-28)
PROC: B544ZZA Ultrasonography of Left Jugular Veins, Guidance (ICD-10-PCS; 2019-02-28)
PROC: 0JB70ZZ Excision of Back Subcutaneous Tissue and Fascia, Open Approach (ICD-10-PCS; 2019-04-04)
DX: E11.52 Type 2 diabetes mellitus with diabetic peripheral angiopathy with gangrene (principal); T83.511A Infection and inflammatory reaction due to indwelling urethral catheter, initial encounter; B37.49 Other urogenital candidiasis; J96.01 Acute respiratory failure with hypoxia; J18.9 Pneumonia, unspecified organism; G92 Toxic encephalopathy; I46.9 Cardiac arrest, cause unspecified; J96.02 Acute respiratory failure with hypercapnia; I50.33 Acute on chronic diastolic (congestive) heart failure; A41.9 Sepsis, unspecified organism; E87.0 Hyperosmolality and hypernatremia; I96 Gangrene, not elsewhere classified; N17.9 Acute kidney failure, unspecified; I13.0 Hypertensive heart and chronic kidney disease with heart failure and stage 1 through stage 4 chronic kidney disease, or unspecified chronic kidney disease; M86.8X6 Other osteomyelitis, lower leg; N18.4 Chronic kidney disease, stage 4 (severe); E66.2 Morbid (severe) obesity with alveolar hypoventilation; N13.30 Unspecified hydronephrosis; G93.1 Anoxic brain damage, not elsewhere classified; G81.94 Hemiplegia, unspecified affecting left nondominant side; R47.01 Aphasia; D62 Acute posthemorrhagic anemia; Y95 Nosocomial condition; E78.00 Pure hypercholesterolemia, unspecified; E78.5 Hyperlipidemia, unspecified; E11.22 Type 2 diabetes mellitus with diabetic chronic kidney disease; F17.220 Nicotine dependence, chewing tobacco, uncomplicated; E11.621 Type 2 diabetes mellitus with foot ulcer; L97.529 Non-pressure chronic ulcer of other part of left foot with unspecified severity; N18.3 Chronic kidney disease, stage 3 (moderate); D63.1 Anemia in chronic kidney disease; E11.69 Type 2 diabetes mellitus with other specified complication; I25.5 Ischemic cardiomyopathy; B96.4 Proteus (mirabilis) (morganii) as the cause of diseases classified elsewhere; E86.0 Dehydration; N47.2 Paraphimosis; B95.2 Enterococcus as the cause of diseases classified elsewhere; E11.40 Type 2 diabetes mellitus with diabetic neuropathy, unspecified; L89.152 Pressure ulcer of sacral region, stage 2; I63.443 Cerebral infarction due to embolism of bilateral cerebellar arteries; K59.00 Constipation, unspecified; Y84.6 Urinary catheterization as the cause of abnormal reaction of the patient, or of later complication, without mention of misadventure at the time of the procedure; E11.65 Type 2 diabetes mellitus with hyperglycemia; E88.81 Metabolic syndrome and other insulin resistance; E87.8 Other disorders of electrolyte and fluid balance, not elsewhere classified; R13.10 Dysphagia, unspecified; E83.52 Hypercalcemia; R00.1 Bradycardia, unspecified; Z79.899 Other long term (current) drug therapy; Z79.4 Long term (current) use of insulin; Z68.38 Body mass index [BMI] 38.0-38.9, adult; Z79.82 Long term (current) use of aspirin
CPT/HCPCS: 36415; 36416; 36430; 70450; 70551; 71045; 71250; 74018; 76770; 80048; 80053; 80202; 81001; 81003; 81015; 82274; 82607; 82728; 82746; 82805; 83036; 83540; 83605; 83735; 83880; 84100; 84443; 84484; 85007; 85014; 85018; 85025; 85027; 85049; 86850; 86900; 86901; 86922; 87040; 87070; 87071; 87076; 87077; 87086; 87186; 87205; 87324; 87449; 88307; 88311; 93005; 93010; 93306; 93880; 93970; 94002; 94003; 94640; 94760; 96365; 96367; C9113; J0171; J0360; J0670; J0692; J0696; J1450; J1644; J1650; J1815; J1885; J1940; J1956; J2001; J2185; J2250; J2270; J2405; J2543; J2704; J2916; J2997; J3010; J3370; J3475; J3480; J3490; J7050; J7070; J7620; L8460; P9016; S0020; S0028